=== PATIENT | male | born 1970 | race Caucasian/White ===

== ENCOUNTER 2020-07-11 07:11 | Outpatient (REF) | payer BC, SELFPAY ==
[2020-07-11 08:28] LABS: Alanine Aminotransferase 31 U/L (0-40); Albumin Level 4.6 g/dL (3.5-5.0); Alkaline Phosphatase 82 U/L (39-117); Anion Gap 9 (12-20); Aspartate Amino Transferase 26 U/L (5-37); Bilirubin Total 0.9 mg/dL (0.0-1.0); Blood Urea Nitrogen 12 mg/dL (9-16); Calcium 9.1 mg/dL (8.4-10.2); Carbon Dioxide 31 mmol/L (22-29); Chloride 105 mmol/L (96-108); Cholesterol 194 mg/dL; Estimated Glomerular Filt Rate > 60; Glucose Fasting 100 mg/dL (60-99); HDL Cholesterol 56 mg/dL; LDL Cholesterol Calculated 110 mg/dl; Potassium 4.1 mmol/l (3.3-5.1); Sodium 141 mmol/L (135-145); Total Protein 6.9 g/dL (6.5-8.0); Triglycerides 141 mg/dL
[2020-07-11 08:34] LABS: Free T4 (Free Thyroxine) 0.84 ng/dL (0.71-1.85); Thyroid Stimulating Hormone 2.88 uIU/mL (0.32-4.0)
== END 2020-07-11 07:12 | disposition home or self-care (01) ==
LOC: HO.LAB 07:11
PROVIDERS: Visit Provider Internal Medicine
DX: E78.5 Hyperlipidemia, unspecified (principal); R94.6 Abnormal results of thyroid function studies; E66.3 Overweight
CPT/HCPCS: 80053; 80061; 84439; 84443

== ENCOUNTER 2020-11-09 06:18 | Day surgery (SDC) | payer BC, SELFPAY ==
[2020-11-05 15:36] VITALS: BMI 28.3
--- NOTE | 2020-11-08 10:25 | P.CONAN_ITS ---
Documented by User: Jenny Otto 11/08/20 10:25 HPI - Anesthesia Eval Consult details Narrative: 50yo M for Colonoscopy PMFSH Active Problems Active Problems: All Active Problems (Updated 11/05/20 @ 15:35 by Patsy Gresham) Colon cancer screening (Acute) Urinary hesitancy (Acute) Overweight (BMI 25.0-29.9) (Acute) Elevated TSH (Acute) GERD without esophagitis (Acute) Pure hypercholesterolemia (Acute) Past Medical History Medical History Colon cancer screening Elevated TSH GERD without esophagitis History of COVID-19 Overweight (BMI 25.0-29.9) Pure hypercholesterolemia Tension headache Urinary hesitancy Family History Family History Father Cancer Mother No problems noted. Surgical History Surgical History No pertinent past surgical history [place] teeth removed Social History Social History Are you a primary managed care analyst to a significant other at home: No Do you presently have visiting nurse or other home services: No Alcohol intake: current Alcohol intake frequency: a few times a month Smoking Status: Never smoker Have you been hit, kicked, punched, or otherwise hurt by someone within the past year? If so, by whom?: No Advance Directives: No Advance Directives Information Provided: No Advance Directives on File: No Recently lost weight without trying: No Meds Allergies Allergy/AdvReac Type Severity Reaction Status Date / Time No Known Allergies Allergy Verified 11/05/20 15:35 Home Medications Medication Instructions Recorded Confirmed Last Taken Type qhayiqtinp-ncotmvnroeytg-hmhmpocv 1 tab PO TID PRN tab 08/14/20 11/05/20 Unknown History 50 mg-325 mg-40 mg tablet multivitamin 1 tab PO DAILY 08/14/20 11/05/20 Unknown History Exam Exam Date and Time: November 08, 2020 1025 Height,Weight and Vital Signs: Height 5 ft 8 in Weight 84.368 kg Assessment and Plan Assessment Anesthesia Assessment: Chart Reviewed Documented by User: Tasia Adamson 11/09/20 07:28 [facility] Past Medical History Medical History Colon cancer screening Elevated TSH GERD without esophagitis History of COVID-19 Overweight (BMI 25.0-29.9) Pure hypercholesterolemia Tension headache Urinary hesitancy Family History Family History Father Cancer Mother No problems noted. Surgical History Surgical History No pertinent past surgical history [place] teeth removed Social History Social History Are you a primary managed care analyst to a significant other at home: No Do you presently have visiting nurse or other home services: No Alcohol intake: current Alcohol intake frequency: a few times a month Smoking Status: Never smoker Have you been hit, kicked, punched, or otherwise hurt by someone within the past year? If so, by whom?: No Advance Directives: No Advance Directives Information Provided: No Advance Directives on File: No Recently lost weight without trying: No Meds Allergies Allergy/AdvReac Type Severity Reaction Status Date / Time No Known Allergies Allergy Verified 11/05/20 15:35 Home Medications Medication Instructions Recorded Confirmed Last Taken Type hbmcfxbpvt-hribthumhovfx-vdylbcmb 1 tab PO TID PRN tab 08/14/20 11/05/20 Unknown History 50 mg-325 mg-40 mg tablet multivitamin 1 tab PO DAILY 08/14/20 11/05/20 Unknown History Exam Height,Weight and Vital Signs: Vital Signs Temp Pulse Resp BP Pulse Ox 11/09/20 06:59 78 18 108/66 99 11/09/20 06:56 58 18 119/56 L 99 11/09/20 06:32 97.3 F 94 18 121/76 98 Airway Mallampati Class: III TM Dist: >3cm Neck ROM: Full Heart: RRR Lungs: CTAB Assessment and Plan Assessment Anesthesia Assessment: Anesthesia Plan Discussed and Chart Reviewed Final Anesthetic Review NPO: Yes ASA Class: II Final Preanesthetic Review: No Changes in Pt Med Stat, Meds/Allgs Chart Reviewed, Consent Obtained/Reviewed and Anes Risks/Benef Reviewed Patient Risk: Low Procedure Risk: Low Assessment/Block/Sedation in SS: Assess/Block/Sedation-SS Anesthetic Plan Anesthetic Plan: MAC: Disposition: Standard PACU
[2020-11-09 06:32] VITALS: BP 121/76; PULSE 94; RESP 18; TEMP 36.3; O2SAT 98
[2020-11-09] MEDS: Lactated Ringers 1,000 ML 100 ML IVCONT (06:53)
--- NOTE | 2020-11-09 06:55 | PC.NURSE ---
pt felt dizzy and very warm per pt after iv inserted neuros intact vss pulse was 58 from 94. chexk of vs wnl fluid out wide ls clear pt sts feeling better after 5 mins nsr anesthesia aware
[2020-11-09 06:56] VITALS: BP 119/56; PULSE 58; RESP 18; O2SAT 99
[2020-11-09 06:59] VITALS: BP 108/66; PULSE 78; RESP 18; O2SAT 99
--- NOTE | 2020-11-09 07:22 | MHC.SHP ---
Pre-Procedural Eval Section A The patient is an INPATIENT: No Changes since office visit: No Cold of Flu in the past 2 weeks, No New Medical Problems, No Changes in Medication and No Patient answered all questions The History & Physical has been completed within 30 days and I have reviewed it.: Yes Section B Chief Complaint: screening Allergies: Allergies Allergy/AdvReac Type Severity Reaction Status Date / Time No Known Allergies Allergy Verified 11/05/20 15:35 Plan I have reviewed the history and physical and performed a pertinent physical examination on my patient. No changes have occurred unless specified.
--- NOTE | 2020-11-09 07:55 | PM.OP ---
Brief Operative Note Date of Service: 11/09/20 Pre-op diagnosis: screening Post-op diagnosis: same (colon polyps) Procedure: colonoscopy Surgeon: Tarik Hutchinson Estimated blood loss (mL): 2 Pathology: other (polyps x3) Condition: stable Disposition: PACU
[2020-11-09 07:57] VITALS: BP 94/52; PULSE 68; RESP 16; TEMP 36.2; O2SAT 96
[2020-11-09 08:12] VITALS: BP 95/61; PULSE 61; RESP 16; O2SAT 97
[2020-11-09 08:27] VITALS: BP 105/64; PULSE 69; RESP 18; O2SAT 97
--- NOTE | 2020-11-09 10:21 | OP_ITS ---
SURGEON: Tarik Hutchinson MD INDICATIONS: Colon cancer screening. PREOPERATIVE DIAGNOSIS: POSTOPERATIVE DIAGNOSIS: PROCEDURE PERFORMED: Colonoscopy to the terminal ileum with snare polypectomy and biopsy. ESTIMATED BLOOD LOSS: COMPLICATIONS: ANESTHESIA: ASSISTANTS: SPECIMENS: MEDICATIONS: Monitored anesthesia care. DESCRIPTION OF PROCEDURE: History and physical performed. The risks and benefits of the procedure were explained to the patient. Informed consent was obtained. The patient was placed in left lateral decubitus position. A digital rectal exam was performed and was found to be normal. The Olympus pediatric video colonoscope was introduced into the rectum and advanced to the cecum without difficulty. The cecum was identified by transillumination, palpation, and identification of ileocecal valve. Examination was performed and the scope was removed. He tolerated the procedure well and was taken to recovery area in stable condition. FINDINGS: The terminal ileum was normal. The visualized colonic mucosa was normal. Three polyps were removed. All were less than 10 mm and were removed with combination of snare and biopsy. These were located in the cecum at 65 cm and in the rectum. Retroflexed examination was normal. There was scattered diverticulosis throughout the colon. No other polyps were identified. The quality of the prep was good. IMPRESSION: Colon polyps. RECOMMENDATION: Follow up the biopsy results. MD JOCE Farooq/JOSEL / [id number]
== END 2020-11-09 08:43 | disposition home or self-care (01) ==
PROVIDERS: PCP Internal Medicine; Visit Provider Internal Medicine Gastroenterology
PROC: 0DJD8ZZ Inspection of Lower Intestinal Tract, Via Natural or Artificial Opening Endoscopic (ICD-10-PCS; CPT 45378; principal; 2020-11-09 07:30)
DX: Z12.11 Encounter for screening for malignant neoplasm of colon (principal); K63.5 Polyp of colon; K62.1 Rectal polyp; K57.30 Diverticulosis of large intestine without perforation or abscess without bleeding; K21.9 Gastro-esophageal reflux disease without esophagitis; G44.209 Tension-type headache, unspecified, not intractable; Z86.16 Personal history of COVID-19; Z79.899 Other long term (current) drug therapy
CPT/HCPCS: 45385; 45380; 88305

== ENCOUNTER 2020-12-06 07:04 | Outpatient (REF) | payer BC, SELFPAY ==
[2020-12-06 08:21] LABS: MANUAL DIFF FLAG NO
[2020-12-06 08:31] LABS: Basophils Percent Auto 0.5 % (0-2); Eosinophils Absolute Auto 0.2 X10*3/uL (0.0-0.4); Eosinophils Percent Auto 3.8 % (0-4); Hematocrit 43.6 % (42-52); Hemoglobin 14.5 g/dl (14.0-18.0); Imm Gran Abs Auto 0.02 X10*3/uL (0.00-0.03); Imm Gran Pct Auto 0.4 % (0.0-0.4); Lymphocytes Absolute Auto 1.4 X10*3/uL (1.2-4.9); Lymphocytes Percent Auto 24.2 % (20-40); Mean Corpuscular HGB Conc 33.3 g/dl (31.0-36.0); Mean Corpuscular Volume 87.2 fL (80-98); Monocytes Absolute Auto 0.6 X10*3/uL (0.1-1.2); Monocytes Percent Auto 11.1 % (2-11); Neutrophils Absolute Auto 3.3 X10*3/uL (2.0-8.3); Platelet Count 170 X10*3/uL (160-400); Red Cell Distribution Width 12.5 % (11.0-16.0); White Blood Count 5.6 X10*3/uL (4.8-10.8)
[2020-12-06 08:32] LABS: Glucose Urine UA NEG (NEG); Leukocyte Esterase Urine NEG (NEG); Nitrite Urine NEG (NEG); Urine Blood NEG (NEG); Urine Ketones NEG (NEG); Urine Protein NEG (NEG-TRACE)
[2020-12-06 08:34] LABS: Appearance Urine CLEAR; Color Urine YELLOW
[2020-12-06 09:08] LABS: Alanine Aminotransferase 25 U/L (0-40); Albumin Level 4.4 g/dL (3.5-5.0); Alkaline Phosphatase 85 U/L (39-117); Anion Gap 13 (12-20); Aspartate Amino Transferase 20 U/L (5-37); Bilirubin Total 0.9 mg/dL (0.0-1.0); Blood Urea Nitrogen 10 mg/dL (9-16); Calcium 9.3 mg/dL (8.4-10.2); Carbon Dioxide 26 mmol/L (22-29); Chloride 106 mmol/L (96-108); Cholesterol 152 mg/dL; Estimated Glomerular Filt Rate > 60; Glucose Fasting 93 mg/dL (60-99); HDL Cholesterol 63 mg/dL; LDL Cholesterol Calculated 77 mg/dl; Sodium 141 mmol/L (135-145); Triglycerides 63 mg/dL
[2020-12-06 09:14] LABS: Prostate Specific Antigen 1.25 ng/mL (<0.05-4.0)
== END 2020-12-06 07:05 | disposition home or self-care (01) ==
LOC: HO.LAB 07:04
PROVIDERS: PCP Internal Medicine; Visit Provider Internal Medicine
DX: Z12.5 Encounter for screening for malignant neoplasm of prostate (principal); E66.3 Overweight; E78.00 Pure hypercholesterolemia, unspecified; R79.89 Other specified abnormal findings of blood chemistry; R39.11 Hesitancy of micturition; K21.9 Gastro-esophageal reflux disease without esophagitis
CPT/HCPCS: 36415; 80053; 80061; 81003; 84153; 84443; 85025

== ENCOUNTER 2021-01-14 08:36 | Emergency (ER) | payer BC, SELFPAY ==
[2021-01-14 08:39] VITALS: BP 141/93; PULSE 79; RESP 18; TEMP 36.4; O2SAT 99; BMI 27.3
--- NOTE | 2021-01-14 09:19 | ED_ITS ---
HPI - Back Pain/Injury General Chief Complaint: Back Pain/Injury Stated Complaint: Back pain Time Seen by Provider: 01/14/21 09:19 History of Present Illness HPI Narrative: patient complains of left-sided back pain radiating to the left gluteal area and left thigh for 2 days , pain started when he bended to put on a shoe No numbness no weakness no incontinence no changes to bowel or bladder no fever Related Data Home Medications Medication Instructions Recorded Confirmed iwgysgpwlx-bvnzydsbfamxx-aukryprb 1 tab PO TID PRN tab 08/14/20 12/12/20 50 mg-325 mg-40 mg tablet multivitamin 1 tab PO DAILY 08/14/20 12/12/20 Previous Rx's Medication Instructions Recorded atorvastatin 10 mg tablet 10 mg PO BEDTIME 90 Days #90 tab 08/27/20 acetaminophen 1,000 mg PO QID PRN #30 tab 01/14/21 cyclobenzaprine 5 mg PO TID PRN #14 tab 01/14/21 ibuprofen 600 mg PO Q6H PRN #20 tab 01/14/21 oxycodone 5 mg PO Q6H PRN #14 tab 01/14/21 prednisone 60 mg PO DAILY 3 Days #9 tab 01/14/21 Allergies Allergy/AdvReac Type Severity Reaction Status Date / Time No Known Allergies Allergy Verified 12/12/20 14:16 Review of Systems Review of Systems: positive for back pain Negatives are no fever no chills no dizziness no weakness no fainting no feeling faint no chest pain no neck pain no shortness of breath no abdominal pain no dysuria no changes to bowel or bladder no incontinence no frequency no skin rash Yes all other systems are reviewed and are negative PMFSH Past Medical History Source: nursing notes reviewed Medical History (Updated 01/14/21 @ 09:51 by LA Concepcion) Elevated TSH GERD without esophagitis History of COVID-19 Normal colonoscopy (~11/09/20) Overweight (BMI 25.0-29.9) Pure hypercholesterolemia Tension headache Urinary hesitancy Surgical History (Updated 12/12/20 @ 14:37 by Addi Ferreira MD) [place] teeth removed Family History Family History Father Cancer Mother No problems noted. Social History Social History Are you a primary director of career resources to a significant other at home: No Do you presently have visiting nurse or other home services: No Alcohol intake: current Alcohol intake frequency: a few times a month Patient Tobacco Use Status: Never used Tobacco Advance Directives: No Advance Directives Information Provided: No Physical Exam Vital Signs: Vital Signs: Last Vital Signs Temp 97.5 F 01/14/21 08:39 Pulse 79 01/14/21 08:39 Resp 18 01/14/21 08:39 BP 141/93 H 01/14/21 08:39 Pulse Ox 99 01/14/21 08:39 Body Mass Index 27.3 general appearance no distress Head is normocephalic atraumatic Neck is supple The respiratory no acute distress Abdomen soft nontender Extremities full range of motion x4 The back had left lower lumbar tenderness, skin was normal, no midline or bony tenderness, no CVA tenderness, no rashes redness or wounds on the skin, pain is easily reproduced with movement Skin no rashes Neuro no focal motor or sensory deficits, gait and balance are normal and motor is 5/5 x4 Course Course Course Narrative: patient is treated for musculoskeletal back pain with no neurologic deficit no changes to bowel or bladder no fever Discharge Plan Discharge Clinical Impression: Sciatica Patient Disposition: Home, Self-Care Additional Instructions: we are treating back pain with pain medicine muscle relaxer and steroid prednisone Prednisone sometimes reduces inflammation around the nerve and may be helpful The muscle relaxer and the oxycodone can make you sleepy so use with caution Follow with your doctor if needed Return to the ER any time any worse condition or any concerns Prescriptions: New acetaminophen 500 mg tablet 1,000 mg PO QID PRN (Reason: pain) Qty: 30 RF: 0 cyclobenzaprine 5 mg tablet 5 mg PO TID PRN (Reason: muscle spasm) Qty: 14 RF: 0 oxycodone 5 mg tablet 5 mg PO Q6H PRN (Reason: pain) Qty: 14 RF: 0 prednisone 20 mg tablet 60 mg PO DAILY 3 Days Qty: 9 RF: 0 ibuprofen 600 mg tablet 600 mg PO Q6H PRN (Reason: pain) Qty: 20 RF: 0 No Action atorvastatin 10 mg tablet 10 mg PO BEDTIME 90 Days Qty: 90 RF: 1 kbbfgdgnpe-vykkdvqycjgjp-aucc 50-325-40 mg tablet 1 tab PO TID PRN (Reason: Headache) RF: 0 multivitamin Tablet 1 tab PO DAILY RF: 0 Stand Alone Forms: Work/School Release
[2021-01-14] MEDS: Acetaminophen 325 MG TABLET 975 MG PO (09:56)
[2021-01-14] MEDS: predniSONE 20 MG TABLET 60 MG PO (09:56)
[2021-01-14] MEDS: Ketorolac Tromethamine 30 MG/ML VIAL IM (09:56)
== END 2021-01-14 10:05 | disposition home or self-care (01) ==
PROVIDERS: Emergency Provider Emergency Medicine; PCP Internal Medicine
DX: M54.42 Lumbago with sciatica, left side (principal)
CPT/HCPCS: 96372; 99284; J1885

== ENCOUNTER 2021-04-05 06:56 | Outpatient (REF) | payer BC, SELFPAY ==
[2021-04-05 08:22] LABS: Alanine Aminotransferase 31 U/L (0-40); Albumin Level 4.5 g/dL (3.5-5.0); Alkaline Phosphatase 79 U/L (39-117); Anion Gap 11 (12-20); Aspartate Amino Transferase 26 U/L (5-37); Blood Urea Nitrogen 13 mg/dL (9-16); Calcium 9.8 mg/dL (8.4-10.2); Carbon Dioxide 26 mmol/L (22-29); Chloride 108 mmol/L (96-108); Cholesterol 164 mg/dL; Estimated Glomerular Filt Rate > 60; Glucose Fasting 98 mg/dL (60-99); HDL Cholesterol 55 mg/dL; LDL Cholesterol Calculated 85 mg/dl; Sodium 141 mmol/L (135-145); Triglycerides 120 mg/dL
== END 2021-04-05 06:57 | disposition home or self-care (01) ==
LOC: HO.LAB 06:56
PROVIDERS: PCP Internal Medicine; Visit Provider Internal Medicine
DX: E78.00 Pure hypercholesterolemia, unspecified (principal); E66.3 Overweight
CPT/HCPCS: 36415; 80053; 80061

== ENCOUNTER 2021-07-04 08:02 | Outpatient (REF) | payer BC, SELFPAY ==
[2021-07-04 08:39] LABS: COVID-19 Test Negative (Negative); IDNOW Serial# 16C4AD1C
== END 2021-07-04 08:03 | disposition home or self-care (01) ==
LOC: HO.LAB 08:02
PROVIDERS: Visit Provider Internal Medicine
DX: Z20.822 Contact with and (suspected) exposure to COVID-19 (principal)
CPT/HCPCS: 36415; 87635; C9803

== ENCOUNTER 2021-08-30 07:21 | Outpatient (REF) | payer BC, SELFPAY ==
[2021-08-30 07:40] LABS: MANUAL DIFF FLAG NO
[2021-08-30 08:04] LABS: Basophils Percent Auto 0.7 % (0-2); Eosinophils Absolute Auto 0.6 X10*3/uL (0.0-0.4); Eosinophils Percent Auto 10.3 % (0-4); Hematocrit 44.7 % (42.0-52.0); Hemoglobin 15.1 g/dl (14.0-18.0); Imm Gran Abs Auto 0.01 X10*3/uL (0.00-0.03); Imm Gran Pct Auto 0.2 % (0.0-0.4); Lymphocytes Absolute Auto 1.6 X10*3/uL (1.2-4.9); Lymphocytes Percent Auto 28.1 % (20-40); Mean Corpuscular HGB Conc 33.8 g/dl (31.0-36.0); Mean Corpuscular Hemoglobin 29.2 pg (27.0-33.0); Mean Corpuscular Volume 86.5 fL (80.0-98.0); Mean Platelet Volume 10.4 fL (9.4-12.4); Monocytes Absolute Auto 0.5 X10*3/uL (0.1-1.2); Monocytes Percent Auto 9.6 % (2-11); Neutrophils Absolute Auto 2.9 x10*3/uL (2.0-8.3); Neutrophils Percent Auto 51.1 % (45-73); Platelet Count 187 X10*3/uL (160-400); Red Blood Count 5.17 X10*6/uL (4.60-5.80); Red Cell Distribution Width 12.9 % (11.0-16.0); White Blood Count 5.7 X10*3/uL (4.8-10.8)
[2021-08-30 08:24] LABS: Appearance Urine CLEAR; Color Urine YELLOW; Glucose Urine UA NEG (NEG); Leukocyte Esterase Urine NEG (NEG); Nitrite Urine NEG (NEG); Specific Gravity - Urine 1.015 (1.005-1.025); Urine Blood NEG (NEG); Urine Ketones NEG (NEG); Urine Protein NEG (NEG-TRACE)
[2021-08-30 08:35] LABS: Alanine Aminotransferase 30 U/L (0-40); Albumin Level 4.4 g/dL (3.5-5.0); Alkaline Phosphatase 85 U/L (39-117); Anion Gap 11 (12-20); Aspartate Amino Transferase 29 U/L (5-37); Bilirubin Total 0.9 mg/dL (0.0-1.0); Blood Urea Nitrogen 9 mg/dL (9-16); Calcium 9.5 mg/dL (8.4-10.2); Carbon Dioxide 27 mmol/L (22-29); Chloride 107 mmol/L (96-108); Cholesterol 154 mg/dL; Estimated Glomerular Filt Rate > 60; Glucose Fasting 97 mg/dL (60-99); HDL Cholesterol 50 mg/dL; LDL Cholesterol Calculated 84 mg/dl; Sodium 141 mmol/L (135-145); Total Protein 6.9 g/dL (6.5-8.0); Triglycerides 100 mg/dL
[2021-08-30 08:56] LABS: TSH reflex Free T4 3.41 uIU/mL (0.32-4.0); Vitamin D 25-OH Total 30.6 ng/mL (>30)
== END 2021-08-30 07:22 | disposition home or self-care (01) ==
LOC: HO.LAB 07:21
PROVIDERS: PCP Internal Medicine; Visit Provider Internal Medicine
DX: E78.00 Pure hypercholesterolemia, unspecified (principal); E55.9 Vitamin D deficiency, unspecified; I10 Essential (primary) hypertension
CPT/HCPCS: 36415; 80053; 80061; 81003; 82306; 84443; 85025

== ENCOUNTER 2022-01-03 07:05 | Outpatient (REF) | payer BC, SELFPAY ==
[2022-01-03 07:12] LABS: MANUAL DIFF FLAG NO
[2022-01-03 08:04] LABS: Basophils Percent Auto 0.6 % (0-2); Eosinophils Absolute Auto 0.4 X10*3/uL (0.0-0.4); Hematocrit 43.8 % (42.0-52.0); Hemoglobin 15.1 g/dl (14.0-18.0); Imm Gran Abs Auto 0.04 X10*3/uL (0.00-0.03); Imm Gran Pct Auto 0.6 % (0.0-0.4); Lymphocytes Absolute Auto 1.8 X10*3/uL (1.2-4.9); Lymphocytes Percent Auto 27.6 % (20-40); Mean Corpuscular HGB Conc 34.5 g/dl (31.0-36.0); Mean Corpuscular Hemoglobin 29.4 pg (27.0-33.0); Mean Corpuscular Volume 85.2 fL (80.0-98.0); Mean Platelet Volume 10.7 fL (9.4-12.4); Monocytes Absolute Auto 0.7 X10*3/uL (0.1-1.2); Monocytes Percent Auto 10.3 % (2-11); Neutrophils Absolute Auto 3.5 x10*3/uL (2.0-8.3); Neutrophils Percent Auto 54.9 % (45-73); Platelet Count 197 X10*3/uL (160-400); Red Blood Count 5.14 X10*6/uL (4.60-5.80); Red Cell Distribution Width 12.6 % (11.0-16.0); White Blood Count 6.4 X10*3/uL (4.8-10.8)
[2022-01-03 08:20] LABS: Alanine Aminotransferase 30 U/L (0-40); Albumin Level 4.6 g/dL (3.5-5.0); Alkaline Phosphatase 87 U/L (39-117); Anion Gap 12 (12-20); Aspartate Amino Transferase 25 U/L (5-37); Blood Urea Nitrogen 9 mg/dL (9-16); Calcium 9.3 mg/dL (8.4-10.2); Carbon Dioxide 24 mmol/L (22-29); Chloride 108 mmol/L (96-108); Cholesterol 157 mg/dL; Estimated Glomerular Filt Rate > 60; Glucose Fasting 94 mg/dL (60-99); HDL Cholesterol 54 mg/dL; LDL Cholesterol Calculated 82 mg/dl; Sodium 140 mmol/L (135-145); Total Protein 7.1 g/dL (6.5-8.0); Triglycerides 106 mg/dL
[2022-01-03 08:44] LABS: Prostate Specific Antigen Scr 1.74 ng/mL (<0.05-4.0); Vitamin D 25-OH Total 34.6 ng/mL (>30)
== END 2022-01-03 07:06 | disposition home or self-care (01) ==
LOC: HO.LAB 07:05
PROVIDERS: PCP Internal Medicine; Visit Provider Internal Medicine
DX: Z00.00 Encounter for general adult medical examination without abnormal findings (principal); Z12.5 Encounter for screening for malignant neoplasm of prostate; E78.00 Pure hypercholesterolemia, unspecified; E55.9 Vitamin D deficiency, unspecified
CPT/HCPCS: 36415; 80053; 80061; 82306; 84153; 85025

== ENCOUNTER 2022-05-02 07:01 | Outpatient (REF) | payer BC, SELFPAY ==
[2022-05-02 07:06] LABS: MANUAL DIFF FLAG NO
[2022-05-02 07:45] LABS: Basophils Absolute Auto 0.1 X10*3/uL (0.0-0.2); Basophils Percent Auto 1.1 % (0-2); Eosinophils Absolute Auto 0.2 X10*3/uL (0.0-0.4); Eosinophils Percent Auto 4.7 % (0-4); Hematocrit 44.7 % (42.0-52.0); Hemoglobin 15.3 g/dl (14.0-18.0); Imm Gran Abs Auto 0.01 X10*3/uL (0.00-0.03); Imm Gran Pct Auto 0.2 % (0.0-0.4); Lymphocytes Absolute Auto 1.4 X10*3/uL (1.2-4.9); Lymphocytes Percent Auto 30.6 % (20-40); Mean Corpuscular HGB Conc 34.2 g/dl (31.0-36.0); Mean Corpuscular Hemoglobin 29.4 pg (27.0-33.0); Mean Corpuscular Volume 85.8 fL (80.0-98.0); Mean Platelet Volume 10.6 fL (9.4-12.4); Monocytes Absolute Auto 0.7 X10*3/uL (0.1-1.2); Monocytes Percent Auto 15.4 % (2-11); Neutrophils Absolute Auto 2.1 x10*3/uL (2.0-8.3); Platelet Count 181 X10*3/uL (160-400); Red Blood Count 5.21 X10*6/uL (4.60-5.80); Red Cell Distribution Width 12.5 % (11.0-16.0); White Blood Count 4.5 X10*3/uL (4.8-10.8)
[2022-05-02 07:48] LABS: Appearance Urine Clear; Color Urine Yellow; Glucose Urine UA Negative (Negative); Leukocyte Esterase Urine Negative (Negative); Nitrite Urine Negative (Negative); Specific Gravity - Urine 1.015 (1.005-1.025); Urine Blood Negative (Negative); Urine Ketones Negative (Negative); Urine Protein Negative (Neg-Trace)
[2022-05-02 08:24] LABS: Alanine Aminotransferase 37 U/L (0-40); Albumin Level 4.6 g/dL (3.5-5.0); Alkaline Phosphatase 91 U/L (39-117); Anion Gap 15 (12-20); Aspartate Amino Transferase 31 U/L (5-37); Bilirubin Total 0.8 mg/dL (0.0-1.0); Blood Urea Nitrogen 13 mg/dL (9-16); Calcium 9.9 mg/dL (8.4-10.2); Carbon Dioxide 27 mmol/L (22-29); Chloride 105 mmol/L (96-108); Cholesterol 166 mg/dL; Estimated Glomerular Filt Rate > 60; Glucose Fasting 99 mg/dL (60-99); HDL Cholesterol 55 mg/dL; LDL Cholesterol Calculated 91 mg/dl; Sodium 143 mmol/L (135-145); Total Protein 7.1 g/dL (6.5-8.0); Triglycerides 103 mg/dL
== END 2022-05-02 07:02 | disposition home or self-care (01) ==
LOC: HO.LAB 07:01
PROVIDERS: PCP Internal Medicine; Visit Provider Internal Medicine
DX: E78.00 Pure hypercholesterolemia, unspecified (principal); I10 Essential (primary) hypertension; E55.9 Vitamin D deficiency, unspecified
CPT/HCPCS: 36415; 80053; 80061; 81003; 82306; 85025

== ENCOUNTER 2022-08-29 07:13 | Outpatient (REF) | payer BC, SELFPAY ==
[2022-08-29 08:16] LABS: Alanine Aminotransferase 38 U/L (0-40); Albumin Level 4.5 g/dL (3.5-5.0); Alkaline Phosphatase 92 U/L (39-117); Anion Gap 14 (12-20); Aspartate Amino Transferase 32 U/L (5-37); Bilirubin Total 1.7 mg/dL (0.0-1.0); Blood Urea Nitrogen 11 mg/dL (9-16); Calcium 9.3 mg/dL (8.4-10.2); Carbon Dioxide 25 mmol/L (22-29); Chloride 107 mmol/L (96-108); Cholesterol 162 mg/dL; Estimated Glomerular Filt Rate > 60; Glucose Fasting 96 mg/dL (60-99); HDL Cholesterol 52 mg/dL; LDL Cholesterol Calculated 89 mg/dl; Potassium 3.8 mmol/L (3.3-5.1); Sodium 142 mmol/L (135-145); Total Protein 6.8 g/dL (6.5-8.0); Triglycerides 108 mg/dL
[2022-08-29 08:25] LABS: TSH reflex Free T4 2.95 uIU/mL (0.32-4.0); Vitamin D 25-OH Total 26.9 ng/mL (>30)
== END 2022-08-29 07:14 | disposition home or self-care (01) ==
LOC: HO.LAB 07:13
PROVIDERS: PCP Internal Medicine; Visit Provider Internal Medicine
DX: E78.00 Pure hypercholesterolemia, unspecified (principal); E55.9 Vitamin D deficiency, unspecified
CPT/HCPCS: 36415; 80053; 80061; 82306; 84443

== ENCOUNTER 2023-01-05 07:02 | Outpatient (REF) | payer BC, SELFPAY ==
[2023-01-05 07:14] LABS: MANUAL DIFF FLAG NO
[2023-01-05 07:25] LABS: Basophils Absolute Auto 0.1 X10*3/uL (0.0-0.2); Basophils Percent Auto 0.9 % (0-2); Eosinophils Absolute Auto 0.2 X10*3/uL (0.0-0.4); Eosinophils Percent Auto 3.9 % (0-4); Hematocrit 42.5 % (42.0-52.0); Hemoglobin 14.5 g/dl (14.0-18.0); Imm Gran Abs Auto 0.02 X10*3/uL (0.00-0.03); Imm Gran Pct Auto 0.4 % (0.0-0.4); Lymphocytes Absolute Auto 1.8 X10*3/uL (1.2-4.9); Lymphocytes Percent Auto 33.5 % (20-40); Mean Corpuscular HGB Conc 34.1 g/dl (31.0-36.0); Mean Platelet Volume 10.3 fL (9.4-12.4); Monocytes Absolute Auto 0.4 X10*3/uL (0.1-1.2); Neutrophils Absolute Auto 2.9 x10*3/uL (2.0-8.3); Neutrophils Percent Auto 53.3 % (45-73); Platelet Count 210 X10*3/uL (160-400); Red Cell Distribution Width 12.7 % (11.0-16.0); White Blood Count 5.4 X10*3/uL (4.8-10.8)
[2023-01-05 08:18] LABS: Alanine Aminotransferase 27 U/L (0-40); Albumin Level 4.3 g/dL (3.5-5.0); Alkaline Phosphatase 79 U/L (39-117); Anion Gap 11 (12-20); Aspartate Amino Transferase 23 U/L (5-37); Bilirubin Total 0.7 mg/dL (0.0-1.0); Blood Urea Nitrogen 11 mg/dL (9-16); Calcium 9.5 mg/dL (8.4-10.2); Carbon Dioxide 27 mmol/L (22-29); Chloride 108 mmol/L (96-108); Cholesterol 156 mg/dL; Estimated Glomerular Filt Rate > 60; Glucose Fasting 96 mg/dL (60-99); HDL Cholesterol 50 mg/dL; LDL Cholesterol Calculated 87 mg/dl; Sodium 142 mmol/L (135-145); Total Protein 6.7 g/dL (6.5-8.0); Triglycerides 98 mg/dL
[2023-01-05 08:22] LABS: TSH reflex Free T4 3.22 uIU/mL (0.32-4.0); Vitamin D 25-OH Total 49.7 ng/mL (>30)
[2023-01-05 08:27] LABS: Appearance Urine Clear; Color Urine Yellow; Glucose Urine UA Negative (Negative); Leukocyte Esterase Urine Negative (Negative); Nitrite Urine Negative (Negative); PH 6.5 (5.0-9.0); Urine Blood Negative (Negative); Urine Ketones Negative (Negative); Urine Protein Negative (Neg-Trace)
== END 2023-01-05 07:03 | disposition home or self-care (01) ==
LOC: HO.LAB 07:02
PROVIDERS: PCP Internal Medicine; Visit Provider Internal Medicine
DX: Z00.00 Encounter for general adult medical examination without abnormal findings (principal); Z12.5 Encounter for screening for malignant neoplasm of prostate; E55.9 Vitamin D deficiency, unspecified; R30.0 Dysuria; E78.00 Pure hypercholesterolemia, unspecified
CPT/HCPCS: 36415; 80053; 80061; 81003; 82306; 84153; 84443; 85025

== ENCOUNTER 2023-03-06 14:00 | Outpatient (AMB) | payer BC, SELFPAY ==
--- NOTE | 2023-03-06 12:34 | MHC.OFFVIS ---
Intake Intake Visit Reasons: Hesitancy of micturition Intake Note: EW Patient presents today to established treatment for Hesitancy of Micturition: Meds- None Allergies to Antibiotic- No Known Allergies Blood Thinner- None PVR- 481 mL Printer Machine Required: No Accompanied by: Self / Same As Patient Allergies No Known Allergies Allergy (Verified 03/06/23 14:05) HPI HPI Comments History of Present Illness Details Eric is a 52-year-old male who presents today to the office to establish as a new patient for an evaluation of hesitancy of micturition. 03/06/2023? Eric is present today for hesitancy of micturition. He mentions having intermittent urinary frequency, and weak urinary stream. He states that his father has had a history of prostate cancer. He was diagnosed at the age of early 60s. He denies any family history of colon cancer. He states that he had 2 brothers, one is younger, and the other one is older. He is taking Atorvastatin for hypercholesterolemia. AUA - 31 I reviewed the PSA results from 01/05/2023 revealed 2.40 ng/mL. UA- leuk neg, blood neg PVR- 481 mL Plan: Incomplete bladder emptying. Will monitor closely. Flomax 0.4 mg daily was ordered. Discussed side effect does include retrograde ejaculation, stuffy nose and dizziness. US of the renal and bladder were ordered. Follow-up in 4 months, PSA screening prior to the follow-up. [facility] Medical History Elevated TSH GERD without esophagitis History of COVID-19 Normal colonoscopy (~11/09/20) Overweight (BMI 25.0-29.9) Pure hypercholesterolemia Tension headache Urinary hesitancy Surgical History History of colonoscopy [place] teeth removed Family History Father Cancer Mother No problems noted. Social History Housing: House Are you a primary floor care specialist to a significant other at home: No Do you presently have visiting nurse or other home services: No Alcohol intake: current Alcohol intake frequency: a few times a month Patient Tobacco Use Status: Never used Tobacco e-Cigarette/Vaping Use: Never Used Second Hand Smoke Exposure: Yes service: No Current occupational status: employed Cognitive needs: No Hearing needs: No Vision needs: Yes Questionnaire AUA Symptom Score AUA Incomplete emptying - It does not feel like I empty my bladder all the way.: 5 - Almost always Frequency - I have to go again less than two hours after I finish urinating.: 5 - Almost always Intermittency - I stop and start again several times when I urinate.: 5 - Almost always Urgency - It is hard to wait when I have to urinate.: 5 - Almost always Weak stream - I have a weak urinary stream.: 5 - Almost always Straining - I have to push or strain to begin urination.: 5 - Almost always Nocturia - I get up to urinate after I go to bed until the time I get up in the morning.: 1 time AUA Symptom Score: 31 Quality of life due to urinary symptoms: If you were to spend the rest of your life with your urinary condition the way it is now, how would you feel about that?: Mixed: about equally satisfied and dissatisfied Source: Domenico LESTER, Kierra RAI Jr, O'Starbuck MP, et al, and the Measurement Committee of the [employer] [place] [employer]. The [place] [employer] symptom index for benign prostatic hyperplasia. J Urol. 1992; 148: 6614-2437. Copyright 1992 [employer] [place] [employer] Review of Systems Const All systems reviewed & are unremarkable except as noted in HPI and below Reports no additional complaints Eyes Reports no additional complaints ENT Reports no additional complaints Card Denies dyspnea Resp Denies cough and Denies dyspnea GI Reports no additional complaints Musc Reports no additional complaints Skin/Breast Denies rash and Denies unusual bruising Neuro Reports no additional complaints Psych Reports no additional complaints Endo Reports no additional complaints Chris/Lymph Reports no additional complaints Aller/Immun Reports no additional complaints Physical Exam Const General: healthy appearing, no acute distress and well developed Orientation/consciousness: patient oriented x3 HEENT Head: Yes normocephalic and Yes atraumatic Eyes Conjunctivae: conjunctivae normal Neck Neck: Yes normal visual inspection Chest Chest palpation & inspection: normal inspection of the chest Resp Effort & Inspection: normal respiratory effort Cardio Rate: regular rate GI Inspection: Yes normal to inspection Palpation (GI): Soft to palpation Other: Prostate Exam: Penis: normal penis Scrotum: scrotum normal Skin General skin exam: no rashes or lesions noted Neuro General: patient oriented x3 Extrem General: No pedal edema Psych Appearance: grossly normal Affect: normal affect Office Procedures Post Void Residual Post Residual Void Post Void Residual (PVR): 481 [id number] Void Residual by ultrasound Results AMB Urinalysis, Automated UA Leukoctes 0 Melecio/uL Last Edit by Mala Yoder CMA on 03/06/23 14:20 UA Nitrite Negative Last Edit by Mala Yoder, SHARON on 03/06/23 14:20 UA Urobilinogen 0.2 mg/dL Last Edit by Mala Yoder, SHARON on 03/06/23 14:20 UA Protein 0 mg/dL Last Edit by Mala Yoder, SHARON on 03/06/23 14:20 UA pH 6.5 Last Edit by Mala Yoder, SHARON on 03/06/23 14:20 UA Blood 0 Raffy/uL Last Edit by Mala Yoder, SHARON on 03/06/23 14:20 UA Specific [place] 1.010 Last Edit by Mala Yoder, SHARON on 03/06/23 14:20 UA Ketone Negative Last Edit by Mala Yoder, SHARON on 03/06/23 14:20 UA Bilirubin 0 mg/dL Last Edit by Mala Yoder, SHARON on 03/06/23 14:20 UA Glucose 0 mg/dL Last Edit by Mala Yoder CMA on 03/06/23 14:20 Results Reviewed Results Reviewed: Laboratory Last Values Urine pH (Auto) 6.5 03/06/23 14:17 Specific [place] (Auto) 1.010 03/06/23 14:17 Urine Protein (Auto) 0 mg/dL 03/06/23 14:17 Glucose (UA)(Auto) 0 mg/dL 03/06/23 14:17 Urine Ketones (Auto) Negative 03/06/23 14:17 Urine Blood (Auto) 0 Raffy/uL 03/06/23 14:17 Urine Nitrite (Auto) Negative 03/06/23 14:17 Urine Bilirubin (Auto) 0 mg/dL 03/06/23 14:17 Urine Urobilinogen (Auto) 0.2 mg/dL 03/06/23 14:17 Leukocyte Esterase (Auto) 0 Melecio/uL 03/06/23 14:17 Assessment & Plan Assessment & Plan (1) Weak urinary stream: Code(s): R39.12 - Poor urinary stream (2) BPH loc w urin obs/LUTS: Code(s): N40.1 - Benign prostatic hyperplasia with lower urinary tract symptoms (3) Family history of prostate cancer in father: Code(s): Z80.42 - Family history of malignant neoplasm of prostate (4) Incomplete bladder emptying: Code(s): R33.9 - Retention of urine, unspecified Plan Incomplete bladder emptying. Will monitor Flomax 0.4 mg daily was ordered. Discussed side effect does include retrograde ejaculation, stuffy nose and dizziness. US of the renal and bladder were ordered. Follow-up in 4 months, PSA screening prior to the follow-up. Orders: Orders US retroperitoneal comp 03/06/23 R33.9 - Retention of urine, unspecified, R39.12 - Poor urinary stream PSA,Total (Free>4and<10) 4 Months N40.1 - Benign prostatic hyperplasia with lower urinary tract symptoms, Z80.42 - Family history of malignant neoplasm of prostate AMB Urinalysis Automated 03/06/23 N39.0 - Urinary tract infection, site not specified, A49.9 - Bacterial infection, unspecified AMB Post Void Residual by ultrasound 03/06/23 R39.11 - Hesitancy of micturition Patient Instructions: The patient had an opportunity to ask questions regarding treatment plan. All questions were answered. Imaging, Laboratory studies and physical exam results were discussed and reviewed in detail. No major barriers to understanding were identified. The patient expressed understanding and agreement with the above treatment plan.? ? ? The patient is aware they should contact our office by phone for worsening of their current condition or the appearance of new symptoms. Compliance is encouraged with any medications and followup testing that is ordered.? ? ? It is a privilege to be allowed the opportunity to participate in the urologic care of your patient. If you have any questions or concerns regarding treatment for the above conditions please do not hesitate to contact me. The office telephone contact is [phone].? ? ? This note is constructed in part using voice recognition software. While every effort has been made to ensure accuracy cooker tender errors may have been included.? ? ? Yours sincerely,? ? ? Raz Case MD? Quality Reporting (2019) Benign Prostatic Hyperplasia ([facility] 771) AUA symptom score: 31 Quality of life due to urinary symptoms: If you were to spend the rest of your life with your urinary condition the way it is now, how would you feel about that?: Mixed: about equally satisfied and dissatisfied Coding Level of Care Code New Pt Level 4 (64674) Diagnoses Weak urinary stream R39.12 BPH loc w urin obs/LUTS N40.1 Family history of prostate cancer in father Z80.42 Incomplete bladder emptying R33.9 CPT Codes Post Residual Void - PVR CPT Code: 33191-Rmva Void Residual by ultrasound ([id number])
== END 2023-03-06 14:50 | disposition home or self-care (01) ==
PROVIDERS: PCP Internal Medicine; Referring Provider Internal Medicine; Visit Provider Urology
DX: N40.1 Benign prostatic hyperplasia with lower urinary tract symptoms (principal); R39.12 Poor urinary stream; R33.9 Retention of urine, unspecified; Z80.42 Family history of malignant neoplasm of prostate
CPT/HCPCS: 99204

== ENCOUNTER → 2023-03-06 14:00 | Outpatient (BNVA) | payer BC, SELFPAY | PROVIDERS: PCP Internal Medicine; Referring Provider Internal Medicine; Visit Provider Urology | DX: N40.1 Benign prostatic hyperplasia with lower urinary tract symptoms (principal); R39.12 Poor urinary stream; R33.8 Other retention of urine; Z80.42 Family history of malignant neoplasm of prostate | CPT/HCPCS: 51798; 81003; 99202 ==

== ENCOUNTER 2023-04-21 09:53 | Outpatient (REF) | payer BC, SELFPAY ==
--- NOTE | ~2023-04-21 | US_ITS ---
EXAMINATION: US RETROPERITONEAL COMPLETE (RENAL) CLINICAL INFORMATION: Retention of urine, unspecified. COMPARISON: None available. TECHNIQUE: Real-time imaging of the kidneys and bladder. FINDINGS: RIGHT KIDNEY: 11.8 x 4.9 x 5.4 cm (SAG x AP x TRV). The kidney is normal in size, contour, and echogenicity. Renal cortical thickness is normal. No calculi or focal parenchymal lesions. No hydronephrosis. LEFT KIDNEY: 10.6 x 5.7 x 5.9 cm (SAG x AP x TRV). The kidney is normal in size, contour, and echogenicity. Renal cortical thickness is normal. No calculi or focal parenchymal lesions. No hydronephrosis. BLADDER: Distended. Bilateral ureteral jets are demonstrated. Prevoid bladder volume is 680 mL. Postvoid bladder volume is 501 mL. ADDITIONAL FINDINGS: The prostate measures 4.5 x 4.5 x 4.1 cm for a volume of 49 mL. US/US retroperitoneal comp IMPRESSION: Urinary retention with large postvoid residual bladder volume.
== END 2023-04-21 09:54 | disposition home or self-care (01) ==
LOC: HO.US 09:53
PROVIDERS: Visit Provider Urology
DX: R33.9 Retention of urine, unspecified (principal); R39.12 Poor urinary stream
CPT/HCPCS: 76770

== ENCOUNTER 2023-04-27 11:32 | Outpatient (AMB) | payer BC, SELFPAY ==
--- NOTE | 2023-04-27 11:40 | A.OFFVIS_ITS ---
Intake Intake Visit Reasons: 2m/US/PSA Intake Note: Patient presents today for a follow-up on US & PSA Results: US completed on 04/21/2023 Meds- Tamsulsin Allergies to Antibiotic- No Known Allergies Blood Thinner- None PSA- 2.40 ng/mL, 01/05/2023 PVR- 645 mL Modeling Analyst Required: No Accompanied by: Self / Same As Patient Allergies No Known Allergies Allergy (Verified 03/06/23 14:05) Medication List - Last Reconciled 04/27/23 by Raz Case MD atorvastatin 10 mg PO BEDTIME wymiqxfxxk-vmezyycwacakt-pyye 50-325-40 mg 1 tab PO TID PRN 30 days imiquimod 5% 1 appl topical 3XW 60 days multivitamin 1 tab PO DAILY tamsulosin 0.4 mg PO BEDTIME 90 days HPI HPI Comments History of Present Illness Details Eric is a 52-year-old male who presents today to the office for a follow-up. 04/27/23? He is followed today for US results and PSA. He was initially seen by me on 03/06/23 for hesitancy of micturition. Significant findings on exam - Large PVR. Flomax 0.4 mg daily was ordered, and US of the renal and bladder were ordered during that time. I reviewed the retroperitoneum US results from 04/21/23 No hydronephrosis or parencyhmal lesions noted. Prevoid bladder volume was 680 mL, and Post void bladder volume was 501 mL. Estimated prostate volume of 49 mL I reviewed the PSA results from 01/05/2023 revealed 2.40 ng/mL Evaluation today- Bladder scan PVR 647; UA - Negative (pt voided another 125 mL urine) In discussion with the patient today, I have discussed that he had incomplete bladder emptying, the reason for his problem may include bladder muscle being ineffective and decreased bladder contractility versus outlet obstruction. The patient states that he has a 'shy' bladder. Review of charts: Last visit: 03/06/2023? Eric is present today for hesitancy of micturition. He mentions having intermittent urinary frequency, and weak urinary stream. AUA - 31 He states that his father has had a history of prostate cancer. He was diagnosed at the age of early 60s. He denies any family history of colon cancer. He states that he had 2 brothers, one is younger, and the other one is older. He is taking Atorvastatin for hypercholesterolemia.?.? PSA results from 01/05/2023 revealed 2.40 ng/mLUA- leuk neg, blood neg PVR- 481 mL? 04/27/23: Plan: Incomplete bladder emptying.? Will monitor closely. Increase Flomax 0.4 mg to Bid. Discussed further evaluation with cysto and UDS, pt declines at this time. FU in 6-8 weeks for bladder scan PVR PFSH Medical History Normal colonoscopy (~11/09/20) History of COVID-19 Tension headache Urinary hesitancy Overweight (BMI 25.0-29.9) Elevated TSH GERD without esophagitis Pure hypercholesterolemia Surgical History History of colonoscopy [place] teeth removed Family History Father Cancer Mother No problems noted. Social History Housing: House Are you a primary managed care provider to a significant other at home: No Do you presently have visiting nurse or other home services: No Alcohol intake: current Alcohol intake frequency: a few times a month Patient Tobacco Use Status: Never used Tobacco e-Cigarette/Vaping Use: Never Used Second Hand Smoke Exposure: Yes service: No Current occupational status: employed Cognitive needs: No Hearing needs: No Vision needs: Yes Review of Systems Const All systems reviewed & are unremarkable except as noted in HPI and below Reports no additional complaints Eyes Reports no additional complaints ENT Reports no additional complaints Card Denies dyspnea Resp Denies cough and Denies dyspnea GI Reports no additional complaints Musc Reports no additional complaints Skin/Breast Denies rash and Denies unusual bruising Neuro Reports no additional complaints Psych Reports no additional complaints Endo Reports no additional complaints Chris/Lymph Reports no additional complaints Aller/Immun Reports no additional complaints Physical Exam Const General: healthy appearing, no acute distress and well developed Orientation/consciousness: patient oriented x3 HEENT Head: Yes normocephalic and Yes atraumatic Eyes Conjunctivae: conjunctivae normal Neck Neck: Yes normal visual inspection Chest Chest palpation & inspection: normal inspection of the chest Resp Effort & Inspection: normal respiratory effort Cardio Rate: regular rate GI Inspection: Yes normal to inspection Palpation (GI): Soft to palpation Skin General skin exam: no rashes or lesions noted Neuro General: patient oriented x3 Extrem General: No pedal edema Psych Appearance: grossly normal Affect: normal affect Office Procedures Post Void Residual Post Residual Void Post Void Residual (PVR): [id number] Void Residual by ultrasound Results AMB Urinalysis, Automated UA Leukoctes 0 Melecio/uL Last Edit by STARLA Villagomez on 04/27/23 12:00 UA Nitrite Negative Last Edit by STARLA Villagomez on 04/27/23 12:00 UA Urobilinogen 0.2 mg/dL Last Edit by STARLA Villagomez on 04/27/23 12:0 0 UA Protein 0 mg/dL Last Edit by STARLA Villagomez on 04/27/23 12:00 UA pH 6.5 Last Edit by STARLA Villagomez on 04/27/23 12:00 UA Blood 0 Raffy/uL Last Edit by Kaitlin Potts Noe on 04/27/23 12:00 UA Specific [place] 1.010 Last Edit by STARLA Villagomez on 04/27/23 12: 00 UA Ketone Negative Last Edit by STARLA Villagomez on 04/27/23 12:00 UA Bilirubin 0 mg/dL Last Edit by STARLA Villagomez on 04/27/23 12:00 UA Glucose 0 mg/dL Last Edit by STARLA Villagomez on 04/27/23 12:00 Results Reviewed Results Reviewed: Laboratory Last Values Urine pH (Auto) 6.5 04/27/23 11:49 Specific [place] (Auto) 1.010 04/27/23 11:49 Urine Protein (Auto) 0 mg/dL 04/27/23 11:49 Glucose (UA)(Auto) 0 mg/dL 04/27/23 11:49 Urine Ketones (Auto) Negative 04/27/23 11:49 Urine Blood (Auto) 0 Raffy/uL 04/27/23 11:49 Urine Nitrite (Auto) Negative 04/27/23 11:49 Urine Bilirubin (Auto) 0 mg/dL 04/27/23 11:49 Urine Urobilinogen (Auto) 0.2 mg/dL 04/27/23 11:49 Leukocyte Esterase (Auto) 0 Melecio/uL 04/27/23 11:49 Date of Service: 04/21/23 EXAMINATION:? US RETROPERITONEAL COMPLETE (RENAL) CLINICAL INFORMATION: Retention of urine, unspecified. COMPARISON:? None available. FINDINGS: RIGHT KIDNEY: 11.8 x 4.9 x 5.4 cm (SAG x AP x TRV). The kidney is normal in size, contour, and echogenicity. Renal cortical thickness is normal. No calculi or focal parenchymal lesions. No hydronephrosis. LEFT KIDNEY: 10.6 x 5.7 x 5.9 cm (SAG x AP x TRV). The kidney is normal in size, contour, and echogenicity. Renal cortical thickness is normal. No calculi or focal parenchymal lesions. No hydronephrosis. BLADDER: Distended. Bilateral ureteral jets are demonstrated. Prevoid bladder volume is 680 mL. Postvoid bladder volume is 501 mL. ADDITIONAL FINDINGS: The prostate measures 4.5 x 4.5 x 4.1 cm for a volume of 49 mL. IMPRESSION:? Urinary retention with large postvoid residual bladder volume. Assessment & Plan Assessment & Plan (1) Weak urinary stream: Code(s): R39.12 - Poor urinary stream (2) BPH loc w urin obs/LUTS: Code(s): N40.1 - Benign prostatic hyperplasia with lower urinary tract symptoms (3) Family history of prostate cancer in father: Code(s): Z80.42 - Family history of malignant neoplasm of prostate (4) Incomplete bladder emptying: Code(s): R33.9 - Retention of urine, unspecified Orders: Orders AMB Urinalysis Automated Today Z13.9 - Encounter for screening, unspecified AMB Post Void Residual by ultrasound Today N39.8 - Other specified disorders of urinary system Medications: Changed From tamsulosin 0.4 mg PO BEDTIME 90 days 90 caps 1RF To tamsulosin 0.4 mg PO BID 180 caps 1RF 90 days Patient Instructions: The patient had an opportunity to ask questions regarding treatment plan. All questions were answered. Imaging, Laboratory studies and physical exam results were discussed and reviewed in detail. No major barriers to understanding were identified. The patient expressed understanding and agreement with the above treatment plan.? ? ? The patient is aware they should contact our office by phone for worsening of their current condition or the appearance of new symptoms. Compliance is encouraged with any medications and followup testing that is ordered.? ? ? It is a privilege to be allowed the opportunity to participate in the urologic care of your patient. If you have any questions or concerns regarding treatment for the above conditions please do not hesitate to contact me. The office telephone contact is [phone].? ? ? This note is constructed in part using voice recognition software. While every effort has been made to ensure accuracy currency exchange specialist errors may have been included.? ? ? Yours sincerely,? ? ? aRz Case MD? Coding Level of Care Code Est Pt Level 4 (64883) Diagnoses Weak urinary stream R39.12 BPH loc w urin obs/LUTS N40.1 Family history of prostate cancer in father Z80.42 Incomplete bladder emptying R33.9 CPT Codes Post Residual Void - PVR CPT Code: 49523-Tphg Void Residual by ultrasound ([id number])
== END 2023-04-27 12:39 | disposition home or self-care (01) ==
PROVIDERS: PCP Internal Medicine; Visit Provider Urology
DX: N40.1 Benign prostatic hyperplasia with lower urinary tract symptoms (principal); R39.12 Poor urinary stream; Z80.42 Family history of malignant neoplasm of prostate; R33.9 Retention of urine, unspecified; Z13.9 Encounter for screening, unspecified
CPT/HCPCS: 99214

== ENCOUNTER → 2023-04-27 11:32 | Outpatient (BNVA) | payer BC, SELFPAY | PROVIDERS: PCP Internal Medicine; Visit Provider Urology | DX: N40.1 Benign prostatic hyperplasia with lower urinary tract symptoms (principal); N13.8 Other obstructive and reflux uropathy; R33.8 Other retention of urine; R39.12 Poor urinary stream; Z79.899 Other long term (current) drug therapy; Z80.42 Family history of malignant neoplasm of prostate | CPT/HCPCS: 51798; 81003 ==

== ENCOUNTER 2023-05-08 07:05 | Outpatient (REF) | payer BC, SELFPAY ==
[2023-05-08 07:16] LABS: MANUAL DIFF FLAG NO
[2023-05-08 08:15] LABS: Basophils Absolute Auto 0.1 X10*3/uL (0.0-0.2); Eosinophils Absolute Auto 0.2 X10*3/uL (0.0-0.4); Eosinophils Percent Auto 3.4 % (0-4); Hemoglobin 15.3 g/dl (14.0-18.0); Imm Gran Abs Auto 0.01 X10*3/uL (0.00-0.03); Imm Gran Pct Auto 0.2 % (0.0-0.4); Lymphocytes Absolute Auto 1.6 X10*3/uL (1.2-4.9); Lymphocytes Percent Auto 31.7 % (20-40); Mean Corpuscular HGB Conc 34.8 g/dl (31.0-36.0); Mean Corpuscular Hemoglobin 29.8 pg (27.0-33.0); Mean Corpuscular Volume 85.6 fL (80.0-98.0); Mean Platelet Volume 10.2 fL (9.4-12.4); Monocytes Absolute Auto 0.5 X10*3/uL (0.1-1.2); Monocytes Percent Auto 10.8 % (2-11); Neutrophils Absolute Auto 2.7 x10*3/uL (2.0-8.3); Neutrophils Percent Auto 52.9 % (45-73); Platelet Count 179 X10*3/uL (160-400); Red Blood Count 5.14 X10*6/uL (4.60-5.80); Red Cell Distribution Width 12.4 % (11.0-16.0)
[2023-05-08 08:28] LABS: Appearance Urine Clear; Color Urine Yellow; Glucose Urine UA Negative (Negative); Leukocyte Esterase Urine Negative (Negative); Nitrite Urine Negative (Negative); PH 6.5 (5.0-9.0); Specific Gravity - Urine 1.015 (1.005-1.025); Urine Blood Negative (Negative); Urine Ketones Negative (Negative); Urine Protein Negative (Neg-Trace)
[2023-05-08 08:56] LABS: Alanine Aminotransferase 32 U/L (0-40); Albumin Level 4.4 g/dL (3.5-5.0); Alkaline Phosphatase 80 U/L (39-117); Anion Gap 12 (12-20); Aspartate Amino Transferase 26 U/L (5-37); Bilirubin Total 1.1 mg/dL (0.0-1.0); Blood Urea Nitrogen 13 mg/dL (9-16); Calcium 9.7 mg/dL (8.4-10.2); Carbon Dioxide 25 mmol/L (22-29); Chloride 107 mmol/L (96-108); Cholesterol 152 mg/dL (<200); Estimated Glomerular Filt Rate > 60; Glucose Fasting 94 mg/dL (60-99); HDL Cholesterol 52 mg/dL (>40); LDL Cholesterol Calculated 79 mg/dL (<100); Potassium 3.7 mmol/L (3.3-5.1); Sodium 140 mmol/L (135-145); Triglycerides 106 mg/dL (<150)
[2023-05-08 09:04] LABS: TSH reflex Free T4 3.03 uIU/mL (0.32-4.0); Vitamin D 25-OH Total 53.2 ng/mL (>30)
== END 2023-05-08 07:06 | disposition home or self-care (01) ==
LOC: HO.LAB 07:05
PROVIDERS: PCP Internal Medicine; Visit Provider Internal Medicine
DX: R30.0 Dysuria (principal); I10 Essential (primary) hypertension; E55.9 Vitamin D deficiency, unspecified; E78.00 Pure hypercholesterolemia, unspecified
CPT/HCPCS: 36415; 80053; 80061; 81003; 82306; 84443; 85025

== ENCOUNTER 2023-05-12 15:22 | Outpatient (AMB) | payer BC, SELFPAY ==
--- NOTE | 2023-05-12 15:30 | MHC.PC.OV ---
Vital Signs 05/12/23 15:31 Height 5 ft 7 in Weight 187 lb BMI 29.3 BP 112/80 Blood Pressure Location Lt brachial Position Sitting Pulse 88 Pulse Source Pulse Oximeter Pulse Oximetry (%) 99 Oxygen Delivery Method Room Air Intake Visit Reasons: hyperlipidemia, GERD, BPH Intake Note: Patient here for a follow up GERD, BPH, Hyperlipidemia Steam Press Tender Required: No Accompanied by: Self / Same As Patient Allergies No Known Allergies Allergy (Verified 05/12/23 15:46) Medication List - Last Reconciled 05/12/23 by Addi Ferreira MD atorvastatin 10 mg PO BEDTIME yqsorfrswv-mfalrnnevgxkg-jcyj 50-325-40 mg 1 tab PO TID PRN 30 days imiquimod 5% 1 appl topical 3XW 60 days multivitamin 1 tab PO DAILY tamsulosin 0.4 mg PO BID 90 days Tobacco use date assessed: 05/12/23 Dental Screening Dental Screen Date: 05/12/23 Did you have a dental visit in the last 12 months?: Yes Did you have a dental problem in the last 6 months where you did not have access to dental care?: No Was dental information given to patient?: Patient has dentist HPI hyperlipidemia, GERD, BPH HPI Details Patient comes in today for his follow up visit States that he feels okay He denies any headaches or dizziness Denies any chest pains, no SOB No nausea/vomiting, no abdominal pain No change in bowel habits noted Needs his Metronidazole topical gel 0.75% Rx refilled Had his follow up labs done a few days ago - to discuss his results [facility] Medical History Normal colonoscopy (~11/09/20) History of COVID-19 Tension headache Urinary hesitancy Overweight (BMI 25.0-29.9) Elevated TSH GERD without esophagitis Pure hypercholesterolemia Surgical History History of colonoscopy [place] teeth removed Family History Father Cancer Mother No problems noted. Social History Housing: House Are you a primary transitions rn care coordinator to a significant other at home: No Do you presently have visiting nurse or other home services: No Alcohol intake: current Alcohol intake frequency: a few times a month Patient Tobacco Use Status: Never used Tobacco e-Cigarette/Vaping Use: Never Used Second Hand Smoke Exposure: Yes service: No Current occupational status: employed Current occupational exposures/hazards: No Cognitive needs: No Hearing needs: No Vision needs: Yes Questionnaire Thrive Questionnaire Date Thrive assessed: 01/07/23 TIEN-7 AMB Questionnaire TIEN-7 Date TIEN - 7 assessed: 01/07/23 Source: Developed by Drs. Baljinder Carlson, Cierra Tan, Ryland Padron and colleagues, with an educational maryann from [employer]. Review of Systems Const Denies chills, Denies fatigue, Denies fever(s) and Denies headache(s) ENT Denies dysphagia, Denies dizziness, Denies otalgia, Denies headache(s), Denies neck pain, Denies odynophagia and Denies sore throat Card Denies chest pain, Denies rapid heart rate, Denies irregular heart rhythm, Denies palpitations and Denies dyspnea Resp Denies cough and Denies dyspnea GI Denies abdominal pain, Denies constipation, Denies dysphagia, Denies heartburn, Denies diarrhea, Denies nausea, Denies odynophagia and Denies vomiting Reports oliguria, Denies difficulty urinating, Denies dysuria, Denies urinary frequency and Reports urinary hesitancy (at times) Musc Denies back pain, Denies arthralgias and Denies neck pain Skin/Breast Denies rash Neuro Denies dizziness, Denies headache(s) and Denies paresthesias Endo Denies fatigue and Denies palpitations Physical exam (Primary Care) Vital Signs: Last Vital Signs Pulse 88 05/12/23 15:31 BP 112/80 05/12/23 15:31 Pulse Ox 99 05/12/23 15:31 Oxygen Delivery Method Room Air 05/12/23 15:31 BMI result Body Mass Index 29.3 Tobacco/Smoking Status: Tobacco use Status Tobacco use date assessed 05/12/23 05/12/23 15:32 Patient Tobacco Use Status Never used Tobacco 05/12/23 15:32 e-Cigarette/Vaping Use Never Used 05/12/23 15:32 Thrive Assessment: Date of Thrive Assessment Date Thrive assessed 01/07/23 05/12/23 15:32 Const General: no acute distress and alert HENMT Ears: TM's normal bilaterally and EAC's normal Throat: Yes posterior oropharynx normal and Yes tonsils normal (no TP congestion) Neck Neck: Yes no lymphadenopathy and Yes supple Thyroid: Thyroid normal Resp Auscultation: clear to auscultation bilaterally, no rales and no wheezes Cardio Rate: regular rate Rhythm: regular rhythm Heart sounds: no murmurs GI Palpation (GI): Soft to palpation and nontender Auscultation: normal bowel sounds General: Yes no CVA tenderness Back/Spine/Pelvis Back: no CVA tenderness Skin Rashes: no rashes Extrem General: Yes no clubbing, cyanosis or edema Results Reviewed Results Reviewed: Laboratory Tests 05/08/23 07:14 WBC 5.0 Hgb 15.3 Hct 44.0 Plt Count 179 Sodium 140 Potassium 3.7 Creatinine 0.83 Estimated GFR > 60 Fasting Glucose 94 Calcium 9.7 AST 26 ALT 32 Triglycerides 106 Cholesterol 152 LDL Cholesterol, Calc 79 HDL Cholesterol 52 25-OH Vitamin D Total 53.2 TSH 3.03 Urine pH 6.5 Ur Specific [place] 1.015 Urine Protein Negative Urine Glucose (UA) Negative Urine Blood Negative Assessment and Plan Assessment & Plan (1) Pure hypercholesterolemia: Code(s): E78.00 - Pure hypercholesterolemia, unspecified Plan: Results of his labs done a few days ago reviewed and discussed with patient Reinforced low cholesterol diet Continue Atorvastatin 10 mg QD Will recheck his labs and fasting lipids in 4 months for follow up (2) GERD without esophagitis: Code(s): K21.9 - Gastro-esophageal reflux disease without esophagitis Plan: Dietary restrictions reinforced (3) Headache: Code(s): R51.9 - Headache, unspecified Qualifiers: Headache type: tension-type Headache chronicity pattern: unspecified pattern Intractability: not intractable Qualified Code(s): G44.209 - Tension-type headache, unspecified, not intractable Plan: Most likely tension headaches or muscle contraction headaches - states that his headaches have only been occurring occasionally lately Continue Fioricet 50-325-40 mg TID PRN (4) Rosacea: Code(s): L71.9 - Rosacea, unspecified Plan: Was seen by [facility] last month and started on Metronidazole 0.75% topical gel apply to rash on face QD - Rx refilled, per request Follow up with dermatology as scheduled (5) Urinary hesitancy: Code(s): R39.11 - Hesitancy of micturition Plan: Most likely due to BPH Serum PSA has been normal when checked recently Is currently supposed to be on Tamsulosin 0.4 mg BID - dosing was just increased by urology recently - but states that he is still taking it Q HS for now Follow up with urology as scheduled (6) Overweight (BMI 25.0-29.9): Code(s): E66.3 - Overweight Plan: Reinforced diet/exercise as tolerated/lose weight Plan Follow up in 4 months Orders: Orders Complete Blood Count Auto Diff 4 Months I10 - Essential (primary) hypertension Comprehensive [place]. Panel Fast 4 Months E78.00 - Pure hypercholesterolemia, unspecified TSH reflex Free T4 4 Months E78.00 - Pure hypercholesterolemia, unspecified Vitamin D 25-OH Total 4 Months E55.9 - Vitamin D deficiency, unspecified Lipid Panel 4 Months E78.00 - Pure hypercholesterolemia, unspecified UA CC w/rflx Micro + Cult 4 Months R30.0 - Dysuria Medications: New metronidazole 0.75% 1 appl topical BEDTIME 45 grams 2RF L71.9 - Rosacea, unspecified Discontinued imiquimod 5% Discontinued Reason: No Longer Medically Relevant 1 appl topical 3XW 60 days 24 ea 1RF B07.9 - Viral wart, unspecified Coding Level of Care Code Est Pt Level 4 (14712) Diagnoses Pure hypercholesterolemia E78.00 GERD without esophagitis K21.9 Tension-type headache, not intractable, unspecified chronicity pattern G44.209 Headache type: tension-type Headache chronicity pattern: unspecified pattern Intractability: not intractable Rosacea L71.9 Urinary hesitancy R39.11 Overweight (BMI 25.0-29.9) E66.3
[2023-05-12 15:31] VITALS: BP 112/80; PULSE 88; O2SAT 99; BMI 29.3
== END 2023-05-12 16:06 | disposition home or self-care (01) ==
PROVIDERS: PCP Internal Medicine; Visit Provider Internal Medicine
DX: E78.00 Pure hypercholesterolemia, unspecified (principal); K21.9 Gastro-esophageal reflux disease without esophagitis; G44.209 Tension-type headache, unspecified, not intractable; L71.9 Rosacea, unspecified; R39.11 Hesitancy of micturition; E66.3 Overweight
CPT/HCPCS: 99214

== ENCOUNTER 2023-06-26 10:12 | Outpatient (AMB) | payer BC, SELFPAY ==
--- NOTE | 2023-06-26 10:31 | A.OFFVIS_ITS ---
Intake Intake Visit Reasons: 2 mo follow up/ PVR Intake Note: Patient presents today for a follow-up on PVR: Meds- Tamsulsin Allergies to Antibiotic- No Known Allergies Blood Thinner- None PSA- 2.40 ng/mL, 01/05/2023 PVR- 608 mL Cabin Agent Required: No Accompanied by: Self / Same As Patient Allergies No Known Allergies Allergy (Verified 06/26/23 10:40) HPI HPI Comments History of Present Illness Details Eric is a 52-year-old male who presents today to the office for a follow-up. 06/26/23? Eric is present today for hesitancy of micturition. He is prescribed tamsu losin bid. He has LUTS of frequency and incomplete bladder emptying. He is taking Atorvastatin for hypercholesterolemia.? Bladder scan PVR- 608 mL Review of chart: He was initially seen by me on 03/06/23 for hesitancy of micturition. Significant findings on exam - Large PVR. Flomax 0.4 mg daily was ordered, He mentions having intermittent urinary frequency, and weak urinary stream. He states that his father has had a history of prostate cancer. He was diagnosed at the age of early 60s. He denies any family history of colon cancer. He states that he had 2 brothers, one is younger, and the other one is older and US of the renal and bladder were ordered during that time. AUA - 31 I have discussed that he had incomplete bladder emptying, the reason for his problem may include bladder muscle being ineffective and decreased bladder contractility versus outlet obstruction. The patient states that he has a 'shy' bladder. Results: Retroperitoneum US results from 04/21/23 No hydronephrosis or parencyhmal lesions noted. Prevoid bladder volume was 680 mL, and Post void bladder volume was 501 mL. Estimated prostate volume of 49 mL PSA results from 01/05/2023 revealed 2.40 ng/mL 06/26/23: Plan: Incomplete bladder emptying.? Will cont monitor. Cont Flomax 0.4 mg to Bid. PSA screening Discussed further evaluation with cysto and UDS, pt declines at this time. FU in 4 months renal sono prior PFSH Medical History Normal colonoscopy (~11/09/20) History of COVID-19 Tension headache Urinary hesitancy Overweight (BMI 25.0-29.9) Elevated TSH GERD without esophagitis Pure hypercholesterolemia Surgical History History of colonoscopy [place] teeth removed Family History Father Cancer Mother No problems noted. Social History Housing: House Are you a primary neonatal intensive care nurse to a significant other at home: No Do you presently have visiting nurse or other home services: No Alcohol intake: current Alcohol intake frequency: a few times a month Patient Tobacco Use Status: Never used Tobacco e-Cigarette/Vaping Use: Never Used Second Hand Smoke Exposure: Yes service: No Current occupational status: employed Current occupational exposures/hazards: No Cognitive needs: No Hearing needs: No Vision needs: Yes Review of Systems Const All systems reviewed & are unremarkable except as noted in HPI and below Reports no additional complaints Eyes Reports no additional complaints ENT Reports no additional complaints Card Denies dyspnea Resp Denies cough and Denies dyspnea GI Reports no additional complaints Musc Reports no additional complaints Skin/Breast Denies rash and Denies unusual bruising Neuro Reports no additional complaints Psych Reports no additional complaints Endo Reports no additional complaints Chris/Lymph Reports no additional complaints Aller/Immun Reports no additional complaints Office Procedures Post Void Residual Post Residual Void Post Void Residual (PVR): [id number] Void Residual by ultrasound Results AMB Urinalysis, Automated UA Leukoctes 0 Melecio/uL Last Edit by STARLA Villagomez on 06/26/23 10:42 UA Nitrite Negative Last Edit by STARLA Villagomez on 06/26/23 10:42 UA Urobilinogen 0.2 mg/dL Last Edit by STARLA Villagomez on 06/26/23 10:4 2 UA Protein 6.5 mg/dL Last Edit by Kaitlin Delroy, RMA on 06/26/23 10:42 UA pH 6.5 Last Edit by Kaitlin Breenirez, RMA on 06/26/23 10:42 UA Blood 0 Raffy/uL Last Edit by Kaitlin Potts, RMA on 06/26/23 10:42 UA Specific [place] 1.015 Last Edit by Rudolphchristoferjasson Buenoz, RMA on 06/26/23 10: 42 UA Ketone Negative Last Edit by Kaitlin Breenirez, RMA on 06/26/23 10:42 UA Bilirubin 0 mg/dL Last Edit by Kaitlin Breendenisa A on 06/26/23 10:42 UA Glucose 0 mg/dL Last Edit by Rudolphchristoferjasson Breendenisa A on 06/26/23 10:42 Results Reviewed Results Reviewed: Laboratory Last Values Urine pH (Auto) 6.5 06/26/23 10:40 Specific [place] (Auto) 1.015 06/26/23 10:40 Urine Protein (Auto) 6.5 mg/dL 06/26/23 10:40 Glucose (UA)(Auto) 0 mg/dL 06/26/23 10:40 Urine Ketones (Auto) Negative 06/26/23 10:40 Urine Blood (Auto) 0 Raffy/uL 06/26/23 10:40 Urine Nitrite (Auto) Negative 06/26/23 10:40 Urine Bilirubin (Auto) 0 mg/dL 06/26/23 10:40 Urine Urobilinogen (Auto) 0.2 mg/dL 06/26/23 10:40 Leukocyte Esterase (Auto) 0 Melecio/uL 06/26/23 10:40 Assessment & Plan Assessment & Plan (1) Weak urinary stream: Code(s): R39.12 - Poor urinary stream (2) BPH loc w urin obs/LUTS: Code(s): N40.1 - Benign prostatic hyperplasia with lower urinary tract symptoms (3) Family history of prostate cancer in father: Code(s): Z80.42 - Family history of malignant neoplasm of prostate (4) Incomplete bladder emptying: Code(s): R33.9 - Retention of urine, unspecified Plan Incomplete bladder emptying.? Will cont monitor. Cont Flomax 0.4 mg to Bid. PSA screening Discussed further evaluation with cysto and UDS, pt declines at this time. FU in 4 months renal sono prior Orders: Orders AMB Urinalysis Automated 06/26/23 Z13.9 - Encounter for screening, unspecified AMB Post Void Residual by ultrasound 06/26/23 N39.8 - Other specified disorders of urinary system Patient Instructions: The patient had an opportunity to ask questions regarding treatment plan. All questions were answered. Imaging, Laboratory studies and physical exam results were discussed and reviewed in detail. No major barriers to understanding were identified. The patient expressed understanding and agreement with the above treatment plan. The patient is aware they should contact our office by phone for worsening of their current condition or the appearance of new symptoms. Compliance is encouraged with any medications and followup testing that is ordered. It is a privilege to be allowed the opportunity to participate in the urologic care of your patient. If you have any questions or concerns regarding treatment for the above conditions please do not hesitate to contact me. The office telephone contact is [phone]. This note is constructed in part using voice recognition software. While every effort has been made to ensure accuracy supply chain intern errors may have been included. Yours sincerely, Raz Case MD Coding Level of Care Code Est Pt Level 4 (60027) Diagnoses Weak urinary stream R39.12 BPH loc w urin obs/LUTS N40.1 Family history of prostate cancer in father Z80.42 Incomplete bladder emptying R33.9 CPT Codes Post Residual Void - PVR CPT Code: 92041-Blyg Void Residual by ultrasound ([id number])
== END 2023-06-26 11:04 | disposition home or self-care (01) ==
PROVIDERS: PCP Internal Medicine; Visit Provider Urology
DX: N40.1 Benign prostatic hyperplasia with lower urinary tract symptoms (principal); R39.12 Poor urinary stream; Z80.42 Family history of malignant neoplasm of prostate; R33.9 Retention of urine, unspecified
CPT/HCPCS: 99213

== ENCOUNTER → 2023-06-26 10:12 | Outpatient (BNVA) | payer BC, SELFPAY | PROVIDERS: PCP Internal Medicine; Visit Provider Urology | DX: N40.1 Benign prostatic hyperplasia with lower urinary tract symptoms (principal); N13.8 Other obstructive and reflux uropathy; R39.12 Poor urinary stream; R33.8 Other retention of urine; Z80.42 Family history of malignant neoplasm of prostate; Z79.899 Other long term (current) drug therapy | CPT/HCPCS: 51798; 81003 ==

== ENCOUNTER 2023-09-04 07:08 | Outpatient (REF) | payer BC, SELFPAY ==
[2023-09-04 07:30] LABS: MANUAL DIFF FLAG NO
[2023-09-04 08:01] LABS: Basophils Percent Auto 0.6 % (0-2); Eosinophils Absolute Auto 0.2 X10*3/uL (0.0-0.4); Hematocrit 43.5 % (42.0-52.0); Hemoglobin 15.2 g/dl (14.0-18.0); Imm Gran Abs Auto 0.02 X10*3/uL (0.00-0.03); Imm Gran Pct Auto 0.4 % (0.0-0.4); Lymphocytes Absolute Auto 1.6 X10*3/uL (1.2-4.9); Lymphocytes Percent Auto 31.1 % (20-40); Mean Corpuscular HGB Conc 34.9 g/dl (31.0-36.0); Mean Corpuscular Hemoglobin 29.6 pg (27.0-33.0); Mean Corpuscular Volume 84.8 fL (80.0-98.0); Mean Platelet Volume 10.1 fL (9.4-12.4); Monocytes Absolute Auto 0.5 X10*3/uL (0.1-1.2); Monocytes Percent Auto 10.8 % (2-11); Neutrophils Absolute Auto 2.7 x10*3/uL (2.0-8.3); Neutrophils Percent Auto 53.1 % (45-73); Platelet Count 183 X10*3/uL (160-400); Red Blood Count 5.13 X10*6/uL (4.60-5.80); Red Cell Distribution Width 12.8 % (11.0-16.0)
[2023-09-04 08:58] LABS: Alanine Aminotransferase 43 U/L (0-40); Albumin Level 4.5 g/dL (3.5-5.0); Alkaline Phosphatase 87 U/L (39-117); Anion Gap 11 (12-20); Aspartate Amino Transferase 30 U/L (5-37); Bilirubin Total 0.9 mg/dL (0.0-1.0); Blood Urea Nitrogen 13 mg/dL (9-16); Calcium 9.5 mg/dL (8.4-10.2); Carbon Dioxide 25 mmol/L (22-29); Chloride 109 mmol/L (96-108); Cholesterol 166 mg/dL (<200); Estimated Glomerular Filt Rate > 60; Glucose Fasting 98 mg/dL (60-99); HDL Cholesterol 50 mg/dL (>40); LDL Cholesterol Calculated 97 mg/dL (<100); Potassium 3.9 mmol/L (3.3-5.1); Sodium 141 mmol/L (135-145); Total Protein 7.3 g/dL (6.5-8.0); Triglycerides 98 mg/dL (<150)
[2023-09-04 09:01] LABS: Appearance Urine Clear; Color Urine Yellow; Glucose Urine UA Negative (Negative); Leukocyte Esterase Urine Negative (Negative); Nitrite Urine Negative (Negative); Specific Gravity - Urine 1.015 (1.005-1.025); Urine Blood Negative (Negative); Urine Ketones Negative (Negative); Urine Protein Negative (Neg-Trace)
[2023-09-04 09:19] LABS: TSH reflex Free T4 2.93 uIU/mL (0.32-4.0); Vitamin D 25-OH Total 48.6 ng/mL (>30)
== END 2023-09-04 07:09 | disposition home or self-care (01) ==
LOC: HO.LAB 07:08
PROVIDERS: PCP Internal Medicine; Visit Provider Internal Medicine
DX: I10 Essential (primary) hypertension (principal); E78.00 Pure hypercholesterolemia, unspecified; E55.9 Vitamin D deficiency, unspecified; R30.0 Dysuria
CPT/HCPCS: 36415; 80053; 80061; 81003; 82306; 84443; 85025

== ENCOUNTER 2023-09-09 14:12 | Outpatient (AMB) | payer BC, SELFPAY ==
[2023-09-09 14:19] VITALS: BP 112/68; PULSE 80; O2SAT 97; BMI 29.6
--- NOTE | 2023-09-09 14:19 | A.OFFPC_ITS ---
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 Allergies No Known Allergies Allergy (Verified 09/09/23 15:07) Medication List - Last Reconciled 09/09/23 by Addi Ferreira MD atorvastatin 10 mg PO BEDTIME akotceakgm-yxhduobokkngd-tpam 50-325-40 mg 1 tab PO TID PRN 30 days metronidazole 0.75% 1 appl topical BEDTIME multivitamin 1 tab PO DAILY tamsulosin 0.4 mg PO BID 90 days Tobacco use date assessed: 09/09/23 Dental Screening Dental Screen Date: 09/09/23 Did you have a dental visit in the last 12 months?: Yes Did you have a dental problem in the last 6 months where you did not have access to dental care?: No Was dental information given to patient?: Patient has dentist HPI 4 month f/u HPI Details Patient comes in today for his follow up visit States that he feels well He denies any headaches or dizziness Denies any chest pains, no SOB No nausea/vomiting, no abdominal pain No change in bowel habits noted Needs his Metrogel Rx refilled for his rosacea Had his follow up labs done last week - to discuss his results [facility] Medical History Normal colonoscopy (~11/09/20) History of COVID-19 Tension headache Urinary hesitancy Overweight (BMI 25.0-29.9) Elevated TSH GERD without esophagitis Pure hypercholesterolemia Surgical History History of colonoscopy [place] teeth removed Family History Father Cancer Mother No problems noted. Social History Housing: House Are you a primary career placement specialist to a significant other at home: No Do you presently have visiting nurse or other home services: No Alcohol intake: current Alcohol intake frequency: a few times a month Patient Tobacco Use Status: Never used Tobacco e-Cigarette/Vaping Use: Never Used Second Hand Smoke Exposure: Yes service: No Current occupational status: employed Current occupational exposures/hazards: No Cognitive needs: No Hearing needs: No Vision needs: Yes Questionnaire PHQ-9 Over the last 2 weeks, how often have you been bothered by any of the following problems? 1. Little interest or pleasure in doing things: not at all 2. Feeling down, depressed, or hopeless: not at all 3. Trouble falling or staying asleep, or sleeping too much: not at all 4. Feeling tired or having little energy: not at all 5. Poor appetite or overeating: not at all 6. Feeling bad about yourself - or that you are a failure or have let yourself or your family down: not at all 7. Trouble concentrating on things, such as reading the newspaper or watching television: not at all 8. Moving or speaking so slowly that other people could have noticed. Or the opposite - being so fidgety or restless that you have been moving around a lot more than usual: not at all 9. Thoughts that you would be better off or of hurting yourself in some way: not at all Total score: 0 Depression Screening Interpretation: Negative Depression Screening Done: Yes 13079 - PHQ-9 Billing: Yes Source: Developed by Drs. Baljinder Carlson, Cierra Tan, Ryland Padron and colleagues, with an educational maryann from [employer]. Thrive Questionnaire Date Thrive assessed: 09/09/23 I am a: Patient What is your living situation today?: I have a steady place to live Within the past 12 months, did the food you bought not last and you didn't have the money to get more?: Never true Within the past 12 months, did you worry whether your food would run out before you got money to buy more?: Never true Do you have trouble paying for medicines?: No Do you have trouble getting transportation to medical appointments?: No Do you have trouble paying your heating and electricity bill?: No Do you have trouble taking care of your child, family member or friend?: No Do you have trouble with day-to-day activities such as bathing, preparing meals, shopping, managing finances, etc.?: No Are you currently unemployed and looking for a job?: No Are you interested in more education?: No Please select the resources that you would like help with: None Currently or been in a relationship where the following occur: no concerns reported THRIVE Score: 0 AUDIT C Alcohol Use Questionnaire (AUDIT-C) 1. How often do you have a drink containing alcohol?: 2-4 times a month 2. How many drinks containing alcohol do you have on a typical day when you are drinking?: 1 or 2 3. How often do you have six or more drinks on one occasion?: Never Total Score: 2 Score Reviewed/Action Taken: Yes TIEN-7 AMB Questionnaire TIEN-7 Date TIEN - 7 assessed: 09/09/23 Source: Developed by Drs. Baljinder Carlson, Cierra Tan, Ryland Padron and colleagues, with an educational maryann from [employer]. Review of Systems Const Denies fatigue, Denies fever(s) and Denies headache(s) ENT Denies dysphagia, Denies dizziness, Denies otalgia, Denies headache(s), Denies neck pain, Denies odynophagia and Denies sore throat Card Denies chest pain, Denies rapid heart rate, Denies irregular heart rhythm, Denies palpitations and Denies dyspnea Resp Denies cough and Denies dyspnea GI Denies abdominal pain, Denies constipation, Denies dysphagia, Denies heartburn, Denies diarrhea, Denies nausea, Denies odynophagia and Denies vomiting Reports oliguria, Denies difficulty urinating, Denies dysuria, Denies urinary frequency and Reports urinary hesitancy (at times) Musc Denies back pain, Denies arthralgias and Denies neck pain Skin/Breast Denies rash Neuro Denies dizziness, Denies headache(s) and Denies paresthesias Endo Denies fatigue and Denies palpitations Physical exam (Primary Care) Vital Signs: Last Vital Signs Pulse 80 09/09/23 14:19 BP 112/68 09/09/23 14:19 Pulse Ox 97 09/09/23 14:19 Oxygen Delivery Method Room Air 09/09/23 14:19 BMI result Body Mass Index 29.6 Tobacco/Smoking Status: Tobacco use Status Tobacco use date assessed 09/09/23 09/09/23 14:20 Patient Tobacco Use Status Never used Tobacco 09/09/23 14:20 e-Cigarette/Vaping Use Never Used 09/09/23 14:20 PHQ-9: PHQ-9 Score PHQ-9: Total score 0 09/09/23 14:28 Depression Screening Interpretation: Negative Thrive Assessment: Date of Thrive Assessment Date Thrive assessed 09/09/23 09/09/23 14:20 Currently or been in a relationship where the following occur: no concerns reported Const General: no acute distress and alert HENMT Ears: TM's normal bilaterally and EAC's normal Throat: Yes posterior oropharynx normal and Yes tonsils normal (no TP congestion) Neck Neck: Yes no lymphadenopathy and Yes supple Thyroid: Thyroid normal Resp Auscultation: clear to auscultation bilaterally, no rales and no wheezes Cardio Rate: regular rate Rhythm: regular rhythm Heart sounds: no murmurs GI Palpation (GI): Soft to palpation and nontender Auscultation: normal bowel sounds General: Yes no CVA tenderness Back/Spine/Pelvis Back: no CVA tenderness Skin Rashes: no rashes Extrem General: Yes no clubbing, cyanosis or edema Results Reviewed Results Reviewed: Laboratory Tests 09/04/23 09/04/23 09/04/23 07:27 07:27 07:28 WBC 5.0 Hgb 15.2 Hct 43.5 Plt Count 183 Sodium 141 Potassium 3.9 Creatinine 0.86 Estimated GFR > 60 Fasting Glucose 98 Calcium 9.5 AST 30 ALT 43 H Triglycerides 98 Cholesterol 166 LDL Cholesterol, Calc 97 HDL Cholesterol 50 25-OH Vitamin D Total TSH Ur Specific [place] 1.015 Urine Protein Negative Urine Glucose (UA) Negative Urine Blood Negative Urine Nitrite Negative Ur Leukocyte Esterase Negative 09/04/23 09/04/23 07:28 07:28 WBC Hgb Hct Plt Count Sodium Potassium Creatinine Estimated GFR Fasting Glucose Calcium AST ALT Triglycerides Cholesterol LDL Cholesterol, Calc HDL Cholesterol 25-OH Vitamin D Total 48.6 TSH 2.93 Ur Specific [place] Urine Protein Urine Glucose (UA) Urine Blood Urine Nitrite Ur Leukocyte Esterase Assessment and Plan Assessment & Plan (1) Pure hypercholesterolemia: Code(s): E78.00 - Pure hypercholesterolemia, unspecified Plan: Results of his labs done last week reviewed and discussed with patient Reinforced low cholesterol diet Continue Atorvastatin 10 mg QD Will recheck his labs and fasting lipids in 4 months for follow up (2) GERD without esophagitis: Code(s): K21.9 - Gastro-esophageal reflux disease without esophagitis Plan: Dietary restrictions reinforced (3) Headache: Code(s): R51.9 - Headache, unspecified Qualifiers: Headache type: tension-type Headache chronicity pattern: unspecified pattern Intractability: not intractable Qualified Code(s): G44.209 - Tension- type headache, unspecified, not intractable Plan: Most likely tension headaches or muscle contraction headaches - states that his headaches have only been occurring occasionally lately Continue Fioricet 50-325-40 mg TID PRN (4) Rosacea: Code(s): L71.9 - Rosacea, unspecified Plan: Was seen by [facility] previously and started on Metronidazole 0.75% topical gel apply to rash on face QD - Rx refilled, per request Follow up with dermatology as scheduled (5) Urinary hesitancy: Code(s): R39.11 - Hesitancy of micturition Plan: Most likely due to BPH His serum PSA was normal when last checked Continue Tamsulosin 0.4 mg BID Follow up with urology as scheduled (6) Overweight (BMI 25.0-29.9): Code(s): E66.3 - Overweight Plan: Reinforced diet/exercise as tolerated/lose weight Plan To return in 4 months for his next annual physical examination Orders: Orders Complete Blood Count Auto Diff 4 Months D64.9 - Anemia, unspecified, Z00.00 - Encounter for general adult medical examination without abnormal findings TSH reflex Free T4 4 Months E78.00 - Pure hypercholesterolemia, unspecified, Z00.00 - Encounter for general adult medical examination without abnormal findings UA CC w/rflx Micro + Cult 4 Months R30.0 - Dysuria, Z00.00 - Encounter for general adult medical examination without abnormal findings Vitamin D 25-OH Total 4 Months E55.9 - Vitamin D deficiency, unspecified, Z00.00 - Encounter for general adult medical examination without abnormal findings Comprehensive Whitney. Panel Fast 4 Months E78.00 - Pure hypercholesterolemia, unspecified, Z00.00 - Encounter for general adult medical examination without abnormal findings Lipid Panel 4 Months E78.00 - Pure hypercholesterolemia, unspecified, Z00.00 - Encounter for general adult medical examination without abnormal findings Prostate Specific Antigen 4 Months N40.0 - Benign prostatic hyperplasia without lower urinary tract symptoms, Z00.00 - Encounter for general adult medical examination without abnormal findings Medications: Refilled metronidazole 0.75% 1 appl topical BEDTIME 45 grams 2RF L71.9 - Rosacea, unspecified Coding Level of Care Code Est Pt Level 4 (94521) Diagnoses Pure hypercholesterolemia E78.00 GERD without esophagitis K21.9 Tension-type headache, not intractable, unspecified chronicity pattern G44.209 Headache type: tension-type Headache chronicity pattern: unspecified pattern Intractability: not intractable Rosacea L71.9 Urinary hesitancy R39.11 Overweight (BMI 25.0-29.9) E66.3
== END 2023-09-09 15:14 | disposition home or self-care (01) ==
PROVIDERS: PCP Internal Medicine; Visit Provider Internal Medicine
DX: E78.00 Pure hypercholesterolemia, unspecified (principal); K21.9 Gastro-esophageal reflux disease without esophagitis; G44.209 Tension-type headache, unspecified, not intractable; L71.9 Rosacea, unspecified; R39.11 Hesitancy of micturition; E66.3 Overweight
CPT/HCPCS: 99214

== ENCOUNTER 2023-09-18 09:30 | Outpatient (REF) | payer BC, SELFPAY ==
--- NOTE | ~2023-09-18 | US_ITS ---
EXAMINATION: US RETROPERITONEAL LIMITED (RENAL ONLY) CLINICAL INFORMATION: Retention of urine, unspecified. COMPARISON: Ultrasound kidneys and bladder 04/21/2023. TECHNIQUE: Real-time imaging of the kidneys. FINDINGS: RIGHT KIDNEY: 10.7 x 5.5 x 5.3 cm (SAG x AP x TRV). The kidney is normal in size, contour, and echogenicity. Renal cortical thickness is normal. No calculi or focal parenchymal lesions. Incidental note made of a column of James. No hydronephrosis. LEFT KIDNEY: 11.3 x 6.3 x 5.8 cm (SAG x AP x TRV). The kidney is normal in size, contour, and echogenicity. Renal cortical thickness is normal. No calculi or focal parenchymal lesions. No hydronephrosis. ADDITIONAL FINDINGS: Multiple benign hepatic cysts are incidentally noted. US/US renal BI IMPRESSION: Normal-appearing kidneys.
== END 2023-09-18 09:31 | disposition home or self-care (01) ==
LOC: HO.US 09:30
PROVIDERS: PCP Internal Medicine; Visit Provider Urology
DX: R33.9 Retention of urine, unspecified (principal); N40.1 Benign prostatic hyperplasia with lower urinary tract symptoms
CPT/HCPCS: 76775

== ENCOUNTER 2023-10-29 10:51 | Outpatient (AMB) | payer BC, SELFPAY ==
--- NOTE | 2023-10-29 10:56 | A.OFFVIS_ITS ---
Intake Visit Reasons: 4m/US Intake Note: Patient presents today for US Results: Meds- Tamsulsin Allergies to Antibiotic- No Known Allergies Blood Thinner- None PVR- 602mL System Consultant Required: No Accompanied by: Self / Same As Patient Allergies No Known Allergies Allergy (Verified 09/09/23 15:07) Medication List - Last Reconciled 10/29/23 by Raz Case MD atorvastatin 10 mg PO BEDTIME bethanechol chloride 50 mg PO BID bzcumciawq-ynyiirnfytwpn-cvon 50-325-40 mg 1 tab PO TID PRN 30 days metronidazole 0.75% 1 appl topical BEDTIME multivitamin 1 tab PO DAILY tamsulosin 0.4 mg PO BID 90 days HPI Comments Details: 10/29/2023-- Eric is a 53-year-old male who presents today to the office for a follow-up. The patient has lower urinary tract symptoms of incomplete bladder emptying. He declines management with [facility]. 09/18/23--Renal ultrasound was ordered and I have reviewed results with the patient there is no hydronephrosis noted we will continue to monitor for this. The patient is on max dose of Flomax discussed adding bethanechol. Review of chart: 06/26/23? Eric is present today for hesitancy of micturition. He is prescribed tamsulosin bid. He has LUTS of frequency and incomplete bladder emptying. He is taking Atorvastatin for hypercholesterolemia.? Bladder scan PVR- 608 mL. Incomplete bladder emptying.? Will cont monitor. Cont Flomax 0.4 mg to Bid. PSA screening Discussed further evaluation with cysto and UDS, pt declines at this time. FU in 4 months renal sono prior He was initially seen by me on 03/06/23 for hesitancy of micturition. Significant findings on exam - Large PVR. Flomax 0.4 mg daily was ordered, He mentions having intermittent urinary frequency, and weak urinary stream. He states that his father has had a history of prostate cancer. He was diagnosed at the age of early 60s. He denies any family history of colon cancer. He states that he had 2 brothers, one is younger, and the other one is older and US of the renal and bladder were ordered during that time. AUA - 31 I have discussed that he had incomplete bladder emptying, the reason for his problem may include bladder muscle being ineffective and decreased bladder contractility versus outlet obstruction. The patient states that he has a 'shy' bladder. Results: Retroperitoneum US results from 04/21/23 No hydronephrosis or parencyhmal lesions noted. Prevoid bladder volume was 680 mL, and Post void bladder volume was 501 mL. Estimated prostate volume of 49 mL PSA results from 01/05/2023 revealed 2.40 ng/mL PFSH Medical History Normal colonoscopy (~11/09/20) History of COVID-19 Tension headache Urinary hesitancy Overweight (BMI 25.0-29.9) Elevated TSH GERD without esophagitis Pure hypercholesterolemia Surgical History History of colonoscopy [place] teeth removed Family History Father Cancer Mother No problems noted. Social History Housing: House Are you a primary senior caregiver to a significant other at home: No Do you presently have visiting nurse or other home services: No Alcohol intake: current Alcohol intake frequency: a few times a month Patient Tobacco Use Status: Never used Tobacco e-Cigarette/Vaping Use: Never Used Second Hand Smoke Exposure: Yes service: No Current occupational status: employed Current occupational exposures/hazards: No Cognitive needs: No Hearing needs: No Vision needs: Yes Review of Systems Const All systems reviewed & are unremarkable except as noted in HPI and below Reports no additional complaints Eyes Reports no additional complaints ENT Reports no additional complaints Card Reports no additional complaints Resp Reports no additional complaints GI Reports no additional complaints Reports as per HPI Musc Reports no additional complaints Skin/Breast Reports system reviewed and no additional complaints, except as documented Neuro Reports no additional complaints Psych Reports no additional complaints Endo Reports no additional complaints Chris/Lymph Reports no additional complaints Aller/Immun Reports no additional complaints Office Procedures Post Void Residual Post Residual Void Post Void Residual (PVR): 602 [id number]-[id number] Void Residual by ultrasound Results AMB Urinalysis, Automated UA Leukoctes 0 Melecio/uL Last Edit by Kaitlin Potts [facility] on 10/29/23 11:15 UA Nitrite Negative Last Edit by Kaitlin Potts [facility] on 10/29/23 11:15 UA Urobilinogen 0.2 mg/dL Last Edit by Kaitlin Potts [facility] on 10/29/23 11:1 5 UA Protein 0 mg/dL Last Edit by Kaitlin Potts [facility] on 10/29/23 11:15 UA pH 6.5 Last Edit by Kaitlin Potts [facility] on 10/29/23 11:15 UA Blood 0 Raffy/uL Last Edit by Kaitlin Potts [facility] on 10/29/23 11:15 UA Specific [place] 1.010 Last Edit by Kaitlin Potts [facility] on 10/29/23 11: 15 UA Ketone Negative Last Edit by Kaitlin Potts [facility] on 10/29/23 11:15 UA Bilirubin 0 mg/dL Last Edit by Kaitlin Potts [facility] on 10/29/23 11:15 UA Glucose 0 mg/dL Last Edit by Kaitlin Potts [facility] on 10/29/23 11:15 Results Reviewed Results Reviewed: Laboratory Last Values Urine pH (Auto) 6.5 10/29/23 11:06 Specific [place] (Auto) 1.010 10/29/23 11:06 Urine Protein (Auto) 0 mg/dL 10/29/23 11:06 Glucose (UA)(Auto) 0 mg/dL 10/29/23 11:06 Urine Ketones (Auto) Negative 10/29/23 11:06 Urine Blood (Auto) 0 Raffy/uL 10/29/23 11:06 Urine Nitrite (Auto) Negative 10/29/23 11:06 Urine Bilirubin (Auto) 0 mg/dL 10/29/23 11:06 Urine Urobilinogen (Auto) 0.2 mg/dL 10/29/23 11:06 Leukocyte Esterase (Auto) 0 Melecio/uL 10/29/23 11:06 Date of Service: 09/18/23 EXAMINATION: US RETROPERITONEAL LIMITED (RENAL ONLY) CLINICAL INFORMATION: Retention of urine, unspecified. COMPARISON: Ultrasound kidneys and bladder 04/21/2023. TECHNIQUE: Real-time imaging of the kidneys. FINDINGS: RIGHT KIDNEY: 10.7 x 5.5 x 5.3 cm (SAG x AP x TRV). The kidney is normal in size, contour, and echogenicity. Renal cortical thickness is normal. No calculi or focal parenchymal lesions. Incidental note made of a column of [place]. No hydronephrosis. LEFT KIDNEY: 11.3 x 6.3 x 5.8 cm (SAG x AP x TRV). The kidney is normal in size, contour, and echogenicity. Renal cortical thickness is normal. No calculi or focal parenchymal lesions. No hydronephrosis. ADDITIONAL FINDINGS: Multiple benign hepatic cysts are incidentally noted. IMPRESSION: Normal-appearing kidneys. Assessment & Plan Assessment & Plan (1) BPH loc w urin obs/LUTS: Code(s): N40.1 - Benign prostatic hyperplasia with lower urinary tract symptoms Category: Medical (2) Incomplete bladder emptying: Code(s): R33.9 - Retention of urine, unspecified Category: Medical (3) Screening PSA (prostate specific antigen): Code(s): Z12.5 - Encounter for screening for malignant neoplasm of prostate Category: Medical (4) Neurogenic bladder: Code(s): N31.9 - Neuromuscular dysfunction of bladder, unspecified Category: Medical Plan Bethanechol 50 mg twice a day. Continue Flomax 0.8 mg daily. Will monitor PVRs Will monitor kidneys. Patient declines [facility] management. Orders: Orders AMB Urinalysis Automated 10/29/23 Z13.9 - Encounter for screening, unspecified AMB Post Void Residual by ultrasound 10/29/23 N39.8 - Other specified disorders of urinary system PSA,Total (Free>4and<10) 10/29/23 Z12.5 - Encounter for screening for malignant neoplasm of prostate Medications: New bethanechol chloride 50 mg PO BID 180 tabs 1RF Refilled tamsulosin 0.4 mg PO BID 180 caps 2RF 90 days Coding Level of Care Code Est Pt Level 4 (63805) Diagnoses BPH loc w urin obs/LUTS N40.1 Incomplete bladder emptying R33.9 Screening PSA (prostate specific antigen) Z12.5 Neurogenic bladder N31.9 CPT Codes Post Residual Void - PVR CPT Code: 70021-Bgde Void Residual by ultrasound ([id number])
== END 2023-10-29 12:05 | disposition home or self-care (01) ==
PROVIDERS: PCP Internal Medicine; Visit Provider Urology
DX: N40.1 Benign prostatic hyperplasia with lower urinary tract symptoms (principal); R33.9 Retention of urine, unspecified; Z12.5 Encounter for screening for malignant neoplasm of prostate; N31.9 Neuromuscular dysfunction of bladder, unspecified
CPT/HCPCS: 99214

== ENCOUNTER → 2023-10-29 10:51 | Outpatient (BNVA) | payer BC, SELFPAY | PROVIDERS: PCP Internal Medicine; Visit Provider Urology | DX: N40.1 Benign prostatic hyperplasia with lower urinary tract symptoms (principal); N13.8 Other obstructive and reflux uropathy; R33.8 Other retention of urine; N31.9 Neuromuscular dysfunction of bladder, unspecified; N39.8 Other specified disorders of urinary system; Z79.899 Other long term (current) drug therapy | CPT/HCPCS: 51798; 81003 ==

== ENCOUNTER 2024-01-08 07:14 | Outpatient (REF) | payer BC, SELFPAY ==
[2024-01-08 07:24] LABS: MANUAL DIFF FLAG NO
[2024-01-08 07:48] LABS: Basophils Percent Auto 0.8 % (0-2); Eosinophils Absolute Auto 0.2 X10*3/uL (0.0-0.4); Eosinophils Percent Auto 3.1 % (0-4); Hematocrit 44.3 % (42.0-52.0); Hemoglobin 15.6 g/dl (14.0-18.0); Imm Gran Abs Auto 0.01 X10*3/uL (0.00-0.03); Imm Gran Pct Auto 0.2 % (0.0-0.4); Lymphocytes Absolute Auto 1.6 X10*3/uL (1.2-4.9); Lymphocytes Percent Auto 30.7 % (20-40); Mean Corpuscular HGB Conc 35.2 g/dl (31.0-36.0); Mean Corpuscular Hemoglobin 29.9 pg (27.0-33.0); Mean Corpuscular Volume 84.9 fL (80.0-98.0); Mean Platelet Volume 10.4 fL (9.4-12.4); Monocytes Absolute Auto 0.5 X10*3/uL (0.1-1.2); Monocytes Percent Auto 10.2 % (2-11); Neutrophils Absolute Auto 2.8 x10*3/uL (2.0-8.3); Platelet Count 180 X10*3/uL (160-400); Red Blood Count 5.22 X10*6/uL (4.60-5.80); Red Cell Distribution Width 12.6 % (11.0-16.0); White Blood Count 5.1 X10*3/uL (4.8-10.8)
[2024-01-08 08:12] LABS: Alanine Aminotransferase 37 U/L (0-40); Albumin Level 4.5 g/dL (3.5-5.0); Alkaline Phosphatase 91 U/L (39-117); Anion Gap 11 (12-20); Aspartate Amino Transferase 29 U/L (5-37); Bilirubin Total 1.1 mg/dL (0.0-1.0); Blood Urea Nitrogen 12 mg/dL (9-16); Calcium 9.7 mg/dL (8.4-10.2); Carbon Dioxide 27 mmol/L (22-29); Chloride 108 mmol/L (96-108); Cholesterol 178 mg/dL (<200); Estimated Glomerular Filt Rate > 60; Glucose Fasting 101 mg/dL (60-99); HDL Cholesterol 53 mg/dL (>40); LDL Cholesterol Calculated 105 mg/dL (<100); Potassium 3.8 mmol/L (3.3-5.1); Sodium 142 mmol/L (135-145); Total Protein 7.2 g/dL (6.5-8.0); Triglycerides 101 mg/dL (<150)
[2024-01-08 08:20] LABS: Appearance Urine Clear; Color Urine Yellow; Glucose Urine UA Negative (Negative); Leukocyte Esterase Urine Negative (Negative); Nitrite Urine Negative (Negative); Urine Blood Negative (Negative); Urine Ketones Negative (Negative); Urine Protein Negative (Neg-Trace)
[2024-01-08 08:23] LABS: Prostate Specific Antigen 1.96 ng/mL (<0.05-4.0)
[2024-01-08 08:28] LABS: TSH reflex Free T4 3.02 uIU/mL (0.32-4.0); Vitamin D 25-OH Total 49.9 ng/mL (>30)
== END 2024-01-08 07:15 | disposition home or self-care (01) ==
LOC: HO.LAB 07:14
PROVIDERS: PCP Internal Medicine; Visit Provider Internal Medicine
DX: Z00.00 Encounter for general adult medical examination without abnormal findings (principal); D64.9 Anemia, unspecified; E78.00 Pure hypercholesterolemia, unspecified; R30.0 Dysuria; E55.9 Vitamin D deficiency, unspecified; N40.0 Benign prostatic hyperplasia without lower urinary tract symptoms; Z12.5 Encounter for screening for malignant neoplasm of prostate
CPT/HCPCS: 36415; 80053; 80061; 81003; 82306; 84153; 84443; 85025

== ENCOUNTER 2024-01-11 14:57 | Outpatient (AMB) | payer BC, SELFPAY ==
--- NOTE | 2024-01-11 15:00 | MHC.PC.OV ---
Vital Signs 01/11/24 15:02 Height 5 ft 7 in Weight 188 lb 6 oz BMI 29.5 BP 122/64 Blood Pressure Location Lt brachial Position Sitting Pulse 76 Pulse Source Pulse Oximeter Pulse Oximetry (%) 96 Oxygen Delivery Method Room Air Intake Visit Reasons: Annual Exam Intake Note: Patient is here today for a physical. Atm Servicer Required: No Chair Trimmer: Not Required per policy Accompanied by: Self / Same As Patient Allergies No Known Allergies Allergy (Verified 01/11/24 15:48) Medication List - Last Reconciled 01/11/24 by Addi Ferreira MD atorvastatin 10 mg PO BEDTIME bethanechol chloride 50 mg PO BID lswamzctwq-kwrqcokfzzaxw-tjgi 50-325-40 mg 1 tab PO TID PRN 30 days metronidazole 0.75% 1 appl topical BEDTIME multivitamin 1 tab PO DAILY tamsulosin 0.4 mg PO BID 90 days Tobacco use date assessed: 01/11/24 Dental Screening Dental Screen Date: 09/09/23 HPI Annual Exam HPI Details Patient comes in today for his annual physical examination States that he feels okay He denies any headaches or dizziness Denies any chest pains, no SOB No nausea/vomiting, no abdominal pain No change in bowel habits noted He denies any acute urinary symptoms He had his follow up labs done a few days ago - to discuss his results He had a normal colonoscopy with Dr. Hutchinson back on 11/09/2020 but he was advised that he will need a repeat colonoscopy in 3 years due to the presence some features suggestive of sessile serrated polyp on his colonic mucosa Bx - he is now scheduled for his repeat colonoscopy on 02/12/2024 [facility], [facility] Medical History Normal colonoscopy (~11/09/20) History of COVID-19 Tension headache Urinary hesitancy Overweight (BMI 25.0-29.9) Elevated TSH GERD without esophagitis Pure hypercholesterolemia Surgical History (Updated 01/11/24 @ 15:52 by Addi Ferreira MD) History of colonoscopy [place] teeth removed Family History Father Cancer Mother No problems noted. Social History Housing: House Are you a primary health care specialist to a significant other at home: No Do you presently have visiting nurse or other home services: No Alcohol intake: current Alcohol intake frequency: a few times a month Patient Tobacco Use Status: Never used Tobacco e-Cigarette/Vaping Use: Never Used Second Hand Smoke Exposure: Yes service: No Current occupational status: employed Current occupational exposures/hazards: No Cognitive needs: No Hearing needs: No Vision needs: Yes Questionnaire PHQ-9 Over the last 2 weeks, how often have you been bothered by any of the following problems? Depression Screening Interpretation: Negative Depression Screening Done: Yes Source: Developed by Drs. Baljinder Carlson, Cierra Tan, Ryland Padron and colleagues, with an educational maryann from [employer]. Thrive Questionnaire Date Thrive assessed: 09/09/23 TIEN-7 AMB Questionnaire TIEN-7 Date TIEN - 7 assessed: 09/09/23 Source: Developed by Drs. Baljinder Carlson, Cierra Tan, Ryland Padron and colleagues, with an educational maryann from [employer]. Review of Systems Const Denies chills, Denies fatigue, Denies fever(s), Denies headache(s), Denies malaise and Denies weakness Eyes Denies blurry vision, Denies change in vision, Denies irritation and Denies itchy eyes ENT Denies dysphagia, Denies dizziness, Denies otalgia, Denies headache(s), Denies nasal congestion, Denies neck pain, Denies odynophagia and Denies sore throat Card Denies chest pain, Denies rapid heart rate, Denies irregular heart rhythm, Denies palpitations and Denies dyspnea Resp Denies chest congestion, Denies cough, Denies dyspnea and Denies wheezing GI Denies abdominal pain, Denies bloating, Denies constipation, Denies dysphagia, Denies heartburn, Denies diarrhea, Denies nausea, Denies odynophagia and Denies vomiting Denies hematuria, Denies difficulty urinating, Denies dysuria, Denies urinary frequency and Denies urinary urgency Musc Denies back pain, Denies arthralgias, Denies joint swelling, Denies muscle weakness and Denies neck pain Skin/Breast Denies change in pigmentation, Denies lesions, Denies rash and Denies unusual bruising Neuro Denies dizziness, Denies headache(s), Denies paresthesias and Denies weakness Endo Denies fatigue and Denies palpitations Aller/Immun Denies itchy eyes and Denies wheezing Physical exam (Primary Care) Vital Signs: Last Vital Signs Pulse 76 01/11/24 15:02 BP 122/64 01/11/24 15:02 Pulse Ox 96 01/11/24 15:02 Oxygen Delivery Method Room Air 01/11/24 15:02 BMI result Body Mass Index 29.5 Tobacco/Smoking Status: Tobacco use Status Tobacco use date assessed 01/11/24 01/11/24 15:08 Patient Tobacco Use Status Never used Tobacco 01/11/24 15:08 e-Cigarette/Vaping Use Never Used 01/11/24 15:08 Depression Screening Interpretation: Negative Thrive Assessment: Date of Thrive Assessment Date Thrive assessed 09/09/23 01/11/24 15:08 Const General: no acute distress, alert and awake Orientation/consciousness: patient oriented x3 HENMT Head: Yes normocephalic and Yes atraumatic Ears: external ears normal, TM's normal bilaterally and EAC's normal General nose exam: No nasal discharge present Face and sinus: Yes normal facial exam and Yes sinuses nontender Teeth and gingiva: dentition normal Throat: Yes posterior oropharynx normal and Yes tonsils normal (no TP congestion) Eyes Eyelids: Yes eyelids normal Conjunctivae: conjunctivae normal Pupils: Equal, round and reactive pupils present EOM: EOMs intact bilaterally Neck Neck: Yes no lymphadenopathy and Yes supple Thyroid: Thyroid normal Resp Auscultation: clear to auscultation bilaterally, no rales and no wheezes Cardio Rate: regular rate Rhythm: regular rhythm Heart sounds: no murmurs GI Palpation (GI): Soft to palpation, nontender and No hepatosplenomegaly present Auscultation: normal bowel sounds General: Yes no CVA tenderness Back/Spine/Pelvis Back: no CVA tenderness Thoracic/Lumbar Spine: thoracic and lumbar spine normal to inspection Skin Lesions: no lesions Rashes: no rashes Neuro General: patient oriented x3, moves all extremities, no focal motor deficits and CN's II-XI intact bilaterally Cranial nerves: Yes Equal, round and reactive pupils present Cognition (Neuro): normal cognition Gait exam (Neuro): Normal gait present Extrem General: Yes no clubbing, cyanosis or edema Results Reviewed Results Reviewed: Laboratory Tests 01/08/24 01/08/24 07:20 07:23 WBC 5.1 Hgb 15.6 Hct 44.3 Plt Count 180 Sodium 142 Potassium 3.8 Creatinine 0.87 Estimated GFR > 60 Fasting Glucose 101 H Calcium 9.7 Total Bilirubin 1.1 H AST 29 ALT 37 Triglycerides 101 Cholesterol 178 LDL Cholesterol, Calc 105 H HDL Cholesterol 53 Prostate Specific Ag 1.96 25-OH Vitamin D Total 49.9 TSH 3.02 Ur Specific [place] 1.010 Urine Protein Negative Urine Glucose (UA) Negative Urine Blood Negative Urine Nitrite Negative Ur Leukocyte Esterase Negative Assessment and Plan Assessment & Plan (1) Annual physical exam: Code(s): Z00.00 - Encounter for general adult medical examination without abnormal findings Plan: Results of his labs done a few days ago reviewed and discussed with patient He had his colonoscopy last done on 11/09/[address] Hutchinson - he was advised to get repeat colonoscopy done in 3 years due to the presence some features suggestive of sessile serrated polyp on his colonic mucosa Bx He is now scheduled for his repeat colonoscopy on 02/12/2024 (2) Pure hypercholesterolemia: Code(s): E78.00 - Pure hypercholesterolemia, unspecified Plan: Reinforced low cholesterol diet Continue Atorvastatin 10 mg QD Will recheck his labs and fasting lipids in 4 months for follow up (3) GERD without esophagitis: Code(s): K21.9 - Gastro-esophageal reflux disease without esophagitis Plan: Dietary restrictions reinforced (4) Headache: Code(s): R51.9 - Headache, unspecified Qualifiers: Headache type: tension-type Headache chronicity pattern: unspecified pattern Intractability: not intractable Qualified Code(s): G44.209 - Tension-type headache, unspecified, not intractable Plan: Most likely tension headaches or muscle contraction headaches - states that his headaches have only been occurring occasionally lately Continue Fioricet 50-325-40 mg TID PRN (5) Rosacea: Code(s): L71.9 - Rosacea, unspecified Plan: Was seen by [facility] previously and started on Metronidazole 0.75% topical gel apply to rash on face QD - Rx refilled, per request Follow up with dermatology as scheduled (6) Urinary hesitancy: Code(s): R39.11 - Hesitancy of micturition Plan: Most likely due to BPH His serum PSA was again normal on his recent labs Continue Tamsulosin 0.4 mg BID Follow up with urology as scheduled (7) Overweight (BMI 25.0-29.9): Code(s): E66.3 - Overweight Plan: Reinforced diet/exercise as tolerated/lose weight Plan Follow up in 4 months Orders: Orders UA CC w/rflx Micro + Cult 4 Months R30.0 - Dysuria Complete Blood Count Auto Diff 4 Months D64.9 - Anemia, unspecified Comprehensive [place]. Panel Fast 4 Months E78.00 - Pure hypercholesterolemia, unspecified Lipid Panel 4 Months E78.00 - Pure hypercholesterolemia, unspecified Coding Level of Care Code Est Pt Prev Care 40-64y([id number]) Diagnoses Annual physical exam Z00.00 Pure hypercholesterolemia E78.00 GERD without esophagitis K21.9 Tension-type headache, not intractable, unspecified chronicity pattern G44.209 Headache type: tension-type Headache chronicity pattern: unspecified pattern Intractability: not intractable Rosacea L71.9 Urinary hesitancy R39.11 Overweight (BMI 25.0-29.9) E66.3
[2024-01-11 15:02] VITALS: BP 122/64; PULSE 76; O2SAT 96; BMI 29.5
== END 2024-01-11 16:08 | disposition home or self-care (01) ==
PROVIDERS: PCP Internal Medicine; Visit Provider Internal Medicine
DX: Z00.00 Encounter for general adult medical examination without abnormal findings (principal); E78.00 Pure hypercholesterolemia, unspecified; K21.9 Gastro-esophageal reflux disease without esophagitis; G44.209 Tension-type headache, unspecified, not intractable; L71.9 Rosacea, unspecified; R39.11 Hesitancy of micturition; E66.3 Overweight
CPT/HCPCS: 99396

== ENCOUNTER 2024-02-12 06:26 | Day surgery (SDC) | payer BC, SELFPAY ==
[2024-02-10 13:45] VITALS: BMI 28.7
--- NOTE | 2024-02-11 09:18 | P.CONAN_ITS ---
Documented by User: Jenny Otto NP 02/11/24 09:19 HPI - Anesthesia Eval Consult details Narrative: 53yo M for Colonoscopy PMFSH Active Problems Active Problems: All Active Problems Neurogenic bladder (Acute) Screening PSA (prostate specific antigen) (Acute) Rosacea (Acute) Incomplete bladder emptying (Acute) Family history of prostate cancer in father (Acute) Nocturia (Acute) BPH loc w urin obs/LUTS (Acute) Weak urinary stream (Acute) Annual physical exam (Acute) Actinic keratosis (Acute) [place] (Acute) [place] angioma (Acute) Headache (Acute) Urinary hesitancy (Acute) Overweight (BMI 25.0-29.9) (Acute) Elevated TSH (Acute) GERD without esophagitis (Acute) Pure hypercholesterolemia (Acute) Past Medical History Medical History BPH (benign prostatic hyperplasia) Tension headache Urinary hesitancy Overweight (BMI 25.0-29.9) Elevated TSH GERD without esophagitis Pure hypercholesterolemia Family History Family History Father Cancer Mother No problems noted. Surgical History Surgical History History of colonoscopy [place] teeth removed Social History Social History Housing: House Are you a primary career transition specialist to a significant other at home: No Do you presently have visiting nurse or other home services: No Alcohol intake: current Alcohol intake frequency: does not drink Patient Tobacco Use Status: Never used Tobacco e-Cigarette/Vaping Use: Never Used Second Hand Smoke Exposure: Yes Use of substances other than those prescribed or required for medical reasons: No Are you DNR?: No Advance Directives: No Advance Directives Information Provided: Yes service: No Current occupational status: employed Current occupational exposures/hazards: No Cognitive needs: No Hearing needs: No Vision needs: Yes Meds Allergies Allergy/AdvReac Type Severity Reaction Status Date / Time No Known Allergies Allergy Verified 01/11/24 15:48 Home Medications ?Medication ?Instructions ?Recorded ?Confirmed ?Last Taken ?Type multivitamin 1 tab PO DAILY 08/14/20 02/10/24 Unknown History Exam Height,Weight and Vital Signs: Height 5 ft 8 in Weight 85.729 kg Pertinent Lab Results Pertinent Lab Results: Laboratory Tests 01/08/24 07:23 WBC 5.1 Hgb 15.6 Hct 44.3 Plt Count 180 Sodium 142 Potassium 3.8 Chloride 108 Carbon Dioxide 27 BUN 12 Creatinine 0.87 Assessment and Plan Assessment Anesthesia Assessment: Chart Reviewed Documented by User: Akua Pelayo MD 02/12/24 07:54 PMFSH Past Medical History Medical History BPH (benign prostatic hyperplasia) Tension headache Urinary hesitancy Overweight (BMI 25.0-29.9) Elevated TSH GERD without esophagitis Pure hypercholesterolemia Family History Family History Father Cancer Mother No problems noted. Family history of problems with anesthesia: No Surgical History Surgical History History of colonoscopy [place] teeth removed History of Problems with Anesthesia: No Social History Social History Housing: House Are you a primary career transition specialist to a significant other at home: No Do you presently have visiting nurse or other home services: No Alcohol intake: current Alcohol intake frequency: does not drink Patient Tobacco Use Status: Never used Tobacco e-Cigarette/Vaping Use: Never Used Second Hand Smoke Exposure: Yes Use of substances other than those prescribed or required for medical reasons: No Are you DNR?: No Advance Directives: No Advance Directives Information Provided: Yes service: No Current occupational status: employed Current occupational exposures/hazards: No Cognitive needs: No Hearing needs: No Vision needs: Yes Meds Allergies Allergy/AdvReac Type Severity Reaction Status Date / Time No Known Allergies Allergy Verified 01/11/24 15:48 Home Medications ?Medication ?Instructions ?Recorded ?Confirmed ?Last Taken ?Type multivitamin 1 tab PO DAILY 08/14/20 02/10/24 Unknown History Exam Airway Mallampati Class: II TM Dist: >3cm Heart: rrr Lungs: cta Assessment and Plan Assessment Anesthesia Assessment: Anesthesia Plan Discussed Final Anesthetic Review Family History of Problems with Anesthesia: No History of Problems with Anesthesia: No NPO: Yes ASA Class: II Final Preanesthetic Review: No Changes in Pt Med Stat, Meds/Allgs Chart Reviewed, Consent Obtained/Reviewed and Anes Risks/Benef Reviewed Patient Risk: Low Procedure Risk: Low Anesthetic Plan Anesthetic Plan: MAC: Disposition: Standard PACU
[2024-02-12 06:32] VITALS: BMI 30.4
[2024-02-12 06:52] VITALS: BP 126/78; PULSE 108; RESP 16; TEMP 36.7; O2SAT 98
[2024-02-12] MEDS: Lactated Ringers 1,000 ML 100 ML IVCONT (06:56)
--- NOTE | 2024-02-12 07:28 | MHC.SHP ---
Pre-Procedural Eval Section A - 24 Hr Update-Section A only Date of Service: 02/12/24 Section B - Complete if H&P > 30 days Chief Complaint: screening Details of Present Illness: see H&P no changes Relevant Family History (Specify if Yes): No Relevant Social History: None Present Medications: see Short Stay Collaborative assessment Medical History: No relevant PMH History of Previous Operations: No relevant previous surgery Allergies: Allergies Allergy/AdvReac Type Severity Reaction Status Date / Time No Known Allergies Allergy Verified 01/11/24 15:48 Review of Systems Sugical H&P ROS: Negative: Constitution, Cardiovascular, Respiratory, Neurological, Psychiatric, Hem-Onc, Allergic/Immunologic, Gastrointestinal, Genitourinary, Musculoskeletal, Integumentary, Endocrine and Eyes/Ears/Nose/Throat Exam Surgical H&P Exam: Normal: HEENT, Normal: Heart, Normal: Lungs, Normal: Extremities, Normal: Abdomen, Normal: Skin and Normal: Neurological Plan Diagnosis/Plan: Unchanged I have reviewed the history and physical and performed a pertinent physical examination on my patient. No changes have occurred unless specified. Time Spent With Patient Time: Total time managing care of this patient today ____ minutes.
[2024-02-12 08:09] VITALS: BP 96/59; PULSE 60; RESP 16; TEMP 36.1; O2SAT 98
[2024-02-12 08:24] VITALS: BP 110/72; PULSE 84; RESP 16; O2SAT 95
--- NOTE | 2024-02-12 08:25 | OP_ITS ---
DATE OF SERVICE: 02/12/2024 SURGEON: Tarik Hutchinson MD INDICATIONS: Colon cancer screening and prior history of colon polyps. PREOPERATIVE DIAGNOSIS: POSTOPERATIVE DIAGNOSIS: PROCEDURE PERFORMED: Colonoscopy to the terminal ileum with biopsy. ESTIMATED BLOOD LOSS: COMPLICATIONS: ANESTHESIA: ASSISTANTS: SPECIMENS: MEDICATIONS: Monitored anesthesia care. DESCRIPTION OF PROCEDURE: A history and physical were performed. The risks and benefits of the procedure were explained to the patient, and informed consent was obtained. The patient was placed in a left lateral decubitus position. A digital rectal exam was performed and was found to be normal. The Olympus pediatric video colonoscope was introduced into the rectum and advanced to the cecum. The cecum was identified by transillumination, palpation, and identification of ileocecal valve. Examination was performed, and the scope was removed. He tolerated the procedure well and was returned to recovery in stable condition. FINDINGS: The terminal ileum was examined and appeared normal. The visualized colonic mucosa was normal. The quality of prep was good. Two polyps were identified. These were identified measuring less than 5 mm. They were removed with biopsy forceps. Retroflexed examination showed some small internal hemorrhoids. There was scattered diverticulosis throughout the colon. The quality of prep was good. IMPRESSION: Colon polyps. RECOMMENDATION: Follow up the biopsy results. MD JOCE Farooq/ROSALINDA / [id number]
[2024-02-12 08:39] VITALS: BP 127/89; PULSE 72; RESP 16; TEMP 36.3; O2SAT 98
== END 2024-02-12 08:56 | disposition home or self-care (01) ==
PROVIDERS: PCP Internal Medicine; Visit Provider Internal Medicine Gastroenterology
PROC: 0DJD8ZZ Inspection of Lower Intestinal Tract, Via Natural or Artificial Opening Endoscopic (ICD-10-PCS; CPT 45378; principal; 2024-02-12 07:30)
DX: Z12.11 Encounter for screening for malignant neoplasm of colon (principal); Z86.010 Personal history of colon polyps; D12.3 Benign neoplasm of transverse colon; D12.4 Benign neoplasm of descending colon; K57.30 Diverticulosis of large intestine without perforation or abscess without bleeding; K64.8 Other hemorrhoids; K21.9 Gastro-esophageal reflux disease without esophagitis; N40.1 Benign prostatic hyperplasia with lower urinary tract symptoms; R39.11 Hesitancy of micturition; E78.5 Hyperlipidemia, unspecified; G44.209 Tension-type headache, unspecified, not intractable; Z79.899 Other long term (current) drug therapy
CPT/HCPCS: 45380; 88305; J2704

== ENCOUNTER 2024-04-23 07:48 | Outpatient (REF) | payer BC, SELFPAY ==
[2024-04-23 08:15] LABS: MANUAL DIFF FLAG NO
[2024-04-23 08:41] LABS: Appearance Urine Clear; Color Urine Yellow; Glucose Urine UA Negative (Negative); Leukocyte Esterase Urine Negative (Negative); Nitrite Urine Negative (Negative); PH 6.5 (5.0-9.0); Urine Blood Negative (Negative); Urine Ketones Negative (Negative); Urine Protein Negative (Neg-Trace)
[2024-04-23 09:02] LABS: Basophils Percent Auto 0.9 % (0-2); Eosinophils Absolute Auto 0.2 X10*3/uL (0.0-0.4); Eosinophils Percent Auto 4.1 % (0-4); Hematocrit 44.5 % (42.0-52.0); Hemoglobin 15.4 g/dl (14.0-18.0); Imm Gran Abs Auto 0.01 X10*3/uL (0.00-0.03); Imm Gran Pct Auto 0.2 % (0.0-0.4); Lymphocytes Absolute Auto 1.3 X10*3/uL (1.2-4.9); Lymphocytes Percent Auto 28.5 % (20-40); Mean Corpuscular HGB Conc 34.6 g/dl (31.0-36.0); Mean Corpuscular Hemoglobin 29.7 pg (27.0-33.0); Mean Corpuscular Volume 85.9 fL (80.0-98.0); Mean Platelet Volume 10.5 fL (9.4-12.4); Monocytes Absolute Auto 0.5 X10*3/uL (0.1-1.2); Neutrophils Absolute Auto 2.6 x10*3/uL (2.0-8.3); Neutrophils Percent Auto 55.3 % (45-73); Platelet Count 184 X10*3/uL (160-400); Red Blood Count 5.18 X10*6/uL (4.60-5.80); Red Cell Distribution Width 12.3 % (11.0-16.0); White Blood Count 4.6 X10*3/uL (4.8-10.8)
[2024-04-23 09:13] LABS: Alanine Aminotransferase 36 U/L (0-40); Albumin Level 4.5 g/dL (3.5-5.0); Alkaline Phosphatase 93 U/L (39-117); Anion Gap 12 (12-20); Aspartate Amino Transferase 25 U/L (5-37); Bilirubin Total 0.8 mg/dL (0.0-1.0); Blood Urea Nitrogen 11 mg/dL (9-16); Calcium 10.1 mg/dL (8.4-10.2); Carbon Dioxide 26 mmol/L (22-29); Chloride 108 mmol/L (96-108); Cholesterol 153 mg/dL (<200); Estimated Glomerular Filt Rate > 60; Glucose Fasting 96 mg/dL (60-99); HDL Cholesterol 55 mg/dL (>40); LDL Cholesterol Calculated 80 mg/dL (<100); Potassium 4.1 mmol/L (3.3-5.1); Sodium 142 mmol/L (135-145); Total Protein 7.1 g/dL (6.5-8.0); Triglycerides 94 mg/dL (<150)
[2024-04-23 09:44] LABS: PSA,Total (Free>4and<10) 2.29 ng/mL (0.00-4.00)
== END 2024-04-23 07:49 | disposition home or self-care (01) ==
LOC: HO.LAB 07:48
PROVIDERS: PCP Internal Medicine; Referring Provider Internal Medicine; Visit Provider Urology
DX: D64.9 Anemia, unspecified (principal); R30.0 Dysuria; E78.00 Pure hypercholesterolemia, unspecified; Z12.5 Encounter for screening for malignant neoplasm of prostate
CPT/HCPCS: 36415; 80053; 80061; 81003; 84153; 85025

== ENCOUNTER 2024-04-28 08:06 | Outpatient (AMB) | payer BC, SELFPAY ==
--- NOTE | 2024-04-28 08:11 | A.OFFVIS_ITS ---
Intake Visit Reasons: PSA/PVR Intake Note: Patient is Present for PVR/PSA Urology Med: Bethanechol, Tamsulosin Antibiotic Allergy:None Blood Thinner: None Last PVR: 602ml Todays PVR:534ml Recent PSA: 04/23/2024 PSA: 2.29 Patient states that both medications is working well with him no complaints. Patient does state that he feels that medications wears off by the end of the day. 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 He is currently on tamsulosin 0.4 mg b.i.d. and bethanechol 50 mg b.i.d. he states that he is urinating at home he is not getting up multiple times at night. He denies dysuria denies blood in the urine. On monitoring of kidneys renal ultrasound in September no hydronephrosis. We will continue to monitor patient he declines CIC, he declines cystoscopy. Discussed PSA screening- 04/23/2024--2.29 ng/mL. Review of chart: 10/29/2023-- Eric is a 53-year-old male who presents today to the office for a follow-up. The patient has lower urinary tract symptoms of incomplete bladder emptying. He declines management with CIC. 09/18/23--Renal ultrasound was ordered and I have reviewed results with the patient there is no hydronephrosis noted we will continue to monitor for this. The patient is on max dose of Flomax discussed adding bethanechol. 06/26/23? Eric is present today for hesitancy of micturition. He is prescribed tamsulosin bid. He has LUTS of frequency and incomplete bladder emptying. He is taking Atorvastatin for hypercholesterolemia.? Bladder scan PVR- 608 mL. Incomplete bladder emptying.? Will cont monitor. Cont Flomax 0.4 mg to Bid. PSA screening Discussed further evaluation with cysto and UDS, pt declines at this time. FU in 4 months renal sono prior He was initially seen by me on 03/06/23 for hesitancy of micturition. Significant findings on exam - Large PVR. Flomax 0.4 mg daily was ordered, He mentions having intermittent urinary frequency, and weak urinary stream. He states that his father has had a history of prostate cancer. He was diagnosed at the age of early 60s. He denies any family history of colon cancer. He states that he had 2 brothers, one is younger, and the other one is older and US of the renal and bladder were ordered during that time. AUA - 31 I have discussed that he had incomplete bladder emptying, the reason for his problem may include bladder muscle being ineffective and decreased bladder contractility versus outlet obstruction. The patient states that he has a 'shy' bladder. Results: Retroperitoneum US results from 04/21/23 No hydronephrosis or parencyhmal lesions noted. Prevoid bladder volume was 680 mL, and Post void bladder volume was 501 mL. Estimated prostate volume of 49 mL PSA results from 01/05/2023 revealed 2.40 ng/mL PFSH Medical History BPH (benign prostatic hyperplasia) Tension headache Urinary hesitancy Overweight (BMI 25.0-29.9) Elevated TSH GERD without esophagitis Pure hypercholesterolemia Surgical History History of colonoscopy [place] teeth removed Family History Father Cancer Mother No problems noted. Social History Housing: House Are you a primary live in caregiver to a significant other at home: No Do you presently have visiting nurse or other home services: No Alcohol intake: current Alcohol intake frequency: does not drink Patient Tobacco Use Status: Never used Tobacco e-Cigarette/Vaping Use: Never Used Second Hand Smoke Exposure: Yes service: No Current occupational status: employed Current occupational exposures/hazards: No Cognitive needs: No Hearing needs: No Vision needs: Yes Review of Systems Const All systems reviewed & are unremarkable except as noted in HPI and below Reports no additional complaints Eyes Reports no additional complaints ENT Reports no additional complaints Card Reports no additional complaints Resp Reports no additional complaints GI Reports no additional complaints Reports as per HPI Musc Reports no additional complaints Skin/Breast Reports system reviewed and no additional complaints, except as documented Neuro Reports no additional complaints Psych Reports no additional complaints Endo Reports no additional complaints Chris/Lymph Reports no additional complaints Aller/Immun Reports no additional complaints Office Procedures Post Void Residual Post Residual Void Post Void Residual (PVR): [id number] Void Residual by ultrasound Results AMB Urinalysis, Automated UA Leukoctes 0 Melecio/uL Last Edit by Rowan De Los Santos [facility] on 04/28/24 08:27 UA Nitrite Negative Last Edit by Rowan De Los Santos [facility] on 04/28/24 08:27 UA Urobilinogen 0.2 mg/dL Last Edit by Rowan De Los Santos [facility] on 04/28/24 08:2 7 UA Protein 0 mg/dL Last Edit by Rowan De Los Santos [facility] on 04/28/24 08:27 UA pH 6.5 Last Edit by Rowan De Los Santos [facility] on 04/28/24 08:27 UA Blood 0 Raffy/uL Last Edit by Rowan De Los Santos [facility] on 04/28/24 08:27 UA Specific [place] 1.010 Last Edit by Rowan De Los Santos [facility] on 04/28/24 08: 27 UA Ketone Negative Last Edit by Rowan De Los Santos [facility] on 04/28/24 08:27 UA Bilirubin 0 mg/dL Last Edit by Rowan De Los Santos [facility] on 04/28/24 08:27 UA Glucose 0 mg/dL Last Edit by Rowan De Los Santos [facility] on 04/28/24 08:27 Results Reviewed Results Reviewed: Laboratory Last Values Urine pH (Auto) 6.5 04/28/24 08:16 Specific [place] (Auto) 1.010 04/28/24 08:16 Urine Protein (Auto) 0 mg/dL 04/28/24 08:16 Glucose (UA)(Auto) 0 mg/dL 04/28/24 08:16 Urine Ketones (Auto) Negative 04/28/24 08:16 Urine Blood (Auto) 0 Raffy/uL 04/28/24 08:16 Urine Nitrite (Auto) Negative 04/28/24 08:16 Urine Bilirubin (Auto) 0 mg/dL 04/28/24 08:16 Urine Urobilinogen (Auto) 0.2 mg/dL 04/28/24 08:16 Leukocyte Esterase (Auto) 0 Melecio/uL 04/28/24 08:16 Date of Service: 09/18/23 EXAMINATION: US RETROPERITONEAL LIMITED (RENAL ONLY) CLINICAL INFORMATION: Retention of urine, unspecified. COMPARISON: Ultrasound kidneys and bladder 04/21/2023. TECHNIQUE: Real-time imaging of the kidneys. FINDINGS: RIGHT KIDNEY: 10.7 x 5.5 x 5.3 cm (SAG x AP x TRV). The kidney is normal in size, contour, and echogenicity. Renal cortical thickness is normal. No calculi or focal parenchymal lesions. Incidental note made of a column of James. No hydronephrosis. LEFT KIDNEY: 11.3 x 6.3 x 5.8 cm (SAG x AP x TRV). The kidney is normal in size, contour, and echogenicity. Renal cortical thickness is normal. No calculi or focal parenchymal lesions. No hydronephrosis. ADDITIONAL FINDINGS: Multiple benign hepatic cysts are incidentally noted. IMPRESSION: Normal-appearing kidneys. Date of Service: 04/21/23 EXAMINATION:? US RETROPERITONEAL COMPLETE (RENAL) CLINICAL INFORMATION: Retention of urine, unspecified. COMPARISON:? None available. FINDINGS: RIGHT KIDNEY: 11.8 x 4.9 x 5.4 cm (SAG x AP x TRV). The kidney is normal in size, contour, and echogenicity. Renal cortical thickness is normal. No calculi or focal parenchymal lesions. No hydronephrosis. LEFT KIDNEY: 10.6 x 5.7 x 5.9 cm (SAG x AP x TRV). The kidney is normal in size, contour, and echogenicity. Renal cortical thickness is normal. No calculi or focal parenchymal lesions. No hydronephrosis. BLADDER: Distended. Bilateral ureteral jets are demonstrated. Prevoid bladder volume is 680 mL. Postvoid bladder volume is 501 mL. ADDITIONAL FINDINGS: The prostate measures 4.5 x 4.5 x 4.1 cm for a volume of 49 mL. IMPRESSION:? Urinary retention with large postvoid residual bladder volume. Assessment & Plan Assessment & Plan (1) BPH loc w urin obs/LUTS: Code(s): N40.1 - Benign prostatic hyperplasia with lower urinary tract symptoms Category: Medical (2) Incomplete bladder emptying: Code(s): R33.9 - Retention of urine, unspecified Category: Medical (3) Screening PSA (prostate specific antigen): Code(s): Z12.5 - Encounter for screening for malignant neoplasm of prostate Category: Medical (4) Neurogenic bladder: Code(s): N31.9 - Neuromuscular dysfunction of bladder, unspecified Category: Medical Plan Bethanechol 50 mg twice a day. Continue Flomax 0.8 mg daily. Will monitor PVRs Will monitor kidneys. Patient declines CIC management. Renal ultrasound in 6 months. Orders: Orders AMB Urinalysis Automated Today Z13.9 - Encounter for screening, unspecified AMB Post Void Residual by ultrasound Today R33.9 - Retention of urine, unspecified Medications: Refilled bethanechol chloride 50 mg PO BID 180 tabs 3RF tamsulosin 0.4 mg PO BID 90 days 180 caps 2RF Patient Instructions: The patient had an opportunity to ask questions regarding treatment plan. The patient expressed understanding and agreement with the above treatment plan. The patient is aware they should contact our office by phone for worsening of their current condition or the appearance of new symptoms. Compliance is encouraged with any medications and followup testing that is ordered. It is a privilege to be allowed the opportunity to participate in the urologic care of your patient. If you have any questions or concerns regarding treatment for the above conditions please do not hesitate to contact me. The office telephone contact is [phone]. This note is constructed in part using voice recognition software. While every effort has been made to ensure accuracy hydrostatic tubing tester errors may have been included. Yours sincerely, Raz Case MD Coding Level of Care Code Est Pt Level 4 (95616) Diagnoses BPH loc w urin obs/LUTS N40.1 Incomplete bladder emptying R33.9 Screening PSA (prostate specific antigen) Z12.5 Neurogenic bladder N31.9 CPT Codes Post Residual Void - PVR CPT Code: 63165-Gcmx Void Residual by ultrasound ([id number])
== END 2024-04-28 08:43 | disposition home or self-care (01) ==
PROVIDERS: PCP Internal Medicine; Visit Provider Urology
DX: N40.1 Benign prostatic hyperplasia with lower urinary tract symptoms (principal); R33.9 Retention of urine, unspecified; Z12.5 Encounter for screening for malignant neoplasm of prostate; N31.9 Neuromuscular dysfunction of bladder, unspecified; Z13.9 Encounter for screening, unspecified
CPT/HCPCS: 99214

== ENCOUNTER → 2024-04-28 08:06 | Outpatient (BNVA) | payer BC, SELFPAY | PROVIDERS: PCP Internal Medicine; Visit Provider Urology | DX: N40.1 Benign prostatic hyperplasia with lower urinary tract symptoms (principal); N13.8 Other obstructive and reflux uropathy; R33.8 Other retention of urine; N31.9 Neuromuscular dysfunction of bladder, unspecified; Z79.899 Other long term (current) drug therapy | CPT/HCPCS: 51798; 81003 ==

== ENCOUNTER 2024-05-13 14:05 | Outpatient (AMB) | payer BC, SELFPAY ==
[2024-05-13 14:06] VITALS: BP 100/70; PULSE 71; O2SAT 97; BMI 28.2
--- NOTE | 2024-05-13 14:06 | MHC.PC.OV ---
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: No Accompanied by: Self / Same As Patient Allergies No Known Allergies Allergy (Verified 05/13/24 14:54) Medication List - Last Reconciled 05/13/24 by Addi Ferreira MD atorvastatin 10 mg PO BEDTIME bethanechol chloride 50 mg PO BID mbgfrekurx-nqsfgdwwhepsk-xlhu 50-325-40 mg 1 tab PO TID PRN 30 days metronidazole 0.75% 1 appl topical BEDTIME multivitamin 1 tab PO DAILY tamsulosin 0.4 mg PO BID 90 days Tobacco use date assessed: 05/13/24 Dental Screening Dental Screen Date: 05/13/24 Did you have a dental visit in the last 12 months?: Yes Did you have a dental problem in the last 6 months where you did not have access to dental care?: No Was dental information given to patient?: Patient has dentist HPI hyperlipidemia, GERD HPI Details Patient comes in today for his follow-up visit States that he feels okay He denies any headaches or dizziness Denies any chest pains, no shortness a breath No nausea/vomiting, no abdominal pain No change in bowel habits noted He had his follow-up labs done a couple of weeks ago - to discuss his results [facility] Medical History (Updated 05/15/24 @ 05:24 by Addi Ferreira MD) Benign prostatic hyperplasia with lower urinary tract symptoms BPH (benign prostatic hyperplasia) Tension headache Urinary hesitancy Overweight (BMI 25.0-29.9) Elevated TSH GERD without esophagitis Pure hypercholesterolemia Surgical History History of colonoscopy [place] teeth removed Family History Father Cancer Mother No problems noted. Social History Housing: House Are you a primary lead caregiver to a significant other at home: No Do you presently have visiting nurse or other home services: No Alcohol intake: current Alcohol intake frequency: does not drink Patient Tobacco Use Status: Never used Tobacco e-Cigarette/Vaping Use: Never Used Second Hand Smoke Exposure: Yes service: No Current occupational status: employed Current occupational exposures/hazards: No Cognitive needs: No Hearing needs: No Vision needs: Yes Questionnaire PHQ-9 Over the last 2 weeks, how often have you been bothered by any of the following problems? 1. Little interest or pleasure in doing things: not at all 2. Feeling down, depressed, or hopeless: not at all 3. Trouble falling or staying asleep, or sleeping too much: not at all 4. Feeling tired or having little energy: not at all 5. Poor appetite or overeating: not at all 6. Feeling bad about yourself - or that you are a failure or have let yourself or your family down: not at all 7. Trouble concentrating on things, such as reading the newspaper or watching television: not at all 8. Moving or speaking so slowly that other people could have noticed. Or the opposite - being so fidgety or restless that you have been moving around a lot more than usual: not at all 9. Thoughts that you would be better off or of hurting yourself in some way: not at all Total score: 0 Depression Screening Interpretation: Negative Depression Screening Done: Yes 19041 - PHQ-9 Billing: Yes Source: Developed by Drs. Baljinder Carlson, Cierra Tan, Ryland Padron and colleagues, with an educational maryann from [employer]. Thrive Questionnaire Date Thrive assessed: 05/13/24 I am a: Patient What is your living situation today?: I have a steady place to live Within the past 12 months, did the food you bought not last and you didn't have the money to get more?: Never true Within the past 12 months, did you worry whether your food would run out before you got money to buy more?: Never true Do you have trouble paying for medicines?: No Do you have trouble getting transportation to medical appointments?: No Do you have trouble paying your heating and electricity bill?: No Do you have trouble taking care of your child, family member or friend?: No Do you have trouble with day-to-day activities such as bathing, preparing meals, shopping, managing finances, etc.?: No Are you currently unemployed and looking for a job?: No Are you interested in more education?: No Please select the resources that you would like help with: None Currently or been in a relationship where the following occur: No concerns reported THRIVE Score: 0 AUDIT C Alcohol Use Questionnaire (AUDIT-C) 1. How often do you have a drink containing alcohol?: 2-4 times a month 2. How many drinks containing alcohol do you have on a typical day when you are drinking?: 1 or 2 3. How often do you have six or more drinks on one occasion?: Never Total Score: 2 Score Reviewed/Action Taken: Yes TIEN-7 AMB Questionnaire TIEN-7 Date TIEN - 7 assessed: 05/13/24 Feeling nervous, anxious, or on edge: 0 = Not at all Not being able to stop or control worryin = Not at all Worrying too much about different things: 0 = Not at all Trouble relaxin = Not at all Being so restless that it is hard to sit still: 0 = Not at all Becoming easily annoyed or irritable: 0 = Not at all Feeling afraid as if something awful might happen: 0 = Not at all Total TIEN-7 score (0-4 normal; 5-9 mild; 10-14 moderate; 15-21 severe): 0 Source: Developed by Drs. Baljinder Carlson, Cierra Tan, Ryland Padron and colleagues, with an educational maryann from [employer]. Review of Systems Const Denies chills, Denies fatigue, Denies fever(s) and Denies headache(s) ENT Denies dysphagia, Denies dizziness, Denies otalgia, Denies headache(s), Denies neck pain, Denies odynophagia and Denies sore throat Card Denies chest pain, Denies irregular heart rhythm, Denies palpitations and Denies dyspnea Resp Denies chest congestion, Denies cough and Denies dyspnea GI Denies abdominal pain, Denies constipation, Denies dysphagia, Denies heartburn, Denies diarrhea, Denies nausea, Denies odynophagia and Denies vomiting Reports oliguria, Denies difficulty urinating, Denies dysuria, Denies urinary frequency and Reports urinary hesitancy (at times) Musc Denies back pain, Denies arthralgias and Denies neck pain Skin/Breast Denies rash Neuro Denies dizziness, Denies headache(s) and Denies paresthesias Endo Denies fatigue and Denies palpitations Physical exam (Primary Care) Vital Signs: Last Vital Signs Pulse 71 05/13/24 14:06 BP 100/70 05/13/24 14:06 Pulse Ox 97 05/13/24 14:06 Oxygen Delivery Method Room Air 05/13/24 14:06 BMI result Body Mass Index 28.2 Tobacco/Smoking Status: Tobacco use Status Tobacco use date assessed 05/13/24 05/13/24 14:13 Patient Tobacco Use Status Never used Tobacco 05/13/24 14:13 e-Cigarette/Vaping Use Never Used 05/13/24 14:13 PHQ-9: PHQ-9 Score PHQ-9: Total score 0 05/13/24 14:56 Depression Screening Interpretation: Negative Thrive Assessment: Date of Thrive Assessment Date Thrive assessed 05/13/24 05/13/24 14:13 Currently or been in a relationship where the following occur: No concerns reported Const General: no acute distress and alert HENMT Ears: TM's normal bilaterally and EAC's normal Throat: Yes posterior oropharynx normal and Yes tonsils normal (no TP congestion) Neck Neck: Yes no lymphadenopathy and Yes supple Thyroid: Thyroid normal Resp Auscultation: clear to auscultation bilaterally, no rales and no wheezes Cardio Rate: regular rate Rhythm: regular rhythm Heart sounds: no murmurs GI Palpation (GI): Soft to palpation and nontender Auscultation: normal bowel sounds General: Yes no CVA tenderness Back/Spine/Pelvis Back: no CVA tenderness Skin Rashes: no rashes Extrem General: Yes no clubbing, cyanosis or edema Results Reviewed Results Reviewed: Laboratory Tests 04/23/24 04/23/24 08:00 08:13 WBC 4.6 L Hgb 15.4 Hct 44.5 Plt Count 184 Sodium 142 Potassium 4.1 Creatinine 0.82 Estimated GFR > 60 Fasting Glucose 96 Calcium 10.1 AST 25 ALT 36 Triglycerides 94 Cholesterol 153 LDL Cholesterol, Calc 80 HDL Cholesterol 55 Total PSA 2.29 Ur Specific [place] 1.010 Urine Protein Negative Urine Glucose (UA) Negative Urine Blood Negative Urine Nitrite Negative Ur Leukocyte Esterase Negative Coding Level of Care Code Est Pt Level 4 (56517) Diagnoses Pure hypercholesterolemia E78.00 GERD without esophagitis K21.9 Tension-type headache, not intractable, unspecified chronicity pattern G44.209 Headache type: tension-type Headache chronicity pattern: unspecified pattern Intractability: not intractable Rosacea L71.9 Benign prostatic hyperplasia with urinary retention N40.1; R33.8 Lower urinary tract symptom detail: urinary retention Overweight (BMI 25.0-29.9) E66.3 Assessment & Plan Assessment & Plan (1) Pure hypercholesterolemia: Code(s): E78.00 - Pure hypercholesterolemia, unspecified Category: Medical Plan: Results of his labs done a couple of weeks ago reviewed and discussed with patient Reinforced low cholesterol diet Continue Atorvastatin 10 mg QD Will recheck his labs and fasting lipids in 4 months for follow up (2) GERD without esophagitis: Code(s): K21.9 - Gastro-esophageal reflux disease without esophagitis Category: Medical Plan: Dietary restrictions reinforced (3) Headache: Code(s): R51.9 - Headache, unspecified Category: Medical Qualifiers: Headache type: tension-type Headache chronicity pattern: unspecified pattern Intractability: not intractable Qualified Code(s): G44.209 - Tension-type headache, unspecified, not intractable Plan: Most likely tension headaches or muscle contraction headaches - states that his headaches have hardly bothered him lately Continue Fioricet 50-325-40 mg TID PRN (4) Rosacea: Code(s): L71.9 - Rosacea, unspecified Category: Medical Plan: He was previously seen by [facility] and started on Metronidazole 0.75% topical gel apply to rash on face QD Follow up with dermatology as scheduled (5) Benign prostatic hyperplasia with lower urinary tract symptoms: Code(s): N40.1 - Benign prostatic hyperplasia with lower urinary tract symptoms Category: Medical Qualifiers: Lower urinary tract symptom detail: urinary retention Qualified Code(s): N40.1 - Benign prostatic hyperplasia with lower urinary tract symptoms; R33.8 - Other retention of urine Plan: Continue Tamsulosin 0.4 mg Q HS and Bethanecol 50 mg BID Follow up with urology as scheduled (6) Overweight (BMI 25.0-29.9): Code(s): E66.3 - Overweight Category: Medical Plan: Reinforced diet/exercise as tolerated/lose weight Plan Follow up in 4 months Orders: Orders Complete Blood Count Auto Diff 4 Months D64.9 - Anemia, unspecified Comprehensive [place]. Panel Fast 4 Months E78.00 - Pure hypercholesterolemia, unspecified Vitamin D 25-OH Total 4 Months E55.9 - Vitamin D deficiency, unspecified Lipid Panel 4 Months E78.00 - Pure hypercholesterolemia, unspecified TSH reflex Free T4 4 Months E78.00 - Pure hypercholesterolemia, unspecified UA CC w/rflx Micro + Cult 4 Months R30.0 - Dysuria
== END 2024-05-13 15:02 | disposition home or self-care (01) ==
LOC: HO.HMCH 14:06
PROVIDERS: PCP Internal Medicine; Visit Provider Internal Medicine
DX: E78.00 Pure hypercholesterolemia, unspecified (principal); K21.9 Gastro-esophageal reflux disease without esophagitis; G44.209 Tension-type headache, unspecified, not intractable; L71.9 Rosacea, unspecified; N40.1 Benign prostatic hyperplasia with lower urinary tract symptoms; R33.8 Other retention of urine; E66.3 Overweight

== ENCOUNTER → 2024-05-13 14:05 | Outpatient (BNVA) | payer BC, SELFPAY | PROVIDERS: PCP Internal Medicine; Visit Provider Internal Medicine ==

== ENCOUNTER 2024-07-17 13:23 | Inpatient (IN) | payer BC, SELFPAY ==
--- NOTE | ~2024-07-17 | CT_ITS ---
EXAMINATION: CT ABDOMEN PELVIS WITH IV CONTRAST HISTORY: Liver mets noted during lap cholecystectomy COMPARISON: Correlation is made with an abdominal ultrasound dated 07/17/2024. TECHNIQUE: CT scan of the abdomen and pelvis was performed following administration of 85 mL Omnipaque 350 using standard departmental protocol. Coronal and sagittal reformatted images were generated and reviewed. Oral contrast material was not administered at the request of the referring physician. This CT exam was performed with one or more of the following dose reduction techniques: automated exposure control, adjustment of the mA and/or kV according to patient size, use of iterative reconstruction technique. DLP: 69.42 mGy-cm FINDINGS: LOWER CHEST: There are nodules of the lung bases, as noted on chest CT performed concurrently. CARDIOVASCULATURE: The heart is normal in size. There is no pericardial effusion. LIVER: Multiple hypodense masses are noted in the liver measuring up to 6.3 cm in size, consistent with metastatic disease. There is a 2.1 cm cyst at the posterior aspect of the right lobe. The hepatic and portal veins are patent. GALLBLADDER / BILE DUCTS: The patient is status post cholecystectomy. A surgical drain and fluid are noted in the gallbladder fossa. There is no biliary dilatation. SPLEEN: The spleen is normal in size. No focal splenic lesion is identified. PANCREAS: The pancreas is unremarkable in appearance. ADRENAL GLANDS: Within normal limits. KIDNEYS/RETROPERITONEUM: No renal calculi are identified. There is no hydronephrosis. No renal masses are identified. LYMPH NODES: No abdominal or pelvic lymphadenopathy. VASCULATURE: The abdominal aorta is normal in caliber. MESENTERY/PERITONEUM: There is a small amount of free fluid in the paracolic gutters and in the pelvis. There is trace free intraperitoneal gas consistent with the history of recent surgery. STOMACH: The stomach is collapsed, limiting evaluation. SMALL BOWEL: The small bowel is normal in caliber. COLON: There is a moderate amount stool throughout the colon. APPENDIX: Normal. URINARY BLADDER/PELVIC ORGANS: The urinary bladder is unremarkable. The prostate is normal in size. BONES / SOFT TISSUES: No suspicious bony or soft tissue abnormalities. CT/CT abdomen pelvis w IV con IMPRESSION: 1. Diffuse hepatic metastatic disease. 2. Status post cholecystectomy. Electronically signed by: Baljinder Duggan MD 07/19/2024 02:02 PM [facility]
--- NOTE | ~2024-07-17 | US_ITS ---
CLINICAL HISTORY: RUQ pain US abdomen. COMPARISON: None Technique: Real time sonographic imaging, including color-flow imaging, was performed by the rural sociologist. Multiple traveling representative static images were saved for review. FINDINGS: The visualized aorta and inferior vena cava are normal caliber. The visualized portions of the pancreas appear normal. The liver has diffusely increased and heterogeneous echogenicity. Multiple simple hepatic cysts present, largest in the right lobe measuring 2.0 x 2.0 x 2.2 cm. Hemangioma present within the right lobe of the liver measuring 1.1 x 1.1 x 1.1 cm, no further specific follow-up. Hypoechoic lesion measuring 3.3 x 2.9 x 3.5 cm adjacent to the gallbladder fossa, indeterminate. The main portal vein is antegrade. The gallbladder is normal in size. Shadowing nonmobile cholelithiasis present within the gallbladder neck. Small gallbladder polyp present along the fundus measuring 0.3 x 0.3 x 0.4 cm. There is a positive sonographic Hernández's sign. Gallbladder wall: 3 mm, upper limits normal Common bile duct: 2 mm, normal. Right kidney: Cortical medullary differentiation is maintained. No calculus or focal parenchymal abnormality identified. No hydronephrosis. Right kidney length: 12.1 cm Left kidney: Cortical medullary differentiation is maintained. No calculus or focal parenchymal abnormality identified. No hydronephrosis. Left kidney length: 11.4 cm Spleen is normal in echotexture and size measuring 11.5 cm in length. No free intraperitoneal fluid identified. IMPRESSION: 1. Nonmobile cholelithiasis within the gallbladder neck with positive sonographic Hernández's sign consistent with cholecystitis. Of note no gallbladder wall thickening or pericholecystic inflammatory signs. 2. Small gallbladder polyp measuring up to 0.4 cm. No further specific follow-up recommendations. 3. Indeterminate mildly hypoechoic ill-defined hepatic lesion adjacent to the gallbladder fossa measuring up to 3.5 cm may represent focal fatty sparing. Recommend comparison with prior imaging if available. If none available, recommend short-term follow-up ultrasound or MR hepatic protocol for further characterization. This document has been electronically signed by: Urbano Edmonds MD on 07/17/2024 17:01:49
--- NOTE | ~2024-07-17 | XR_ITS ---
EXAMINATION: XR CHEST CLINICAL INFORMATION: s/p right thoracentesis COMPARISON: CT chest 07/25/2024. TECHNIQUE: Frontal view of the chest was obtained. FINDINGS: There is elevated right hemidiaphragm likely from underlying subpulmonic effusion and/or infiltrate or atelectasis. The visualized right upper lung and the left lung is clear. The heart size and poor vascularity is normal. No gross bony abnormality seen. XR/XR chest 1V IMPRESSION: Suspect subpulmonic small effusion with underlying infiltrate/atelectasis. There is no pneumothorax status post thoracentesis Electronically signed by: Edgar Knight MD 07/25/2024 01:43 PM EST
--- NOTE | ~2024-07-17 | CT_ITS ---
EXAMINATION: CT CHEST WITH IV CONTRAST INDICATION: Possible liver mets COMPARISON: There are no prior studies available for comparison. TECHNIQUE: Helical CT scan of the chest was performed following administration of intravenous contrast. Coronal and sagittal reformatted images were generated and reviewed. This CT exam was performed with one or more of the following dose reduction techniques: automated exposure control, adjustment of the mA and/or kV according to patient size, use of iterative reconstruction technique. DLP: 987 mGy-cm CHEST: THYROID: The thyroid is unremarkable. LUNGS: There are airspace opacities in both lower lobes, consistent with atelectasis or pneumonia. There are multiple bilateral pulmonary nodules, consistent with metastatic disease. The largest nodule is at the right lung base measuring 12 mm in size (series 6, image 34). MEDIASTINUM: There is no mediastinal lymphadenopathy. AUDRA: There is no hilar lymphadenopathy. CARDIOVASCULATURE: The heart is normal in size. There is no pericardial effusion. The thoracic aorta is normal in caliber. DEGREE OF CORONARY CALCIFICATION: none PLEURA: There is no pleural effusion. No pneumothorax. MAIN AIRWAYS: The mainstem bronchi and proximal branches are patent. AXILLA: There is no axillary lymphadenopathy. BONES AND SOFT TISSUES: Unremarkable UPPER ABDOMEN: Numerous hepatic masses are seen, consistent with metastatic disease. The patient is status post cholecystectomy. There is a drain in the gallbladder fossa. A small amount of free intraperitoneal gas is noted in the upper abdomen consistent with recent surgery. The visualized portions of the spleen and adrenals are unremarkable. CT/CT chest w IV con IMPRESSION: 1. Multiple bilateral pulmonary nodules, consistent with metastatic disease. 2. Airspace opacities in both lower lobes, consistent with atelectasis or pneumonia. 3. Diffuse hepatic metastatic disease. Please see CT of the abdomen and pelvis report. Electronically signed by: Baljinder Duggan MD 07/19/2024 01:54 PM [facility]
--- NOTE | ~2024-07-17 | CT_ITS ---
CLINICAL HISTORY: R O abscess formation CT abdomen and pelvis with contrast Comparison: 07/19/2024 Findings: There are bilateral pleural effusions larger on the right with underlying consolidation, possible pneumonia or subsegmental atelectasis. Multiple hepatic lesions again noted, unchanged. There is no change in the appearance of the findings in the gallbladder fossa with no new collection. Otherwise unremarkable solid organs. No urolithiasis. No bowel obstruction, pneumoperitoneum, or pneumatosis. There is ascites most pronounced in the right pericolic gutter. There is retroperitoneal edema without focal mass or collection, possibly iatrogenic. Pelvic contents unremarkable. The appendix is not visualized with no imaging evidence to suggest appendicitis. The bones are intact. IMPRESSION: 1. No significant change in gallbladder fossa following apparent removal drainage catheter. 2. Bilateral pleural effusions, larger on the right, with underlying consolidation. 3. Multiple hepatic lesions, unchanged. 4. Ascites. This document has been electronically signed by: Juan Jose Contreras MD on 07/24/2024 10:11:05
--- NOTE | ~2024-07-17 | XR_ITS ---
CLINICAL HISTORY: F U pneumonia 1 view chest x-ray Comparison: CR - CHEST 2 VIEWS [id number] - 05/02/08 07:56 EDT Findings: There is a small right pleural effusion with right basilar opacities. Mild linear left lower lobe opacities are noted. 4 mm calcified left mid lung nodule is seen. There is elevation of the right hemidiaphragm. Heart size is normal. No acute fracture. IMPRESSION: 1. Small right pleural effusion with right basilar opacities, which may represent atelectasis or pneumonia. 2. Mild linear left lower lobe atelectasis. This document has been electronically signed by: Saskia Tovar on 07/24/2024 08:50:38
--- NOTE | ~2024-07-17 | MR_ITS ---
CLINICAL HISTORY: Abnl LFT's, s/p CCY, R/O CBD obstruction MRCP without gadolinium Comparison: No prior abdomen imaging is available for review in PACS at this time. Findings: Multiple sequences are degraded by motion artifacts. Small right pleural effusion with right basilar atelectasis/consolidation of the imaged right lung base. Additional atelectasis versus consolidation imaged left lung base with motion artifacts. No diffusion imaging achieved or available for review. Multiple liver masses and cystic lesions are scattered throughout the liver and not further characterize by noncontrast imaging. Multiplicity is concerning for metastatic disease. Adnexal soft tissue massin liver hilum, approaching caudate lobe, measures 4.5 cm in this noncontrast imaging. Index fluid of gallbladder fossa may represent cystic remnant and measures 2.3 x 2.4 cm (image number 21 of series 5). There are greater than 20 cystic lesions of the liver. Greater than 20 soft tissue appearing masses of the liver. Biloma and infected fluid not excluded by imaging. CBD is partially imaged and nondilated measuring up to 0.4 cm diameter. Partially imaged pancreatic duct is nondilated Free fluid in the abdomen may be postprocedural, related to ascites, or reflect fluid of carcinomatosis given the liver findings. Infected fluid is not excluded by imaging. Adrenal glands are normal accounting for artifacts. The spleen approaches the upper limits of normal. Mild volume loss of the pancreas noted. No hydronephrosis. Mild perinephric stranding is nonspecific in this noncontrast study. No small bowel obstruction in the [id number]. Superficial fluid is multifocal and may be postprocedural predominately involving the lateral chest espitia and upper abdominal side espitia, right worse than left. Right upper surgical drain suggested on series 6. IMPRESSION: 1. Partially imaged CBD is nondilated. No definite choledocholithiasis is defined by MRCP with motion artifacts. 2. Multiple liver masses. Although nonspecific by imaging, multiplicity is concerning for liver metastases. 3. Free fluid in the imaged abdomen is nonspecific and may reflect ascites. Carcinomatosis is also considered. 4. 2.3 cm x 2.4 cm focus of fluid in the gallbladder fossa may reflect cystic remnant. Differential considerations also include small biloma. Procedure history may be confirmatory. This document has been electronically signed by: Alex Wilson MD on 07/21/2024 19:18:41
--- NOTE | ~2024-07-17 | CT_ITS ---
EXAMINATION: CT CHEST WITH CONTRAST CLINICAL INFORMATION: Evaluate for empyema. COMPARISON: CT abdomen pelvis 07/24/2024. Chest x-ray 07/24/2024. TECHNIQUE: Multidetector volumetric CT imaging of the chest was obtained after the administration of 50 mL of Omnipaque 350 intravenous contrast without immediate adverse reactions. Axial MIP volume rendering provided. Sagittal and coronal reformatted images were obtained. This CT examination was performed using dose optimization techniques as appropriate, variously including the following: *Automated exposure control *Adjustment of mA and/or kV according to patient size (this includes techniques or standardized protocols for targeted exams where dose is matched to indication/reason for exam; i.e. 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 The left lung is somewhat expanded. LUNGS: There is small to moderate right pleural effusion with right lower lobe consolidation with air bronchograms within. There is no suspicion for empyema. There is left basilar atelectasis with underlying small left pleural effusion. There are multiple calcified tumor nodules likely granulomas in both lungs, especially in both upper lobes. There are noncalcified 2 nodules in left lower lobe. MEDIASTINUM: Central trachea and the bronchi is widely patent. The heart size and great vessels are normal caliber. There is small pericardial effusion. No abnormal size mediastinal hilar lymph nodes seen. Thyroid lobes are symmetrical and normal. There is trace pericardial effusion seen. PLEURA: There are bilateral simple pleural effusions moderate on the right and small left . No evidence of pneumothorax. AXILLA: No lymphadenopathy. UPPER ABDOMEN: The liver is heterogeneous with multiple liver nodules. No intrahepatic ductal dilatation seen. Patient is status post cholecystectomy with hypodense fluid collection the gallbladder fossa OSSEOUS STRUCTURES: No lytic or sclerotic process seen. There is nondisplaced fracture left anterior first rib best visualized on sagittal image 41/9. There is ventral bridging osteophyte T9-[address]/CT chest w IV con IMPRESSION: Moderate right and small left pleural effusion. Right lower lobe consolidation. No evidence of empyema. There is nondisplaced fracture left anterior first rib. Heterogenous liver with multiple liver nodules similar to previous CT abdomen exam. Fleischner guidelines were followed. Electronically signed by: Edgar Knight MD 07/25/2024 12:03 PM [facility]
--- NOTE | ~2024-07-17 | US_ITS ---
EXAMINATION: US LOWER EXTREMITY VEINS LIMITED FOLLOW UP LEFT HISTORY: r/o DVT LLE COMPARISON: There are no prior studies for comparison. TECHNIQUE: Duplex and color Doppler sonographic examination of the deep venous system of the left lower extremity was performed. FINDINGS: The common femoral, superficial femoral, and popliteal veins are patent demonstrating normal compressibility, spontaneous flow, and augmentation. There is a normal color and spectral Doppler waveform appearance of the visualized deep venous system above the knee. The posterior tibial and peroneal veins are patent. US/US venous duplex LE LT IMPRESSION: No evidence of acute DVT in the left lower extremity. Electronically signed by: Baljinder Duggan MD 07/21/2024 02:57 PM [facility]
--- NOTE | ~2024-07-17 | US_ITS ---
PROCEDURE: Ultrasound-guided right thoracentesis History: Right pleural effusion Specimen: A sample of pleural fluid was sent for analysis Access: 5 Y[place] Yueh catheter Medications: 10 mL 1% lidocaine TECHNIQUE/FINDINGS Appropriate preprocedural clinical history and imaging studies were reviewed. The patient was brought to the department and placed in the seated position. Ultrasound images of the right thorax were obtained to localize a small pleural effusion. Permanent ultrasound images were saved. Risks and benefits and possible complications were discussed with the patient and consent form was signed. An area of the patient's right back was prepped and draped in usual sterile fashion. 10 mL of 1% lidocaine was used to obtain local anesthesia of the skin and deeper tissues. A standard small bore needle was introduced to sample pleural fluid and demonstrate a safe access route. A 5 Y[place] Yueh catheter was then used to access the pleural cavity. 350 ml of yellow fluid was removed passively. The catheter was then removed. A dressing was applied. A postprocedure chest x-ray will be performed and will be dictated separately. There were no immediate complications. The procedure was performed by Yehuda Denise PA-C and supervised by Dr. Nguyen US/US thoracentesis Impression: Ultrasound-guided right thoracentesis Electronically signed by: Lance Beaulieu MD 07/27/2024 05:26 PM [facility]
[2024-07-17 14:55] VITALS: BP 115/79; PULSE 88; RESP 16; TEMP 36.8; O2SAT 97; BMI 28.4
--- NOTE | 2024-07-17 15:08 | ED.GENADULT ---
HPI - General Adult General Chief complaint: Abdominal Pain Stated complaint: abd pain Time Seen by Provider: 07/17/24 18:15 Related Data Home Medications ?Medication ?Instructions ?Recorded ?Confirmed multivitamin 1 tab PO DAILY 08/14/20 05/13/24 Previous Rx's ?Medication ?Instructions ?Recorded kyzumacliy-xzjokhlevgfjn-dyhgbxix 1 tab PO TID PRN Headache 30 days 05/10/21 50 mg-325 mg-40 mg tablet #90 tabs atorvastatin 10 mg tablet 10 mg PO BEDTIME #90 tabs 04/26/24 bethanechol chloride 50 mg tablet 50 mg PO BID #180 tabs 04/28/24 tamsulosin 0.4 mg capsule 0.4 mg PO BID 90 days #180 caps 04/28/24 metronidazole 0.75 % topical gel 1 appl topical BEDTIME #45 grams 07/11/24 Allergies Allergy/AdvReac Type Severity Reaction Status Date / Time No Known Allergies Allergy Verified 07/17/24 14:57 PMFSH Past Medical History Medical History Benign prostatic hyperplasia with lower urinary tract symptoms BPH (benign prostatic hyperplasia) Tension headache Urinary hesitancy Overweight (BMI 25.0-29.9) Elevated TSH GERD without esophagitis Pure hypercholesterolemia Surgical History History of colonoscopy [place] teeth removed Family History Family History Father Cancer Mother No problems noted. Social History Social History Housing: House Are you a primary behavioral health care manager to a significant other at home: No Do you presently have visiting nurse or other home services: No Alcohol intake: current Alcohol intake frequency: does not drink Patient Tobacco Use Status: Never used Tobacco e-Cigarette/Vaping Use: Never Used Second Hand Smoke Exposure: Yes Advance Directives: No Advance Directives Information Provided: Yes service: No Current occupational status: employed Current occupational exposures/hazards: No Cognitive needs: No Hearing needs: No Vision needs: Yes Physical Exam ED Vital Signs: Vital Signs - 24 hr 07/17/24 14:55 07/17/24 17:38 Temperature 98.2 F 97.3 F Pulse Rate 88 86 Respiratory Rate 16 16 Blood Pressure 115/79 145/88 H Pulse Oximetry 97 97 Oxygen Delivery Method Room Air Room Air BMI result Body Mass Index 28.4 Course Course Course Narrative: RMR: 52-year-old male presents to ED for right upper quadrant pain with dry heaves and temperature 100.8 degrees for fever. Patient denies any lower abdominal pain, back pain, or diarrhea. Labs ultrasound ordered. Medical Decision Making Lab Data 07/17/24 15:13 07/17/24 15:13 Labs: Lab Results 07/17/24 Range/Units 15:13 WBC 8.5 (4.8-10.8) X10*3/uL RBC 4.90 (4.60-5.80) X10*6/uL Hgb 14.4 (14.0-18.0) g/dl Hct 41.2 L (42.0-52.0) % MCV 84.1 (80.0-98.0) fL MCH 29.4 (27.0-33.0) pg MCHC 35.0 (31.0-36.0) g/dl RDW 11.9 (11.0-16.0) % Plt Count 233 D (160-400) X10*3/uL MPV 10.2 (9.4-12.4) fL Immature Gran % (Auto) 0.4 (0.0-0.4) % Neut % (Auto) 82.7 H (45-73) % Lymph % (Auto) 5.3 L (20-40) % Young % (Auto) 9.6 (2-11) % Eos % (Auto) 1.4 (0-4) % Baso % (Auto) 0.6 (0-2) % Lymph # (Auto) 0.5 L (1.2-4.9) X10*3/uL Young # (Auto) 0.8 (0.1-1.2) X10*3/uL Eos # (Auto) 0.1 (0.0-0.4) X10*3/uL Baso # (Auto) 0.1 (0.0-0.2) X10*3/uL Abs Immat Gran (auto) 0.03 (0.00-0.03) X10*3/uL Absolute Neuts (auto) 7.0 (2.0-8.3) x10*3/uL Absolute Nucleated RBC 0.000 (0.0-0.012) X10*3/uL Nucleated RBC % (auto) 0.0 (0.0-0.2) /100WBC PT 13.2 H (10.9-12.4) SEC INR 1.1 (0.9-1.1) APTT 32.0 (26.0-36.8) SEC Sodium 135 (135-145) mmol/L Potassium 4.0 (3.3-5.1) mmol/L Chloride 101 (96-108) mmol/L Carbon Dioxide 24 (22-29) mmol/L Anion Gap 14 (12-20) BUN 8 L (9-16) mg/dL Creatinine 0.82 (0.5-1.4) mg/dL Estim Creat Clear Calc 106.8 Estimated GFR > 60 Random Glucose 97 (60-115) mg/dL Calcium 9.3 D (8.4-10.2) mg/dL Total Bilirubin 1.2 H (0.0-1.0) mg/dL AST 112 H (5-37) U/L ALT 94 H (0-40) U/L Alkaline Phosphatase 448 H (39-117) U/L Total Protein 7.5 (6.5-8.0) g/dL Albumin 4.3 (3.5-5.0) g/dL Lipase 39 (8-78) U/L Urine Color Yellow Urine Appearance Clear Urine pH 6.0 (5.0-9.0) Ur Specific [place] 1.010 (1.005-1.025) Urine Protein Negative (Neg-Trace) mg/dL Urine Glucose (UA) Negative (Negative) mg/dL Urine Ketones Negative (Negative) mg/dL Urine Blood Negative (Negative) Urine Nitrite Negative (Negative) Ur Leukocyte Esterase Negative (Negative) Influenza Type A (PCR) NEGATIVE (Negative) Influenza Type B (PCR) NEGATIVE (Negative) RSV RNA Qual (PCR) NEGATIVE (Negative) SARS-CoV-2 RNA (RT-PCR) NEGATIVE (Negative) Discharge Plan Discharge Patient Disposition: Home, Self-Care Instructions: Cholecystitis (ED) Prescriptions: No Action atorvastatin 10 mg tablet 10 mg PO BEDTIME Qty: 90 1RF metronidazole 0.75 % gel 1 appl topical BEDTIME Qty: 45 2RF multivitamin Tablet 1 tab PO DAILY vwbsjftmvo-whjjzrbtyyvyt-ahsq 50-325-40 mg tablet 1 tab PO TID PRN (Reason: Headache) 30 Days Qty: 90 1RF tamsulosin 0.4 mg capsule 0.4 mg PO BID 90 Days Qty: 180 2RF bethanechol chloride 50 mg tablet 50 mg PO BID Qty: 180 3RF Print Language: Romansh
[2024-07-17 15:19] LABS: MANUAL DIFF FLAG NO
[2024-07-17 15:21] LABS: Appearance Urine Clear; Basophils Absolute Auto 0.1 X10*3/uL (0.0-0.2); Basophils Percent Auto 0.6 % (0-2); Color Urine Yellow; Eosinophils Absolute Auto 0.1 X10*3/uL (0.0-0.4); Eosinophils Percent Auto 1.4 % (0-4); Glucose Urine UA Negative (Negative); Hematocrit 41.2 % (42.0-52.0); Hemoglobin 14.4 g/dl (14.0-18.0); Imm Gran Abs Auto 0.03 X10*3/uL (0.00-0.03); Imm Gran Pct Auto 0.4 % (0.0-0.4); Leukocyte Esterase Urine Negative (Negative); Lymphocytes Absolute Auto 0.5 X10*3/uL (1.2-4.9); Lymphocytes Percent Auto 5.3 % (20-40); Mean Corpuscular Hemoglobin 29.4 pg (27.0-33.0); Mean Corpuscular Volume 84.1 fL (80.0-98.0); Mean Platelet Volume 10.2 fL (9.4-12.4); Monocytes Absolute Auto 0.8 X10*3/uL (0.1-1.2); Monocytes Percent Auto 9.6 % (2-11); Neutrophils Percent Auto 82.7 % (45-73); Nitrite Urine Negative (Negative); Platelet Count 233 X10*3/uL (160-400); Red Cell Distribution Width 11.9 % (11.0-16.0); Urine Blood Negative (Negative); Urine Ketones Negative (Negative); Urine Protein Negative (Neg-Trace); White Blood Count 8.5 X10*3/uL (4.8-10.8)
[2024-07-17 15:26] LABS: INTERNATIONAL NORM RATIO 1.1 (0.9-1.1); Prothrombin Time 13.2 SEC (10.9-12.4)
[2024-07-17 15:45] LABS: Alanine Aminotransferase 94 U/L (0-40); Albumin Level 4.3 g/dL (3.5-5.0); Anion Gap 14 (12-20); Aspartate Amino Transferase 112 U/L (5-37); Bilirubin Total 1.2 mg/dL (0.0-1.0); Blood Urea Nitrogen 8 mg/dL (9-16); Calcium 9.3 mg/dL (8.4-10.2); Carbon Dioxide 24 mmol/L (22-29); Chloride 101 mmol/L (96-108); Creatinine Clr Calc Pharmacy 106.8; Estimated Glomerular Filt Rate > 60; Glucose Random 97 mg/dL (60-115); Lipase 39 U/L (8-78); Sodium 135 mmol/L (135-145); Total Protein 7.5 g/dL (6.5-8.0)
[2024-07-17 15:59] LABS: Influenza A PCR NEGATIVE (Negative); Influenza B PCR NEGATIVE (Negative); Resp Syncy Virus RNA Qual PCR NEGATIVE (Negative); SARS COV2 PCR INHOUSE NEGATIVE (Negative)
[2024-07-17 16:18] LABS: Alkaline Phosphatase 448 U/L (39-117)
--- OUTSIDE RECORDS SUMMARY | 2024-07-17 17:30 | XMS_ITS ---
Author Organization [facility] Address [address] [place] [address] Care Team Providers Care Electrical Line Worker Name Role Phone Jhon HANLEY, [place] Primary Care Provider Unava Tarik Joseph Jr REASON FOR VISIT pathology/ waiting for pt call back Encounters Encounter Location Date Provider Diagnosis [facility] [address] [place] [address] 02/18/2024 Tarik Hutchinson Jr PLAN OF TREATMENT No Information
--- OUTSIDE RECORDS SUMMARY | 2024-07-17 17:30 | XMS_ITS ---
Author Organization [facility] Address [address] [place] [address] Care Team Providers Care Ramp Lead Name Role Phone Jhon HANLEY, [place] Primary Care Provider Tarik Sultana Jr Unavailable ALLERGIES No Known Allergies REASON FOR VISIT Patient presents today for a screening colonoscopy MEDICATIONS Medication SIG (Take, Route, Frequency, Duration) Notes Start Date End Date Status Tamsulosin HCl 0.4 MG Oral for 90 Active Bethanechol Chloride 50 MG TAKE 1 TABLET BY MOUTH TWICE A DAY Oral for 90 Active Fioricet 50-300-40 MG 1 capsule as neede d Orally every 4 hrs PRN Active Multivitamin Active Atorvastatin Calcium 10 MG TAKE 1 TABLET BY MOUTH AT BEDTIME Oral for 90 Active MiraLax (colon prep) 17 GM/SCOOP mixed with Gatorade or Crystal Light Orally begin at 5:00 p.m. the day before the procedure for 1 day 12/09/2023 Active SOCIAL HISTORY Tobacco Use: Social History Observation Description Date Details (start date - stop date) Never Smoker NA - NA Sex Assigned At : Social History Observation Description Sex Assigned At Unknown Tobacco Use/Smoking Question Answer Notes Patient is a nonsmoker Alcohol Screen Question Answer Notes Did you have a drink contain ing alcohol in the past year? Yes How often did you have a dri nk containing alcohol in the past year? 2 to 4 times a month (2 points) How many drinks did you have on a typical day when you were drinking in the past year? 1 or 2 drinks (0 point) How often did you have 6 or more drinks on one occasion in the past year? Never (0 point) Points 2 Interpretation Negative PROBLEMS Problem Type ICD Code Onset Dates Problem Status W/U Status Risk SNOMED Code Notes Problem Personal history of colonic polyps (Z86.010) Active confirmed 708304298 VITAL SIGNS BMI 28.79 kg/m2 12/09/2023 Blood pressure systolic 000 mm Hg 12/09/19 24 Blood pressure diastolic 00 mm Hg 024 Height 68 in 12/09/2023 Temperature 98.4 degrees Fahrenheit 12/09/19 24 Weight 189 lb 6 oz lbs 12/09/2023 Encounters Encounter Location Date Provider Diagnosis [facility] [address] [place] [address] 12/09/2023 Tarik Hutchinson Jr Colon cancer screening Z12.11 ; Encounter for other preprocedural examination Z01.818 and Personal history of colonic polyps Z86.010 ASSESSMENTS Encounter Date Diagnosis Assessment Notes Treatment Notes Treatment Clinical Notes 12/09/2023 Colon cancer screening (ICD-10 - Z12.11) 12/09/2023 Encounter for other preprocedural examination (ICD-10 - Z01.818) Colonoscopy material was printed 12/09/2023 Personal history of colonic polyps (ICD-10 - Z86.010) PLAN OF TREATMENT Medication Medication Name Sig Start Date Stop Date Notes MiraLax (colon prep) 17 GM/SCOOP mixed with Gatorade or Crystal Light Orally begin at 5:00 p.m. the day before the procedure for 1 day 12/09/2023 Treatment Notes Assessment Notes Encounter for other preprocedural examin ation Colonoscopy material was printed Future Test Test Name Order Date COLONOSCOPY 12/09/2023 Next Appt Details Follow Up: 1 Year, Reason: Progress Notes * Examination Category Sub-Category Detail Notes General Examination GENERAL APPEARANCE: in no ac prabhu distress HEAD: normocephalic EYES: sclera non-icteric NECK/THYROID: no lymphadenopathy HEART: S1, S2 normal, no mu rmurs CHEST: normal shape and exp ansion LUNGS: clear to auscultatio n bilaterally ABDOMEN: soft, nontender, non distended, bowel sounds present, no organomegaly SKIN: anicteric EXTREMITIES: no clubbing, cyanosi s, or edema PSYCH: cognitive function i ntact ORAL CAVITY: mucosa moist
--- OUTSIDE RECORDS SUMMARY | 2024-07-17 17:30 | XMS_ITS ---
Author Organization [facility] Address [address] [place] [address] Care Team Providers Care Level Vial Setter Name Role Phone Jhon HANLEY, [place] Primary Care Provider Unava Tarik Joseph Jr REASON FOR VISIT screening Encounters Encounter Location Date Provider [place] [facility] [address] [place] [phone] 02/12/2024 Tarik Hutchinson Jr Encounter for screening colonoscopy Z12.11 and Colon polyps K63.5 ASSESSMENTS Encounter Date Diagnosis Assessment Notes Treatment Notes Treatment Clinical Notes 02/12/2024 Encounter for screening colonoscopy (ICD-10 - Z12.11) 02/12/2024 Colon polyps (ICD-10 - K63.5) PLAN OF TREATMENT No Information
--- OUTSIDE RECORDS SUMMARY | 2024-07-17 17:31 | XMS_ITS | Patient Health Record ---
Author Organization [facility] Address [address] [place] [address] Care Team Providers Care Line Technician Name Role Phone Jhon HANLEY, Addi Primary Care Provider Tarik Sultana Jr Unavailable ALLERGIES No Known Allergies RESULTS Component Value Reference Range Notes Pathology Reviewed date:02/18/2024 08:00:22 AM Interpretation: Performing Lab:[facility], [address] [place] [phone] Notes/Report: REASON FOR REFERRAL Referring Provider First Name Addi Referring Provider Last Name Jhon Referring Provider Speciality Internal M edicine Referred Organization [facility] Referred Provider Tarik Ashton Jr Referred Address [facility],[place] [facility] [address] [place] [id number], Referred Provider Specialty Gastroentero logy General Notes Zita Arboleda 024 01:29:46 PM EDT > REQUESTED AN O BLUE REFERRAL FROM DR JAY'S OFFICE FOR VISIT IN 12-09-[address] ASHTON Referral Priority Routine MEDICATIONS Medication SIG (Take, Route, Frequency, Duration) Notes Start Date End Date Status Tamsulosin HCl 0.4 MG Oral for 90 Active Bethanechol Chloride 50 MG TAKE 1 TABLET BY MOUTH TWICE A DAY Oral for 90 Active Atorvastatin Calcium 10 MG TAKE 1 TABLET BY MOUTH AT BEDTIME Oral for 90 Active Fioricet 50-300-40 MG 1 capsule as neede d Orally every 4 hrs PRN Active Multivitamin Active MiraLax (colon prep) 17 GM/SCOOP mixed with Gatorade or Crystal Light Orally begin at 5:00 p.m. the day before the procedure for 1 day 12/09/2023 Active IMMUNIZATIONS Vaccine Route Administration Date Status Comme nts Influenza Unknown 04/25/2020 Administered Influenza Unknown 05/05/2023 Administered SOCIAL HISTORY Tobacco Use: Social History Observation [...] W/U Status Risk SNOMED Code Notes Problem Colon cancer screening (Z12.11) Active confirmed 184231934 Problem Encounter for other preprocedural examination (Z01.818) Active confirmed 318930699 Problem Personal history of colonic polyps (Z86.010) Active confirmed [id number] VITAL SIGNS Temperature 98.4 degrees Fahrenheit 12/09/2023 Blood pressure diastolic 00 mm Hg 12/09/2023 Height 68 in 12/09/2023 Blood pressure systolic 000 mm Hg 12/09/2023 Weight 189 lb 6 oz lbs 12/09/2023 BMI 28.79 kg/m2 12/09/2023 Encounters Encounter Location Date Provider Diagnosis [facility] [place] [address] [place] [id number] 02/12/2024 Tarik Ashton Jr Encounter for screening colonoscopy Z12.11 and Colon polyps K63.5 [facility] [address] [place] [address] 12/09/2023 Tarik Ashton Jr Colon cancer screening Z12.11 ; Encounter for other preprocedural examination Z01.818 and Personal history of colonic polyps Z86.010 [facility] [address] [place] [address] 02/18/2024 Tarik Jasper Jr ASSESSMENTS Encounter Date Diagnosis Assessment Notes Treatment Notes Treatment Clinical Notes 02/12/2024 Encounter for screening colonoscopy (ICD-10 - Z12.11) 02/12/2024 Colon polyps (ICD-10 - K63.5) 12/09/2023 Colon cancer screening (ICD-10 - Z12.11) 12/09/2023 Encounter for other preprocedural examination (ICD-10 - Z01.818) Colonoscopy material was printed 12/09/2023 Personal history of colonic polyps (ICD-10 - Z86.010) PLAN OF TREATMENT Future Test Test Name Order Date COLONOSCOPY 10/10/2020 COLONOSCOPY 12/09/2023 Insurance Providers Payer Name Payer Address Payer Phone Subscriber Number Group Number Insured Name Patient Relationship to Insured Coverage Start Date Coverage End Date [employer] [address] [place] [address] [id number] BINDU RITCHIE Self - patient is the insured MEDICAL (GENERAL) HISTORY Medical History History ICD Code Hyperlipidemia Tension headaches Covid 19 infection summer 2019 BPH with lower urinary tract symptoms GERD Surgical History Surgery Date(Month/Year) [place] Teeth Removal 1994
[2024-07-17 17:38] VITALS: BP 145/88; PULSE 86; RESP 16; TEMP 36.3; O2SAT 97
--- NOTE | 2024-07-17 19:01 | ED_ITS ---
HPI - Abdominal Pain General Chief Complaint: Abdominal Pain Stated Complaint: abd pain Time Seen by Provider: 07/17/24 18:15 History of Present Illness HPI narrative: Patient is a 53-year-old male presents today with having abdominal pain in the right upper quadrant that is been ongoing for about a week. There is no fever no chills. No chest pain or diaphoresis. Patient from home. The pain happened after eating some Nepali food. Patient claims that the pain is been nagging him all week. He had decreased appetite. He was able to drink some coffee with Creamer today. It did not make things better. Patient denies any pain on urination. Denies fever chills. Positive pain. Related Data Home Medications ?Medication ?Instructions ?Recorded ?Confirmed multivitamin 1 tab PO DAILY 08/14/20 05/13/24 Previous Rx's ?Medication ?Instructions ?Recorded qverylxzgv-adbixkkeabaxy-lmiutgmm 1 tab PO TID PRN Headache 30 days 05/10/21 50 mg-325 mg-40 mg tablet #90 tabs atorvastatin 10 mg tablet 10 mg PO BEDTIME #90 tabs 04/26/24 bethanechol chloride 50 mg tablet 50 mg PO BID #180 tabs 04/28/24 tamsulosin 0.4 mg capsule 0.4 mg PO BID 90 days #180 caps 04/28/24 metronidazole 0.75 % topical gel 1 appl topical BEDTIME #45 grams 07/11/24 Allergies Allergy/AdvReac Type Severity Reaction Status Date / Time No Known Allergies Allergy Verified 07/17/24 14:57 Review of Systems Review of Systems Positive abdominal pain Yes all other systems are reviewed and are negative PMFSH Past Medical History Attestation statement: The following information was validated with the patient. Medical History Benign prostatic hyperplasia with lower urinary tract symptoms BPH (benign prostatic hyperplasia) Tension headache Urinary hesitancy Overweight (BMI 25.0-29.9) Elevated TSH GERD without esophagitis Pure hypercholesterolemia Surgical History History of colonoscopy [place] teeth removed Family History Family History Father Cancer Mother No problems noted. Social History Social History Housing: House Are you a primary youth care worker to a significant other at home: No Do you presently have visiting nurse or other home services: No Alcohol intake: current Alcohol intake frequency: does not drink Patient Tobacco Use Status: Never used Tobacco e-Cigarette/Vaping Use: Never Used Second Hand Smoke Exposure: Yes Advance Directives: No Advance Directives Information Provided: Yes service: No Current occupational status: employed Current occupational exposures/hazards: No Cognitive needs: No Hearing needs: No Vision needs: Yes Physical Exam ED Vital Signs: Vital Signs - 24 hr 07/17/24 14:55 07/17/24 17:38 Temperature 98.2 F 97.3 F Pulse Rate 88 86 Respiratory Rate 16 16 Blood Pressure 115/79 145/88 H Pulse Oximetry 97 97 Oxygen Delivery Method Room Air Room Air BMI result Body Mass Index 28.4 Appearance: Alert. Oriented X3. No acute distress. Eyes: Pupils equal, round and reactive to light. ENT: Pharynx normal. Neck: Normal inspection. Neck supple. No lymph nodes noted. No crepitus CVS: Normal heart rate and rhythm. Pulses normal. Normal S1 and S2 Respiratory: No respiratory distress. Breath sounds normal. No Wheezing. No rales Abdomen: Positive right upper quadrant tenderness no rebound or guarding No rigidity. No distention. good BS x4 Skin: Skin warm and dry. Normal skin color. Normal skin turgor. Extremities: No lower extremity edema. Neurovascular intact to all extremities. No Lacerations. No Rash Neuro: Oriented X 3. No motor deficit. No sensory deficit. Moving all extermities. No slurred speech Medical Decision Making Medical Decision Making MDM Narrative: Patient is having right upper quadrant abdominal pain. After greasy food. Patient's labs consistent with having biliary issues with elevated bili elevated alk-phos. Pain is been ongoing all week. Patient's white count however was normal. An ultrasound of the right upper quadrant was done. The ultrasound results from Radiology showed an impacted gallstone. There is ultrasonographic Hernández sign. There is no gallbladder wall thickening there is no pericholecystic fluid. Patient case discussed with surgery. Will admit for further evaluation antibiotic was started. Differential Diagnosis Differential Diagnoses: The differential diagnosis associated with the presentation includes Biliary colic, cholecystitis, intra-abdominal pathology Admission/Observation Consideration of admission/observation: Escalation of care including admission/observation considered Consult Healthcare Provider Management of the patient was discussed with: [employer] Certified Internetwork Expert (Surgery) Lab Data MDM Lab Attestation statement: I reviewed the patient's lab results. 07/17/24 15:13 07/17/24 15:13 Labs: Lab Results 07/17/24 Range/Units 15:13 WBC 8.5 (4.8-10.8) X10*3/uL RBC 4.90 (4.60-5.80) X10*6/uL Hgb 14.4 (14.0-18.0) g/dl Hct 41.2 L (42.0-52.0) % MCV 84.1 (80.0-98.0) fL MCH 29.4 (27.0-33.0) pg MCHC 35.0 (31.0-36.0) g/dl RDW 11.9 (11.0-16.0) % Plt Count 233 D (160-400) X10*3/uL MPV 10.2 (9.4-12.4) fL Immature Gran % (Auto) 0.4 (0.0-0.4) % Neut % (Auto) 82.7 H (45-73) % Lymph % (Auto) 5.3 L (20-40) % [place] % (Auto) 9.6 (2-11) % Eos % (Auto) 1.4 (0-4) % Baso % (Auto) 0.6 (0-2) % Lymph # (Auto) 0.5 L (1.2-4.9) X10*3/uL [place] # (Auto) 0.8 (0.1-1.2) X10*3/uL Eos # (Auto) 0.1 (0.0-0.4) X10*3/uL Baso # (Auto) 0.1 (0.0-0.2) X10*3/uL Abs Immat Gran (auto) 0.03 (0.00-0.03) X10*3/uL Absolute Neuts (auto) 7.0 (2.0-8.3) x10*3/uL Absolute Nucleated RBC 0.000 (0.0-0.012) X10*3/uL Nucleated RBC % (auto) 0.0 (0.0-0.2) /100WBC PT 13.2 H (10.9-12.4) SEC INR 1.1 (0.9-1.1) APTT 32.0 (26.0-36.8) SEC Sodium 135 (135-145) mmol/L Potassium 4.0 (3.3-5.1) mmol/L Chloride 101 (96-108) mmol/L Carbon Dioxide 24 (22-29) mmol/L Anion Gap 14 (12-20) BUN 8 L (9-16) mg/dL Creatinine 0.82 (0.5-1.4) mg/dL Estim Creat Clear Calc 106.8 Estimated GFR > 60 Random Glucose 97 (60-115) mg/dL Calcium 9.3 D (8.4-10.2) mg/dL Total Bilirubin 1.2 H (0.0-1.0) mg/dL AST 112 H (5-37) U/L ALT 94 H (0-40) U/L Alkaline Phosphatase 448 H (39-117) U/L Total Protein 7.5 (6.5-8.0) g/dL Albumin 4.3 (3.5-5.0) g/dL Lipase 39 (8-78) U/L Urine Color Yellow Urine Appearance Clear Urine pH 6.0 (5.0-9.0) Ur Specific [place] 1.010 (1.005-1.025) Urine Protein Negative (Neg-Trace) mg/dL Urine Glucose (UA) Negative (Negative) mg/dL Urine Ketones Negative (Negative) mg/dL Urine Blood Negative (Negative) Urine Nitrite Negative (Negative) Ur Leukocyte Esterase Negative (Negative) Influenza Type A (PCR) NEGATIVE (Negative) Influenza Type B (PCR) NEGATIVE (Negative) RSV RNA Qual (PCR) NEGATIVE (Negative) SARS-CoV-2 RNA (RT-PCR) NEGATIVE (Negative) Independent Interpretation I performed an independent interpretation of an: Ultrasound (Positive gallstone) Radiology Impression Discussion of test interpretation with radiology: I have reviewed the radiologist's reading. Chronic Conditions History of hypercholesterolemia. Family history of gallstones Discharge Plan Discharge Clinical Impression: Acute cholecystitis Patient Disposition: Home, Self-Care Instructions: Cholecystitis (ED) Prescriptions: No Action atorvastatin 10 mg tablet 10 mg PO BEDTIME Qty: 90 1RF metronidazole 0.75 % gel 1 appl topical BEDTIME Qty: 45 2RF multivitamin Tablet 1 tab PO DAILY thcmlymcvo-cmwmxnfgeaxwx-zone 50-325-40 mg tablet 1 tab PO TID PRN (Reason: Headache) 30 Days Qty: 90 1RF tamsulosin 0.4 mg capsule 0.4 mg PO BID 90 Days Qty: 180 2RF bethanechol chloride 50 mg tablet 50 mg PO BID Qty: 180 3RF Print Language: Occitan
--- NOTE | 2024-07-17 19:04 | ECG_ITS ---
Test Reason : CP Blood Pressure : / mmHG Vent. Rate : 090 BPM Atrial Rate : 090 BPM P-R Int : 166 ms QRS Dur : 070 ms QT Int : 356 ms P-R-T Axes : 024 006 010 degrees QTc Int : 435 ms Normal sinus rhythm Normal ECG When compared with ECG of 26-JUL-2010 07:35, Vent. rate has increased BY 30 BPM Inverted T waves have replaced nonspecific T wave abnormality in Inferior leads T wave amplitude has decreased in Anterior leads Referred By: Nanda Mcnair Electronically Signed By:ANDREA VICKERS
[2024-07-17] MEDS: Acetaminophen 1,000 MG/100 ML PIGGYBACK 400 MG IV (19:31)
[2024-07-17] MEDS: HYDROmorphone HCl 0.5 MG/0.5 ML SYRINGE IVPUSH (19:32)
[2024-07-17] MEDS: 0.9 % Sodium Chloride 1,000 ML 999 ML IV (19:32)
--- NOTE | 2024-07-17 19:33 | MHC.EDTECH ---
alayna leggett charly first set of cultures and lactic
[2024-07-17 19:39] VITALS: BP 116/60; PULSE 77; RESP 16; TEMP 36.8; O2SAT 93
[2024-07-17 19:52] LABS: Lactic Acid 0.8 mmol/L (0.5-2.0)
[2024-07-17] MEDS: metroNIDAZOLE/NS 500 MG/100 ML PIGGYBACK 100 MG IV (19:52)
[2024-07-17] MEDS: cefTRIAXone sodium 1 GM VIAL IVPUSH (19:52)
[2024-07-17 21:23] VITALS: BP 106/72; PULSE 76; RESP 16; TEMP 36.9; O2SAT 97
[2024-07-17 21:53] VITALS: BP 113/71; PULSE 72; RESP 16; TEMP 37.1; O2SAT 96
[2024-07-17] MEDS: Dextrose 5 % and Lactated Ring 1,000 ML 125 ML IVCONT (22:59)
[2024-07-18] VITALS (9 sets, daily range): BP systolic 108–134; BP diastolic 64–81; PULSE 64–79; RESP 16–18; TEMP 36.1–37.4; O2SAT 96–99; BMI 29.0
[2024-07-18] MEDS: Piperacillin Sodium/Tazobactam 3.375 GM in 0.9 % Sodium Chloride 50 ML IV ×3 (01:23→11:40)
[2024-07-18] MEDS: Acetaminophen 1,000 MG/100 ML PIGGYBACK 400 MG IV ×3 (01:51→14:26)
[2024-07-18] MEDS: Dextrose 5 % and Lactated Ring 1,000 ML 125 ML IVCONT ×2 (06:07→19:44)
[2024-07-18 06:31] LABS: MANUAL DIFF FLAG NO
[2024-07-18 06:46] LABS: Basophils Percent Auto 0.5 % (0-2); Eosinophils Absolute Auto 0.1 X10*3/uL (0.0-0.4); Eosinophils Percent Auto 1.1 % (0-4); Hematocrit 37.5 % (42.0-52.0); Hemoglobin 12.9 g/dl (14.0-18.0); Imm Gran Abs Auto 0.03 X10*3/uL (0.00-0.03); Imm Gran Pct Auto 0.4 % (0.0-0.4); Lymphocytes Absolute Auto 0.8 X10*3/uL (1.2-4.9); Lymphocytes Percent Auto 9.8 % (20-40); Mean Corpuscular HGB Conc 34.4 g/dl (31.0-36.0); Mean Corpuscular Hemoglobin 29.7 pg (27.0-33.0); Mean Corpuscular Volume 86.2 fL (80.0-98.0); Mean Platelet Volume 10.8 fL (9.4-12.4); Monocytes Absolute Auto 1.1 X10*3/uL (0.1-1.2); Monocytes Percent Auto 14.6 % (2-11); Neutrophils Absolute Auto 5.8 x10*3/uL (2.0-8.3); Neutrophils Percent Auto 73.6 % (45-73); Platelet Count 201 X10*3/uL (160-400); Red Blood Count 4.35 X10*6/uL (4.60-5.80); White Blood Count 7.8 X10*3/uL (4.8-10.8)
[2024-07-18 06:54] LABS: Alanine Aminotransferase 73 U/L (0-40); Albumin Level 3.5 g/dL (3.5-5.0); Alkaline Phosphatase 359 U/L (39-117); Anion Gap 13 (12-20); Aspartate Amino Transferase 94 U/L (5-37); Bilirubin Direct 0.5 mg/dL (0.0-0.5); Bilirubin Total 1.1 mg/dL (0.0-1.0); Blood Urea Nitrogen 7 mg/dL (9-16); Calcium 8.8 mg/dL (8.4-10.2); Carbon Dioxide 23 mmol/L (22-29); Chloride 109 mmol/L (96-108); Estimated Glomerular Filt Rate > 60; Glucose Random 114 mg/dL (60-115); Potassium 3.8 mmol/L (3.3-5.1); Sodium 141 mmol/L (135-145); Total Protein 6.4 g/dL (6.5-8.0)
--- NOTE | 2024-07-18 08:55 | PM.HPGS ---
History of Present Illness History of Present Illness Date of Service: 07/18/24 <Yahaira Junior PA-C - Last Filed: 07/18/24 09:06> 07/18/24 <Juan Manuel Chanel MD - Last Filed: 07/18/24 09:14> Chief complaint: acute cholecystitis <Yahaira Junior PA-C - Last Filed: 07/18/24 09:06> Narrative: Eric Lara is a 53 year old male with PMH significant for hypercholesterolemia, BPH, GERD who presented to the ED with complaints of RUQ abd pain. He reports the pain began a week ago after eating urdu food. It was sharp, constant and moderate in severity. It was associated with low grade fevers, dry heaving without vomiting. He denies diarrhea, back pain, similar episodes of pain. He thought maybe it was a GI bug but the pain never went away and therefore came to the ED for evaluation. Work up included CBC, BMP, LFTs which showed a normal WBC however with a left shift. He had mildly elevated LFTs with bili of 1.2, AST/ALT 112/94, alk phos 448 lipase WNL. ABD US was performed which showed gallstone impacted at GB neck, small GB polyp, positive sonographic hernández sign, no intra or extrahepatic ductal dilatation. <Yahaira Junior PA-C - Last Filed: 07/18/24 09:06> Review of Systems Review of Systems: Yes all other systems are reviewed and are negative <Yahaira Junior PA-C - Last Filed: 07/18/24 09:06> [facility], [facility] Past Medical History Medical History: Medical History (Updated 07/17/24 @ 19:14 by Nanda Mcnair MD) Benign prostatic hyperplasia with lower urinary tract symptoms BPH (benign prostatic hyperplasia) Tension headache Urinary hesitancy Overweight (BMI 25.0-29.9) Elevated TSH GERD without esophagitis Pure hypercholesterolemia <Yahaira Junior PA-C - Last Filed: 07/18/24 09:06> Family History Family History: Family History Father Cancer Mother No problems noted. <Yahaira Junior PA-C - Last Filed: 07/18/24 09:06> Surgical History Surgical History: Surgical History (Updated 07/18/24 @ 09:04 by Yahaira Junior PA-C) History of colonoscopy [place] teeth removed <Yahaira Junior PA-C - Last Filed: 07/18/24 09:06> Social History Social History: Social History Household Members: Family Housing: House Are you a primary care transition coordinator to a significant other at home: No Do you presently have visiting nurse or other home services: No Alcohol intake: current Alcohol intake frequency: does not drink Patient Tobacco Use Status: Never used Tobacco e-Cigarette/Vaping Use: Never Used Second Hand Smoke Exposure: Yes Use of substances other than those prescribed or required for medical reasons: No Currently Displaying Signs/Symptoms of Drug Intoxication Withdrawal: No Do you feel safe in your current relationship?: No Current Relationship Advance Directives: No Advance Directives Information Provided: Yes Do you have a plan to hurt others: No Plan Recently lost weight without trying: Yes How much weight loss: 2-13 pounds service: No Current occupational status: employed Current occupational exposures/hazards: No Cognitive needs: No Hearing needs: No Vision needs: Yes <Yahaira Junior PA-C - Last Filed: 07/18/24 09:06> Meds Allergies/Adverse reactions: Allergies Allergy/AdvReac Type Severity Reaction Status Date / Time No Known Allergies Allergy Verified 07/17/24 14:57 <Yahaira Junior PA-C - Last Filed: 07/18/24 09:06> Active Medications: Current Medications Hydromorphone HCl (Hydromorphone Hcl 0.5 Mg/0.5 Ml Syringe) 0.5 mg IVPUSH Q3H PRN; Protocol PRN Reason: Pain, Severe (Pain Scale 7-10) Last Admin: 07/17/24 19:32 Dose: 0.5 mg Acetaminophen (Ofirmev) 1,000 mg in 100 mls @ 400 mls/hr IV Q6H [place] Stop: 07/18/24 13:29 Last Infusion: 07/18/24 08:05 Dose: Infused Dextrose/Lactated Ringer's (D5lr) 1,000 mls @ 125 mls/hr IVCONT .Q8H [facility] Last Admin: 07/18/24 06:07 Dose: 125 mls/hr Piperacillin Sod/Tazobactam (Sod 3.375 gm/ Sodium Chloride) 50 mls @ 100 mls/hr IV Q6H [facility] Last Infusion: 07/18/24 06:37 Dose: Infused Ondansetron HCl (Ondansetron Hcl 4 Mg/2 Ml Vial) 4 mg IVPUSH QID PRN PRN Reason: Nausea Oxycodone HCl (Oxycodone Hcl Immed Release 5 Mg Tablet) 5 mg PO Q6H PRN PRN Reason: Pain, Moderate(Pain Scale 4-6) Sodium Chloride (0.9 % Sodium Chloride Flush 3 Ml Syringe) 3 ml IVFLUSH QSHIFT [facility] Last Admin: 07/18/24 08:06 Dose: Not Given Zolpidem Tartrate (Zolpidem Tartrate 5 Mg Tablet) 5 mg PO BEDTIME PRN PRN Reason: Insomnia <MELLO Smith Last Filed: 07/18/24 09:06> Home medications: Home Medications ?Medication ?Instructions ?Recorded ?Confirmed ?Last Taken ?Type multivitamin 1 tab PO DAILY 08/14/20 05/13/24 Unknown History <MELLO Smith Last Filed: 07/18/24 09:06> Physical Exam Vital Signs: Vital Signs: Last Vital Signs Temp 98.7 F 07/18/24 07:11 Pulse 69 07/18/24 07:11 Resp 16 07/18/24 07:11 BP 122/81 07/18/24 07:11 Pulse Ox 96 07/18/24 07:11 O2 Del Method Room Air 07/18/24 07:11 BMI result Body Mass Index 29.0 <MELLO Smith Last Filed: 07/18/24 09:06> Const: General: comfortable, no acute distress and alert <MELLO Smith Last Filed: 07/18/24 09:06> Orientation/consciousness: patient oriented x3 <MELLO Smith Filed: 07/18/24 09:06> Neck: Neck: Yes no JVD <MELLO Smith Last Filed: 07/18/24 09:06> Resp: Effort & Inspection: normal respiratory effort <Yahaira Junior PA-C Giuseppe Last Filed: 07/18/24 09:06> Cardio: Rate: regular rate <Yahaira Junior PA-C Giuseppe Last Filed: 07/18/24 09:06> GI: Inspection: Yes normal to inspection, No distended and No scar <Yahaira Junior PA-C Giuseppe Last Filed: 07/18/24 09:06> Palpation (GI): Soft to palpation, Tenderness to palpation present (GI) in the RUQ; Hernández's sign negative and with no rebound tenderness, no guarding and not rigid <Yahaira Junior PA-C Giuseppe Last Filed: 07/18/24 09:06> Skin: General skin exam: no rashes or lesions noted and no jaundice <SUSAN SmithHeaven Chin Last Filed: 07/18/24 09:06> Neuro: General: patient oriented x3 and moves all extremities <Yahaira Junior PA-C Giuseppe Last Filed: 07/18/24 09:06> Results Results Labs: Short CBC 07/17/24 07/18/24 Range/Units 15:13 05:06 WBC 8.5 7.8 (4.8-10.8) X10*3/uL Hgb 14.4 12.9 L (14.0-18.0) g/dl Hct 41.2 L 37.5 L (42.0-52.0) % Plt Count 233 D 201 (160-400) X10*3/uL BMP 07/17/24 07/18/24 15:13 05:06 Sodium 135 141 Potassium 4.0 3.8 Chloride 101 109 H Carbon Dioxide 24 23 BUN 8 L 7 L Creatinine 0.82 0.77 Calcium 9.3 D 8.8 Liver Function 07/17/24 07/18/24 Range/Units 15:13 05:06 Total Bilirubin 1.2 H 1.1 H (0.0-1.0) mg/dL Direct Bilirubin 0.5 (0.0-0.5) mg/dL AST 112 H 94 H (5-37) U/L ALT 94 H 73 H (0-40) U/L Alkaline Phosphatase 448 H 359 H (39-117) U/L Albumin 4.3 3.5 (3.5-5.0) g/dL Urine 07/17/24 Range/Units 15:13 Urine Color Yellow Urine Appearance Clear Urine pH 6.0 (5.0-9.0) Ur Specific [place] 1.010 (1.005-1.025) Urine Protein Negative (Neg-Trace) mg/dL Urine Glucose (UA) Negative (Negative) mg/dL <MELLO Smith Last Filed: 07/18/24 09:06> Abdominal ultrasound report/results: report reviewed and image reviewed <MELLO Smith Last Filed: 07/18/24 09:06> Assessment and Plan (1) Acute cholecystitis: Status: Acute <MELLO Smith Last Filed: 07/18/24 09:06> 53 year old male with PMH significant for hypercholesterolemia, BPH, GERD who presented with acute onset RUQ abd pain with US showing impacted gallstone in gallbladder neck. There is no wall thickening or pericholecystic fluid on imaging however he has persistent RUQ abd pain with RUQ tenderness on exam suggesting acute cholecystitis. It was recommended to proceed with laparoscopic cholecystectomy, possible open. Risks, benefits, alternatives of laparoscopic possible open cholecystectomy were reviewed with the patient including but not limited to bleeding, infection, numbness, pain, poor healing, injury to the liver, bowel or bile ducts, leak, retained stones and the patient wishes to proceed.? Arrangements will be made for this.?All questions were answered. <Yahaira Junior PA-C - Last Filed: 07/18/24 09:06> 53 year old male with PMH significant for hypercholesterolemia, BPH, GERD who presented with acute onset RUQ abd pain with US showing impacted gallstone in gallbladder neck. There is no wall thickening or pericholecystic fluid on imaging however he has persistent RUQ abd pain with RUQ tenderness on exam suggesting acute cholecystitis. It was recommended to proceed with laparoscopic cholecystectomy, possible open. Risks, benefits, alternatives of laparoscopic possible open cholecystectomy were reviewed with the patient including but not limited to bleeding, infection, numbness, pain, poor healing, injury to the liver, bowel or bile ducts, leak, retained stones and the patient wishes to proceed.? Arrangements will be made for this.?All questions were answered. Patient seen and examined independently and I concur with the above findings and plan. History, exam, and radiologic studies are consistent with acute cholecystitis due to cholelithiasis. After a discussion of the procedure, alternatives and risks, he consents to a laparoscopic or possible open cholecystectomy. He has been added on to the OR schedule for today. <Juan Manuel Chanel MD - Last Filed: 07/18/24 09:14> Quality Stroke Does the patient have a stroke diagnosis?: No <Yahaira Junior PA-C - Last Filed: 07/18/24 09:06> VTE Prior VTE?: No <Yahaira Junior PA-C - Last Filed: 07/18/24 09:06> VTE Risk Level:: Surgical - moderate <Yahaira Junior PA-C - Last Filed: 07/18/24 09:06> VTE Device Contraindication: N/A - Device Ordered <Yahaira Junior PA-C - Last Filed: 07/18/24 09:06> VTE Drug Contraindication: Treatment Not Indicated <Yahaira Junior PA-C - Last Filed: 07/18/24 09:06> Procedures Date of Service Date of Service: 07/18/24 <Yahaira Junior PA-C - Last Filed: 07/18/24 09:06> 07/18/24 <Juan Manuel Chanel MD - Last Filed: 07/18/24 09:14>
--- NOTE | 2024-07-18 09:15 | PHA.MEDREC ---
Addendum entered by Krista Garcia RPh 07/18/24 09:20: Reviewed by pharmacy Original Note: Pharmacy Consult ? Medication Reconciliation Pharmacy has completed the medication reconciliation. Spoke to patient to confirm med list. Patient was able to tell me all the medications he takes . Patient last took his medications saterday.
--- NOTE | 2024-07-18 14:13 | HO.ANESPROP2 ---
HPI - Anesthesia Eval Consult details Narrative: For lap cholecystectomy PMFSH Active Problems Active Problems: kAll Active Problems Acute cholecystitis (Acute) Benign prostatic hyperplasia with lower urinary tract symptoms (Acute) Neurogenic bladder (Acute) Screening PSA (prostate specific antigen) (Acute) Rosacea (Acute) Incomplete bladder emptying (Acute) Family history of prostate cancer in father (Acute) Nocturia (Acute) BPH loc w urin obs/LUTS (Acute) Weak urinary stream (Acute) Annual physical exam (Acute) Actinic keratosis (Acute) Verruca (Acute) Sloan angioma (Acute) Headache (Acute) Urinary hesitancy (Acute) Overweight (BMI 25.0-29.9) (Acute) Elevated TSH (Acute) GERD without esophagitis (Acute) Pure hypercholesterolemia (Acute) Past Medical History Medical History (Updated 07/17/24 @ 19:14 by Nanda Mcnair MD) Benign prostatic hyperplasia with lower urinary tract symptoms BPH (benign prostatic hyperplasia) Tension headache Urinary hesitancy Overweight (BMI 25.0-29.9) Elevated TSH GERD without esophagitis Pure hypercholesterolemia Family History Family History Father Cancer Mother No problems noted. Family history of problems with anesthesia: No Surgical History Surgical History (Updated 07/18/24 @ 09:04 by Yahaira Junior PA-C) History of colonoscopy [place] teeth removed History of Problems with Anesthesia: No Social History Social History Household Members: Family Household Members Other:: mom and brother Housing: House Are you a primary home care coordinator to a significant other at home: No Do you presently have visiting nurse or other home services: No Alcohol intake: current Alcohol intake frequency: does not drink Patient Tobacco Use Status: Never used Tobacco e-Cigarette/Vaping Use: Never Used Second Hand Smoke Exposure: Yes Use of substances other than those prescribed or required for medical reasons: No Currently Displaying Signs/Symptoms of Drug Intoxication Withdrawal: No Have you been hit, kicked, punched, or otherwise hurt by someone within the past year? If so, by whom?: No Do you feel safe in your current relationship?: No Current Relationship Are you DNR?: No Advance Directives: No Advance Directives Information Provided: Yes Do you have a plan to hurt others: No Plan Recently lost weight without trying: No How much weight loss: 2-13 pounds Nutrition Risks: No Nutritional Risk service: No Current occupational status: employed Current occupational exposures/hazards: No Cognitive needs: No Hearing needs: No Vision needs: Yes Meds Allergies Allergy/AdvReac Type Severity Reaction Status Date / Time No Known Allergies Allergy Verified 07/17/24 14:57 Active Medications: Current Medications Hydromorphone HCl (Hydromorphone Hcl 0.5 Mg/0.5 Ml Syringe) 0.5 mg IVPUSH Q3H PRN; Protocol PRN Reason: Pain, Severe (Pain Scale 7-10) Last Admin: 07/17/24 19:32 Dose: 0.5 mg Dextrose/Lactated Ringer's (D5lr) 1,000 mls @ 125 mls/hr IVCONT .Q8H [facility] Last Admin: 07/18/24 06:07 Dose: 125 mls/hr Piperacillin Sod/Tazobactam (Sod 3.375 gm/ Sodium Chloride) 50 mls @ 100 mls/hr IV Q6H [facility] Last Infusion: 07/18/24 13:07 Dose: Infused Ondansetron HCl (Ondansetron Hcl 4 Mg/2 Ml Vial) 4 mg IVPUSH QID PRN PRN Reason: Nausea Oxycodone HCl (Oxycodone Hcl Immed Release 5 Mg Tablet) 5 mg PO Q6H PRN PRN Reason: Pain, Moderate(Pain Scale 4-6) Sodium Chloride (0.9 % Sodium Chloride Flush 3 Ml Syringe) 3 ml IVFLUSH QSHIFT [facility] Last Admin: 07/18/24 08:06 Dose: Not Given Zolpidem Tartrate (Zolpidem Tartrate 5 Mg Tablet) 5 mg PO BEDTIME PRN PRN Reason: Insomnia Home Medications ?Medication ?Instructions ?Recorded ?Confirmed ?Last Taken ?Type multivitamin 1 tab PO DAILY 08/14/20 07/18/24 Unknown History Exam Height,Weight and Vital Signs: Height 5 ft 7 in Weight 84.1 kg Last Vital Signs Temp 98.6 F 07/18/24 12:37 Pulse 70 07/18/24 12:37 Resp 18 07/18/24 12:37 BP 125/78 07/18/24 12:37 Pulse Ox 98 07/18/24 12:37 O2 Del Method Room Air 07/18/24 12:37 Pertinent Lab Results Pertinent Lab Results: Laboratory Tests 07/17/24 07/17/24 07/18/24 15:13 19:30 05:06 WBC 8.5 7.8 RBC 4.90 4.35 L Hgb 14.4 12.9 L Hct 41.2 L 37.5 L MCV 84.1 86.2 MCH 29.4 29.7 MCHC 35.0 34.4 RDW 11.9 12.0 Plt Count 233 D 201 MPV 10.2 10.8 Immature Gran % (Auto) 0.4 0.4 Neut % (Auto) 82.7 H 73.6 H Lymph % (Auto) 5.3 L 9.8 L [place] % (Auto) 9.6 14.6 H Eos % (Auto) 1.4 1.1 Baso % (Auto) 0.6 0.5 Lymph # (Auto) 0.5 L 0.8 L [place] # (Auto) 0.8 1.1 Eos # (Auto) 0.1 0.1 Baso # (Auto) 0.1 0.0 Abs Immat Gran (auto) 0.03 0.03 Absolute Neuts (auto) 7.0 5.8 Absolute Nucleated RBC 0.000 0.000 Nucleated RBC % (auto) 0.0 0.0 PT 13.2 H INR 1.1 APTT 32.0 Sodium 135 141 Potassium 4.0 3.8 Chloride 101 109 H Carbon Dioxide 24 23 Anion Gap 14 13 BUN 8 L 7 L Creatinine 0.82 0.77 Estim Creat Clear Calc 106.8 115.0 Estimated GFR > 60 > 60 Random Glucose 97 114 Lactic Acid 0.8 Calcium 9.3 D 8.8 Total Bilirubin 1.2 H 1.1 H Direct Bilirubin 0.5 AST 112 H 94 H ALT 94 H 73 H Alkaline Phosphatase 448 H 359 H Total Protein 7.5 6.4 L Albumin 4.3 3.5 Lipase 39 Urine Color Yellow Urine Appearance Clear Urine pH 6.0 Ur Specific [place] 1.010 Urine Protein Negative Urine Glucose (UA) Negative Urine Ketones Negative Urine Blood Negative Urine Nitrite Negative Ur Leukocyte Esterase Negative Influenza Type A (PCR) NEGATIVE Influenza Type B (PCR) NEGATIVE RSV RNA Qual (PCR) NEGATIVE SARS-CoV-2 RNA (RT-PCR) NEGATIVE Airway Mallampati Class: II TM Dist: <=3cm Neck ROM: Full Loose/Missing/Broken Teeth: No Heart: ok Lungs: ok Assessment and Plan Assessment Anesthesia Assessment: Anesthesia Plan Discussed and Chart Reviewed Final Anesthetic Review Family History of Problems with Anesthesia: No History of Problems with Anesthesia: No NPO: Yes ASA Class: II Final Preanesthetic Review: No Changes in Pt Med Stat, Meds/Allgs Chart Reviewed, Consent Obtained/Reviewed and Anes Risks/Benef Reviewed Patient Risk: Intermediate Procedure Risk: Intermediate Anesthetic Plan Anesthetic Plan: GA and Agree w/ Assess. and Plan Disposition: Standard PACU
--- NOTE | 2024-07-18 14:29 | PC.NURSE ---
author spoke with Wilbert in pharmacy and orders reviewed - ok to give tylenol as ordered. Wilbert did not see any other sources of orders that she can see. Will not exceed dosing.
--- NOTE | 2024-07-18 14:47 | W.PM.OPN ---
Operative Note Operative Note Date of Service: 07/18/24 Narrative: Preoperative diagnosis: Acute cholecystitis due to cholelithiasis Postoperative diagnosis: Same, multiple liver metastasis of unknown etiology Procedure: Laparoscopic cholecystectomy, partial; biopsy of liver metastasis Surgeon: Juan Manuel Chanel MD Breastfeeding Educator: BETSY Smith Anesthesia: General endotracheal Indications for procedure: 53-year-old male patient presenting one-week history of abdominal pain in the right upper quadrant initially felt to be due to a gastroenteritis. When the pain increased in severity he subsequently presented to the emergency department for further evaluation. Workup revealed gallstones within the gallbladder with tenderness with palpation of the gallbladder. Findings were felt to be suggestive of acute cholecystitis. Operative findings: Acutely inflamed and obstructed gallbladder with hydropic fluid. Multiple liver metastases noted in both lobes of the liver. Metastases noted at the gallbladder fossa possibly causing obstruction of the gallbladder as well. This obstructed the view of the gallbladder therefore a partial cholecystectomy was performed. Specimen: gallbladder, liver metastases Estimated blood loss: 30 mL Complications: None Drains: Morgan-Goodwin large Procedure details: Patient was brought to the OR and placed in a supine position. After administering general anesthesia the patient's abdomen was prepped with ChloraPrep and draped in a sterile fashion. A surgical time-out was called the consent confirmed. Patient received preoperative antibiotics and Venodyne boots were in place. Local anesthesia consisting of 0.5% Sensorcaine without epinephrine was infiltrated in a periumbilical region. A 5 mm incision was made above the umbilicus in a transverse fashion. The Veress needle was then inserted while elevating abdominal cavity with towel clips. After positive drop test the abdomen was insufflated to a pressure of 15 mm of mercury. The Veress needle was then removed and a 5 mm trocar inserted. The camera was inserted in the abdomen explored. A 12 mm trocar was then placed in the epigastrium. Two 5 mm trocars placed in the right upper quadrant by the farm assistant. The patient was placed in reverse Trendelenburg positioning and rotated to the left. The above findings were noted with multiple liver metastases. The gallbladder was found to be acutely inflamed and markedly distended. A laparoscopic needle was used to aspirate the fluid from the gallbladder. This was hydropic. The gallbladder was grasped with the fundus and retracted cephalad by the farm assistant. The infundibulum was then grasped and retracted away from the liver bed, also by the farm assistant. The Dolphin dissected was then used by the surgeon to dissect the peritoneum off the infundibulum. A clear junction to the cystic duct could not be identified. Cystic artery was identified and doubly clipped and divided. The decision was made to dissect the gallbladder in a retrograde fashion from top to bottom. The dissection went was continued down to just above the infundibulum where a tumor was noted in the gallbladder fossa. Further dissection could not be performed due to dense adhesions in this location. The decision was made to resect the gallbladder this level and perform a partial cholecystectomy. An Endo-CHRISTIAN 45 purple stapler was used to divide the gallbladder just above the infundibulum. This was placed in an Endo-Catch bag and brought out through the epigastric incision. Electrocautery was then used to excise a liver metastasis in the right lobe margin. This was sent as a separate specimen. Hemostasis was then assured using electrocautery and Surgicel powder. A large Morgan-Goodwin drain was left in the gallbladder fossa and brought out through a lateral trocar site. This was secured to the skin using a 3-0 nylon suture. The drain was then connected to bulb suctioned. The abdomen was then re-examined. The liver bed was irrigated and suctioned dry. No bleeding or bile leak could be identified. CO2 was then evacuated and all trocars removed. Fascia was closed at the epigastric incision using a [id number] 0 Polysorb suture. Skin was closed in all incisions using a subcuticular 4 0 Polysorb suture by both the surgeon and farm assistant. Sterile dressings consisting of Steri-Strips, 2 x 2 gauze, and Tegaderm were then applied. The patient tolerated the procedure well. Sponge instrument and needle counts reported as correct. The patient was transferred to PACU in stable condition.
[2024-07-18] MEDS: oxyCODONE HCl Immed Release 5 MG TABLET PO (17:26)
[2024-07-18] MEDS: Atorvastatin Calcium 10 MG TABLET PO (19:43)
[2024-07-18] MEDS: HYDROmorphone HCl 0.5 MG/0.5 ML SYRINGE IVPUSH (19:44)
[2024-07-18] MEDS: Bethanechol Chloride 25 MG TABLET 50 MG PO (19:44)
[2024-07-18] MEDS: ondansetron HCL 4 MG/2 ML VIAL IVPUSH (19:44)
[2024-07-19] VITALS (7 sets, daily range): BP systolic 111–129; BP diastolic 63–73; PULSE 68–84; RESP 16–20; TEMP 36.1–37.4; O2SAT 92–96
[2024-07-19] MEDS: Dextrose 5 % and Lactated Ring 1,000 ML 125 ML IVCONT ×3 (04:00→21:48)
[2024-07-19] MEDS: Tamsulosin HCL 0.4 MG CAPSULE PO ×2 (07:20→21:47)
[2024-07-19] MEDS: Bethanechol Chloride 25 MG TABLET 50 MG PO ×2 (07:20→21:47)
[2024-07-19] MEDS: 0.9 % Sodium Chloride Flush 3 ML SYRINGE IVFLUSH (07:21)
[2024-07-19] MEDS: oxyCODONE HCl Immed Release 5 MG TABLET PO ×3 (07:31→21:47)
--- NOTE | 2024-07-19 08:00 | PM.PNGS ---
Subjective Subjective Date of Service: 07/19/24 Interval history: Reports abdominal pain 6/10 prior to pain medication. Denies nausea but not very hungry. I again reviewed findings of the operation with evidence of liver mets. Physical Exam Vital Signs: Vital Signs: Last Vital Signs Temp 98.0 F 07/19/24 07:29 Pulse 75 07/19/24 07:29 Resp 16 07/19/24 07:29 BP 111/71 07/19/24 07:29 Pulse Ox 94 07/19/24 07:29 O2 Del Method Room Air 07/19/24 07:29 O2 Flow Rate 2 07/18/24 17:20 BMI result Body Mass Index 29.0 Const: General: no acute distress Nutritional Appearance: well nourished Orientation/consciousness: patient oriented x3 Limitations: no limitations Eyes: Sclerae: sclerae normal Resp: Effort & Inspection: normal respiratory effort GI: Other: soft, incisional tenderness, wounds intact, SHANNON with serosang output. 74 mls since surgery. Neuro: General: patient oriented x3 Extrem: General: No edema Objective Data Active Medications Acetaminophen/Butalbital/Caffeine (Butalb/Acetamin/Caff 50/325/40 Tablet) 1 tab PO TID PRN PRN Reason: Headache Atorvastatin Calcium (Atorvastatin Calcium 10 Mg Tablet) 10 mg PO BEDTIME [facility] Last Admin: 07/18/24 19:43 Dose: 10 mg Documented By: ABIGAIL Bethanechol Chloride (Bethanechol Chloride 25 Mg Tablet) 50 mg PO BID [facility] Last Admin: 07/19/24 07:20 Dose: 50 mg Documented By: AVA Hydromorphone HCl (Hydromorphone Hcl 0.5 Mg/0.5 Ml Syringe) 0.5 mg IVPUSH Q3H PRN; Protocol PRN Reason: Pain, Severe (Pain Scale 7-10) Last Admin: 07/18/24 19:44 Dose: 0.5 mg Documented By: ABIGAIL Dextrose/Lactated Ringer's (D5lr) 1,000 mls @ 125 mls/hr IVCONT .Q8H [facility] Last Admin: 07/19/24 04:00 Dose: 125 mls/hr Documented By: ABIGAIL Naloxone HCl (Naloxone Hcl 0.4 Mg/Ml Vial) 0.04 mg IVPUSH Q5M PRN PRN Reason: Excessive sedation or RR < 8 Ondansetron HCl (Ondansetron Hcl 4 Mg/2 Ml Vial) 4 mg IVPUSH QID PRN PRN Reason: Nausea Last Admin: 07/18/24 19:44 Dose: 4 mg Documented By: CASTILSamara Oxycodone HCl (Oxycodone Hcl Immed Release 5 Mg Tablet) 5 mg PO Q6H PRN PRN Reason: Pain, Moderate(Pain Scale 4-6) Last Admin: 07/19/24 07:31 Dose: 5 mg Documented By: AVA Sodium Chloride (0.9 % Sodium Chloride Flush 3 Ml Syringe) 3 ml IVFLUSH QSHIFT [facility] Last Admin: 07/19/24 07:21 Dose: 3 ml Documented By: AVA Tamsulosin HCl (Tamsulosin Hcl 0.4 Mg Capsule) 0.4 mg PO BID [facility] Last Admin: 07/19/24 07:20 Dose: 0.4 mg Documented By: AVA Zolpidem Tartrate (Zolpidem Tartrate 5 Mg Tablet) 5 mg PO BEDTIME PRN PRN Reason: Insomnia Labs 07/18/24 05:06 07/18/24 05:06 Microbiology Microbiology Results: Microbiology 07/17/24 19:30 Blood Culture - Preliminary Blood - Venous No growth after 24 hours. 07/17/24 19:30 Blood Culture - Preliminary Blood - Venous No growth after 24 hours. Procedures Date of Service Date of Service: 07/19/24 Progress Note: A&P Assessment and plan (1) Acute cholecystitis: Status: Acute (2) Metastasis to liver of unknown origin: Status: Acute Plan 53 year old male patient presenting with complaints of right upper quadrant abdominal pain, found to have gallstones and positive sonographic Hernández's sign, POD #1 s/p partial cholecystectomy, found to have definite evidence of an acute obstructed gallbladder with hydrops, but also evidence of multiple liver mets involving both lobes including the gallbladder fossa. Biopsy of the liver mets performed, path pending. Discussed findings again with patient today. Recommended further workup with CT Chest, abd and pelvis. Further workup based on CT findings. Encouraged OOB, ambulation, IS. Time Spent With Patient Time: Total time managing care of this patient today ____ minutes. Quality Stroke Does the patient have a stroke diagnosis?: No VTE Prior VTE?: No VTE Risk Level:: Surgical - moderate VTE Device Contraindication: N/A - Device Ordered VTE Drug Contraindication: Treatment Not Indicated
--- NOTE | 2024-07-19 10:10 | PC.NURSE ---
SHANNON site drsg saturated with sero-sang drainage,drsg changed,drain emptied ,intact
--- NOTE | 2024-07-19 12:11 | MHC.CM.PN ---
PT LIVES WITH FAMILY HAS OPWN RIDE HOME HE IS INDEPENDENT AND WORKING DC PLAN HOME N/S
[2024-07-19] MEDS: iohexoL 350 MG/ML 100 ML INFUS..BTL IV (13:39)
--- NOTE | 2024-07-19 17:14 | PC.NURSE ---
SHANNON drain output since 7 am 25 ml of sero-sang ,SHANNON drain site drsg saturated twice since 7 am with large amt of sero-sang drainage,dr. Chanel made aware
[2024-07-19] MEDS: Atorvastatin Calcium 10 MG TABLET PO (21:47)
[2024-07-20] VITALS (7 sets, daily range): BP systolic 113–135; BP diastolic 66–77; PULSE 75–89; RESP 14–18; TEMP 36.9–39.4; O2SAT 93–96
[2024-07-20] MEDS: Dextrose 5 % and Lactated Ring 1,000 ML 125 ML IVCONT (05:37)
[2024-07-20] MEDS: oxyCODONE HCl Immed Release 5 MG TABLET PO ×2 (05:47→16:24)
[2024-07-20 06:13] LABS: MANUAL DIFF FLAG NO
[2024-07-20 06:18] LABS: Basophils Percent Auto 0.5 % (0-2); Eosinophils Percent Auto 0.4 % (0-4); Hematocrit 35.6 % (42.0-52.0); Hemoglobin 12.1 g/dl (14.0-18.0); Imm Gran Abs Auto 0.03 X10*3/uL (0.00-0.03); Imm Gran Pct Auto 0.4 % (0.0-0.4); Lymphocytes Absolute Auto 0.6 X10*3/uL (1.2-4.9); Lymphocytes Percent Auto 6.9 % (20-40); Mean Corpuscular Hemoglobin 29.4 pg (27.0-33.0); Mean Corpuscular Volume 86.6 fL (80.0-98.0); Mean Platelet Volume 10.3 fL (9.4-12.4); Monocytes Absolute Auto 1.1 X10*3/uL (0.1-1.2); Monocytes Percent Auto 13.1 % (2-11); Neutrophils Absolute Auto 6.7 x10*3/uL (2.0-8.3); Neutrophils Percent Auto 78.7 % (45-73); Platelet Count 188 X10*3/uL (160-400); Red Blood Count 4.11 X10*6/uL (4.60-5.80); Red Cell Distribution Width 12.2 % (11.0-16.0); White Blood Count 8.5 X10*3/uL (4.8-10.8)
[2024-07-20 06:32] LABS: Alanine Aminotransferase 88 U/L (0-40); Alkaline Phosphatase 307 U/L (39-117); Anion Gap 12 (12-20); Aspartate Amino Transferase 145 U/L (5-37); Bilirubin Direct 0.7 mg/dL (0.0-0.5); Bilirubin Total 1.3 mg/dL (0.0-1.0); Blood Urea Nitrogen 7 mg/dL (9-16); Calcium 8.2 mg/dL (8.4-10.2); Carbon Dioxide 25 mmol/L (22-29); Chloride 106 mmol/L (96-108); Estimated Glomerular Filt Rate > 60; Glucose Random 115 mg/dL (60-115); Potassium 3.7 mmol/L (3.3-5.1); Sodium 139 mmol/L (135-145); Total Protein 5.5 g/dL (6.5-8.0)
--- NOTE | 2024-07-20 07:42 | PM.PNGS ---
Subjective Subjective Date of Service: 07/20/24 Interval history: Patient reports feeling well. He has 4/10 pain control well on q6h oxycodone. Patient ambulating comfortably and engaging in incentive spirometry. He has been able to tolerate diet well and endorses flatus. He is able to urinary comfortably, continued on BPH meds. Patient aware of liver findings and reports mild anxiety about revealing his diagnosis to his family. He denies fever, headache, chest pain, dyspnea or leg pain. He has ongoing night sweats. Physical Exam Vital Signs: Vital Signs: Last Vital Signs Temp 98.9 F 07/20/24 07:17 Pulse 81 07/20/24 07:17 Resp 14 07/20/24 07:17 BP 135/77 07/20/24 07:17 Pulse Ox 94 07/20/24 07:17 O2 Del Method Room Air 07/20/24 07:17 O2 Flow Rate 2 07/18/24 17:20 BMI result Body Mass Index 29.0 Const: Other: Alert and oriented x 4. Laying comfortably in bed in no acute distress. Resp: Other: No increased work of breathing. Lungs clear to auscultation bilaterally. No wheezes, rales or rhonchi. Cardio: Other: RRR. No murmurs, rubs or gallops. Good PT pulses. GI: Other: Minimal SHANNON drainage of dark red consistency. No erythema, discharge or odor from surgical dressings. Active bowel sounds. No guarding. Neuro: Other: Moving all extremities spontaneously. Strength and sensation intact throughout. Extrem: Other: Slightly wet from diaphoresis. Otherwise warm and well-perfused, without leg edema. Psych: Other: Good spirits, no anxiety reported. Objective Data Active Medications Acetaminophen/Butalbital/Caffeine (Butalb/Acetamin/Caff 50/325/40 Tablet) 1 tab PO TID PRN PRN Reason: Headache Atorvastatin Calcium (Atorvastatin Calcium 10 Mg Tablet) 10 mg PO BEDTIME [facility] Last Admin: 07/19/24 21:47 Dose: 10 mg Documented By: KIKA Bethanechol Chloride (Bethanechol Chloride 25 Mg Tablet) 50 mg PO BID [facility] Last Admin: 07/19/24 21:47 Dose: 50 mg Documented By: KIKA Hydromorphone HCl (Hydromorphone Hcl 0.5 Mg/0.5 Ml Syringe) 0.5 mg IVPUSH Q3H PRN; Protocol PRN Reason: Pain, Severe (Pain Scale 7-10) Last Admin: 07/18/24 19:44 Dose: 0.5 mg Documented By: ABIGAIL Dextrose/Lactated Ringer's (D5lr) 1,000 mls @ 125 mls/hr IVCONT .Q8H [facility] Last Admin: 07/20/24 05:37 Dose: 125 mls/hr Documented By: KIKA Naloxone HCl (Naloxone Hcl 0.4 Mg/Ml Vial) 0.04 mg IVPUSH Q5M PRN PRN Reason: Excessive sedation or RR < 8 Ondansetron HCl (Ondansetron Hcl 4 Mg/2 Ml Vial) 4 mg IVPUSH QID PRN PRN Reason: Nausea Last Admin: 07/18/24 19:44 Dose: 4 mg Documented By: ABIGAIL Oxycodone HCl (Oxycodone Hcl Immed Release 5 Mg Tablet) 5 mg PO Q6H PRN PRN Reason: Pain, Moderate(Pain Scale 4-6) Last Admin: 07/20/24 05:47 Dose: 5 mg Documented By: KIKA Sodium Chloride (0.9 % Sodium Chloride Flush 3 Ml Syringe) 3 ml IVFLUSH QSHIFT [facility] Last Admin: 07/20/24 00:37 Dose: Not Given Documented By: KIKA Non-Admin Reason: IV Running Tamsulosin HCl (Tamsulosin Hcl 0.4 Mg Capsule) 0.4 mg PO BID [facility] Last Admin: 07/19/24 21:47 Dose: 0.4 mg Documented By: KIKA Zolpidem Tartrate (Zolpidem Tartrate 5 Mg Tablet) 5 mg PO BEDTIME PRN PRN Reason: Insomnia Labs 07/20/24 05:39 07/20/24 05:39 Labs: Laboratory Results - last 24 hr 07/20/24 05:39 MCV 86.6 MCH 29.4 MCHC 34.0 RDW 12.2 Plt Count 188 MPV 10.3 Immature Gran % (Auto) 0.4 Neut % (Auto) 78.7 H Lymph % (Auto) 6.9 L [place] % (Auto) 13.1 H Eos % (Auto) 0.4 Baso % (Auto) 0.5 Lymph # (Auto) 0.6 L [place] # (Auto) 1.1 Eos # (Auto) 0.0 Baso # (Auto) 0.0 Abs Immat Gran (auto) 0.03 Absolute Neuts (auto) 6.7 Absolute Nucleated RBC 0.000 Nucleated RBC % (auto) 0.0 Anion Gap 12 Estim Creat Clear Calc 123.0 Estimated GFR > 60 Random Glucose 115 Calcium 8.2 L D Total Bilirubin 1.3 H Direct Bilirubin 0.7 H AST 145 H ALT 88 H Alkaline Phosphatase 307 H Total Protein 5.5 L Albumin 3.0 L Carcinoembryonic Ag 7.00 Microbiology Microbiology Results: Microbiology 07/17/24 19:30 Blood Culture - Preliminary Blood - Venous No growth after 48 hours. 07/17/24 19:30 Blood Culture - Preliminary Blood - Venous No growth after 48 hours. Procedures Date of Service Date of Service: 07/20/24 Progress Note: A&P Assessment and plan Plan 1. Continue to advance diet. 2. Encourage OOB and ambulation. 3. Continue current pain control regimen. Time Spent With Patient Time: Total time managing care of this patient today ____ minutes. Quality Stroke Does the patient have a stroke diagnosis?: No VTE Prior VTE?: No VTE Risk Level:: Surgical - moderate VTE Device Contraindication: N/A - Device Ordered VTE Drug Contraindication: Treatment Not Indicated
--- NOTE | 2024-07-20 07:48 | PM.PNGS ---
Subjective Subjective Date of Service: 07/20/24 Physical Exam Vital Signs: Vital Signs: Last Vital Signs Temp 98.9 F 07/20/24 07:17 Pulse 81 07/20/24 07:17 Resp 14 07/20/24 07:17 BP 135/77 07/20/24 07:17 Pulse Ox 94 07/20/24 07:17 O2 Del Method Room Air 07/20/24 07:17 O2 Flow Rate 2 07/18/24 17:20 BMI result Body Mass Index 29.0 Objective Data Active Medications Acetaminophen/Butalbital/Caffeine (Butalb/Acetamin/Caff 50/325/40 Tablet) 1 tab PO TID PRN PRN Reason: Headache Atorvastatin Calcium (Atorvastatin Calcium 10 Mg Tablet) 10 mg PO BEDTIME [facility] Last Admin: 07/19/24 21:47 Dose: 10 mg Documented By: KIKA Bethanechol Chloride (Bethanechol Chloride 25 Mg Tablet) 50 mg PO BID [facility] Last Admin: 07/19/24 21:47 Dose: 50 mg Documented By: KIKA Hydromorphone HCl (Hydromorphone Hcl 0.5 Mg/0.5 Ml Syringe) 0.5 mg IVPUSH Q3H PRN; Protocol PRN Reason: Pain, Severe (Pain Scale 7-10) Last Admin: 07/18/24 19:44 Dose: 0.5 mg Documented By: ABIGAIL Dextrose/Lactated Ringer's (D5lr) 1,000 mls @ 125 mls/hr IVCONT .Q8H [facility] Last Admin: 07/20/24 05:37 Dose: 125 mls/hr Documented By: KIKA Naloxone HCl (Naloxone Hcl 0.4 Mg/Ml Vial) 0.04 mg IVPUSH Q5M PRN PRN Reason: Excessive sedation or RR < 8 Ondansetron HCl (Ondansetron Hcl 4 Mg/2 Ml Vial) 4 mg IVPUSH QID PRN PRN Reason: Nausea Last Admin: 07/18/24 19:44 Dose: 4 mg Documented By: ABIGAIL Oxycodone HCl (Oxycodone Hcl Immed Release 5 Mg Tablet) 5 mg PO Q6H PRN PRN Reason: Pain, Moderate(Pain Scale 4-6) Last Admin: 07/20/24 05:47 Dose: 5 mg Documented By: KIKA Sodium Chloride (0.9 % Sodium Chloride Flush 3 Ml Syringe) 3 ml IVFLUSH QSHIFT [facility] Last Admin: 07/20/24 00:37 Dose: Not Given Documented By: KIKA Non-Admin Reason: IV Running Tamsulosin HCl (Tamsulosin Hcl 0.4 Mg Capsule) 0.4 mg PO BID [facility] Last Admin: 07/19/24 21:47 Dose: 0.4 mg Documented By: KIKA Zolpidem Tartrate (Zolpidem Tartrate 5 Mg Tablet) 5 mg PO BEDTIME PRN PRN Reason: Insomnia Labs 07/20/24 05:39 07/20/24 05:39 Labs: Laboratory Results - last 24 hr 07/20/24 05:39 MCV 86.6 MCH 29.4 MCHC 34.0 RDW 12.2 Plt Count 188 MPV 10.3 Immature Gran % (Auto) 0.4 Neut % (Auto) 78.7 H Lymph % (Auto) 6.9 L [place] % (Auto) 13.1 H Eos % (Auto) 0.4 Baso % (Auto) 0.5 Lymph # (Auto) 0.6 L [place] # (Auto) 1.1 Eos # (Auto) 0.0 Baso # (Auto) 0.0 Abs Immat Gran (auto) 0.03 Absolute Neuts (auto) 6.7 Absolute Nucleated RBC 0.000 Nucleated RBC % (auto) 0.0 Anion Gap 12 Estim Creat Clear Calc 123.0 Estimated GFR > 60 Random Glucose 115 Calcium 8.2 L D Total Bilirubin 1.3 H Direct Bilirubin 0.7 H AST 145 H ALT 88 H Alkaline Phosphatase 307 H Total Protein 5.5 L Albumin 3.0 L Carcinoembryonic Ag 7.00 Microbiology Microbiology Results: Microbiology 07/17/24 19:30 Blood Culture - Preliminary Blood - Venous No growth after 48 hours. 07/17/24 19:30 Blood Culture - Preliminary Blood - Venous No growth after 48 hours. Procedures Date of Service Date of Service: 07/20/24 Progress Note: A&P Time Spent With Patient Time: Total time managing care of this patient today ____ minutes. Quality Stroke Does the patient have a stroke diagnosis?: No VTE Prior VTE?: No VTE Risk Level:: Surgical - moderate VTE Device Contraindication: N/A - Device Ordered VTE Drug Contraindication: Treatment Not Indicated
--- NOTE | 2024-07-20 08:35 | PM.PNGS ---
Subjective Subjective Date of Service: 07/20/24 Interval history: Pain somewhat improved this morning. Tolerating diet. OOB and ambulating. Physical Exam Vital Signs: Vital Signs: Last Vital Signs Temp 98.9 F 07/20/24 07:17 Pulse 81 07/20/24 07:17 Resp 14 07/20/24 07:17 BP 135/77 07/20/24 07:17 Pulse Ox 94 07/20/24 07:17 O2 Del Method Room Air 07/20/24 07:17 O2 Flow Rate 2 07/18/24 17:20 BMI result Body Mass Index 29.0 Const: General: comfortable, no acute distress and alert Orientation/consciousness: patient oriented x3 Resp: Effort & Inspection: normal respiratory effort GI: Inspection: No distended and Yes incision (dressings clean and intact ) Palpation (GI): Soft to palpation, Tenderness to palpation present (GI) (mild incisional ) and no guarding Skin: General skin exam: no rashes or lesions noted and no jaundice Neuro: General: patient oriented x3 Objective Data Active Medications Acetaminophen/Butalbital/Caffeine (Butalb/Acetamin/Caff 50/325/40 Tablet) 1 tab PO TID PRN PRN Reason: Headache Atorvastatin Calcium (Atorvastatin Calcium 10 Mg Tablet) 10 mg PO BEDTIME [facility] Last Admin: 07/19/24 21:47 Dose: 10 mg Documented By: KIKA Bethanechol Chloride (Bethanechol Chloride 25 Mg Tablet) 50 mg PO BID [facility] Last Admin: 07/19/24 21:47 Dose: 50 mg Documented By: KIKA Hydromorphone HCl (Hydromorphone Hcl 0.5 Mg/0.5 Ml Syringe) 0.5 mg IVPUSH Q3H PRN; Protocol PRN Reason: Pain, Severe (Pain Scale 7-10) Last Admin: 07/18/24 19:44 Dose: 0.5 mg Documented By: CASTILSamara Dextrose/Lactated Ringer's (D5lr) 1,000 mls @ 125 mls/hr IVCONT .Q8H [facility] Last Admin: 07/20/24 05:37 Dose: 125 mls/hr Documented By: KIKA Naloxone HCl (Naloxone Hcl 0.4 Mg/Ml Vial) 0.04 mg IVPUSH Q5M PRN PRN Reason: Excessive sedation or RR < 8 Ondansetron HCl (Ondansetron Hcl 4 Mg/2 Ml Vial) 4 mg IVPUSH QID PRN PRN Reason: Nausea Last Admin: 07/18/24 19:44 Dose: 4 mg Documented By: ABIGAIL Oxycodone HCl (Oxycodone Hcl Immed Release 5 Mg Tablet) 5 mg PO Q6H PRN PRN Reason: Pain, Moderate(Pain Scale 4-6) Last Admin: 07/20/24 05:47 Dose: 5 mg Documented By: KIKA Sodium Chloride (0.9 % Sodium Chloride Flush 3 Ml Syringe) 3 ml IVFLUSH QSHIFT [facility] Last Admin: 07/20/24 00:37 Dose: Not Given Documented By: KIKA Non-Admin Reason: IV Running Tamsulosin HCl (Tamsulosin Hcl 0.4 Mg Capsule) 0.4 mg PO BID [facility] Last Admin: 07/19/24 21:47 Dose: 0.4 mg Documented By: KIKA Zolpidem Tartrate (Zolpidem Tartrate 5 Mg Tablet) 5 mg PO BEDTIME PRN PRN Reason: Insomnia Labs 07/20/24 05:39 07/20/24 05:39 Labs: Laboratory Results - last 24 hr 07/20/24 05:39 MCV 86.6 MCH 29.4 MCHC 34.0 RDW 12.2 Plt Count 188 MPV 10.3 Immature Gran % (Auto) 0.4 Neut % (Auto) 78.7 H Lymph % (Auto) 6.9 L [place] % (Auto) 13.1 H Eos % (Auto) 0.4 Baso % (Auto) 0.5 Lymph # (Auto) 0.6 L [place] # (Auto) 1.1 Eos # (Auto) 0.0 Baso # (Auto) 0.0 Abs Immat Gran (auto) 0.03 Absolute Neuts (auto) 6.7 Absolute Nucleated RBC 0.000 Nucleated RBC % (auto) 0.0 Anion Gap 12 Estim Creat Clear Calc 123.0 Estimated GFR > 60 Random Glucose 115 Calcium 8.2 L D Total Bilirubin 1.3 H Direct Bilirubin 0.7 H AST 145 H ALT 88 H Alkaline Phosphatase 307 H Total Protein 5.5 L Albumin 3.0 L Carcinoembryonic Ag 7.00 Microbiology Microbiology Results: Microbiology 07/17/24 19:30 Blood Culture - Preliminary Blood - Venous No growth after 48 hours. 07/17/24 19:30 Blood Culture - Preliminary Blood - Venous No growth after 48 hours. Procedures Date of Service Date of Service: 07/20/24 Progress Note: A&P Assessment and plan (1) Metastasis to liver of unknown origin: Status: Acute (2) Acute cholecystitis: Status: Acute Plan POD #2 s/p partial cholecystectomy, found to have definite evidence of an acute obstructed gallbladder with hydrops, evidence of multiple liver mets involving both lobes including the gallbladder fossa. Biopsy of the liver mets performed, path still pending. CT scan chest, abd/pelvis yesterday showed multiple bilateral pulmonary nodules, atelectasis, diffuse hepatic metastatic disease. CEA 7. Had colonoscopy 03/05 with 2 tubular adenomas. Will consult GI, oncology for further input. Increase activity, pain control, incentive spirometer, DC IVF. Possibly home tomorrow if no further work up needed. Time Spent With Patient Time: Total time managing care of this patient today ____ minutes. Quality Stroke Does the patient have a stroke diagnosis?: No VTE Prior VTE?: No VTE Risk Level:: Surgical - moderate VTE Device Contraindication: N/A - Device Ordered VTE Drug Contraindication: Treatment Not Indicated
--- NOTE | 2024-07-20 08:37 | P.CNHO_ITS ---
Subjective - Subjective Chief complaint: Abdominal pain Patient: new to practice Consult date: 07/20/24 Primary Care Provider: Addi Ferreira MD HPI - Consult Narrative Reason for consult: Metastatic cancer, unknown primary Narrative: Eric Lara is a 53 year old male who has been diagnosed with multiple liver lesions as well as lung lesions consistent with metastasis. He presented to emergency department on 07/17/2024 with complaints of right upper quadrant pain, dry heaves and a low-grade fever. Blood work showed elevated liver enzymes, liver ultrasound showed cholelithiasis, gallbladder polyp measuring 0.4 cm and positive sonographic Hernández's sign. Multiple hepatic cysts and hemangioma as well as a hypoechoic lesion measuring 3.5 cm adjacent to gallbladder which was reported as indeterminate. Patient was taken to surgery on 07/18/2024, intraoperatively he was found to have multiple liver metastasis. Acutely inflamed and obstructed gallbladder with hydropic fluid was noted. He underwent cholecystectomy and biopsy of liver lesion. At this time, patient is recovering from surgery. He has never been diagnosed with any cancer. His father was diagnosed with prostate cancer in his 70s. He has 1 sister and 2 brothers. He lives at home with his brother and mother. He is single and has no children. 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 He reports some weight loss in the recent days because of abdominal discomfort which started around the holidays in 07/01/2024. He does not report jaundice, change in bowel habits or urinary symptoms. Review of Systems - Constitutional Reports as per HPI, Denies headache(s) - Cardiovascular Reports no additional cardiovascular complaints, Denies chest pain with activity - Respiratory Reports no additional respiratory complaints, Denies cough - Gastrointestinal Reports no additional gastrointestinal complaints, Reports abdominal pain, Denies black, tarry stools, Denies change in bowel habits [facility] Medical History: Medical History (Last Reviewed 07/17/24 @ 19:09 by Nanda Mcnair MD) Benign prostatic hyperplasia with lower urinary tract symptoms BPH (benign prostatic hyperplasia) Elevated TSH GERD without esophagitis Overweight (BMI 25.0-29.9) Pure hypercholesterolemia Tension headache Urinary hesitancy Family History: Family History (Last Reviewed 07/17/24 @ 19:09 by Nanda Mcnair MD) Father Cancer Mother No problems noted. Surgical History: Surgical History (Last Updated 07/18/24 @ 09:04 by Yahaira Junior PA-C) History of colonoscopy [place] teeth removed Social History: Social History (Last Reviewed 07/17/24 @ 19:09 by Nanda Mcnair MD) Living Situation History: Household Members: Family Household Members Other:: mom and brother Housing: House Are you a primary respiratory care instructor to a significant other at home: No Do you presently have visiting nurse or other home services: No Alcohol History Details: 1. How often do you have a drink containing alcohol?: a. Never AUDIT-C Alcohol total score: 0 Currently Displaying Signs/Symptoms of Alcohol Withdrawal: No Tobacco History: Patient Tobacco Use Status: Never used Tobacco e-Cigarette/Vaping Use: Never Used Second Hand Smoke Exposure: Yes Substance Use History: Use of substances other than those prescribed or required for medical reasons : No Currently Displaying Signs/Symptoms of Drug Intoxication Withdrawal: No Domestic Abuse History: Have you been hit, kicked, punched, or otherwise hurt by someone within the past year? If so, by whom?: No Do you feel safe in your current relationship?: No Current Relationship Advance Directives: Advance Directives: No Advance Directives Information Provided: Yes Homicidal Assessment: Do you have a plan to hurt others: No Plan Nutrition Assessment: Recently lost weight without trying: No How much weight loss: 2-13 pounds Nutrition Risks: No Nutritional Risk Occupation Assessmet: service: No Current occupational status: employed Current occupational exposures/hazards: No Home Medications and Allergies Current Medications: Current Medications Acetaminophen/Butalbital/Caffeine (Butalb/Acetamin/Caff 50/325/40 Tablet) 1 tab PO TID PRN PRN Reason: Headache Atorvastatin Calcium (Atorvastatin Calcium 10 Mg Tablet) 10 mg PO BEDTIME [facility] Last Admin: 07/19/24 21:47 Dose: 10 mg Bethanechol Chloride (Bethanechol Chloride 25 Mg Tablet) 50 mg PO BID [facility] Last Admin: 07/19/24 21:47 Dose: 50 mg Hydromorphone HCl (Hydromorphone Hcl 0.5 Mg/0.5 Ml Syringe) 0.5 mg IVPUSH Q3H PRN; Protocol PRN Reason: Pain, Severe (Pain Scale 7-10) Last Admin: 07/18/24 19:44 Dose: 0.5 mg Dextrose/Lactated Ringer's (D5lr) 1,000 mls @ 125 mls/hr IVCONT .Q8H [facility] Last Admin: 07/20/24 05:37 Dose: 125 mls/hr Naloxone HCl (Naloxone Hcl 0.4 Mg/Ml Vial) 0.04 mg IVPUSH Q5M PRN PRN Reason: Excessive sedation or RR < 8 Ondansetron HCl (Ondansetron Hcl 4 Mg/2 Ml Vial) 4 mg IVPUSH QID PRN PRN Reason: Nausea Last Admin: 07/18/24 19:44 Dose: 4 mg Oxycodone HCl (Oxycodone Hcl Immed Release 5 Mg Tablet) 5 mg PO Q6H PRN PRN Reason: Pain, Moderate(Pain Scale 4-6) Last Admin: 07/20/24 05:47 Dose: 5 mg Sodium Chloride (0.9 % Sodium Chloride Flush 3 Ml Syringe) 3 ml IVFLUSH QSHIFT [facility] Last Admin: 07/20/24 00:37 Dose: Not Given Tamsulosin HCl (Tamsulosin Hcl 0.4 Mg Capsule) 0.4 mg PO BID [facility] Last Admin: 07/19/24 21:47 Dose: 0.4 mg Zolpidem Tartrate (Zolpidem Tartrate 5 Mg Tablet) 5 mg PO BEDTIME PRN PRN Reason: Insomnia Home Medications ?Medication ?Instructions ?Recorded ?Confirmed ?Type multivitamin 1 tab PO DAILY 08/14/20 07/18/24 History Allergies Allergy/AdvReac Type Severity Reaction Status Date / Time No Known Allergies Allergy Verified 07/17/24 14:57 Physical Exam Vital signs: Vital Signs Temp 98.9 F 07/20/24 07:17 Pulse 81 07/20/24 07:17 Resp 14 07/20/24 07:17 BP 135/77 07/20/24 07:17 Pulse Ox 94 07/20/24 07:17 O2 Del Method Room Air 07/20/24 07:17 O2 Flow Rate 2 07/18/24 17:20 Intake & Output 07/19/24 07/20/24 07/20/24 18:59 06:59 18:59 Intake Total 1480 / 4057.083 2577.083 / 4057.083 Output Total 225 / 1137 912 / 1137 300 / 300 Balance 1255 / 2920.083 1665.083 / 2920.083 -300 / -300 Urine Output (Average ml/kg/hr) 0.20 0.89 0.30 Intake: Intake, Oral Amount 480 / 1080 600 / 1080 Intake, IV Amount 1000 / 2977.083 1976.083 / 2977.083 Dextrose 5 % and Lactated Ring 1000 / 2977.083 1976. / 2977.083 1,000 ml @ 125 mls/hr IVCONT . Q8H [facility] Rx#:[id number] Output: Output, Urine Amount 200 / 1100 900 / 1100 300 / 300 Output, Drainage Amount RUQ SHANNON Drain Other: Breakfast % Eaten 25% Lunch % Eaten 75% Eating (Feeding) Ability Independent Number of Unmeasured Voids 3 Urine Bathroom Urinal Urinal Urine Color Yellow Yellow Last Bowel Movement 07/17/24 07/17/24 Weight 84.1 kg - Constitutional Present: no acute distress, average body habitus - Routine HEENT Exam Head: Present: normal inspection Eye: Present: EOMI. Absent: scleral icterus ENT: Present: normal oropharynx - Routine Neck Exam Present: supple. Absent: lymphadenopathy - Routine Respiratory Exam Present: CTAB. Absent: accessory muscle use - Routine Cardiovascular Exam Cardiovascular: Present: RRR, S1, S2 - Routine Abdominal Exam Present: tenderness - Routine Extremities Exam Absent: calf tenderness - Routine Skin Exam Present: intact Hem/Onc Consult Result - Labs CBC & Chem 7: 07/20/24 05:39 07/20/24 05:39 Labs: Short CBC 07/20/24 Range/Units 05:39 WBC 8.5 (4.8-10.8) X10*3/uL Hgb 12.1 L (14.0-18.0) g/dl Hct 35.6 L (42.0-52.0) % Plt Count 188 (160-400) X10*3/uL BMP 07/20/24 05:39 Sodium 139 Potassium 3.7 Chloride 106 Carbon Dioxide 25 BUN 7 L Creatinine 0.72 Calcium 8.2 L D Liver Function 07/20/24 Range/Units 05:39 Total Bilirubin 1.3 H (0.0-1.0) mg/dL Direct Bilirubin 0.7 H (0.0-0.5) mg/dL AST 145 H (5-37) U/L ALT 88 H (0-40) U/L Alkaline Phosphatase 307 H (39-117) U/L Albumin 3.0 L (3.5-5.0) g/dL Assessment and Plan Patient Active problem list reviewed?: Yes (1) Metastasis to liver of unknown origin Status: Acute Assessment and plan: 1. This is a 53-year-old male presenting with abdominal discomfort and found to have multiple liver metastasis in addition to acute cholecystitis secondary to gallstones. Pathology of gallbladder as well as biopsy of liver metastasis is pending, preliminary report is adenocarcinoma. Imaging with CT chest/abdomen and pelvis with contrast shows multiple bilateral pulmonary nodules consistent with metastatic disease, largest nodule is in the right lung base measuring 1.2 cm. There is no mediastinal or hilar adenopathy. Numerous hepatic metastasis consistent with metastatic disease, largest measuring up to 6.3 cm in size. Blood work shows mildly elevated bilirubin of 1.3 as well as elevation of transaminases and alkaline phosphatase which is new compared to 04/2024. CEA slightly elevated at 7 NG/mL. He is a nonsmoker. Patient had a colonoscopy this fall did not have any evidence of cancer. Lung lesions appear to be metastatic disease rather than primary. Differential diagnosis include cholangiocarcinoma, other GI primary such as pancreatic or small-bowel cancers. There is family history of prostate cancer. His PSA was 2.29 in April 2024. I discussed above findings with the patient. Further recommendations to be made after final pathology is available. I thank you for the consultation. - Time Spent With Patient Time Spent with Patient (in minutes): 25 Additional Coding: - Additional E/M codes Complex E/M visit Add On: CPT G2211
[2024-07-20] MEDS: Tamsulosin HCL 0.4 MG CAPSULE PO ×2 (09:05→20:11)
[2024-07-20] MEDS: Bethanechol Chloride 25 MG TABLET 50 MG PO ×2 (09:05→20:11)
[2024-07-20] MEDS: 0.9 % Sodium Chloride Flush 3 ML SYRINGE IVFLUSH ×3 (09:05→20:11)
--- NOTE | 2024-07-20 15:06 | MHC.CM.PN ---
pt not medically stable for dc dc plan remains for home
[2024-07-20] MEDS: Atorvastatin Calcium 10 MG TABLET PO (20:11)
--- NOTE | 2024-07-20 23:12 | PM.EVENT ---
Event Note Date of Service: 07/20/24 Event Note: GI Consult-Patient seen earlier this evening. Full note dictated. History from patient and EMR. His sister, [id number], and brother were present as well. Imp: Metastatic disease of unknown primary at the present time involving his liver and lungs. I doubt this is related to a colonic primary given his recent colonoscopy and no sign of lower GI tract pathology on the CT scan.He has no other localizing GI complaints other than the recent issue with his gallbladder. Other sites to consider would be that of the gallbladder, pancreas, and UGI tract. Rec: Await final path report and subsequent direction from Oncology. I will be available if Oncology feels that a primary GI site needs to be excluded with an upper endoscopy and/or colonoscopy. Any needed GI procedures can be arranged as an outpatient. Please contact me as the need arises. D/W patient and his family in detail. They are comfortable with this plan. Thanks Time Spent With Patient Time: Total time managing care of this patient today ____ minutes.
[2024-07-21] MEDS: Acetaminophen 325 MG TABLET 650 MG PO ×3 (00:09→17:48)
[2024-07-21 01:05] VITALS: TEMP 38.7
[2024-07-21 04:00] VITALS: BP 126/70; PULSE 71; RESP 18; TEMP 37.1; O2SAT 97
--- NOTE | 2024-07-21 07:10 | PC.NURSE ---
pts temp up at 12 mn. md Angel Luis notified tylenol ordered after 1 hour recheck temp down to 101.7 and after ice pack given 2 nd recheck temp was normal 98.7 pt feels much better.
--- NOTE | 2024-07-21 07:36 | P.PNGS_ITS ---
Subjective Subjective Date of Service: 07/21/24 <Vasu Galindo - Last Filed: 07/21/24 07:44> 07/21/24 <Juan Manuel Chanel MD - Last Filed: 07/21/24 08:51> Interval history: Patient reports feeling well. Last night patient spiked a fever of 103F which decreased to 101F after APAP. This morning his temperature decreased back to 98.7F; he was given ice packs for comfort. He endorses some chills, but denies and cough, chest pain, shortness of breath, dysuria, leg pain/edema or abdominal pain other than near surgical site. Otherwise he reports good pain control. He is tolerating solid food diet and passing BMS. Patient ambulating frequently and engaging in incentive spirometry. Patient was seen by oncology and GI regarding workup for metastatic disease of unknown primary, and has communicated with his family. <Vasu Galindo - Last Filed: 07/21/24 07:44> Physical Exam 2 Vital Signs: Vital Signs: Last Vital Signs Temp 98.7 F 07/21/24 04:00 Pulse 71 07/21/24 04:00 Resp 18 07/21/24 04:00 BP 126/70 07/21/24 04:00 Pulse Ox 97 07/21/24 04:00 O2 Del Method Room Air 07/21/24 04:00 O2 Flow Rate 2 07/18/24 17:20 BMI result Body Mass Index 29.0 <Vasu Galindo - Last Filed: 07/21/24 07:44> Const: Other: Comfortable in NAD. <Vasu Galindo - Last Filed: 07/21/24 07:44> Resp: Other: Normal WOB. Lungs clear, no wheezes, rales or rhonchi. <Vasu Galindo - Last Filed: 07/21/24 07:44> Cardio: Other: RRR. No murmurs, rubs or gallops. <Vasu Galindo - Last Filed: 07/21/24 07:44> GI: Other: 15mL of dark dark drainage in SHANNON drain. Abdomen soft and non-distended without guarding. Active bowel sounds. <Vasu Galindo - Last Filed: 07/21/24 07:44> Neuro: Other: Alert and oriented x4. Moving all extremities spontaneously. <Vasu Galindo - Last Filed: 07/21/24 07:44> Extrem: Other: Skin diaphoretic. No leg edema/tenderness. <Vasu Chandrabrentalma - Last Filed: 07/21/24 07:44> Psych: Other: Good mood, no anxiety. <Vasu Chandrabrentalma - Last Filed: 07/21/24 07:44> Objective Data Active Medications Acetaminophen (Acetaminophen 325 Mg Tablet) 650 mg PO QID PRN PRN Reason: headache, temp > 101 Last Admin: 07/21/24 00:09 Dose: 650 mg Documented By: LINDA Acetaminophen/Butalbital/Caffeine (Butalb/Acetamin/Caff 50/325/40 Tablet) 1 tab PO TID PRN PRN Reason: Headache Atorvastatin Calcium (Atorvastatin Calcium 10 Mg Tablet) 10 mg PO BEDTIME [facility] Last Admin: 07/20/24 20:11 Dose: 10 mg Documented By: LINDA Bethanechol Chloride (Bethanechol Chloride 25 Mg Tablet) 50 mg PO BID [facility] Last Admin: 07/20/24 20:11 Dose: 50 mg Documented By: LINDA Hydromorphone HCl (Hydromorphone Hcl 0.5 Mg/0.5 Ml Syringe) 0.5 mg IVPUSH Q3H PRN; Protocol PRN Reason: Pain, Severe (Pain Scale 7-10) Last Admin: 07/18/24 19:44 Dose: 0.5 mg Documented By: ABIGAIL Naloxone HCl (Naloxone Hcl 0.4 Mg/Ml Vial) 0.04 mg IVPUSH Q5M PRN PRN Reason: Excessive sedation or RR < 8 Ondansetron HCl (Ondansetron Hcl 4 Mg/2 Ml Vial) 4 mg IVPUSH QID PRN PRN Reason: Nausea Last Admin: 07/18/24 19:44 Dose: 4 mg Documented By: ABIGAIL Oxycodone HCl (Oxycodone Hcl Immed Release 5 Mg Tablet) 5 mg PO Q6H PRN PRN Reason: Pain, Moderate(Pain Scale 4-6) Last Admin: 07/20/24 16:24 Dose: 5 mg Documented By: AVA Sodium Chloride (0.9 % Sodium Chloride Flush 3 Ml Syringe) 3 ml IVFLUSH QSHIFT [facility] Last Admin: 07/20/24 20:11 Dose: 3 ml Documented By: LINDA Tamsulosin HCl (Tamsulosin Hcl 0.4 Mg Capsule) 0.4 mg PO BID [facility] Last Admin: 07/20/24 20:11 Dose: 0.4 mg Documented By: LINDA Zolpidem Tartrate (Zolpidem Tartrate 5 Mg Tablet) 5 mg PO BEDTIME PRN PRN Reason: Insomnia <Vasu Galindo - Last Filed: 07/21/24 07:44> Labs CBC & Chem 7: 07/20/24 05:39 07/20/24 05:39 <Vasu Galindo - Last Filed: 07/21/24 07:44> Procedures Date of Service Date of Service: 07/21/24 <Vasu Galindo - Last Filed: 07/21/24 07:44> 07/21/24 <Juan Manuel Chanel MD - Last Filed: 07/21/24 08:51> Progress Note: A&P Assessment and plan (1) Acute cholecystitis: Status: Acute <Vasu Galindo - Last Filed: 07/21/24 07:44> (2) Metastasis to liver of unknown origin: Status: Acute <Vasu Galindo - Last Filed: 07/21/24 07:44> Assessment and Plan: 1. Continue with current pain management. 2. Continue with solid diet. 3. Continue to encourage ambulation and incentive spirometry. <Vasu Galindo - Last Filed: 07/21/24 07:44> 1. Continue with current pain management. 2. Continue with solid diet. 3. Continue to encourage ambulation and incentive spirometry. Patient seen and examined independently and I agree with the above assessment and plan. Continue to monitor SHANNON output, fever curve, and LFTs. We will recheck LFTs today Appreciate oncology and gastroenterology input. If LFTs continue to elevate, may need ERCP for brushings/stenting. Encouraged out of bed and ambulation as well. <Juan Manuel Chanel MD - Last Filed: 07/21/24 08:51> Time Spent With Patient Time: Total time managing care of this patient today ____ minutes. <Vasu Galindo - Last Filed: 07/21/24 07:44> Quality Stroke Does the patient have a stroke diagnosis?: No <Vasu Galindo - Last Filed: 07/21/24 07:44> VTE Prior VTE?: No <Vasu Galindo - Last Filed: 07/21/24 07:44> VTE Risk Level:: Surgical - moderate <Vasu Galindo Last Filed: 07/21/24 07:44> VTE Device Contraindication: N/A - Device Ordered <Vasu Galindo Last Filed: 07/21/24 07:44> VTE Drug Contraindication: Treatment Not Indicated <Vasu Galindo Last Filed: 07/21/24 07:44>
[2024-07-21 08:00] VITALS: BP 130/74; PULSE 88; RESP 18; TEMP 37.7; O2SAT 94
[2024-07-21] MEDS: Bethanechol Chloride 25 MG TABLET 50 MG PO ×2 (09:26→22:23)
[2024-07-21] MEDS: Tamsulosin HCL 0.4 MG CAPSULE PO ×2 (09:26→22:23)
[2024-07-21 09:43] LABS: MANUAL DIFF FLAG NO
[2024-07-21 09:53] LABS: Basophils Percent Auto 0.2 % (0-2); Eosinophils Percent Auto 0.1 % (0-4); Hematocrit 35.8 % (42.0-52.0); Hemoglobin 12.6 g/dl (14.0-18.0); Imm Gran Abs Auto 0.04 X10*3/uL (0.00-0.03); Imm Gran Pct Auto 0.5 % (0.0-0.4); Lymphocytes Absolute Auto 0.4 X10*3/uL (1.2-4.9); Lymphocytes Percent Auto 4.4 % (20-40); Mean Corpuscular HGB Conc 35.2 g/dl (31.0-36.0); Mean Corpuscular Hemoglobin 29.8 pg (27.0-33.0); Mean Corpuscular Volume 84.6 fL (80.0-98.0); Mean Platelet Volume 10.3 fL (9.4-12.4); Monocytes Absolute Auto 0.9 X10*3/uL (0.1-1.2); Monocytes Percent Auto 10.1 % (2-11); Neutrophils Absolute Auto 7.3 x10*3/uL (2.0-8.3); Neutrophils Percent Auto 84.7 % (45-73); Platelet Count 194 X10*3/uL (160-400); Red Blood Count 4.23 X10*6/uL (4.60-5.80); White Blood Count 8.7 X10*3/uL (4.8-10.8)
--- NOTE | 2024-07-21 09:58 | CONS_ITS ---
DATE OF SERVICE: 07/20/2024 REASON FOR CONSULTATION: Metastatic disease to liver. HISTORY OF PRESENT ILLNESS: This has been obtained from the patient and the medical record. During the interview, his family including his sister, [id number], and brother were present as well. The patient is a 53-year-old healthy male, who was admitted to the hospital on July 18 with acute cholecystitis. He had been having symptoms of abdominal pain and diminished appetite for about 2 weeks or so until the pain became intractable and prompted his ER visit. He underwent surgery with Dr. Chanel on July 18 with a partial cholecystectomy and placement of a drain. However, intraoperatively, he was noted to have what appeared to be multiple lesions on his liver consistent with metastatic disease and a biopsy of that was obtained as well. Subsequent workup has revealed multiple pulmonary lesions consistent with metastatic disease as well. He was seen by Dr. Farrell from Oncology. The final pathology of the biopsies are pending. Prior to the past couple of weeks, the patient reports he had been feeling his usual self without any particular GI complaints. He did have a colonoscopy in February of [address] Hutchinson with removal of 2 small tubular adenomas. He also had a colonoscopy in [address] Hutchinson with removal of hyperplastic polyps and a small sessile serrated polyp as well. The patient typically enjoys a good appetite prior to the onset of his gallbladder symptoms. He denies any dysphagia, chronic heartburn, early satiety, previous history of abdominal pain, jaundice, nor any unintentional weight loss. His bowel movements have been regular at home and without any sign of bleeding. There is no family history of colorectal cancer. Since the surgery, he has been gradually feeling better. He tolerated some food today. His drain has been decreasing in output. MEDICATIONS: At home included tamsulosin, atorvastatin, Fioricet. His medications here in the hospital include acetaminophen, atorvastatin, bethanechol, Fioricet p.r.n., Dilaudid p.r.n., Zofran p.r.n., oxycodone p.r.n., tamsulosin, and Ambien p.r.n. PAST MEDICAL HISTORY: Aside from the cholecystectomy he has had no other surgeries. He has history of enlarged prostate and hyperlipidemia. Colon polyps as above. He denies history of heart disease, diabetes, stroke, nor lung disease. 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 He is single. He does not smoke nor use any significant amounts of alcohol. FAMILY HISTORY: Noncontributory. REVIEW OF SYSTEMS: CONSTITUTIONAL: Prior to the onset of his gallbladder illness, he was feeling well with good energy, good appetite. SKIN: No rash, no pruritus. CARDIAC: No chest pain. PULMONARY: No cough, hemoptysis. GI: As above. URINARY: No dysuria, no hematuria. NEUROLOGIC: No headache or seizures. PHYSICAL EXAMINATION: GENERAL: Presently is quite comfortable in appearance. SKIN: Warm and dry. Nonjaundiced. Anicteric sclerae. CHEST: Clear. CARDIAC: Normal S1, S2. ABDOMEN: Tender along the right side from his incisions. The remainder of the abdominal exam is benign with good bowel sounds. EXTREMITIES: Without edema. LABORATORY DATA: White blood cell count 8.5, hemoglobin 12.1, MCV 87, platelets 188,000. PT 13.2 with INR 1.1. Normal electrolytes. BUN 7, creatinine 0.7. Total bilirubin 1.3, AST 145, ALT 88, alkaline phosphatase 307, it was 448 on July 17. CEA level is 7.0, lipase 39. He had a normal PSA of 2.3 in April. LFTs were normal in April as well. CT scan of his chest as mentioned above described multiple bilateral pulmonary nodules consistent with metastatic disease. Numerous liver lesions were noted as well. He also had a CT scan of his abdomen and pelvis that did not reveal any particular intraabdominal pathology other than his liver lesions. The pancreas, adrenal glands, kidneys, and GI tract all appeared normal. IMPRESSION: The patient is an unfortunate previously healthy 53-year-old male found to have diffuse metastatic disease to his liver and lungs of unclear primary at this time. Given his recent colonoscopies and CT findings, I doubt this represents a colon cancer. Other possibilities would include an upper GI source of neoplasm, pancreas, or something such as gallbladder cancer. At this point, he appears to be recovering nicely from his surgery. He has already been seen by Oncology. At this point, I would await the final results of the pathology. Based on those results and any recommendations from Oncology, I could certainly be available to have him undergo an upper endoscopy to rule out an upper GI source of neoplasm. I do not think a colonoscopy is needed at this time unless the pathology points directly to what appears to be a colon cancer. I think any needed GI procedures can be done as an outpatient at this point. At this point, I do not think any other intervention is required on my part and I shall await the final pathology report and the recommendations from Oncology. This has all been discussed in detail with the patient and his family this evening. They are all comfortable with the plan. Thank you for the consultation. MD JOHN Thorne/ROSALINDA / [id number] MTDD
[2024-07-21 10:10] LABS: Alanine Aminotransferase 135 U/L (0-40); Albumin Level 3.1 g/dL (3.5-5.0); Aspartate Amino Transferase 185 U/L (5-37); Bilirubin Direct 0.9 mg/dL (0.0-0.5); Bilirubin Total 1.8 mg/dL (0.0-1.0); Total Protein 5.8 g/dL (6.5-8.0)
[2024-07-21 10:36] LABS: Alkaline Phosphatase 340 U/L (39-117)
[2024-07-21 11:46] VITALS: BP 119/77; PULSE 79; RESP 16; TEMP 36.6; O2SAT 97
[2024-07-21 16:00] VITALS: BP 128/77; PULSE 83; RESP 18; TEMP 36.7; O2SAT 97
[2024-07-21 19:36] VITALS: BP 124/74; PULSE 86; RESP 18; TEMP 37.5; O2SAT 95
[2024-07-21] MEDS: Atorvastatin Calcium 10 MG TABLET PO (22:23)
[2024-07-21] MEDS: 0.9 % Sodium Chloride Flush 3 ML SYRINGE IVFLUSH (22:25)
[2024-07-22] VITALS (10 sets, daily range): BP systolic 112–138; BP diastolic 67–77; PULSE 68–90; RESP 16–18; TEMP 36.4–39.3; O2SAT 93–96
[2024-07-22] MEDS: Acetaminophen 325 MG TABLET 650 MG PO ×2 (00:23→12:13)
--- NOTE | 2024-07-22 06:31 | PC.NURSE ---
Pt spiked an fever oral temp 102.3 at 00:00, pt skin flushed and intermittent cough noted. PRN Tylenol given at 00:23 with good effect and ice packs. body recall instructor general surgeon Naseem notified of the situation. Pt's 04:00 oral temp down to 99.3. Will continue to monitor.
--- NOTE | 2024-07-22 06:41 | P.PNGS_ITS ---
Subjective Subjective Date of Service: 07/22/24 <Vasu Galindo - Last Filed: 07/22/24 07:34> 07/22/24 <Juan Manuel Chanel MD - Last Filed: 07/22/24 08:17> Interval history: Patient reports feeling well. Last night patient spiked a fever of 102.7 which decreased to 100.1F after APAP. This morning his temperature decreased back to 99.3. He endorses dry cough and mild headache since one day, but denies any sore throat, chest pain, dyspnea, dysuria or leg pain. He reports that his abdomen is moderately bloated. Per nursing patient had 25 mL of red- yellow colored SHANNON drainage and had mild leakage around SHANNON dressing. Patient has been tolerate solid food diet and has passed normal BMs. Otherwise he reports good pain control (3/10), is ambulating frequently around the unit and engaging in incentive spirometry. <Vasu Galindo - Last Filed: 07/22/24 07:34> Physical Exam 2 Vital Signs: Vital Signs: Last Vital Signs Temp 99.3 F 07/22/24 04:00 Pulse 68 07/22/24 04:00 Resp 16 07/22/24 04:00 BP 121/68 07/22/24 04:00 Pulse Ox 94 07/22/24 04:00 O2 Del Method Room Air 07/22/24 04:00 O2 Flow Rate 2 07/18/24 17:20 BMI result Body Mass Index 29.0 <Vasu Galindo - Last Filed: 07/22/24 07:34> Const: General: comfortable, no acute distress, alert, awake and diaphoretic <Vasu Galindo - Last Filed: 07/22/24 07:34> Resp: Effort & Inspection: normal respiratory effort <Vasu Galindo - Last Filed: 07/22/24 07:34> Auscultation: clear to auscultation bilaterally (no wheezes, rales or rhonchi. ) <Vasu Galindo - Last Filed: 07/22/24 07:34> Cardio: Rate: regular rate <Vasu Galindo - Last Filed: 07/22/24 07:34> Rhythm: regular rhythm <Vasu Galindo Last Filed: 07/22/24 07:34> Heart sounds: S1 normal heart sound present, S2 normal heart sound present and normal S1 and S2 <Vasu Galindo - Last Filed: 07/22/24 07:34> Peripheral pulses: Peripheral pulses 2+ throughout <Vasu Galindo - Last Filed: 07/22/24 07:34> GI: Other: Normal appearing surgical site dressings. SHANNON drain recently changed by nursing. Moderate abdominal distention diffusely. Abdomen otherwise soft and nontender, without guarding or rigidity. <Vasu Galindo - Last Filed: 07/22/24 07:34> Extrem: Other: No leg edema or tenderness. <Vasu Galindo - Last Filed: 07/22/24 07:34> Psych: Other: Good mood. <Vasu Galindo - Last Filed: 07/22/24 07:34> Objective Data Active Medications Acetaminophen (Acetaminophen 325 Mg Tablet) 650 mg PO QID PRN PRN Reason: headache, temp > 101 Last Admin: 07/22/24 00:23 Dose: 650 mg Documented By: CHENTE Acetaminophen/Butalbital/Caffeine (Butalb/Acetamin/Caff 50/325/40 Tablet) 1 tab PO TID PRN PRN Reason: Headache Atorvastatin Calcium (Atorvastatin Calcium 10 Mg Tablet) 10 mg PO BEDTIME [facility] Last Admin: 07/21/24 22:23 Dose: 10 mg Documented By: CHENTE Bethanechol Chloride (Bethanechol Chloride 25 Mg Tablet) 50 mg PO BID [facility] Last Admin: 07/21/24 22:23 Dose: 50 mg Documented By: CHENTE Hydromorphone HCl (Hydromorphone Hcl 0.5 Mg/0.5 Ml Syringe) 0.5 mg IVPUSH Q3H PRN; Protocol PRN Reason: Pain, Severe (Pain Scale 7-10) Last Admin: 07/18/24 19:44 Dose: 0.5 mg Documented By: CASTILSamara Naloxone HCl (Naloxone Hcl 0.4 Mg/Ml Vial) 0.04 mg IVPUSH Q5M PRN PRN Reason: Excessive sedation or RR < 8 Ondansetron HCl (Ondansetron Hcl 4 Mg/2 Ml Vial) 4 mg IVPUSH QID PRN PRN Reason: Nausea Last Admin: 07/18/24 19:44 Dose: 4 mg Documented By: CASTILSamara Oxycodone HCl (Oxycodone Hcl Immed Release 5 Mg Tablet) 5 mg PO Q6H PRN PRN Reason: Pain, Moderate(Pain Scale 4-6) Last Admin: 07/20/24 16:24 Dose: 5 mg Documented By: AVA Sodium Chloride (0.9 % Sodium Chloride Flush 3 Ml Syringe) 3 ml IVFLUSH QSHIFT [facility] Last Admin: 07/21/24 22:25 Dose: 3 ml Documented By: CHENTE Tamsulosin HCl (Tamsulosin Hcl 0.4 Mg Capsule) 0.4 mg PO BID [facility] Last Admin: 07/21/24 22:23 Dose: 0.4 mg Documented By: CHENTE Zolpidem Tartrate (Zolpidem Tartrate 5 Mg Tablet) 5 mg PO BEDTIME PRN PRN Reason: Insomnia <Vasu Galindo - Last Filed: 07/22/24 07:34> Labs CBC & Chem 7: 07/21/24 09:12 07/20/24 05:39 <Vasu Galindo - Last Filed: 07/22/24 07:34> Labs: Laboratory Results - last 24 hr 07/21/24 09:12 MCV 84.6 MCH 29.8 MCHC 35.2 RDW 12.0 Plt Count 194 MPV 10.3 Immature Gran % (Auto) 0.5 H Neut % (Auto) 84.7 H Lymph % (Auto) 4.4 L Perkins % (Auto) 10.1 Eos % (Auto) 0.1 Baso % (Auto) 0.2 Lymph # (Auto) 0.4 L Perkins # (Auto) 0.9 Eos # (Auto) 0.0 Baso # (Auto) 0.0 Abs Immat Gran (auto) 0.04 H Absolute Neuts (auto) 7.3 Absolute Nucleated RBC 0.000 Nucleated RBC % (auto) 0.0 Total Bilirubin 1.8 H Direct Bilirubin 0.9 H AST 185 H ALT 135 H Alkaline Phosphatase 340 H Total Protein 5.8 L Albumin 3.1 L <Vasu Galindo - Last Filed: 07/22/24 07:34> Imaging US - abdomen: Radiologist's impression: Impressions Venous Duplex 07/21/24 14:30 IMPRESSION: No evidence of acute DVT in the left lower extremity. Electronically signed by: Baljinder Duggan MD 07/21/2024 02:57 PM EST <Vasu Galindo - Last Filed: 07/22/24 07:34> MRI - abdomen: Radiologist's impression: Impressions 1. Partially imaged CBD is nondilated. No definite choledocholithiasis is defined by MRCP with motion artifacts. 2. Multiple liver masses. Although nonspecific by imaging, multiplicity is concerning for liver metastases. 3. Free fluid in the imaged abdomen is nonspecific and may reflect ascites. Carcinomatosis is also considered. 4. 2.3 cm x 2.4 cm focus of fluid in the gallbladder fossa may reflect cystic remnant. Differential considerations also include small biloma. Procedure history may be confirmatory. This document has been electronically signed by: Alex Wilson MD on 07/21/2024 19:18:41 <Vasu Galindo - Last Filed: 07/22/24 07:34> Procedures Date of Service Date of Service: 07/22/24 <Vasu Galindo - Last Filed: 07/22/24 07:34> 07/22/24 <Juan Manuel Chanel MD - Last Filed: 07/22/24 08:17> Progress Note: A&P Assessment and plan (1) Acute cholecystitis: Status: Acute <Vasu Galindo - Last Filed: 07/22/24 07:34> (2) Metastasis to liver of unknown origin: Status: Acute <Vasu Galindo - Last Filed: 07/22/24 07:34> Assessment and Plan: (1) Acute cholecystitis: Status: Acute (2) Metastasis to liver of unknown origin: Status: Acute Assessment and Plan: 1. Continue with current pain management. 2. Continue with solid diet. 3. Continue to encourage ambulation and incentive spirometry. 1. Continue with current pain management. 4. Fever Patient is who presents with second day of spiking fever responsive to tylenol. Patient developed dry cough yesterday. Respiratory, DVT and UTI causes are less likely. Continue to monitor fever curve, SHANNON drainage and provide tylenol prn for fever. 5. Elevated LFTs Patient has been trending upward in AST 185 (up from 145 yesterday), AKT 123=5 and total bili 1.8 (up from 1.2). His ERCPMRI yesterday showed evidence of nonspecific abdominal free fluid with DDx of ascites vs carcinomatosis. Fluid was visualized in gallbladder fossa suggestive of possible cystic remnent, however no definitive gallstones or CBD dilation was found. 1. Partially imaged CBD is nondilated. No definite choledocholithiasis is defined by MRCP with motion artifacts. 2. Multiple liver masses. Although nonspecific by imaging, multiplicity is concerning for liver metastases. 3. Free fluid in the imaged abdomen is nonspecific and may reflect ascites. Carcinomatosis is also considered. 4. 2.3 cm x 2.4 cm focus of fluid in the gallbladder fossa may reflect cystic remnant. Differential considerations also include small biloma. Procedure history may be confirmatory. <Vasu Galindo - Last Filed: 07/22/24 07:34> (1) Acute cholecystitis: Status: Acute (2) Metastasis to liver of unknown origin: Status: Acute Assessment and Plan: 1. Continue with current pain management. 2. Continue with solid diet. 3. Continue to encourage ambulation and incentive spirometry. 1. Continue with current pain management. 4. Fever Patient is who presents with second day of spiking fever responsive to tylenol. Patient developed dry cough yesterday. Respiratory, DVT and UTI causes are less likely. Continue to monitor fever curve, SHANNON drainage and provide tylenol prn for fever. 5. Elevated LFTs Patient has been trending upward in AST 185 (up from 145 yesterday), AKT 123=5 and total bili 1.8 (up from 1.2). His ERCPMRI yesterday showed evidence of nonspecific abdominal free fluid with DDx of ascites vs carcinomatosis. Fluid was visualized in gallbladder fossa suggestive of possible cystic remnent, however no definitive gallstones or CBD dilation was found. 1. Partially imaged CBD is nondilated. No definite choledocholithiasis is defined by MRCP with motion artifacts. 2. Multiple liver masses. Although nonspecific by imaging, multiplicity is concerning for liver metastases. 3. Free fluid in the imaged abdomen is nonspecific and may reflect ascites. Carcinomatosis is also considered. 4. 2.3 cm x 2.4 cm focus of fluid in the gallbladder fossa may reflect cystic remnant. Differential considerations also include small biloma. Procedure history may be confirmatory. Patient seen and examined independently. Patient continues to spike fevers possibly related to a fluid collection/gallbladder remnant verses pulmonary verses tumor fever. Venous Doppler studies negative for DVT. MRI negative for common bile duct stone. We will add Zosyn IV and monitor fever curve. SHANNON removed today. Await final pathology results. Plan discharge to home if temperature remains afebrile <Juan Manuel Chanel MD - Last Filed: 07/22/24 08:17> Time Spent With Patient Time: Total time managing care of this patient today ____ minutes. <Vasu Galindo - Last Filed: 07/22/24 07:34> Quality Stroke Does the patient have a stroke diagnosis?: No <Vasu Galindo - Last Filed: 07/22/24 07:34> VTE Prior VTE?: No <Vasu Galindo - Last Filed: 07/22/24 07:34> VTE Risk Level:: Surgical - moderate <Vasu Galindo - Last Filed: 07/22/24 07:34> VTE Device Contraindication: N/A - Device Ordered <Vasu Galindo - Last Filed: 07/22/24 07:34> VTE Drug Contraindication: Treatment Not Indicated <Vasu Galindo - Last Filed: 07/22/24 07:34>
[2024-07-22 07:33] LABS: Alanine Aminotransferase 126 U/L (0-40); Albumin Level 3.1 g/dL (3.5-5.0); Alkaline Phosphatase 344 U/L (39-117); Aspartate Amino Transferase 176 U/L (5-37); Bilirubin Direct 0.9 mg/dL (0.0-0.5); Bilirubin Total 1.6 mg/dL (0.0-1.0); Total Protein 5.7 g/dL (6.5-8.0)
[2024-07-22] MEDS: Piperacillin Sodium/Tazobactam 3.375 GM in 0.9 % Sodium Chloride 50 ML IV ×3 (08:28→21:20)
[2024-07-22] MEDS: Bethanechol Chloride 25 MG TABLET 50 MG PO ×2 (08:28→21:21)
[2024-07-22] MEDS: Tamsulosin HCL 0.4 MG CAPSULE PO ×2 (08:28→21:21)
[2024-07-22] MEDS: 0.9 % Sodium Chloride Flush 3 ML SYRINGE IVFLUSH ×3 (08:33→21:33)
--- NOTE | 2024-07-22 09:30 | PC.NURSE ---
Fever of 102.1, Dr. So made aware, New orders placed, meds given per SEP.
[2024-07-22] MEDS: ondansetron HCL 4 MG/2 ML VIAL IVPUSH (12:14)
--- NOTE | 2024-07-22 14:39 | HO.PM.IMCN ---
History of Present Illness Data of Consult Service Date: 07/22/24 Primary Care Provider: Addi Ferreira MD [facility] Reason for consult: Fevers post cholecystectomy The pt is a 53-year-old male with a PMH significant hyperlipidemia, BPH/urinary retention, and migraines who presented to the ED with RUQ pain x1 week. Workup in the ED indicated pt had acute cholecystitis as well as multiple liver and lung lesions consistent with metastasis. Pt was admitted to the [facility] general surgery services where he underwent emergent cholecystectomy and liver biopsy on 07/18/2023. Hospitalist consult for fevers. POD4. On POD2 pt has made a fever of 103.0 which took acetaminophen. Fever returned on POD4 when temperature was measured 102.7. Pt reports he had intermittent fevers as high as 101 at home during the week prior to his presentation to the ED. Has experienced a mild nonproductive cough since yesterday, and continues to complain of mild abdominal pain at surgical sites. Some nausea especially with smell of food. Denies shortness or breath or difficulty breathing. No chest pain/pressure, palpitations. Denies numbness or tingling in extremities. No lower extremity pain. Reports has been using his inspiratory spirometry. CT of chest on 07/19/2024 showed airspace opacities in both lower lobes, consistent with atelectasis versus pneumonia. CT of abdomen/pelvis on 07/19/2024 showed s/p cholecystectomy with diffuse hepatic metastasis. Of note, pt has been covered with Zosyn since admission. Review of Systems Review of Systems: Negative except for that which is stated in the HPI [facility] Medical History (Updated 07/22/24 @ 14:40 by LA Valdez) Benign prostatic hyperplasia with lower urinary tract symptoms BPH (benign prostatic hyperplasia) Tension headache Urinary hesitancy Overweight (BMI 25.0-29.9) Elevated TSH GERD without esophagitis Pure hypercholesterolemia Family History Father Cancer Mother No problems noted. Surgical History (Updated 07/20/24 @ 08:37 by Hortencia Farrell MD) History of colonoscopy [place] teeth removed Social History Household Members: Family Household Members Other:: mom and brother Housing: House Are you a primary memory care program director to a significant other at home: No Do you presently have visiting nurse or other home services: No Alcohol intake: current Alcohol intake frequency: does not drink Patient Tobacco Use Status: Never used Tobacco e-Cigarette/Vaping Use: Never Used Second Hand Smoke Exposure: Yes Use of substances other than those prescribed or required for medical reasons: No Currently Displaying Signs/Symptoms of Drug Intoxication Withdrawal: No Have you been hit, kicked, punched, or otherwise hurt by someone within the past year? If so, by whom?: No Do you feel safe in your current relationship?: No Current Relationship Are you DNR?: No Advance Directives: No Advance Directives Information Provided: Yes Do you have a plan to hurt others: No Plan Recently lost weight without trying: No How much weight loss: 2-13 pounds Nutrition Risks: No Nutritional Risk service: No Current occupational status: employed Current occupational exposures/hazards: No Cognitive needs: No Hearing needs: No Vision needs: Yes Meds Allergies Allergy/AdvReac Type Severity Reaction Status Date / Time No Known Allergies Allergy Verified 07/17/24 14:57 Active Medications: Current Medications Acetaminophen (Acetaminophen 325 Mg Tablet) 650 mg PO QID PRN PRN Reason: headache, temp > 101 Last Admin: 07/22/24 12:13 Dose: 650 mg Acetaminophen/Butalbital/Caffeine (Butalb/Acetamin/Caff 50/325/40 Tablet) 1 tab PO TID PRN PRN Reason: Headache Atorvastatin Calcium (Atorvastatin Calcium 10 Mg Tablet) 10 mg PO BEDTIME [facility] Last Admin: 07/21/24 22:23 Dose: 10 mg Bethanechol Chloride (Bethanechol Chloride 25 Mg Tablet) 50 mg PO BID [facility] Last Admin: 07/22/24 08:28 Dose: 50 mg Hydromorphone HCl (Hydromorphone Hcl 0.5 Mg/0.5 Ml Syringe) 0.5 mg IVPUSH Q3H PRN; Protocol PRN Reason: Pain, Severe (Pain Scale 7-10) Last Admin: 07/18/24 19:44 Dose: 0.5 mg Piperacillin Sod/Tazobactam (Sod 3.375 gm/ Sodium Chloride) 50 mls @ 100 mls/hr IV Q6H [facility] Last Admin: 07/22/24 14:09 Dose: 100 mls/hr Azithromycin 500 mg/ Sodium (Chloride) 250 mls @ 125 mls/hr IV Q24H [facility] Naloxone HCl (Naloxone Hcl 0.4 Mg/Ml Vial) 0.04 mg IVPUSH Q5M PRN PRN Reason: Excessive sedation or RR < 8 Ondansetron HCl (Ondansetron Hcl 4 Mg/2 Ml Vial) 4 mg IVPUSH QID PRN PRN Reason: Nausea Last Admin: 07/22/24 12:14 Dose: 4 mg Oxycodone HCl (Oxycodone Hcl Immed Release 5 Mg Tablet) 5 mg PO Q6H PRN PRN Reason: Pain, Moderate(Pain Scale 4-6) Last Admin: 07/20/24 16:24 Dose: 5 mg Sodium Chloride (0.9 % Sodium Chloride Flush 3 Ml Syringe) 3 ml IVFLUSH QSHIFT [facility] Last Admin: 07/22/24 08:33 Dose: 3 ml Tamsulosin HCl (Tamsulosin Hcl 0.4 Mg Capsule) 0.4 mg PO BID [facility] Last Admin: 07/22/24 08:28 Dose: 0.4 mg Zolpidem Tartrate (Zolpidem Tartrate 5 Mg Tablet) 5 mg PO BEDTIME PRN PRN Reason: Insomnia Home Medications ?Medication ?Instructions ?Recorded ?Confirmed ?Last Taken ?Type multivitamin 1 tab PO DAILY 08/14/20 07/18/24 Unknown History Physical Exam Vital Signs and Narrative: Vital Signs: Last Vital Signs Temp 99.1 F 07/22/24 11:22 Pulse 81 07/22/24 11:22 Resp 16 07/22/24 11:22 BP 121/76 07/22/24 11:22 Pulse Ox 96 07/22/24 11:22 O2 Del Method Room Air 07/22/24 11:22 O2 Flow Rate 2 07/18/24 17:20 BMI result Body Mass Index 29.0 General: AOx3, no acute distress Resp: CTA bilaterally, no wheezing rales or rhonchi noted CVS: S1, S2, RRR GI: +BS, no distention, appropriately tender at surgical sites Skin: Warm, dry Neuro: Cranial nerves II-XII grossly intact bilaterally. Motor grossly intact bilaterally Extremities: No edema Psych: Appropriate affect Results Labs 07/21/24 09:12 07/20/24 05:39 Labs: Laboratory Results - last 24 hr 07/22/24 05:05 Hold Purple Top SEE NOTE Total Bilirubin 1.6 H Direct Bilirubin 0.9 H AST 176 H ALT 126 H Alkaline Phosphatase 344 H Total Protein 5.7 L Albumin 3.1 L Imaging Radiologist's Impressions: Impressions Venous Duplex 07/21/24 14:30 IMPRESSION: No evidence of acute DVT in the left lower extremity. Electronically signed by: Baljinder Duggan MD 07/21/2024 02:57 PM [facility] Assessment and Plan (1) Acute cholecystitis: Status: Acute (2) Metastasis to liver of unknown origin: Status: Acute (3) Fever: Status: Acute Plan The pt is a 53-year-old male with a PMH significant hyperlipidemia, BPH/urinary retention, and migraines who presented to the ED with RUQ pain x1 week. Workup in the ED indicated pt had acute cholecystitis as well as multiple liver and lung lesions consistent with metastasis. Pt was admitted to the [facility] general surgery services where he underwent emergent cholecystectomy and liver biopsy on 07/18/2023. Hospitalist consult for fevers. POD4. Acute cholecystitis S/p cholecystectomy POD Plan as per general surgery Liver and lung lesions concerning for metastasis Liver biopsy taken during cholecystectomy Plan as per oncology Fevers Pt with fever of 103.0 on POD2 and 102.7 on POD4 Pt has been covered with Zosyn since admission Unclear etiology: mild intermittent dry cough since yesterday, otherwise no acute complaints CT of chest showing bilateral airspace opacities consistent with atelectasis vs pneumonia Will add azithromycin for atypical coverage Continue Zosyn Monitor for fever BPH/urinary retention/incomplete bladder emptying Continue bethanechol chloride, tamsulosin Migraines Continue Fioricet Thank you for allowing us to participate in the care of this pt will continue to follow along with you
[2024-07-22] MEDS: Azithromycin 500 MG in 0.9 % Sodium Chloride 250 ML 125 MG IV (15:17)
--- NOTE | 2024-07-22 15:58 | MHC.CM.PN ---
PT NOT YET MEDICALLY CLEARED FOR DC DCP REMAINS HOME WITH NO SERVICES CM FOLLOWING FOR CHANGING DC NEEDS
--- NOTE | 2024-07-22 16:09 | PM.HEMONCPN ---
Medical Summary - Medical Summary Date of Service: 07/24/24 Chief complaint: Fever Primary Care Provider: Addi Ferreira MD Interval History Interval history: Eric Lara is a 53 year old male who has been diagnosed with multiple liver lesions as well as lung lesions consistent with metastasis. He presented to emergency department on 07/17/2024 with complaints of right upper quadrant pain, dry heaves and a low-grade fever. Blood work showed elevated liver enzymes, liver ultrasound showed cholelithiasis, gallbladder polyp measuring 0.4 cm and positive sonographic Hernández's sign. Multiple hepatic cysts and hemangioma as well as a hypoechoic lesion measuring 3.5 cm adjacent to gallbladder which was reported as indeterminate. Patient was taken to surgery on 07/18/2024, intraoperatively he was found to have multiple liver metastasis. Acutely inflamed and obstructed gallbladder with hydropic fluid was noted. He underwent cholecystectomy and biopsy of liver lesion. Patient remains in the hospital because of symptoms of fever. He is not antibiotics for atelectasis symptoms seem pneumonia. Sister is at the bedside, he denies any new complaints at this time. Review of Systems - Neurologic Denies headache(s) [facility] Medical History: Medical History (Last Reviewed 07/17/24 @ 19:09 by Nanda Mcnair MD) Benign prostatic hyperplasia with lower urinary tract symptoms BPH (benign prostatic hyperplasia) Elevated TSH GERD without esophagitis Overweight (BMI 25.0-29.9) Pure hypercholesterolemia Tension headache Urinary hesitancy Family History: Family History (Last Reviewed 07/17/24 @ 19:09 by Nanda Mcnair MD) Father Cancer Mother No problems noted. Surgical History: Surgical History (Last Updated 07/18/24 @ 09:04 by Yahaira Junior PA-C) History of colonoscopy [place] teeth removed Social History: Social History (Last Reviewed 07/17/24 @ 19:09 by Nanda Mcnair MD) Living Situation History: Household Members: Family Household Members Other:: mom and brother Housing: House Are you a primary care manager cna to a significant other at home: No Do you presently have visiting nurse or other home services: No Alcohol History Details: 1. How often do you have a drink containing alcohol?: a. Never AUDIT-C Alcohol total score: 0 Currently Displaying Signs/Symptoms of Alcohol Withdrawal: No Tobacco History: Patient Tobacco Use Status: Never used Tobacco e-Cigarette/Vaping Use: Never Used Second Hand Smoke Exposure: Yes Substance Use History: Use of substances other than those prescribed or required for medical reasons: No Currently Displaying Signs/Symptoms of Drug Intoxication Withdrawal: No Domestic Abuse History: Have you been hit, kicked, punched, or otherwise hurt by someone within the past year? If so, by whom?: No Do you feel safe in your current relationship?: No Current Relationship Advance Directives: Advance Directives: No Advance Directives Information Provided: Yes Homicidal Assessment: Do you have a plan to hurt others: No Plan Nutrition Assessment: Recently lost weight without trying: No How much weight loss: 2-13 pounds Nutrition Risks: No Nutritional Risk Occupation Assessmet: service: No Current occupational status: employed Current occupational exposures/hazards: No Home Medications and Allergies Current Medications: Current Medications Acetaminophen (Acetaminophen 325 Mg Tablet) 650 mg PO QID PRN PRN Reason: headache, temp > 101 Last Admin: 07/22/24 12:13 Dose: 650 mg Acetaminophen/Butalbital/Caffeine (Butalb/Acetamin/Caff 50/325/40 Tablet) 1 tab PO TID PRN PRN Reason: Headache Atorvastatin Calcium (Atorvastatin Calcium 10 Mg Tablet) 10 mg PO BEDTIME [facility] Last Admin: 07/21/24 22:23 Dose: 10 mg Bethanechol Chloride (Bethanechol Chloride 25 Mg Tablet) 50 mg PO BID [facility] Last Admin: 07/22/24 08:28 Dose: 50 mg Hydromorphone HCl (Hydromorphone Hcl 0.5 Mg/0.5 Ml Syringe) 0.5 mg IVPUSH Q3H PRN; Protocol PRN Reason: Pain, Severe (Pain Scale 7-10) Last Admin: 07/18/24 19:44 Dose: 0.5 mg Piperacillin Sod/Tazobactam (Sod 3.375 gm/ Sodium Chloride) 50 mls @ 100 mls/hr IV Q6H [facility] Last Infusion: 07/22/24 14:49 Dose: Infused Azithromycin 500 mg/ Sodium (Chloride) 250 mls @ 125 mls/hr IV Q24H [facility] Last Admin: 07/22/24 15:17 Dose: 125 mls/hr Naloxone HCl (Naloxone Hcl 0.4 Mg/Ml Vial) 0.04 mg IVPUSH Q5M PRN PRN Reason: Excessive sedation or RR < 8 Ondansetron HCl (Ondansetron Hcl 4 Mg/2 Ml Vial) 4 mg IVPUSH QID PRN PRN Reason: Nausea Last Admin: 07/22/24 12:14 Dose: 4 mg Oxycodone HCl (Oxycodone Hcl Immed Release 5 Mg Tablet) 5 mg PO Q6H PRN PRN Reason: Pain, Moderate(Pain Scale 4-6) Last Admin: 07/20/24 16:24 Dose: 5 mg Sodium Chloride (0.9 % Sodium Chloride Flush 3 Ml Syringe) 3 ml IVFLUSH QSHIFT [facility] Last Admin: 07/22/24 15:18 Dose: 3 ml Tamsulosin HCl (Tamsulosin Hcl 0.4 Mg Capsule) 0.4 mg PO BID [facility] Last Admin: 07/22/24 08:28 Dose: 0.4 mg Zolpidem Tartrate (Zolpidem Tartrate 5 Mg Tablet) 5 mg PO BEDTIME PRN PRN Reason: Insomnia Home Medications ?Medication ?Instructions ?Recorded ?Confirmed ?Type multivitamin 1 tab PO DAILY 08/14/20 07/18/24 History Allergies Allergy/AdvReac Type Severity Reaction Status Date / Time No Known Allergies Allergy Verified 07/17/24 14:57 Exam Vital signs: Vital Signs Temp 97.5 F 07/22/24 15:28 Pulse 75 07/22/24 15:28 Resp 18 07/22/24 15:28 BP 120/67 07/22/24 15:28 Pulse Ox 95 07/22/24 15:28 O2 Del Method Room Air 07/22/24 15:28 O2 Flow Rate 2 07/18/24 17:20 Intake & Output 07/21/24 07/22/24 07/22/24 18:59 06:59 18:59 Intake Total 480 / 1680 1200 / 1680 460 / 460 Output Total 100 / 1450 1350 / 1450 Balance 380 / 230 -150 / 230 460 / 460 Urine Output (Average ml/kg/hr) 0.10 1.31 1.31 Intake: Intake, Oral Amount 480 / 1680 1200 / 1680 360 / 360 Intake, IV Amount 100 / 100 Piperacillin Sodium/Tazobactam 100 / 100 3.375 gm In 0.9 % Sodium Chloride 50 ml @ 100 mls/hr IV Q6H [facility] Rx#:[id number] Output: Output, Urine Amount 100 / 1425 1325 / 1425 Output, Drainage Amount RUQ SHANNON Drain Other: Meal Refused No No NPO No No Breakfast % Eaten 100% 100% Lunch % Eaten 75% <25 Eating (Feeding) Ability Independent Independent Number of Unmeasured Voids 2 1 2 Urine Bathroom Urinal Bathroom Urine Color Yellow Weight 84.1 kg BMI result Body Mass Index 29.0 - Constitutional Present: no acute distress, average body habitus - Routine HEENT Exam Head: Present: normal inspection - Routine Respiratory Exam Present: CTAB. Absent: accessory muscle use - Routine Cardiovascular Exam Cardiovascular: Present: RRR, S1, S2 - Routine Abdominal Exam Present: tenderness - Routine Extremities Exam Absent: calf tenderness - Routine Skin Exam Present: intact Data - Labs CBC & Chem 7: 07/24/24 05:39 07/24/24 05:39 Labs: Laboratory Last Values WBC 8.7 X10*3/uL (4.8-10.8) 07/21/24 09:12 RBC 4.23 X10*6/uL (4.60-5.80) L 07/21/24 09:12 Hgb 12.6 g/dl (14.0-18.0) L 07/21/24 09:12 Hct 35.8 % (42.0-52.0) L 07/21/24 09:12 MCV 84.6 fL (80.0-98.0) 07/21/24 09:12 MCH 29.8 pg (27.0-33.0) 07/21/24 09:12 MCHC 35.2 g/dl (31.0-36.0) 07/21/24 09:12 RDW 12.0 % (11.0-16.0) 07/21/24 09:12 Plt Count 194 X10*3/uL (160-400) 07/21/24 09:12 MPV 10.3 fL (9.4-12.4) 07/21/24 09:12 Immature Gran % (Auto) 0.5 % (0.0-0.4) H 07/21/24 09:12 Neut % (Auto) 84.7 % (45-73) H 07/21/24 09:12 Lymph % (Auto) 4.4 % (20-40) L 07/21/24 09:12 [place] % (Auto) 10.1 % (2-11) 07/21/24 09:12 Eos % (Auto) 0.1 % (0-4) 07/21/24 09:12 Baso % (Auto) 0.2 % (0-2) 07/21/24 09:12 Lymph # (Auto) 0.4 X10*3/uL (1.2-4.9) L 07/21/24 09:12 [place] # (Auto) 0.9 X10*3/uL (0.1-1.2) 07/21/24 09:12 Eos # (Auto) 0.0 X10*3/uL (0.0-0.4) 07/21/24 09:12 Baso # (Auto) 0.0 X10*3/uL (0.0-0.2) 07/21/24 09:12 Abs Immat Gran (auto) 0.04 X10*3/uL (0.00-0.03) H 07/21/24 09:12 Absolute Neuts (auto) 7.3 x10*3/uL (2.0-8.3) 07/21/24 09:12 Absolute Nucleated RBC 0.000 X10*3/uL (0.0-0.012) 07/21/24 09:12 Nucleated RBC % (auto) 0.0 /100WBC (0.0-0.2) 07/21/24 09:12 Hold Purple Top SEE NOTE 07/22/24 05:05 PT 13.2 SEC (10.9-12.4) H 07/17/24 15:13 INR 1.1 (0.9-1.1) 07/17/24 15:13 APTT 32.0 SEC (26.0-36.8) 07/17/24 15:13 Sodium 139 mmol/L (135-145) 07/20/24 05:39 Potassium 3.7 mmol/L (3.3-5.1) 07/20/24 05:39 Chloride 106 mmol/L (96-108) 07/20/24 05:39 Carbon Dioxide 25 mmol/L (22-29) 07/20/24 05:39 Anion Gap 12 (12-20) 07/20/24 05:39 BUN 7 mg/dL (9-16) L 07/20/24 05:39 Creatinine 0.72 mg/dL (0.5-1.4) 07/20/24 05:39 Estim Creat Clear Calc 123.0 07/20/24 05:39 Estimated GFR > 60 07/20/24 05:39 Random Glucose 115 mg/dL (60-115) 07/20/24 05:39 Lactic Acid 0.8 mmol/L (0.5-2.0) 07/17/24 19:30 Calcium 8.2 mg/dL (8.4-10.2) L D 07/20/24 05:39 Total Bilirubin 1.6 mg/dL (0.0-1.0) H 07/22/24 05:05 Direct Bilirubin 0.9 mg/dL (0.0-0.5) H 07/22/24 05:05 AST 176 U/L (5-37) H 07/22/24 05:05 ALT 126 U/L (0-40) H 07/22/24 05:05 Alkaline Phosphatase 344 U/L (39-117) H 07/22/24 05:05 Total Protein 5.7 g/dL (6.5-8.0) L 07/22/24 05:05 Albumin 3.1 g/dL (3.5-5.0) L 07/22/24 05:05 Lipase 39 U/L (8-78) 07/17/24 15:13 Carcinoembryonic Ag 7.00 ng/mL 07/20/24 05:39 Urine Color Yellow 07/17/24 15:13 Urine Appearance Clear 07/17/24 15:13 Urine pH 6.0 (5.0-9.0) 07/17/24 15:13 Ur Specific [place] 1.010 (1.005-1.025) 07/17/24 15:13 Urine Protein Negative mg/dL (Neg-Trace) 07/17/24 15:13 Urine Glucose (UA) Negative mg/dL (Negative) 07/17/24 15:13 Urine Ketones Negative mg/dL (Negative) 07/17/24 15:13 Urine Blood Negative (Negative) 07/17/24 15:13 Urine Nitrite Negative (Negative) 07/17/24 15:13 Ur Leukocyte Esterase Negative (Negative) 07/17/24 15:13 Influenza Type A (PCR) NEGATIVE (Negative) 07/17/24 15:13 Influenza Type B (PCR) NEGATIVE (Negative) 07/17/24 15:13 RSV RNA Qual (PCR) NEGATIVE (Negative) 07/17/24 15:13 SARS-CoV-2 RNA (RT-PCR) NEGATIVE (Negative) 07/17/24 15:13 - Imaging Radiologist's impression: ITS Impressions Abdomen/Pelvis CT 07/19/24 13:12 IMPRESSION: 1. Diffuse hepatic metastatic disease. 2. Status post cholecystectomy. Electronically signed by: Baljinder Duggan MD 07/19/2024 02:02 PM EST RP Chest CT 07/19/24 13:12 IMPRESSION: 1. Multiple bilateral pulmonary nodules, consistent with metastatic disease. 2. Airspace opacities in both lower lobes, consistent with atelectasis or pneumonia. 3. Diffuse hepatic metastatic disease. Please see CT of the abdomen and pelvis report. Electronically signed by: Baljinder Duggan MD 07/19/2024 01:54 PM EST RP Venous Duplex 07/21/24 14:30 IMPRESSION: No evidence of acute DVT in the left lower extremity. Electronically signed by: Baljinder Duggan MD 07/21/2024 02:57 PM EST RP Assessment and Plan Patient Active problem list reviewed?: Yes (1) Metastasis to liver of unknown origin Status: Acute Assessment and plan: 1. This is a 53-year-old male presenting with abdominal discomfort and found to have multiple liver metastasis in addition to acute cholecystitis secondary to gallstones. Pathology of gallbladder as well as biopsy of liver metastasis is pending, preliminary report is adenocarcinoma. Imaging with CT chest/abdomen and pelvis with contrast shows multiple bilateral pulmonary nodules consistent with metastatic disease, largest nodule is in the right lung base measuring 1.2 cm. There is no mediastinal or hilar adenopathy. Numerous hepatic metastasis consistent with metastatic disease, largest measuring up to 6.3 cm in size. Blood work shows mildly elevated bilirubin of 1.3 as well as elevation of transaminases and alkaline phosphatase which is new compared to 04/2024. CEA slightly elevated at 7 NG/mL. He is a nonsmoker. Patient had a colonoscopy this fall did not have any evidence of cancer. Lung lesions appear to be metastatic disease rather than primary. There is family history of prostate cancer. His PSA was 2.29 in April 2024. Differential diagnosis include cholangiocarcinoma, other GI primary such as pancreatic or small-bowel cancers. Biopsy of liver mass and gallbladder pathology from cholecystectomy performed on 07/18/2024 revealed-gallbladder with high-grade dysplasia. Liver mass revealed invasive adenocarcinoma, moderately differentiated. Primary site of liver adenocarcinoma is uncertain, gallbladder primary should be considered given the presence of high-grade dysplasia in part and the fact that entire gallbladder was not resected. I explained above possibilities with patient and sister. 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 He has metastatic or stage IV cancer, therefore surgery is not an option. He will need systemic therapy, combination chemo therapy with immunotherapy in the first-line setting administered once diagnosis is confirmed. Molecular testing of tumor is pending. Patient can be discharged once he was fevers resolved. His currently being treated for possible pneumonia secondary to atelectasis. Thank you, will follow. - Time Spent With Patient Time Spent with Patient (in minutes): 35 Additional Coding: - Additional E/M codes Complex E/M visit Add On: CPT G2211
--- NOTE | 2024-07-22 21:20 | PM.EVENT ---
Event Note Date of Service: 07/22/24 Event Note: 9:15 PM - Ongoing fever spikes. Tylenol switched to motrin prn due to elevated LFTs. Will repeat BCs X2, UA and viral testing for COVID, RSV and influenza. Time Spent With Patient Time: Total time managing care of this patient today ____ minutes.
[2024-07-22] MEDS: Ibuprofen 400 MG TABLET PO (21:33)
[2024-07-22] MEDS: Zolpidem Tartrate 5 MG TABLET PO (21:36)
[2024-07-22 22:33] LABS: Appearance Urine Clear; Color Urine Yellow; Glucose Urine UA Negative (Negative); Leukocyte Esterase Urine Negative (Negative); Nitrite Urine Negative (Negative); PH 7.5 (5.0-9.0); Urine Blood Negative (Negative); Urine Ketones Negative (Negative); Urine Protein Negative (Neg-Trace)
[2024-07-22 23:08] LABS: Influenza A PCR NEGATIVE (Negative); Influenza B PCR NEGATIVE (Negative); Resp Syncy Virus RNA Qual PCR NEGATIVE (Negative); SARS COV2 PCR INHOUSE NEGATIVE (Negative)
[2024-07-23] VITALS (7 sets, daily range): BP systolic 114–137; BP diastolic 67–81; PULSE 66–93; RESP 16–18; TEMP 37.1–39.2; O2SAT 93–98
[2024-07-23] MEDS: Piperacillin Sodium/Tazobactam 3.375 GM in 0.9 % Sodium Chloride 50 ML IV ×3 (02:00→14:24)
[2024-07-23 06:11] LABS: MANUAL DIFF FLAG NO
[2024-07-23 06:16] LABS: Basophils Percent Auto 0.3 % (0-2); Eosinophils Absolute Auto 0.1 X10*3/uL (0.0-0.4); Eosinophils Percent Auto 0.9 % (0-4); Hematocrit 37.1 % (42.0-52.0); Hemoglobin 12.8 g/dl (14.0-18.0); Imm Gran Abs Auto 0.06 X10*3/uL (0.00-0.03); Imm Gran Pct Auto 0.7 % (0.0-0.4); Lymphocytes Absolute Auto 0.5 X10*3/uL (1.2-4.9); Lymphocytes Percent Auto 6.1 % (20-40); Mean Corpuscular HGB Conc 34.5 g/dl (31.0-36.0); Mean Corpuscular Hemoglobin 29.4 pg (27.0-33.0); Mean Corpuscular Volume 85.1 fL (80.0-98.0); Mean Platelet Volume 10.5 fL (9.4-12.4); Monocytes Percent Auto 10.8 % (2-11); Neutrophils Absolute Auto 7.2 x10*3/uL (2.0-8.3); Neutrophils Percent Auto 81.2 % (45-73); Platelet Count 208 X10*3/uL (160-400); Red Blood Count 4.36 X10*6/uL (4.60-5.80); White Blood Count 8.9 X10*3/uL (4.8-10.8)
[2024-07-23 06:30] LABS: Anion Gap 13 (12-20); Blood Urea Nitrogen 11 mg/dL (9-16); Calcium 8.2 mg/dL (8.4-10.2); Carbon Dioxide 24 mmol/L (22-29); Chloride 101 mmol/L (96-108); Creatinine Clr Calc Pharmacy 119.6; Estimated Glomerular Filt Rate > 60; Glucose Random 85 mg/dL (60-115); Potassium 3.2 mmol/L (3.3-5.1); Sodium 135 mmol/L (135-145)
[2024-07-23 07:50] LABS: Alanine Aminotransferase 129 U/L (0-40); Albumin Level 3.1 g/dL (3.5-5.0); Alkaline Phosphatase 376 U/L (39-117); Aspartate Amino Transferase 196 U/L (5-37); Bilirubin Total 1.7 mg/dL (0.0-1.0); Total Protein 5.8 g/dL (6.5-8.0)
[2024-07-23] MEDS: Potassium Chloride ER 20 MEQ TAB.ER.PRT 40 MEQ PO (07:59)
[2024-07-23] MEDS: Bethanechol Chloride 25 MG TABLET 50 MG PO ×2 (08:00→20:46)
[2024-07-23] MEDS: Tamsulosin HCL 0.4 MG CAPSULE PO ×2 (08:00→20:46)
[2024-07-23] MEDS: 0.9 % Sodium Chloride Flush 3 ML SYRINGE IVFLUSH ×2 (08:09→20:47)
--- NOTE | 2024-07-23 08:58 | PM.PNGS ---
Subjective Subjective Date of Service: 07/23/24 Interval history: Still had fever of 102 last night Currently afebrile Feels comfortable Tolerating regular diet although appetite is poor Denies significant pain Physical Exam Vital Signs: Vital Signs: Last Vital Signs Temp 99.1 F 07/23/24 07:19 Pulse 66 07/23/24 07:19 Resp 18 07/23/24 07:19 BP 114/71 07/23/24 07:19 Pulse Ox 96 07/23/24 07:19 O2 Del Method Room Air 07/23/24 07:19 O2 Flow Rate 2 07/18/24 17:20 BMI result Body Mass Index 29.0 Const: General: comfortable and no acute distress Resp: Effort & Inspection: normal respiratory effort Cardio: Rate: regular rate GI: Other: All incisions clean and dry Palpation (GI): Soft to palpation, not firm and no guarding Objective Data Active Medications Acetaminophen (Acetaminophen 325 Mg Tablet) 650 mg PO TID PRN PRN Reason: fever Acetaminophen/Butalbital/Caffeine (Butalb/Acetamin/Caff 50/325/40 Tablet) 1 tab PO TID PRN PRN Reason: Headache Atorvastatin Calcium (Atorvastatin Calcium 10 Mg Tablet) 10 mg PO BEDTIME [facility] Last Admin: 07/22/24 21:22 Dose: Not Given Documented By: LEONARD Non-Admin Reason: hold Bethanechol Chloride (Bethanechol Chloride 25 Mg Tablet) 50 mg PO BID [facility] Last Admin: 07/23/24 08:00 Dose: 50 mg Documented By: MIKAYLA Hydromorphone HCl (Hydromorphone Hcl 0.5 Mg/0.5 Ml Syringe) 0.5 mg IVPUSH Q3H PRN; Protocol PRN Reason: Pain, Severe (Pain Scale 7-10) Last Admin: 07/18/24 19:44 Dose: 0.5 mg Documented By: ABIGAIL Piperacillin Sod/Tazobactam (Sod 3.375 gm/ Sodium Chloride) 50 mls @ 100 mls/hr IV Q6H [facility] Last Infusion: 07/23/24 08:30 Dose: Infused Documented By: MIKAYLA Azithromycin 500 mg/ Sodium (Chloride) 250 mls @ 125 mls/hr IV Q24H [facility] Last Infusion: 07/22/24 17:24 Dose: Infused Documented By: GILLIAN Ibuprofen (Ibuprofen 400 Mg Tablet) 400 mg PO Q6H PRN PRN Reason: Fever >101 Last Admin: 07/22/24 21:33 Dose: 400 mg Documented By: LEONARD Naloxone HCl (Naloxone Hcl 0.4 Mg/Ml Vial) 0.04 mg IVPUSH Q5M PRN PRN Reason: Excessive sedation or RR < 8 Ondansetron HCl (Ondansetron Hcl 4 Mg/2 Ml Vial) 4 mg IVPUSH QID PRN PRN Reason: Nausea Last Admin: 07/22/24 12:14 Dose: 4 mg Documented By: GILLIAN Oxycodone HCl (Oxycodone Hcl Immed Release 5 Mg Tablet) 5 mg PO Q6H PRN PRN Reason: Pain, Moderate(Pain Scale 4-6) Last Admin: 07/20/24 16:24 Dose: 5 mg Documented By: AVA Sodium Chloride (0.9 % Sodium Chloride Flush 3 Ml Syringe) 3 ml IVFLUSH QSHIFT [facility] Last Admin: 07/23/24 08:09 Dose: 3 ml Documented By: MIKAYLA Tamsulosin HCl (Tamsulosin Hcl 0.4 Mg Capsule) 0.4 mg PO BID [facility] Last Admin: 07/23/24 08:00 Dose: 0.4 mg Documented By: MIKAYLA Zolpidem Tartrate (Zolpidem Tartrate 5 Mg Tablet) 5 mg PO BEDTIME PRN PRN Reason: Insomnia Last Admin: 07/22/24 21:36 Dose: 5 mg Documented By: LEONARD Labs 07/23/24 05:11 07/23/24 05:11 Labs: Laboratory Results - last 24 hr 07/22/24 07/22/24 07/23/24 21:35 22:15 05:11 MCV 85.1 MCH 29.4 MCHC 34.5 RDW 12.0 Plt Count 208 MPV 10.5 Immature Gran % (Auto) 0.7 H Neut % (Auto) 81.2 H Lymph % (Auto) 6.1 L [place] % (Auto) 10.8 Eos % (Auto) 0.9 Baso % (Auto) 0.3 Lymph # (Auto) 0.5 L [place] # (Auto) 1.0 Eos # (Auto) 0.1 Baso # (Auto) 0.0 Abs Immat Gran (auto) 0.06 H Absolute Neuts (auto) 7.2 Absolute Nucleated RBC 0.000 Nucleated RBC % (auto) 0.0 Hold Purple Top SEE NOTE Anion Gap 13 Estim Creat Clear Calc 119.6 Estimated GFR > 60 Random Glucose 85 Calcium 8.2 L Total Bilirubin 1.7 H Direct Bilirubin 1.0 H AST 196 H ALT 129 H Alkaline Phosphatase 376 H Total Protein 5.8 L Albumin 3.1 L Hold Yellow Top See Note Urine Color Yellow Urine Appearance Clear Urine pH 7.5 Ur Specific [place] 1.010 Urine Protein Negative Urine Glucose (UA) Negative Urine Ketones Negative Urine Blood Negative Urine Nitrite Negative Ur Leukocyte Esterase Negative Influenza Type A (PCR) NEGATIVE Influenza Type B (PCR) NEGATIVE RSV RNA Qual (PCR) NEGATIVE SARS-CoV-2 RNA (RT-PCR) NEGATIVE Microbiology Microbiology Results: Microbiology 07/17/24 19:30 Blood Culture - Final Blood - Venous No growth after 5 days. 07/17/24 19:30 Blood Culture - Final Blood - Venous No growth after 5 days. Procedures Date of Service Date of Service: 07/23/24 Progress Note: A&P Assessment and plan (1) Acute cholecystitis: Status: Acute Assessment and Plan: Status post partial cholecystectomy - has lesions in the liver Path report still pending Still had temperature spike last night He looks well otherwise WBC normal Abdomen is soft and benign Bilirubin slightly elevated Encouraged to get out of bed and ambulate Follow fever pattern Repeat labs tomorrow Discussed with the hospitalist Time Spent With Patient Time: Total time managing care of this patient today ____ minutes. Quality Stroke Does the patient have a stroke diagnosis?: No VTE Prior VTE?: No VTE Risk Level:: Surgical - moderate VTE Device Contraindication: N/A - Device Ordered VTE Drug Contraindication: Treatment Not Indicated
--- NOTE | 2024-07-23 10:49 | HO.PM.IMPN ---
Subjective Subjective Date of Service: 07/23/24 Interval History: seen and evaluated this morning had 1 reported fever last night feels well otherwise having some cough no other events Review of Systems Review of Systems: Yes all other systems are reviewed and are negative Physical Exam Vital Signs: Vital Signs: Last Vital Signs Temp 99.1 F 07/23/24 07:19 Pulse 66 07/23/24 07:19 Resp 18 07/23/24 07:19 BP 114/71 07/23/24 07:19 Pulse Ox 96 07/23/24 07:19 O2 Del Method Room Air 07/23/24 07:19 O2 Flow Rate 2 07/18/24 17:20 BMI result Body Mass Index 29.0 Const: Other: Constitutional : interactive, not in distress Cardiovascular : no JVP, no lower extremity edema Respiratory : bilateral chest movement, not in resp distress , basal fine crackles, on RA Gastrointestinal: soft, lax, Non tender Skin : Warm, Dry Neurological : Alert & oriented , No focal deficit Objective Data Active Medications Acetaminophen (Acetaminophen 325 Mg Tablet) 650 mg PO TID PRN PRN Reason: fever Acetaminophen/Butalbital/Caffeine (Butalb/Acetamin/Caff 50/325/40 Tablet) 1 tab PO TID PRN PRN Reason: Headache Atorvastatin Calcium (Atorvastatin Calcium 10 Mg Tablet) 10 mg PO BEDTIME [facility] Last Admin: 07/22/24 21:22 Dose: Not Given Documented By: LEONARD Non-Admin Reason: hold Bethanechol Chloride (Bethanechol Chloride 25 Mg Tablet) 50 mg PO BID [facility] Last Admin: 07/23/24 08:00 Dose: 50 mg Documented By: MIKAYLA Hydromorphone HCl (Hydromorphone Hcl 0.5 Mg/0.5 Ml Syringe) 0.5 mg IVPUSH Q3H PRN; Protocol PRN Reason: Pain, Severe (Pain Scale 7-10) Last Admin: 07/18/24 19:44 Dose: 0.5 mg Documented By: ABIGAIL Piperacillin Sod/Tazobactam (Sod 3.375 gm/ Sodium Chloride) 50 mls @ 100 mls/hr IV Q6H [facility] Last Infusion: 07/23/24 08:30 Dose: Infused Documented By: MIKAYLA Azithromycin 500 mg/ Sodium (Chloride) 250 mls @ 125 mls/hr IV Q24H [facility] Last Infusion: 07/22/24 17:24 Dose: Infused Documented By: GILLIAN Ibuprofen (Ibuprofen 400 Mg Tablet) 400 mg PO Q6H PRN PRN Reason: Fever >101 Last Admin: 07/22/24 21:33 Dose: 400 mg Documented By: LEONARD Naloxone HCl (Naloxone Hcl 0.4 Mg/Ml Vial) 0.04 mg IVPUSH Q5M PRN PRN Reason: Excessive sedation or RR < 8 Ondansetron HCl (Ondansetron Hcl 4 Mg/2 Ml Vial) 4 mg IVPUSH QID PRN PRN Reason: Nausea Last Admin: 07/22/24 12:14 Dose: 4 mg Documented By: GILLIAN Oxycodone HCl (Oxycodone Hcl Immed Release 5 Mg Tablet) 5 mg PO Q6H PRN PRN Reason: Pain, Moderate(Pain Scale 4-6) Last Admin: 07/20/24 16:24 Dose: 5 mg Documented By: AVA Sodium Chloride (0.9 % Sodium Chloride Flush 3 Ml Syringe) 3 ml IVFLUSH QSHIFT [facility] Last Admin: 07/23/24 08:09 Dose: 3 ml Documented By: MIKAYLA Tamsulosin HCl (Tamsulosin Hcl 0.4 Mg Capsule) 0.4 mg PO BID [facility] Last Admin: 07/23/24 08:00 Dose: 0.4 mg Documented By: MIKAYLA Zolpidem Tartrate (Zolpidem Tartrate 5 Mg Tablet) 5 mg PO BEDTIME PRN PRN Reason: Insomnia Last Admin: 07/22/24 21:36 Dose: 5 mg Documented By: LEONARD Labs 07/23/24 05:11 07/23/24 05:11 Labs: Laboratory Results - last 24 hr 07/22/24 07/22/24 07/23/24 21:35 22:15 05:11 MCV 85.1 MCH 29.4 MCHC 34.5 RDW 12.0 Plt Count 208 MPV 10.5 Immature Gran % (Auto) 0.7 H Neut % (Auto) 81.2 H Lymph % (Auto) 6.[address] [place] % (Auto) 10.8 Eos % (Auto) 0.9 Baso % (Auto) 0.3 Lymph # (Auto) 0.[address] [place] # (Auto) 1.0 Eos # (Auto) 0.1 Baso # (Auto) 0.0 Abs Immat Gran (auto) 0.06 H Absolute Neuts (auto) 7.2 Absolute Nucleated RBC 0.000 Nucleated RBC % (auto) 0.0 Hold Purple Top SEE NOTE Anion Gap 13 Estim Creat Clear Calc 119.6 Estimated GFR > 60 Random Glucose 85 Calcium 8.2 L Total Bilirubin 1.7 H Direct Bilirubin 1.0 H AST 196 H ALT 129 H Alkaline Phosphatase 376 H Total Protein 5.8 L Albumin 3.1 L Hold Yellow Top See Note Urine Color Yellow Urine Appearance Clear Urine pH 7.5 Ur Specific [place] 1.010 Urine Protein Negative Urine Glucose (UA) Negative Urine Ketones Negative Urine Blood Negative Urine Nitrite Negative Ur Leukocyte Esterase Negative Influenza Type A (PCR) NEGATIVE Influenza Type B (PCR) NEGATIVE RSV RNA Qual (PCR) NEGATIVE SARS-CoV-2 RNA (RT-PCR) NEGATIVE Microbiology Microbiology Results: Microbiology 07/17/24 19:30 Blood Culture - Final Blood - Venous No growth after 5 days. 07/17/24 19:30 Blood Culture - Final Blood - Venous No growth after 5 days. Assessment and Plan (1) Fever: Status: Acute (2) Metastasis to liver of unknown origin: Status: Acute (3) Acute cholecystitis: Status: Acute (4) Pneumonia: Status: Acute Plan The pt is a 53-year-old male with a H significant hyperlipidemia, BPH/urinary retention, and migraines who presented to the ED with RUQ pain x1 week. Workup in the ED indicated pt had acute cholecystitis as well as multiple liver and lung lesions consistent with metastasis. Pt was admitted to the [facility] general surgery services where he underwent emergent cholecystectomy and liver biopsy on 07/18/2023. Hospitalist consult for fevers. POD4. Acute cholecystitis S/p cholecystectomy general surgery following; Drain removed Liver and lung lesions concerning for metastasis Liver biopsy pending pathology Plan as per oncology Pneumonia\Atelactasis Still spiking fever CT of chest showing bilateral airspace opacities consistent with atelectasis vs pneumonia Continue Zosyn and Zithromax cosider repeat CT abdomen to r\o any abscess formation if continues to spike fever Tylenol PRN for fever BPH/urinary retention/incomplete bladder emptying Continue bethanechol chloride, tamsulosin Migraines Continue Fioricet Thank you for allowing us to participate in the care of this pt will continue to follow along with you Quality Stroke Does the patient have a stroke diagnosis?: No VTE Prior VTE?: No VTE Risk Level:: Surgical - moderate VTE Device Contraindication: N/A - Device Ordered VTE Drug Contraindication: Treatment Not Indicated
[2024-07-23] MEDS: Acetaminophen 325 MG TABLET 650 MG PO (14:23)
[2024-07-23] MEDS: Calcium Carbonate 750 MG TAB.CHEW PO ×2 (14:58→23:36)
[2024-07-23] MEDS: Azithromycin 500 MG in 0.9 % Sodium Chloride 250 ML 125 MG IV (14:59)
[2024-07-23] MEDS: Ibuprofen 400 MG TABLET PO (15:14)
[2024-07-23] MEDS: metroNIDAZOLE/NS 500 MG/100 ML PIGGYBACK 100 MG IV ×2 (15:30→23:03)
[2024-07-23] MEDS: cefTRIAXone sodium 2 GM VIAL IVPUSH (15:30)
[2024-07-23] MEDS: Zolpidem Tartrate 5 MG TABLET PO (22:05)
[2024-07-24] VITALS (8 sets, daily range): BP systolic 102–122; BP diastolic 63–75; PULSE 69–100; RESP 16–20; TEMP 36.4–38.8; O2SAT 93–96
[2024-07-24] MEDS: Acetaminophen 325 MG TABLET 650 MG PO ×2 (04:16→12:45)
[2024-07-24 06:33] LABS: MANUAL DIFF FLAG NO
[2024-07-24 07:01] LABS: Basophils Percent Auto 0.5 % (0-2); Eosinophils Percent Auto 0.4 % (0-4); Hematocrit 33.5 % (42.0-52.0); Hemoglobin 11.7 g/dl (14.0-18.0); Imm Gran Abs Auto 0.04 X10*3/uL (0.00-0.03); Imm Gran Pct Auto 0.5 % (0.0-0.4); Lymphocytes Absolute Auto 0.3 X10*3/uL (1.2-4.9); Mean Corpuscular HGB Conc 34.9 g/dl (31.0-36.0); Mean Corpuscular Volume 82.9 fL (80.0-98.0); Mean Platelet Volume 10.6 fL (9.4-12.4); Monocytes Absolute Auto 0.8 X10*3/uL (0.1-1.2); Monocytes Percent Auto 9.9 % (2-11); Neutrophils Percent Auto 84.7 % (45-73); Platelet Count 213 X10*3/uL (160-400); Red Blood Count 4.04 X10*6/uL (4.60-5.80); White Blood Count 8.3 X10*3/uL (4.8-10.8)
[2024-07-24 07:09] LABS: Alanine Aminotransferase 145 U/L (0-40); Albumin Level 2.8 g/dL (3.5-5.0); Alkaline Phosphatase 442 U/L (39-117); Aspartate Amino Transferase 245 U/L (5-37); Bilirubin Total 1.4 mg/dL (0.0-1.0); Total Protein 5.2 g/dL (6.5-8.0)
[2024-07-24 07:11] LABS: Anion Gap 11 (12-20); Blood Urea Nitrogen 9 mg/dL (9-16); Calcium 7.9 mg/dL (8.4-10.2); Carbon Dioxide 23 mmol/L (22-29); Chloride 102 mmol/L (96-108); Estimated Glomerular Filt Rate > 60; Glucose Random 91 mg/dL (60-115); Potassium 3.3 mmol/L (3.3-5.1); Sodium 133 mmol/L (135-145)
[2024-07-24] MEDS: Bethanechol Chloride 25 MG TABLET 50 MG PO ×2 (08:43→20:11)
[2024-07-24] MEDS: metroNIDAZOLE/NS 500 MG/100 ML PIGGYBACK 100 MG IV ×2 (08:43→16:13)
[2024-07-24] MEDS: Tamsulosin HCL 0.4 MG CAPSULE PO ×2 (08:43→20:12)
[2024-07-24] MEDS: 0.9 % Sodium Chloride Flush 3 ML SYRINGE IVFLUSH ×3 (08:44→20:09)
--- NOTE | 2024-07-24 09:33 | P.PNGS_ITS ---
Subjective Subjective Date of Service: 07/24/24 Interval history: Denies abdominal pain Had T-max of 100.7 degrees last night Afebrile now Tolerating diet well Ambulating Physical Exam 2 Vital Signs: Vital Signs: Last Vital Signs Temp 98.7 F 07/24/24 08:15 Pulse 71 07/24/24 08:15 Resp 18 07/24/24 08:15 BP 121/75 07/24/24 08:15 Pulse Ox 95 07/24/24 08:15 O2 Del Method Room Air 07/24/24 08:15 O2 Flow Rate 2 07/18/24 17:20 BMI result Body Mass Index 29.0 Const: Other: Sitting on recliner, looks well General: comfortable and no acute distress Eyes: Other: Anicteric Resp: Effort & Inspection: normal respiratory effort Cardio: Rate: regular rate GI: Other: Incisions clean and dry Palpation (GI): Soft to palpation, not firm, nontender and no guarding Objective Data Active Medications Acetaminophen (Acetaminophen 325 Mg Tablet) 650 mg PO TID PRN PRN Reason: fever Last Admin: 07/24/24 04:16 Dose: 650 mg Documented By: ANUP Acetaminophen/Butalbital/Caffeine (Butalb/Acetamin/Caff 50/325/40 Tablet) 1 tab PO TID PRN PRN Reason: Headache Atorvastatin Calcium (Atorvastatin Calcium 10 Mg Tablet) 10 mg PO BEDTIME [facility] Last Admin: 07/22/24 21:22 Dose: Not Given Documented By: LEONARD Non-Admin Reason: hold Bethanechol Chloride (Bethanechol Chloride 25 Mg Tablet) 50 mg PO BID [facility] Last Admin: 07/24/24 08:43 Dose: 50 mg Documented By: SOPHIA Calcium Carbonate (Calcium Carbonate 750 Mg Tab.Chew) 750 mg PO Q4H PRN PRN Reason: Heartburn Last Admin: 07/23/24 23:36 Dose: 750 mg Documented By: LEONARD Ceftriaxone Sodium (Ceftriaxone Sodium 2 Gm Vial) 2 gm IVPUSH Q24H [facility] Last Admin: 07/23/24 15:30 Dose: 2 gm Documented By: MIKAYLA Hydromorphone HCl (Hydromorphone Hcl 0.5 Mg/0.5 Ml Syringe) 0.5 mg IVPUSH Q3H PRN; Protocol PRN Reason: Pain, Severe (Pain Scale 7-10) Last Admin: 07/18/24 19:44 Dose: 0.5 mg Documented By: ABIGAIL Azithromycin 500 mg/ Sodium (Chloride) 250 mls @ 125 mls/hr IV Q24H [facility] Last Infusion: 07/23/24 17:00 Dose: Infused Documented By: MIKAYLA Metronidazole (Flagyl) 500 mg in 100 mls @ 100 mls/hr IV Q8H [facility] Last Admin: 07/24/24 08:43 Dose: 100 mls/hr Documented By: SOPHIA Ibuprofen (Ibuprofen 400 Mg Tablet) 400 mg PO Q6H PRN PRN Reason: Fever >101 Last Admin: 07/23/24 15:14 Dose: 400 mg Documented By: MIKAYLA Naloxone HCl (Naloxone Hcl 0.4 Mg/Ml Vial) 0.04 mg IVPUSH Q5M PRN PRN Reason: Excessive sedation or RR < 8 Ondansetron HCl (Ondansetron Hcl 4 Mg/2 Ml Vial) 4 mg IVPUSH QID PRN PRN Reason: Nausea Last Admin: 07/22/24 12:14 Dose: 4 mg Documented By: GILLIAN Oxycodone HCl (Oxycodone Hcl Immed Release 5 Mg Tablet) 5 mg PO Q6H PRN PRN Reason: Pain, Moderate(Pain Scale 4-6) Last Admin: 07/20/24 16:24 Dose: 5 mg Documented By: AVA Sodium Chloride (0.9 % Sodium Chloride Flush 3 Ml Syringe) 3 ml IVFLUSH QSHIFT [facility] Last Admin: 07/24/24 08:44 Dose: 3 ml Documented By: SOPHIA Tamsulosin HCl (Tamsulosin Hcl 0.4 Mg Capsule) 0.4 mg PO BID [facility] Last Admin: 07/24/24 08:43 Dose: 0.4 mg Documented By: SOPHIA Zolpidem Tartrate (Zolpidem Tartrate 5 Mg Tablet) 5 mg PO BEDTIME PRN PRN Reason: Insomnia Last Admin: 07/23/24 22:05 Dose: 5 mg Documented By: ORLANDV Labs 07/24/24 05:39 07/24/24 05:39 Labs: Laboratory Results - last 24 hr 07/24/24 05:39 MCV 82.9 MCH 29.0 MCHC 34.9 RDW 12.0 Plt Count 213 MPV 10.6 Immature Gran % (Auto) 0.5 H Neut % (Auto) 84.7 H Lymph % (Auto) 4.0 L [place] % (Auto) 9.9 Eos % (Auto) 0.4 Baso % (Auto) 0.5 Lymph # (Auto) 0.3 L [place] # (Auto) 0.8 Eos # (Auto) 0.0 Baso # (Auto) 0.0 Abs Immat Gran (auto) 0.04 H Absolute Neuts (auto) 7.0 Absolute Nucleated RBC 0.000 Nucleated RBC % (auto) 0.0 Anion Gap 11 L Estim Creat Clear Calc 123.0 Estimated GFR > 60 Random Glucose 91 Calcium 7.9 L Total Bilirubin 1.4 H Direct Bilirubin 1.0 H AST 245 H ALT 145 H Alkaline Phosphatase 442 H Total Protein 5.2 L Albumin 2.8 L Microbiology Microbiology Results: Microbiology 07/22/24 21:35 Blood Culture - Preliminary Blood - Venous No growth after 24 hours. 07/22/24 21:35 Blood Culture - Preliminary Blood - Venous No growth after 24 hours. Procedures Date of Service Date of Service: 07/24/24 Progress Note: A&P Assessment and plan (1) Metastasis to liver of unknown origin: Status: Acute Assessment and Plan: Status post laparoscopic partial cholecystectomy with note of liver lesions Path report shows adenocarcinoma in the liver, primary uncertain, with high- grade dysplasia of the gallbladder Clinically doing well but with periodic fever May be tumor fever? Atelectasis? Repeat CT ordered by hospitalist service Abdomen is soft and benign He looks well overall Tolerating diet WBC normal Bilirubin only slightly elevated and stable AST ALT elevated On empiric antibiotics Time Spent With Patient Time: Total time managing care of this patient today ____ minutes. Quality Stroke Does the patient have a stroke diagnosis?: No VTE Prior VTE?: No VTE Risk Level:: Surgical - moderate VTE Device Contraindication: N/A - Device Ordered VTE Drug Contraindication: Treatment Not Indicated
[2024-07-24] MEDS: iohexoL 350 MG/ML 100 ML INFUS..BTL IV (09:39)
--- NOTE | 2024-07-24 10:23 | HO.PM.IMPN ---
Subjective Subjective Date of Service: 07/24/24 Interval History: Seen and evaluated this morning had 1 reported fever last night feels well otherwise having some cough with no reported abd pain no other events Review of Systems Review of Systems: Yes all other systems are reviewed and are negative Physical Exam Vital Signs: Vital Signs: Last Vital Signs Temp 98.7 F 07/24/24 08:15 Pulse 71 07/24/24 08:15 Resp 18 07/24/24 08:15 BP 121/75 07/24/24 08:15 Pulse Ox 95 07/24/24 08:15 O2 Del Method Room Air 07/24/24 08:15 O2 Flow Rate 2 07/18/24 17:20 BMI result Body Mass Index 29.0 Const: Other: Constitutional : interactive, not in distress Cardiovascular : no JVP, no lower extremity edema Respiratory : bilateral chest movement, not in resp distress , basal fine crackles, on RA Gastrointestinal: soft, lax, Non tender Skin : Warm, Dry Neurological : Alert & oriented , No focal deficit Objective Data Active Medications Acetaminophen (Acetaminophen 325 Mg Tablet) 650 mg PO TID PRN PRN Reason: fever Last Admin: 07/24/24 04:16 Dose: 650 mg Documented By: ANUP Acetaminophen/Butalbital/Caffeine (Butalb/Acetamin/Caff 50/325/40 Tablet) 1 tab PO TID PRN PRN Reason: Headache Atorvastatin Calcium (Atorvastatin Calcium 10 Mg Tablet) 10 mg PO BEDTIME [facility] Last Admin: 07/22/24 21:22 Dose: Not Given Documented By: LEONARD Non-Admin Reason: hold Bethanechol Chloride (Bethanechol Chloride 25 Mg Tablet) 50 mg PO BID [facility] Last Admin: 07/24/24 08:43 Dose: 50 mg Documented By: SOPHIA Calcium Carbonate (Calcium Carbonate 750 Mg Tab.Chew) 750 mg PO Q4H PRN PRN Reason: Heartburn Last Admin: 07/23/24 23:36 Dose: 750 mg Documented By: LEONARD Ceftriaxone Sodium (Ceftriaxone Sodium 2 Gm Vial) 2 gm IVPUSH Q24H [facility] Last Admin: 07/23/24 15:30 Dose: 2 gm Documented By: MIKAYLA Hydromorphone HCl (Hydromorphone Hcl 0.5 Mg/0.5 Ml Syringe) 0.5 mg IVPUSH Q3H PRN; Protocol PRN Reason: Pain, Severe (Pain Scale 7-10) Last Admin: 07/18/24 19:44 Dose: 0.5 mg Documented By: ABIGAIL Azithromycin 500 mg/ Sodium (Chloride) 250 mls @ 125 mls/hr IV Q24H [facility] Last Infusion: 07/23/24 17:00 Dose: Infused Documented By: MIKAYLA Metronidazole (Flagyl) 500 mg in 100 mls @ 100 mls/hr IV Q8H [facility] Last Infusion: 07/24/24 09:56 Dose: Infused Documented By: SOPHIA Ibuprofen (Ibuprofen 400 Mg Tablet) 400 mg PO Q6H PRN PRN Reason: Fever >101 Last Admin: 07/23/24 15:14 Dose: 400 mg Documented By: MIKAYLA Naloxone HCl (Naloxone Hcl 0.4 Mg/Ml Vial) 0.04 mg IVPUSH Q5M PRN PRN Reason: Excessive sedation or RR < 8 Ondansetron HCl (Ondansetron Hcl 4 Mg/2 Ml Vial) 4 mg IVPUSH QID PRN PRN Reason: Nausea Last Admin: 07/22/24 12:14 Dose: 4 mg Documented By: GILLIAN Oxycodone HCl (Oxycodone Hcl Immed Release 5 Mg Tablet) 5 mg PO Q6H PRN PRN Reason: Pain, Moderate(Pain Scale 4-6) Last Admin: 07/20/24 16:24 Dose: 5 mg Documented By: AVA Sodium Chloride (0.9 % Sodium Chloride Flush 3 Ml Syringe) 3 ml IVFLUSH QSHIFT [facility] Last Admin: 07/24/24 08:44 Dose: 3 ml Documented By: SOPHIA Tamsulosin HCl (Tamsulosin Hcl 0.4 Mg Capsule) 0.4 mg PO BID [facility] Last Admin: 07/24/24 08:43 Dose: 0.4 mg Documented By: SOPHIA Zolpidem Tartrate (Zolpidem Tartrate 5 Mg Tablet) 5 mg PO BEDTIME PRN PRN Reason: Insomnia Last Admin: 07/23/24 22:05 Dose: 5 mg Documented By: ABIGAILLANDV Labs 07/24/24 05:39 07/24/24 05:39 Labs: Laboratory Results - last 24 hr 07/24/24 05:39 MCV 82.9 MCH 29.0 MCHC 34.9 RDW 12.0 Plt Count 213 MPV 10.6 Immature Gran % (Auto) 0.5 H Neut % (Auto) 84.7 H Lymph % (Auto) 4.0 L [place] % (Auto) 9.9 Eos % (Auto) 0.4 Baso % (Auto) 0.5 Lymph # (Auto) 0.3 L [place] # (Auto) 0.8 Eos # (Auto) 0.0 Baso # (Auto) 0.0 Abs Immat Gran (auto) 0.04 H Absolute Neuts (auto) 7.0 Absolute Nucleated RBC 0.000 Nucleated RBC % (auto) 0.0 Anion Gap 11 L Estim Creat Clear Calc 123.0 Estimated GFR > 60 Random Glucose 91 Calcium 7.9 L Total Bilirubin 1.4 H Direct Bilirubin 1.0 H AST 245 H ALT 145 H Alkaline Phosphatase 442 H Total Protein 5.2 L Albumin 2.8 L Microbiology Microbiology Results: Microbiology 07/22/24 21:35 Blood Culture - Preliminary Blood - Venous No growth after 24 hours. 07/22/24 21:35 Blood Culture - Preliminary Blood - Venous No growth after 24 hours. Assessment and Plan (1) Pneumonia: Status: Acute (2) Fever: Status: Acute (3) Metastasis to liver of unknown origin: Status: Acute Plan The pt is a 53-year-old male with a PMH significant hyperlipidemia, BPH/urinary retention, and migraines who presented to the ED with RUQ pain x1 week. Workup in the ED indicated pt had acute cholecystitis as well as multiple liver and lung lesions consistent with metastasis. Pt was admitted to the [facility] general surgery services where he underwent emergent cholecystectomy and liver biopsy on 07/18/2023. Hospitalist consult for fevers. POD4. Fever likely 2/2 Pneumonia\Atelactasis Still spiking fever blood cultures negative CT of chest showing bilateral airspace opacities consistent with atelectasis vs pneumonia CT Abd no concerning abscess, showing pleural effusions with consolidation DC Zosyn. start Ceftriaxone, Flagyl and Zithromax Tylenol PRN for fever Acute cholecystitis S/p cholecystectomy general surgery following; Drain removed on Abx Liver and lung lesions concerning for metastatic disease Liver biopsy pending pathology Plan as per oncology BPH/urinary retention/incomplete bladder emptying Continue bethanechol chloride, tamsulosin Migraines Continue Fioricet Thank you for allowing us to participate in the care of this pt will continue to follow along with you Quality Stroke Does the patient have a stroke diagnosis?: No VTE Prior VTE?: No VTE Risk Level:: Surgical - moderate VTE Device Contraindication: N/A - Device Ordered VTE Drug Contraindication: Treatment Not Indicated
--- NOTE | 2024-07-24 14:05 | PM.EVENT ---
Event Note Date of Service: 07/24/24 Event Note: Seen on afternoon rounds CT scan done this morning does not reveal any new collection despite the drain being pulled out last Thursday He looks well although says appetite remains poor Abdomen is soft and benign He continues to have low-grade fevers - probably from pulmonary etiology? From tumors ? Oncology to follow the patient for input Patient encouraged to continue to do incentive spirometry, ambulate Time Spent With Patient Time: Total time managing care of this patient today ____ minutes.
[2024-07-24] MEDS: ondansetron HCL 4 MG/2 ML VIAL IVPUSH ×2 (14:37→20:08)
[2024-07-24] MEDS: Calcium Carbonate 750 MG TAB.CHEW PO (14:37)
[2024-07-24] MEDS: Azithromycin 500 MG in 0.9 % Sodium Chloride 250 ML 125 MG IV (14:37)
[2024-07-24] MEDS: cefTRIAXone sodium 2 GM VIAL IVPUSH (16:13)
--- NOTE | 2024-07-24 18:45 | PC.NURSE ---
SELIN SHANNON drain site is leaking a moderate amount of clear straw colored fluid. This RN covered with Telfa. Dr. Dominguez peralta.
[2024-07-24] MEDS: Ibuprofen 400 MG TABLET PO (20:13)
[2024-07-24] MEDS: oxyCODONE HCl Immed Release 5 MG TABLET PO (20:13)
[2024-07-24] MEDS: Zolpidem Tartrate 5 MG TABLET PO (21:59)
[2024-07-25] VITALS (10 sets, daily range): BP systolic 89–118; BP diastolic 49–72; PULSE 57–103; RESP 16–27; TEMP 36.3–36.8; O2SAT 94–97
[2024-07-25] MEDS: metroNIDAZOLE/NS 500 MG/100 ML PIGGYBACK 100 MG IV (00:18)
[2024-07-25 06:12] LABS: MANUAL DIFF FLAG NO
[2024-07-25 06:22] LABS: Basophils Percent Auto 0.3 % (0-2); Eosinophils Absolute Auto 0.1 X10*3/uL (0.0-0.4); Eosinophils Percent Auto 0.5 % (0-4); Hematocrit 35.5 % (42.0-52.0); Hemoglobin 12.5 g/dl (14.0-18.0); Imm Gran Abs Auto 0.07 X10*3/uL (0.00-0.03); Imm Gran Pct Auto 0.7 % (0.0-0.4); Lymphocytes Absolute Auto 0.6 X10*3/uL (1.2-4.9); Lymphocytes Percent Auto 6.4 % (20-40); Mean Corpuscular HGB Conc 35.2 g/dl (31.0-36.0); Mean Corpuscular Hemoglobin 29.6 pg (27.0-33.0); Mean Corpuscular Volume 84.1 fL (80.0-98.0); Mean Platelet Volume 10.7 fL (9.4-12.4); Monocytes Absolute Auto 0.9 X10*3/uL (0.1-1.2); Monocytes Percent Auto 9.9 % (2-11); Neutrophils Absolute Auto 7.8 x10*3/uL (2.0-8.3); Neutrophils Percent Auto 82.2 % (45-73); Platelet Count 215 X10*3/uL (160-400); Red Blood Count 4.22 X10*6/uL (4.60-5.80); Red Cell Distribution Width 12.3 % (11.0-16.0); White Blood Count 9.5 X10*3/uL (4.8-10.8)
[2024-07-25 06:23] LABS: INTERNATIONAL NORM RATIO 1.2 (0.9-1.1); Prothrombin Time 14.5 SEC (10.9-12.4)
[2024-07-25 06:29] LABS: Alanine Aminotransferase 167 U/L (0-40); Albumin Level 2.9 g/dL (3.5-5.0); Alkaline Phosphatase 558 U/L (39-117); Anion Gap 14 (12-20); Aspartate Amino Transferase 267 U/L (5-37); Bilirubin Total 1.4 mg/dL (0.0-1.0); Blood Urea Nitrogen 13 mg/dL (9-16); C Reactive Protein 11.54 mg/dL (< or = 0.50); Carbon Dioxide 22 mmol/L (22-29); Chloride 103 mmol/L (96-108); Creatinine Clr Calc Pharmacy 119.6; Estimated Glomerular Filt Rate > 60; Glucose Random 87 mg/dL (60-115); Potassium 3.6 mmol/L (3.3-5.1); Sodium 135 mmol/L (135-145); Total Protein 5.4 g/dL (6.5-8.0)
--- NOTE | 2024-07-25 06:56 | P.PNGS_ITS ---
Subjective Subjective Date of Service: 07/25/24 <Vasu Galindo - Last Filed: 07/25/24 07:27> 07/25/24 <Yahaira Junior PA-C - Last Filed: 07/25/24 08:04> 07/25/24 <Juan Manuel Chanel MD - Last Filed: 07/25/24 15:49> Interval history: Patient reports feeling well. His temp peaked to 101.8 which decreased to 98.2 after tylenol administration. Patient reports intermittent dry cough and has had decreased appetite with once episode of nausea and vomiting. He also reports general fatigue/weakness and fell over the weekend causing him to strike his left cheek. He denies headache, pressure, vision changes, numbness or focal weakness. Patient placed on low fall risk. Patient reports somewhat more difficulty with using his incentive spirometer but denies any dyspnea. <Vasu Galindo - Last Filed: 07/25/24 07:27> Physical Exam 2 Vital Signs: Vital Signs: Last Vital Signs Temp 97.4 F 07/25/24 03:16 Pulse 57 07/25/24 03:16 Resp 18 07/25/24 03:16 BP 104/69 07/25/24 03:16 Pulse Ox 97 07/25/24 03:16 O2 Del Method Room Air 07/25/24 03:16 O2 Flow Rate 2 07/18/24 17:20 BMI result Body Mass Index 29.0 <Vasu Galindo - Last Filed: 07/25/24 07:27> Const: General: comfortable, no acute distress, alert and tired appearing <Vasu Galindo - Last Filed: 07/25/24 07:27> Orientation/consciousness: patient oriented x3 <Yahaira Junior PA-C - Last Filed: 07/25/24 08:04> Resp: Effort & Inspection: normal respiratory effort <Vasu Galindo - Last Filed: 07/25/24 07:27> Auscultation: clear to auscultation bilaterally, no crackles, no rhonchi and no wheezes <Vasu Galindo - Last Filed: 07/25/24 07:27> GI: Other: SHANNON drain removed over weekend, no discharge, erythema or odor around dressing. <Vasu Galindo - Last Filed: 07/25/24 07:27> Other: scant serous drainage at old SHANNON site <Yahaira Junior PA-C - Last Filed: 07/25/24 08:04> Inspection: Yes normal to inspection and No distended <Vasu Galindo - Last Filed: 07/25/24 07:27> Inspection: Yes incision (clean) <Yahaira Junior PA-C - Last Filed: 07/25/24 08:04> Palpation (GI): Soft to palpation, nontender and no guarding <Vasu Galindo - Last Filed: 07/25/24 07:27> Skin: Other: Slightly diaphoretic. <Vasu Galindo - Last Filed: 07/25/24 07:27> General skin exam: no rashes or lesions noted <Vasu Galindo - Last Filed: 07/25/24 07:27> General skin exam: no jaundice <Yahaira Junior PA-C - Last Filed: 07/25/24 08:04> Neuro: General: patient oriented x3 and moves all extremities <MELLO Smith Last Filed: 07/25/24 08:04> Extrem: Other: No LE edema. <Vasu Galindo - Last Filed: 07/25/24 07:27> Objective Data Active Medications Acetaminophen (Acetaminophen 325 Mg Tablet) 650 mg PO TID PRN PRN Reason: fever Last Admin: 07/24/24 12:45 Dose: 650 mg Documented By: SOPHIA Acetaminophen/Butalbital/Caffeine (Butalb/Acetamin/Caff 50/325/40 Tablet) 1 tab PO TID PRN PRN Reason: Headache Atorvastatin Calcium (Atorvastatin Calcium 10 Mg Tablet) 10 mg PO BEDTIME [facility] Last Admin: 07/22/24 21:22 Dose: Not Given Documented By: LEONARD Non-Admin Reason: hold Bethanechol Chloride (Bethanechol Chloride 25 Mg Tablet) 50 mg PO BID [facility] Last Admin: 07/24/24 20:11 Dose: 50 mg Documented By: MELISSA Calcium Carbonate (Calcium Carbonate 750 Mg Tab.Chew) 750 mg PO Q4H PRN PRN Reason: Heartburn Last Admin: 07/24/24 14:37 Dose: 750 mg Documented By: SOPHIA Ceftriaxone Sodium (Ceftriaxone Sodium 2 Gm Vial) 2 gm IVPUSH Q24H [facility] Last Admin: 07/24/24 16:13 Dose: 2 gm Documented By: SOPHIA Hydromorphone HCl (Hydromorphone Hcl 0.5 Mg/0.5 Ml Syringe) 0.5 mg IVPUSH Q3H PRN; Protocol PRN Reason: Pain, Severe (Pain Scale 7-10) Last Admin: 07/18/24 19:44 Dose: 0.5 mg Documented By: GIOVANNIILSamara Azithromycin 500 mg/ Sodium (Chloride) 250 mls @ 125 mls/hr IV Q24H [facility] Last Infusion: 07/24/24 16:52 Dose: Infused Documented By: SOPHIA Metronidazole (Flagyl) 500 mg in 100 mls @ 100 mls/hr IV Q8H [facility] Last Infusion: 07/25/24 01:26 Dose: Infused Documented By: MELISSA Naloxone HCl (Naloxone Hcl 0.4 Mg/Ml Vial) 0.04 mg IVPUSH Q5M PRN PRN Reason: Excessive sedation or RR < 8 Ondansetron HCl (Ondansetron Hcl 4 Mg/2 Ml Vial) 4 mg IVPUSH QID PRN PRN Reason: Nausea Last Admin: 07/24/24 20:08 Dose: 4 mg Documented By: MELISSA Oxycodone HCl (Oxycodone Hcl Immed Release 5 Mg Tablet) 5 mg PO Q6H PRN PRN Reason: Pain, Moderate(Pain Scale 4-6) Last Admin: 07/24/24 20:13 Dose: 5 mg Documented By: MELISSA Sodium Chloride (0.9 % Sodium Chloride Flush 3 Ml Syringe) 3 ml IVFLUSH QSHIFT [facility] Last Admin: 07/24/24 20:09 Dose: 3 ml Documented By: MELISSA Tamsulosin HCl (Tamsulosin Hcl 0.4 Mg Capsule) 0.4 mg PO BID [facility] Last Admin: 07/24/24 20:12 Dose: 0.4 mg Documented By: MELISSA Zolpidem Tartrate (Zolpidem Tartrate 5 Mg Tablet) 5 mg PO BEDTIME PRN PRN Reason: Insomnia Last Admin: 07/24/24 21:59 Dose: 5 mg Documented By: MELISSA <Vasu Galindo - Last Filed: 07/25/24 07:27> Labs CBC & Chem 7: 07/25/24 05:40 07/25/24 05:39 <Vasu Galindo - Last Filed: 07/25/24 07:27> Labs: Laboratory Results - last 24 hr 07/24/24 07/25/24 07/25/24 05:39 05:39 05:40 MCV 82.9 84.1 MCH 29.0 29.6 MCHC 34.9 35.2 RDW 12.0 12.3 Plt Count 213 215 MPV 10.6 10.7 Immature Gran % (Auto) 0.5 H 0.7 H Neut % (Auto) 84.7 H 82.2 H Lymph % (Auto) 4.0 L 6.4 L [place] % (Auto) 9.9 9.9 Eos % (Auto) 0.4 0.5 Baso % (Auto) 0.5 0.3 Lymph # (Auto) 0.3 L 0.6 L [place] # (Auto) 0.8 0.9 Eos # (Auto) 0.0 0.1 Baso # (Auto) 0.0 0.0 Abs Immat Gran (auto) 0.04 H 0.07 H Absolute Neuts (auto) 7.0 7.8 Absolute Nucleated RBC 0.000 0.000 Nucleated RBC % (auto) 0.0 0.0 PT 14.5 H INR 1.2 H Anion Gap 11 L 14 Estim Creat Clear Calc 123.0 119.6 Estimated GFR > 60 > 60 Random Glucose 91 87 Calcium 7.9 L 8.0 L Total Bilirubin 1.4 H 1.4 H Direct Bilirubin 1.0 H 1.0 H AST 245 H 267 H ALT 145 H 167 H Alkaline Phosphatase 442 H 558 H C-Reactive Protein 11.54 H Total Protein 5.2 L 5.4 L Albumin 2.8 L 2.9 L <Vasu Galindo - Last Filed: 07/25/24 07:27> Imaging Chest x-ray: Radiologist's impression: 1. Small right pleural effusion with right basilar opacities, which may represent atelectasis or pneumonia. 2. Mild linear left lower lobe atelectasis. <Vasu Galindo - Last Filed: 07/25/24 07:27> CT scan - abdomen: Radiologist's impression: IMPRESSION: 1. No significant change in gallbladder fossa following apparent removal drainage catheter. 2. Bilateral pleural effusions, larger on the right, with underlying consolidation. 3. Multiple hepatic lesions, unchanged. 4. Ascites. <Vasu Galindo - Last Filed: 07/25/24 07:27> Microbiology Microbiology Results: Microbiology 07/22/24 21:35 Blood Culture - Preliminary Blood - Venous No growth after 48 hours. 07/22/24 21:35 Blood Culture - Preliminary Blood - Venous No growth after 48 hours. <Vasu Amritantwonnataly - Last Filed: 07/25/24 07:27> Procedures Date of Service Date of Service: 07/25/24 <Vasu Galindo - Last Filed: 07/25/24 07:27> 07/25/24 <Yahaira Junior PA-C - Last Filed: 07/25/24 08:04> 07/25/24 <Juan Manuel Chanel MD - Last Filed: 07/25/24 15:49> Progress Note: A&P Assessment and plan (1) Fever: Status: Acute <Vasu Galindo - Last Filed: 07/25/24 07:27> (2) Pneumonia: Status: Acute <Vasu Roddynataly - Last Filed: 07/25/24 07:27> Assessment and Plan: ) Acute cholecystitis: Status: Acute <Vasu Prateekyolanda - Last Filed: 07/22/24 07:34> (2) Metastasis to liver of unknown origin: Fever - Patient has had ongoing fever and dry cough responsive to tylenol; CXR and CT A/P shows evidence of a bilateral pleural effusions (worse on right) and mild left lobe atelectasis; with CRP of 11.4 . Patient's fever is most likely secondary to atelectasis. We will continue his antbiotics and monitor his fever curve with consideration of empyema or pneumonia if his fever, O2 sat worsens. Otherwise he is saturating well, with normal BP, HR,, RR and mental status and WBC count. GI function -- patient has decreased appetite. We will continue to monitor his PO intake, urine output and BUN/Cr. Can consider supplementing with IVF if he demonstrates signs of dehydration. Abdomen is soft and nontender and he reports passing BMs. Patient's LFTs have been trending upward, bilirubin with INR of 1.2. Patient is considered fall risk. Will continue to encourage incentive spirometry and supervised ambulation to prevent pressure ulcers/DVT. <Vasu Galindo - Last Filed: 07/25/24 07:27> ) Acute cholecystitis: Status: Acute <Vasu Galindo - Last Filed: 07/22/24 07:34> (2) Metastasis to liver of unknown origin: Fever - Patient has had ongoing fever and dry cough responsive to tylenol; CXR and CT A/P shows evidence of a bilateral pleural effusions (worse on right) and mild left lobe atelectasis; with CRP of 11.4. We will continue his antbiotics and monitor his fever curve with consideration of empyema or pneumonia if his fever, O2 sat worsens. Otherwise he is saturating well, with normal BP, HR,, RR and mental status and WBC count. GI function -- patient has decreased appetite. We will continue to monitor his PO intake, urine output and BUN/Cr. Can consider supplementing with IVF if he demonstrates signs of dehydration. Abdomen is soft and nontender and he reports passing BMs. Patient's LFTs have been trending upward, bilirubin with INR of 1.2. Patient is considered fall risk. Will continue to encourage incentive spirometry and supervised ambulation to prevent pressure ulcers/DVT. Status post laparoscopic partial cholecystectomy with note of liver lesions Path report shows adenocarcinoma in the liver, primary uncertain, with high- grade dysplasia of the gallbladder; oncology following Clinically doing well but continues to spike fevers. Monitor fever curve. CT abd pelvis shows no collection. PNA, pleural effusion on CXR yesterday. Abx changed by hospitalist service to levaquin. Abdomen is soft and benign, incisions clean. He looks well overall Tolerating diet Cont IS use, OOB and increasing ambulation. <Yahaira Junior PA-C - Last Filed: 07/25/24 08:04> Time Spent With Patient Time: Total time managing care of this patient today ____ minutes. <Vasu Galindo - Last Filed: 07/25/24 07:27> Quality Stroke Does the patient have a stroke diagnosis?: No <Vasu Galindo - Last Filed: 07/25/24 07:27> VTE Prior VTE?: No <Vasu Galindo - Last Filed: 07/25/24 07:27> VTE Risk Level:: Surgical - moderate <Vasu Galindo - Last Filed: 07/25/24 07:27> VTE Device Contraindication: N/A - Device Ordered <Vasu Galindo Last Filed: 07/25/24 07:27> VTE Drug Contraindication: Treatment Not Indicated <Vasu Galindo - Last Filed: 07/25/24 07:27>
[2024-07-25 07:18] LABS: Erythrocyte Sedimentation Rate 21 MM/HR (0-15)
[2024-07-25] MEDS: levoFLOXacin/D5W 750 MG/150 ML PIGGYBACK 100 MG IV (08:37)
[2024-07-25] MEDS: Bethanechol Chloride 25 MG TABLET 50 MG PO ×2 (08:42→20:40)
[2024-07-25] MEDS: Tamsulosin HCL 0.4 MG CAPSULE PO ×2 (08:42→20:40)
[2024-07-25] MEDS: 0.9 % Sodium Chloride Flush 3 ML SYRINGE IVFLUSH ×3 (08:43→23:12)
--- NOTE | 2024-07-25 09:22 | P.PNIM_ITS ---
Subjective Subjective Date of Service: 07/25/24 Interval History: Seen and evaluated this morning had 1 reported fever 101.8 last night weak, coughing , feels well otherwise no other events Review of Systems Review of Systems: Yes all other systems are reviewed and are negative Physical Exam 2 Vital Signs: Vital Signs: Last Vital Signs Temp 97.4 F 07/25/24 07:24 Pulse 72 07/25/24 07:24 Resp 16 07/25/24 07:24 BP 110/66 07/25/24 07:24 Pulse Ox 95 07/25/24 07:24 O2 Del Method Room Air 07/25/24 07:24 O2 Flow Rate 2 07/18/24 17:20 BMI result Body Mass Index 29.0 Const: Other: Constitutional : interactive, not in distress Cardiovascular : no JVP, no lower extremity edema Respiratory : bilateral chest movement, decreased air movement RLL, not in resp distress , basal fine crackles, on RA Gastrointestinal: soft, lax, Non tender Skin : Warm, Dry Neurological : Alert & oriented , No focal deficit Objective Data Active Medications Acetaminophen (Acetaminophen 325 Mg Tablet) 650 mg PO TID PRN PRN Reason: fever Last Admin: 07/24/24 12:45 Dose: 650 mg Documented By: SOPHIA Acetaminophen/Butalbital/Caffeine (Butalb/Acetamin/Caff 50/325/40 Tablet) 1 tab PO TID PRN PRN Reason: Headache Atorvastatin Calcium (Atorvastatin Calcium 10 Mg Tablet) 10 mg PO BEDTIME [facility] Last Admin: 07/22/24 21:22 Dose: Not Given Documented By: LEONARD Non-Admin Reason: hold Bethanechol Chloride (Bethanechol Chloride 25 Mg Tablet) 50 mg PO BID [facility] Last Admin: 07/25/24 08:42 Dose: 50 mg Documented By: JYOTHI Calcium Carbonate (Calcium Carbonate 750 Mg Tab.Chew) 750 mg PO Q4H PRN PRN Reason: Heartburn Last Admin: 07/24/24 14:37 Dose: 750 mg Documented By: SOPHIA Enoxaparin Sodium (Enoxaparin Sodium 40 Mg/0.4 Ml Syringe) 40 mg SUBCUT Q24H [facility] Hydromorphone HCl (Hydromorphone Hcl 0.5 Mg/0.5 Ml Syringe) 0.5 mg IVPUSH Q3H PRN; Protocol PRN Reason: Pain, Severe (Pain Scale 7-10) Last Admin: 07/18/24 19:44 Dose: 0.5 mg Documented By: ABIGAIL Levofloxacin (Levaquin) 750 mg in 150 mls @ 100 mls/hr IV Q24H [facility] Last Admin: 07/25/24 08:37 Dose: 100 mls/hr Documented By: JYOTHI Naloxone HCl (Naloxone Hcl 0.4 Mg/Ml Vial) 0.04 mg IVPUSH Q5M PRN PRN Reason: Excessive sedation or RR < 8 Ondansetron HCl (Ondansetron Hcl 4 Mg/2 Ml Vial) 4 mg IVPUSH QID PRN PRN Reason: Nausea Last Admin: 07/24/24 20:08 Dose: 4 mg Documented By: MELISSA Oxycodone HCl (Oxycodone Hcl Immed Release 5 Mg Tablet) 5 mg PO Q6H PRN PRN Reason: Pain, Moderate(Pain Scale 4-6) Last Admin: 07/24/24 20:13 Dose: 5 mg Documented By: MELISSA Sodium Chloride (0.9 % Sodium Chloride Flush 3 Ml Syringe) 3 ml IVFLUSH QSHIFT [facility] Last Admin: 07/25/24 08:43 Dose: 3 ml Documented By: JYOTHI Tamsulosin HCl (Tamsulosin Hcl 0.4 Mg Capsule) 0.4 mg PO BID [facility] Last Admin: 07/25/24 08:42 Dose: 0.4 mg Documented By: JYOTHI Zolpidem Tartrate (Zolpidem Tartrate 5 Mg Tablet) 5 mg PO BEDTIME PRN PRN Reason: Insomnia Last Admin: 07/24/24 21:59 Dose: 5 mg Documented By: MELISSA Labs 07/25/24 05:40 07/25/24 05:39 Labs: Laboratory Results - last 24 hr 07/25/24 07/25/24 05:39 05:40 MCV 84.1 MCH 29.6 MCHC 35.2 RDW 12.3 Plt Count 215 MPV 10.7 Immature Gran % (Auto) 0.7 H Neut % (Auto) 82.2 H Lymph % (Auto) 6.4 L [place] % (Auto) 9.9 Eos % (Auto) 0.5 Baso % (Auto) 0.3 Lymph # (Auto) 0.6 L [place] # (Auto) 0.9 Eos # (Auto) 0.1 Baso # (Auto) 0.0 Abs Immat Gran (auto) 0.07 H Absolute Neuts (auto) 7.8 Absolute Nucleated RBC 0.000 Nucleated RBC % (auto) 0.0 ESR 21 H PT 14.5 H INR 1.2 H Anion Gap 14 Estim Creat Clear Calc 119.6 Estimated GFR > 60 Random Glucose 87 Calcium 8.0 L Total Bilirubin 1.4 H Direct Bilirubin 1.0 H AST 267 H ALT 167 H Alkaline Phosphatase 558 H C-Reactive Protein 11.54 H Total Protein 5.4 L Albumin 2.9 L Microbiology Microbiology Results: Microbiology 07/22/24 21:35 Blood Culture - Preliminary Blood - Venous No growth after 48 hours. 07/22/24 21:35 Blood Culture - Preliminary Blood - Venous No growth after 48 hours. Assessment and Plan (1) Pneumonia: Status: Acute (2) Metastasis to liver of unknown origin: Status: Acute Plan The pt is a 53-year-old male with a PMH significant hyperlipidemia, BPH/urinary retention, and migraines who presented to the ED with RUQ pain x1 week. Workup in the ED indicated pt had acute cholecystitis as well as multiple liver and lung lesions consistent with metastasis. Pt was admitted to the [facility] general surgery services where he underwent emergent cholecystectomy and liver biopsy on 07/18/2023. Hospitalist consult for fevers. POD4. Fever likely 2/2 Pneumonia\Atelactasis Still spiking fever blood cultures negative CT of chest showing bilateral airspace opacities consistent with atelectasis vs pneumonia on admission CT Abd no concerning abscess, showing pleural effusions with consolidation repeat CT chest with contrast for any empyema formation to do Thoracentesis diagnostic & Therapeutic change antibiotics to Zosyn for now (on Abx since 07/17) Tylenol PRN for fever Acute cholecystitis S/p cholecystectomy general surgery following; Drain removed on Abx Liver and lung lesions concerning for metastatic disease Liver biopsy pending pathology Plan as per oncology BPH/urinary retention/incomplete bladder emptying Continue bethanechol chloride, tamsulosin Migraines Continue Fioricet Thank you for allowing us to participate in the care of this pt will continue to follow along with you Quality Stroke Does the patient have a stroke diagnosis?: No VTE Prior VTE?: No VTE Risk Level:: Surgical - moderate VTE Device Contraindication: N/A - Device Ordered VTE Drug Contraindication: Treatment Not Indicated
[2024-07-25] MEDS: iohexoL 350 MG/ML 100 ML INFUS..BTL 65 ML IV (11:41)
[2024-07-25] MEDS: Piperacillin Sodium/Tazobactam 4.5 GM in 0.9 % Sodium Chloride 100 ML IV ×3 (11:56→23:11)
[2024-07-25] MEDS: Calcium Carbonate 750 MG TAB.CHEW PO (12:22)
--- NOTE | 2024-07-25 14:00 | PM.PROC ---
Brief Operative Note Date of procedure: 07/25/24 Pre-op diagnosis: Right pleural effusion Post-op diagnosis: same Procedure: US right thoracentesis 300 cc serous fluid removed and sent for analysis. No immediate complications. Anesthesia: local
[2024-07-25 14:03] LABS: Alpha Fetoprotein 6.4 ng/mL (<6.1)
[2024-07-25 14:10] LABS: MN% 88.7 %; PMN% 11.3 %; RBC Pleural Fluid 0.002 X10*6/uL; WBC Pleural Fluid 0.287 X10*3/uL
[2024-07-25] MEDS: Lidocaine HCl 1 % MPF 5 ML VIAL 10 ML SUBCUT (14:25)
--- NOTE | 2024-07-25 15:06 | MHC.CM.PN ---
PT NOT YET MEDICALLY CLEARED FOR DC DCP REMAINS HOME WITH NO SERVICES CM FOLLOWING FOR CHANGING DC NEEDS
[2024-07-25 15:10] LABS: Neutrophils Pleural Fluid 1 %
[2024-07-25 15:11] LABS: BF Shift QC OK YES; Lymphocytes Pleural Fluid 24 %; Monocytes Pleural Fluid 10 %; Other Cells Plerual Fl 65 %
[2024-07-25 15:57] LABS: Carbohydrate Antigen 19-9 158 U/mL (<34)
[2024-07-25] MEDS: Omeprazole 20 MG CAPSULE.DR PO (16:32)
[2024-07-25] MEDS: Enoxaparin Sodium 40 MG/0.4 ML SYRINGE SUBCUT (16:32)
[2024-07-25] MEDS: Calcium Carbonate 750 MG TAB.CHEW 1500 MG PO (16:32)
[2024-07-25] MEDS: Zolpidem Tartrate 5 MG TABLET PO (20:30)
[2024-07-25] MEDS: ondansetron HCL 4 MG/2 ML VIAL IVPUSH (20:40)
[2024-07-25] MEDS: HYDROmorphone HCl 0.5 MG/0.5 ML SYRINGE IVPUSH (23:11)
[2024-07-25] MEDS: oxyCODONE HCl Immed Release 5 MG TABLET PO (23:16)
[2024-07-26] VITALS: BP 116/58; PULSE 98; RESP 18; TEMP 39; O2SAT 94
[2024-07-26] MEDS: Acetaminophen 325 MG TABLET 650 MG PO (00:17)
[2024-07-26 01:41] VITALS: TEMP 37.6
[2024-07-26 04:00] VITALS: BP 111/59; PULSE 70; RESP 18; TEMP 36.4; O2SAT 95
[2024-07-26] MEDS: Acetaminophen 1,000 MG/100 ML PIGGYBACK 400 MG IV (05:32)
[2024-07-26] MEDS: Omeprazole 20 MG CAPSULE.DR PO (05:34)
[2024-07-26] MEDS: oxyCODONE HCl Immed Release 5 MG TABLET PO (05:34)
[2024-07-26] MEDS: Piperacillin Sodium/Tazobactam 4.5 GM in 0.9 % Sodium Chloride 100 ML IV (05:35)
--- NOTE | 2024-07-26 06:57 | P.PNGS_ITS ---
Subjective Subjective Date of Service: 07/26/24 <Vasu Galindo - Last Filed: 07/26/24 07:13> 07/26/24 <Juan Manuel Chanel MD - Last Filed: 07/26/24 07:51> Interval history: Patient underwent thoracocentesis yesterday for pleural effusions found on CXR. He found mild relief of chest pressure afterwards. Continues to endorse general malaise and intermittent cough. Patient reports continuing to try using incentive spirometer. Pain after procedure was well-controlled with prn oxycodone. Appetite is still decreased and he reports vomiting once during lunch yesterday. He is able to pass watery BMs and urinate without difficulty. Patient mostly sat in his recliner, but ambulates well to and from bathroom. <Vasu Galindo - Last Filed: 07/26/24 07:13> Physical Exam 2 Vital Signs: Vital Signs: Last Vital Signs Temp 97.5 F 07/26/24 04:00 Pulse 70 07/26/24 04:00 Resp 18 07/26/24 04:00 BP 111/59 L 07/26/24 04:00 Pulse Ox 95 07/26/24 04:00 O2 Del Method Room Air 07/26/24 04:00 O2 Flow Rate 0 07/25/24 13:27 BMI result Body Mass Index 29.0 <Vasu Galindo - Last Filed: 07/26/24 07:13> Const: General: no acute distress, alert, diaphoretic and tired appearing <Vasu Galindo - Last Filed: 07/26/24 07:13> HEENT: Other: Moist mucous membranes. No neck rigidity. No cervical lymphadenopathy. <Vasu Galindo - Last Filed: 07/26/24 07:13> Resp: Effort & Inspection: normal respiratory effort <Vasu Galindo - Last Filed: 07/26/24 07:13> Auscultation: clear to auscultation bilaterally, no crackles, no rhonchi and no wheezes <Vasu Galindo - Last Filed: 07/26/24 07:13> Cardio: Other: Cap refill < 2 seconds throughout. <Vasu Galindo - Last Filed: 07/26/24 07:13> Rate: regular rate <Vasupilar Galindo Last Filed: 07/26/24 07:13> Rhythm: regular rhythm <Vasupilar Marcus Last Filed: 07/26/24 07:13> Heart sounds: no gallops, no murmurs and no rubs <Vasupilar Pereyra Last Filed: 07/26/24 07:13> Peripheral pulses: Peripheral pulses 2+ throughout <Vasupilar Pereyra Last Filed: 07/26/24 07:13> GI: Other: Slightly distended, no tenderness or rigidity. No masses or fluid wave appreciated. <Vasupilar Pereyra - Last Filed: 07/26/24 07:13> Inspection: Yes normal to inspection <Vasu Amrit Last Filed: 07/26/24 07:13> Neuro: Motor exam (neuro): 5/5 motor strength present throughout <Vasupilar Pereyra Last Filed: 07/26/24 07:13> Psych: Other: Mood: Tired. <Vasupilar Pereyra Last Filed: 07/26/24 07:13> Mental Status: mental status grossly normal <Vasupilar Marcus Last Filed: 07/26/24 07:13> Objective Data Active Medications Acetaminophen (Acetaminophen 325 Mg Tablet) 650 mg PO TID PRN PRN Reason: fever Last Admin: 07/26/24 00:17 Dose: 650 mg Documented By: ARCENIO Acetaminophen/Butalbital/Caffeine (Butalb/Acetamin/Caff 50/325/40 Tablet) 1 tab PO TID PRN PRN Reason: Headache Atorvastatin Calcium (Atorvastatin Calcium 10 Mg Tablet) 10 mg PO BEDTIME [facility] Last Admin: 07/22/24 21:22 Dose: Not Given Documented By: LEONARD Non-Admin Reason: hold Bethanechol Chloride (Bethanechol Chloride 25 Mg Tablet) 50 mg PO BID [facility] Last Admin: 07/25/24 20:40 Dose: 50 mg Documented By: ARCENIO Calcium Carbonate (Calcium Carbonate 750 Mg Tab.Chew) 750 mg PO Q4H PRN PRN Reason: Heartburn Last Admin: 07/25/24 12:22 Dose: 750 mg Documented By: JYOTHI Enoxaparin Sodium (Enoxaparin Sodium 40 Mg/0.4 Ml Syringe) 40 mg SUBCUT Q24H [facility] Last Admin: 07/25/24 16:32 Dose: 40 mg Documented By: JYOTHI Hydromorphone HCl (Hydromorphone Hcl 0.5 Mg/0.5 Ml Syringe) 0.5 mg IVPUSH Q3H PRN; Protocol PRN Reason: Pain, Severe (Pain Scale 7-10) Last Admin: 07/25/24 23:11 Dose: 0.5 mg Documented By: ARCENIO Piperacillin Sod/Tazobactam (Sod 4.5 gm/ Sodium Chloride) 100 mls @ 200 mls/hr IV Q6H [facility] Last Infusion: 07/26/24 06:16 Dose: Infused Documented By: ARCENIO Naloxone HCl (Naloxone Hcl 0.4 Mg/Ml Vial) 0.04 mg IVPUSH Q5M PRN PRN Reason: Excessive sedation or RR < 8 Omeprazole (Omeprazole 20 Mg Capsule.) 20 mg PO BID@0630,1630 [facility] Last Admin: 07/26/24 05:34 Dose: 20 mg Documented By: ARCENIO Ondansetron HCl (Ondansetron Hcl 4 Mg/2 Ml Vial) 4 mg IVPUSH QID PRN PRN Reason: Nausea Last Admin: 07/25/24 20:40 Dose: 4 mg Documented By: ARCENIO Oxycodone HCl (Oxycodone Hcl Immed Release 5 Mg Tablet) 5 mg PO Q6H PRN PRN Reason: Pain, Moderate(Pain Scale 4-6) Last Admin: 07/26/24 05:34 Dose: 5 mg Documented By: ARCENIO Sodium Chloride (0.9 % Sodium Chloride Flush 3 Ml Syringe) 3 ml IVFLUSH QSHIFT [facility] Last Admin: 07/25/24 23:12 Dose: 3 ml Documented By: ARCENIO Tamsulosin HCl (Tamsulosin Hcl 0.4 Mg Capsule) 0.4 mg PO BID [facility] Last Admin: 07/25/24 20:40 Dose: 0.4 mg Documented By: ARCENIO Zolpidem Tartrate (Zolpidem Tartrate 5 Mg Tablet) 5 mg PO BEDTIME PRN PRN Reason: Insomnia Last Admin: 07/24/24 21:59 Dose: 5 mg Documented By: MELISSA <Vasu Galindo - Last Filed: 07/26/24 07:13> Labs CBC & Chem 7: 07/25/24 05:40 07/25/24 05:39 <Vasu Galindo - Last Filed: 07/26/24 07:13> Labs: Laboratory Results - last 24 hr 07/24/24 07/25/24 07/25/24 13:35 05:39 13:11 ESR 21 H Alpha Fetoprotein 6.4 H CA 19-9 Antigen 158 H Pleural WBC 0.287 Pleural RBC 0.002 Pleural Neutrophils 1 Pleural Lymphocytes 24 Pleural Monocytes 10 Pleural Other Cells 65 <Vasu Galindo - Last Filed: 07/26/24 07:13> Microbiology Microbiology Results: Microbiology 07/25/24 13:11 Gram Stain - Final Thoracentesis Fluid <Vasu Galindo - Last Filed: 07/26/24 07:13> Procedures Date of Service Date of Service: 07/26/24 <Vasu Galindo - Last Filed: 07/26/24 07:13> 07/26/24 <Juan Manuel Chanel MD - Last Filed: 07/26/24 07:51> Progress Note: A&P Assessment and plan (1) Pneumonia: Status: Acute <Vasu Galindo - Last Filed: 07/26/24 07:13> Assessment and Plan: (1) Pneumonia: Status: Acute Patient has had spiking fevers, nocturnal sweats, intermittent dry cough with CT evidence of bilateral pleural effusions. He has been transitioned to IV Zosyn. Thoracentesis results are pending. We will continue to monitor fever, curve, administer prn tylenol. (2) Metastasis to liver of unknown origin: Status: Acute Continue with solid food diet as tolerated. Can consider supplementing with IV fluid if patient shows signs of dehydration or decreased urine output. Continue to encorage incentive spirometry, OOB ambulation as tolerated. <Vasu Galindo - Last Filed: 07/26/24 07:13> (1) Pneumonia: Status: Acute Patient has had spiking fevers, nocturnal sweats, intermittent dry cough with CT evidence of bilateral pleural effusions. He has been transitioned to IV Zosyn. Thoracentesis results are pending. We will continue to monitor fever, curve, administer prn tylenol. (2) Metastasis to liver of unknown origin: Status: Acute Continue with solid food diet as tolerated. Can consider supplementing with IV fluid if patient shows signs of dehydration or decreased urine output. Continue to encorage incentive spirometry, OOB ambulation as tolerated. The patient independently interviewed and examined. I agree with the above excellent assessment and plan. Overall the patient remains hemodynamically stable with daily fevers, last occuring at 12 MN this morning. Discussed with the hospitalist team; fluid aspirated yesterday with a negative gram stain. Abdominal wounds are clean and intact. Fever may be due to pneumonia which can be treated with po Augmentin. Also possible that fever is due to the liver mets. Plan to discharge to home with po antibiotics. Follow up with Dr. Farrell and me as an outpatient. Encouraged OOB, ambulation, IS while at home as well. <Juan Manuel Chanel MD - Last Filed: 07/26/24 07:51> Time Spent With Patient Time: Total time managing care of this patient today ____ minutes. <Vasu Galindo - Last Filed: 07/26/24 07:13> Quality Stroke Does the patient have a stroke diagnosis?: No <Vasu Galindo - Last Filed: 07/26/24 07:13> VTE Prior VTE?: No <Vasu Galindo - Last Filed: 07/26/24 07:13> VTE Risk Level:: Surgical - moderate <Vasu Galindo - Last Filed: 07/26/24 07:13> VTE Device Contraindication: N/A - Device Ordered <Vasu Galindo - Last Filed: 07/26/24 07:13> VTE Drug Contraindication: Treatment Not Indicated <Vasu Galindo - Last Filed: 07/26/24 07:13>
[2024-07-26] MEDS: 0.9 % Sodium Chloride Flush 3 ML SYRINGE IVFLUSH (07:44)
[2024-07-26 08:00] VITALS: BP 105/64; PULSE 70; RESP 16; TEMP 36.4; O2SAT 94
[2024-07-26] MEDS: Tamsulosin HCL 0.4 MG CAPSULE PO (08:19)
[2024-07-26] MEDS: Bethanechol Chloride 25 MG TABLET 50 MG PO (08:19)
--- NOTE | 2024-07-26 08:53 | MHC.CM.PN ---
pt dcd home self care
[2024-07-27 11:00] LABS: pH Pleural Fluid 7.61
[2024-07-27 11:01] LABS: Glucose Pleural Fluid 114; LDH Pleural Fluid 447; Total Protein Pleural Fluid 2.9
--- NOTE | 2024-07-28 13:49 | PM.DS ---
DS: Providers Provider Date of Service: 07/26/24 Date of admission: 07/17/24 19:13 Date of discharge: 07/26/24 Primary care physician: Addi Ferreira MD Attending physician on admission: Juan Manuel Chanel Consults: 07/20/24 08:07 Consult to Gastroenterology Routine Consulting Provider: Baljinder Lovett Reason for consultation: s/p lap roberta, liver mets noted, elevated LFTs Consult to Hematology / Oncology Routine Consulting Provider: [facility] [place] Oncology/Hematology Reason for consultation: Incidental liver mets noted in Lap Roberta, elevated CEA 07/22/24 07:50 Consult to Hospitalist Routine Comment: Consulting Provider: [facility] [place] Hospitalists Reason For Exam: post cholecystectomy fever, liver mets Attending physician on discharge: Juan Manuel Chanel DS: Diagnosis Discharge Diagnosis (1) Pneumonia: Status: Acute DS: Summary Hospital Course Hospital Course: HPI AT ADMISSION: Eric Lara is a 53 year old male with PMH significant for hypercholesterolemia, BPH, GERD who presented to the ED with complaints of RUQ abd pain. He reports the pain began a week ago after eating [place] food. It was sharp, constant and moderate in severity. It was associated with low grade fevers, dry heaving without vomiting. He denies diarrhea, back pain, similar episodes of pain. He thought maybe it was a GI bug but the pain never went away and therefore came to the ED for evaluation. Work up included CBC, BMP, LFTs which showed a normal WBC however with a left shift. He had mildly elevated LFTs with bili of 1.2, AST/ALT 112/94, alk phos 448 lipase WNL. ABD US was performed which showed gallstone impacted at GB neck, small GB polyp, positive sonographic parks sign, no intra or extrahepatic ductal dilatation. HOSPITAL COURSE: HE was admitted to the surgical service for further treatment of the acute cholecystitis. It was recommended to proceed with laparoscopic cholecystectomy and he was added onto the OR schedule. On 07/19/24, laparoscopic cholecystectomy, partial was performed by Dr. Chanel without immediate complication. SHANNON drain was placed intraoperatively. He was found to have an acutely inflamed and obstructed gallbladder with hydropic fluid with multiple liver metastases and metastases noted at the gallbladder fossa possibly causing obstruction of the gallbladder and therefore a partial cholecystectomy was performed. He tolerated the procedure well. Further workup with CT Chest, abd and pelvis and CEA obtained. CT scans showed multiple bilateral pulmonary nodules, atelectasis, diffuse hepatic metastatic disease. CEA 7. Had colonoscopy 03/05 with 2 tubular adenomas. GI and heme/oncology consult were obtained. 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 Molecular testing of tumor is pending. Further work up per oncology as an outpatient. He developed high grade fevers and hospitalist consult was obtained. Thought likely due to PNA. He was on IV zosyn since admission and zithromax was added for coverage. He had continued intermittent fevers. Abx were adjusted again to ceftriaxone, levaquin and zithromax. He had repeat CT chest with contrast to eval for empyema formation and subsequently diagnostic and therapeutic thoracentesis performed of right moderate pleural effusion without complication. Pleural gram stain had no growth. He was hemodynamically stable and stable respiratory hogan. He was tolerating a solid diet, ambulating without difficulty. His abd was benign with clean incisions. His SHANNON drain was removed previously on POD #4. His fevers improved. Possibly due to PNA vs tumor fever. He was medically and surgical stable for dc and was discharged to home on 07/26/24 on a PO course of Augmentin for pneumonia. He is to follow up with Dr. Chanel in the office and in [address] Farrell upon discharge. Status at Discharge Functional status at discharge: independent ambulation Overall status at discharge: patient is not back to baseline Time Attestation Discharge Coordination Time (in mins): 45 Quality: Safe Use of Opioids Does Pt have an Active Cancer Diagnosis on the Problem List?: Yes Opioid Measure Date for [facility] Report: 07/02/24 Opioid Measure Time for [facility] Report: 08:54 Quality: Stroke Does the patient have a stroke diagnosis?: No Physical Exam Vital Signs: Vital Signs: Last Vital Signs Temp 97.5 F 07/26/24 08:00 Pulse 70 07/26/24 08:00 Resp 16 07/26/24 08:00 BP 105/64 07/26/24 08:00 Pulse Ox 94 07/26/24 08:00 O2 Del Method Room Air 07/26/24 08:00 O2 Flow Rate 0 07/25/24 13:27 BMI result Body Mass Index 29.0 Const: General: comfortable, no acute distress and alert Orientation/consciousness: patient oriented x3 Resp: Effort & Inspection: normal respiratory effort GI: Inspection: No distended and Yes incision (clean) Palpation (GI): Soft to palpation and no guarding Skin: General skin exam: no rashes or lesions noted and jaundice Neuro: General: patient oriented x3 DS: Data Data Completed and Pending Completed studies during hospitalization [Text1]: 07/18/24 16:21 Surgical [PTH] Routine A. Gallbladder, cholecystectomy: Gallbladder with high grade dysplasia. B. Liver, mass, resection: Invasive adenocarcinoma, moderately differentiated, involving liver parenchyma. See description and comment. Comment: The primary site of the liver adenocarcinoma is uncertain; the differential includes upper GI, pancreatic and biliary. A gallbladder primary should be considered given the presence of high-grade dysplasia in part A and the fact that the entire gallbladder was not resected. The specimen is being sent for molecular testing; results will be addended. Pending studies at discharge: Pending at discharge 07/25/24 14:04 Cytology [PTH] Routine Labs on day of discharge: Preliminary micro results at discharge 07/25/24 13:11 Anaerobic Culture - Preliminary Thoracentesis Fluid No growth to date. 07/26/24 01:44 Blood Culture - Preliminary Blood - Venous No growth after 48 hours. 07/26/24 01:44 Blood Culture - Preliminary Blood - Venous No growth after 48 hours. Discharge Plan Discharge Anticipated Discharge Date/Time: 07/21/24 07:43 Patient Disposition: Home, Self-Care Discharge Diagnosis: acute cholecystitis, metastasis to liver Referrals: Addi Ferreira MD [Primary Care Provider] - 1 Week Hortencia Farrell MD [Physician] - 1 Week Juan Manuel Chanel MD [Physician] - 2 Weeks Discharge Medications: New amoxicillin-pot clavulanate [Augmentin] 500-125 mg tablet 1 tab PO Q8H Qty: 30 0RF oxycodone 5 mg tablet 5 mg PO Q6H PRN (Reason: pain (scale score 7-10)) Qty: 25 0RF Rx Instructions: Partial Fill upon patient request. Continued atorvastatin 10 mg tablet 10 mg PO BEDTIME Qty: 90 1RF metronidazole 0.75 % gel 1 appl topical BEDTIME Qty: 45 2RF multivitamin Tablet 1 tab PO DAILY bxyjmkkazn-mifrnkavlewtc-balg 50-325-40 mg tablet 1 tab PO TID PRN (Reason: Headache) 30 Days Qty: 90 1RF tamsulosin 0.4 mg capsule 0.4 mg PO BID 90 Days Qty: 180 2RF bethanechol chloride 50 mg tablet 50 mg PO BID Qty: 180 3RF No Action ondansetron 8 mg Tablet,Disintegrating 8 mg PO Q8H PRN (Reason: Nausea) Qty: 30 3RF dexamethasone 2 mg Tablet 2 mg PO BID Qty: 30 2RF Rx Instructions: for 2 days after chemo lorazepam 0.5 mg Tablet 0.5 mg PO BEDTIME PRN (Reason: Anxiety) Qty: 30 0RF Discharge Orders: Discharge Order (Routine); Ordered 07/26/24 Ordered By: Juan Manuel Chanel Diet: Advance to usual diet Activity on Discharge: As tolerated Stand Alone Forms: Patient Portal Discharge page Print Language: Telugu Activity Restrictions/Additional Instructions: If the incision area is tender, you may apply an ice pack for short intervals (No more than 20 minutes on, followed by at least 20 minutes off). Do not apply heat. Do not use creams, lotions, or topical antibiotics. Ok to shower. Remove clear dressings 3 days following your procedure. You have steri strips (small white cloth strips) covering your incision- these will fall off ~1 week. No heavy lifting (>10lbs) or strenuous activity! Take Tylenol Extra-strength 1-2 tabs every 6 hours for the first day, then as needed. Oxycodone every 6-8 hours as needed for pain. Colace 100 mg every day as needed for constipation. Follow up in office with Dr. Chanel in 1 week. ([phone]) Call Your Doctor If: -Your temperature exceeds 101.5? F -You experience excessive pain or swelling -You have an unexpected reaction to medication -You have excessive bleeding -You experience continued vomiting/nausea -Your incision begins to separate -Your incision shows signs of infection such as increased redness, swelling, excessive pain, drainage (light blood or clear fluid is normal) or heat Care Plan Goals: Return to baseline health and resume normal activities following recovery period. Health Concerns: acute cholecystitis metastasis of liver Plan of Treatment: s/p laparoscopic partial cholecystectomy, liver biopsy follow up in office oncology f/u Assessment: Doing well post op. Patient Instructions: Cholecystitis (ED), Pneumonia (DC) Discharge Date/Time: 07/26/24 10:17
== END 2024-07-26 10:17 | disposition home or self-care (01) | DRG 263 ==
LOC: HO.ED 19:14 → HO.EDOVER 19:25 → HO.S3 07-18 00:33
PROVIDERS: Internal Medicine; Physician Assistant; Physician Assistant Surgical; Student in an Organized Health Care Education/Training Program; Surgery; Admitting Provider Surgery; Emergency Provider Emergency Medicine Emergency Medical Services; PCP Internal Medicine; Visit Provider Surgery
PROC: 0FT44ZZ Resection of Gallbladder, Percutaneous Endoscopic Approach (ICD-10-PCS; CPT 47562; principal; 2024-07-18 15:20)
DX: C23 Malignant neoplasm of gallbladder (principal); C78.01 Secondary malignant neoplasm of right lung; J18.9 Pneumonia, unspecified organism; K80.01 Calculus of gallbladder with acute cholecystitis with obstruction; C78.02 Secondary malignant neoplasm of left lung; K82.1 Hydrops of gallbladder; J91.8 Pleural effusion in other conditions classified elsewhere; C78.7 Secondary malignant neoplasm of liver and intrahepatic bile duct; G43.909 Migraine, unspecified, not intractable, without status migrainosus; K21.9 Gastro-esophageal reflux disease without esophagitis; J98.11 Atelectasis; N40.1 Benign prostatic hyperplasia with lower urinary tract symptoms; R33.8 Other retention of urine; Z80.42 Family history of malignant neoplasm of prostate; Z20.822 Contact with and (suspected) exposure to COVID-19; Z79.899 Other long term (current) drug therapy
CPT/HCPCS: 0241U; 32555; 36415; 71045; 71260; 74177; 74181; 76700; 80048; 80053; 80076; 81003; 82105; 82378; 82945; 83605; 83615; 83690; 83986; 84157; 85025; 85610; 85652; 85730; 86140; 86301; 87040; 87070; 87073; 87205; 88112; 88304; 88305; 88307; 88313; 88341; 88342; 88365; 89051; 93005; 93971; 99285; A4649; C1052; J0131; J0456; J0696; J1171; J1650; J1836; J1956; J2003; J2405; J2543; J2704; J2795; J3010; Q9967

== ENCOUNTER → 2024-07-17 15:07 | Outpatient (BNV) | payer BC, SELFPAY | PROVIDERS: PCP Internal Medicine; Visit Provider Radiology Diagnostic Radiology | DX: R10.11 Right upper quadrant pain (principal) | CPT/HCPCS: 76700 ==

== ENCOUNTER → 2024-07-17 19:04 | Outpatient (BNV) | payer BC, SELFPAY | PROVIDERS: Admitting Provider Surgery; Emergency Provider Emergency Medicine Emergency Medical Services; PCP Internal Medicine; Visit Provider Internal Medicine | DX: R07.9 Chest pain, unspecified (principal) | CPT/HCPCS: 93010 ==

== ENCOUNTER 2024-07-17 19:13 | Outpatient (BNV) | payer BC, SELFPAY | END 2024-07-19 13:12 | PROVIDERS: Admitting Provider Surgery; Emergency Provider Emergency Medicine Emergency Medical Services; PCP Internal Medicine; Visit Provider Radiology Diagnostic Radiology | DX: C78.7 Secondary malignant neoplasm of liver and intrahepatic bile duct (principal) | CPT/HCPCS: 71260; 74177 ==

== ENCOUNTER 2024-07-17 19:13 | Outpatient (BNV) | payer BC, SELFPAY | END 2024-07-21 14:30 | PROVIDERS: Admitting Provider Surgery; Emergency Provider Emergency Medicine Emergency Medical Services; PCP Internal Medicine; Visit Provider Radiology Diagnostic Radiology | DX: C78.7 Secondary malignant neoplasm of liver and intrahepatic bile duct (principal); I82.402 Acute embolism and thrombosis of unspecified deep veins of left lower extremity | CPT/HCPCS: 74181; 93971 ==

== ENCOUNTER 2024-07-17 19:13 | Outpatient (BNV) | payer BC, SELFPAY | END 2024-07-24 08:30 | PROVIDERS: Admitting Provider Surgery; Emergency Provider Emergency Medicine Emergency Medical Services; PCP Internal Medicine; Visit Provider Radiology Vascular & Interventional Radiology | DX: J90 Pleural effusion, not elsewhere classified (principal); R18.8 Other ascites; K76.89 Other specified diseases of liver; J98.11 Atelectasis | CPT/HCPCS: 74177 ==

== ENCOUNTER 2024-07-17 19:13 | Outpatient (BNV) | payer BC, SELFPAY | END 2024-07-25 11:13 | PROVIDERS: Admitting Provider Surgery; Emergency Provider Emergency Medicine Emergency Medical Services; PCP Internal Medicine; Visit Provider Radiology Diagnostic Radiology | DX: J90 Pleural effusion, not elsewhere classified (principal) | CPT/HCPCS: 32555; 71045; 71260 ==

== ENCOUNTER → 2024-07-17 19:13 | Outpatient (BNV) | payer BC, SELFPAY | PROVIDERS: Admitting Provider Surgery; Emergency Provider Emergency Medicine Emergency Medical Services; PCP Internal Medicine; Visit Provider Internal Medicine | DX: C78.7 Secondary malignant neoplasm of liver and intrahepatic bile duct (principal); C80.1 Malignant (primary) neoplasm, unspecified; Z80.42 Family history of malignant neoplasm of prostate | CPT/HCPCS: 99222; 99232 ==

== ENCOUNTER → 2024-07-17 19:13 | Outpatient (BNV) | payer BC, SELFPAY | PROVIDERS: Admitting Provider Surgery; Emergency Provider Emergency Medicine Emergency Medical Services; PCP Internal Medicine; Visit Provider Student in an Organized Health Care Education/Training Program | DX: R50.9 Fever, unspecified (principal); C78.7 Secondary malignant neoplasm of liver and intrahepatic bile duct; C80.1 Malignant (primary) neoplasm, unspecified; K81.0 Acute cholecystitis; J18.9 Pneumonia, unspecified organism | CPT/HCPCS: 99222; 99231; 99232; 99499 ==

== ENCOUNTER → 2024-07-17 19:13 | Outpatient (BNV) | payer BC, SELFPAY | PROVIDERS: Admitting Provider Surgery; Emergency Provider Emergency Medicine Emergency Medical Services; PCP Internal Medicine; Visit Provider Physician Assistant Surgical | DX: C78.7 Secondary malignant neoplasm of liver and intrahepatic bile duct (principal); C80.1 Malignant (primary) neoplasm, unspecified | CPT/HCPCS: 99024; 99499 ==

== ENCOUNTER → 2024-07-27 10:00 | Outpatient (BNV) | payer BC, SELFPAY | PROVIDERS: PCP Internal Medicine; Visit Provider Internal Medicine | DX: C78.7 Secondary malignant neoplasm of liver and intrahepatic bile duct (principal); C80.1 Malignant (primary) neoplasm, unspecified; C23 Malignant neoplasm of gallbladder | CPT/HCPCS: 99215 ==

== ENCOUNTER 2024-07-29 11:04 | Day surgery (SDC) | payer BC, SELFPAY ==
[2024-07-29] VITALS (15 sets, daily range): BP systolic 92–119; BP diastolic 64–76; PULSE 92–104; RESP 16–27; TEMP 36.4; O2SAT 94–97; BMI 28.7
--- NOTE | ~2024-07-29 | IR_ITS ---
CLINICAL HISTORY: Cholangiocarcinoma. The patient presents to interventional radiology for placement of a port for chemotherapy. PROCEDURES: 1. Real-time ultrasound-guided access into the right internal jugular vein after documentation of selected vessel patency, and permanent image storing in the patient records. 2. Placement of a 6.6 [place] single-lumen power port. CLINICIAN: Yehuda Denise PA-C MEDICATIONS: - Versed 1.5 mg, Fentanyl 75 mcg, Lidocaine 1% 10 mL SQ -Antibiotics: Ancef 2g -For additional details, please see nursing flowsheet. Complications: None. Estimated blood loss: <5 ml Specimens: None. Contrast: None. Fluoroscopy time: 1.1 min MODERATE SEDATION TIME: 24 min PROCEDURE NOTE: The procedure, risks, benefits, and alternatives were carefully explained to the patient and written informed consent was obtained. The patient was placed supine on the fluoroscopy table. A timeout was performed. The right neck and chest was prepped and draped in usual sterile fashion. Maximum barrier technique was utilized. Local anesthesia was administered to the access site with 1% lidocaine. Under ultrasound guidance, the right internal jugular vein was accessed with a 5 fr micropuncture set. A 0.035 in wire was advanced into the IVC. A peel-away sheath was advanced over the wire and into the SVC, and the wire was removed. Next, subcutaneous lidocaine was administered to the chest. The port pocket was created after the skin incision, utilizing blunt dissection. Using blunt dissection, a subcutaneous tunnel was created that connects from the port pocket to the venotomy site. Through the peel-away sheath, the 6.6 [place] port catheter was placed. The catheter position was verified with fluoroscopy to be at the superior vena cava/right atrial junction. The port was connected to the catheter and was placed in the pocket. The venotomy site was closed with a 3-0 Vicryl subcutaneous suture. The port incision site was closed with interrupted 3-0 Vicryl subcutaneous sutures and surgical glue. Prior to closing the skin, 1 g of Ancef solution was placed in the pocket. The port was tested, flushed, and packed with heparin per routine protocol. The patient tolerated the procedure well. The patient was stable after the procedure and was transferred to the PACU. The procedure was performed under moderate sedation and with a dedicated nurse with continuous monitoring of vital signs. A permanent image of the ultrasound the neck and fluoroscopic image of the chest was saved and sent to PACS. FINDINGS: 1. Patent right internal jugular vein 2. Placement of a 6.6 [place] single lumen power port. 3. Port flushes and aspirates very well with a 10 mL syringe. No pneumothorax. IR/IR cvc insert tunnel w prt/rod finisher IMPRESSION: Placement of a 6.6 [place] single-lumen power port. PLAN: - The patient will be discharged home when stable by sedation protocol. - Port may be used immediately. This procedure was performed by Yehuda Denise PA-C, and directly supervised by Dr. Khan Electronically signed by: Dinh Khan MD 07/29/2024 03:10 PM [facility] Workstation: [id number]
--- NOTE | 2024-07-29 13:00 | MHC.SHP ---
Pre-Procedural Eval Section A - 24 Hr Update-Section A only Date of Service: 07/29/24 Section B - Complete if H&P > 30 days Chief Complaint: MALIGNANT NEOPLASM LIVER Details of Present Illness: 53 y/o man with cholangiocarcinoma and poor iv access Relevant Family History (Specify if Yes): No Relevant Social History: None Present Medications: see Short Stay Collaborative assessment Medical History: Significant History History of Previous Operations: Relevant previous surgery/procedure and date(s) Allergies: Allergies Allergy/AdvReac Type Severity Reaction Status Date / Time No Known Allergies Allergy Verified 07/29/24 11:28 Review of Systems Sugical H&P ROS: Negative: Constitution, Cardiovascular and Respiratory and Yes, Specify: Gastrointestinal (abd pain) Exam Surgical H&P Exam: Normal: Lungs, Normal: Skin and Normal: Neurological and Significant Findings: Heart (tachycardia, regular) Plan 53 y/o man with cholangiocarcinoma and poor iv access -Port Time Spent With Patient Time: Total time managing care of this patient today ____ minutes.
[2024-07-29] MEDS: ceFAZolin Sodium/Dextrose,Iso 2 GM/50 ML PIGGYBACK IV (13:10)
[2024-07-29] MEDS: Midazolam HCl 2 MG/2 ML VIAL 1 MG IVPUSH (13:29)
[2024-07-29] MEDS: fentaNYL citrate/PF 100 MCG/2 ML VIAL 50 MCG IVPUSH (13:30)
[2024-07-29] MEDS: fentaNYL citrate/PF 100 MCG/2 ML VIAL 25 MCG IVPUSH (13:36)
[2024-07-29] MEDS: Midazolam HCl 2 MG/2 ML VIAL 0.5 MG IVPUSH (13:37)
== END 2024-07-29 15:15 | disposition home or self-care (01) ==
PROVIDERS: Student in an Organized Health Care Education/Training Program; PCP Internal Medicine; Visit Provider Internal Medicine
DX: Z45.2 Encounter for adjustment and management of vascular access device (principal); C78.7 Secondary malignant neoplasm of liver and intrahepatic bile duct; C80.1 Malignant (primary) neoplasm, unspecified; N40.1 Benign prostatic hyperplasia with lower urinary tract symptoms; R39.11 Hesitancy of micturition; E78.00 Pure hypercholesterolemia, unspecified; K21.9 Gastro-esophageal reflux disease without esophagitis; G44.209 Tension-type headache, unspecified, not intractable; Z79.899 Other long term (current) drug therapy; Z90.49 Acquired absence of other specified parts of digestive tract
CPT/HCPCS: 36561; 99152; 99153; C1769; C1788; J0690; J1642; J1644; J2003; J2250; J3010

== ENCOUNTER → 2024-07-29 12:59 | Outpatient (BNV) | payer BC, SELFPAY | PROVIDERS: PCP Internal Medicine; Visit Provider Physician Assistant Surgical | DX: C80.1 Malignant (primary) neoplasm, unspecified (principal); C78.7 Secondary malignant neoplasm of liver and intrahepatic bile duct | CPT/HCPCS: 36561; 76937; 77001; 99152 ==

== ENCOUNTER 2024-08-02 08:00 | Outpatient (RCR) | payer BC, SELFPAY ==
[2024-07-27 10:00] VITALS: BP 99/56; PULSE 80; O2SAT 96; BMI 29.6
--- NOTE | 2024-07-27 10:07 | PM.HEMONCPN ---
Medical Summary - Medical Summary Date of Service: 07/27/24 Chief complaint: Follow-up Primary Care Provider: Addi Ferreira MD Medical Summary: Diagnosis: Metastatic/unresectable biliary cancer He presented to emergency department on 07/17/2024 with complaints of right upper quadrant pain, dry heaves and a low-grade fever. Blood work showed elevated liver enzymes, liver ultrasound showed cholelithiasis, gallbladder polyp measuring 0.4 cm and positive sonographic Hernández's sign. Multiple hepatic cysts and hemangioma as well as a hypoechoic lesion measuring 3.5 cm adjacent to gallbladder which was reported as indeterminate. Patient was taken to surgery on 07/18/2024, intraoperatively he was found to have multiple liver metastasis. Acutely inflamed and obstructed gallbladder with hydropic fluid was noted. He underwent cholecystectomy and biopsy of liver lesion. Patient had a colonoscopy in 03/01/2024 with removal of 2 small tubular adenomas. There is no family history of colorectal cancer or other cancers. Interval History Interval history: Patient is here accompanied by his family members to discuss treatment options. He was released from the hospital yesterday. He was spiking fevers because of which he was kept in the hospital for a few more days. He was treated with IV antibiotics. All his cultures were negative. Overall he is feeling quite tired and weak. His appetite has been poor. He reports mild nausea. He is having low-grade temperature. Review of Systems - Constitutional Reports as per HPI, Reports fatigue, Reports malaise, Reports weakness - Cardiovascular Reports no additional cardiovascular complaints - Respiratory Reports no additional respiratory complaints - Gastrointestinal Reports no additional gastrointestinal complaints [facility] Medical History: Medical History (Last Reviewed 07/27/24 @ 09:59 by Milind Becker) Benign prostatic hyperplasia with lower urinary tract symptoms BPH (benign prostatic hyperplasia) Elevated TSH GERD without esophagitis Overweight (BMI 25.0-29.9) Pure hypercholesterolemia Tension headache Urinary hesitancy Family History: Family History (Last Reviewed 07/27/24 @ 09:57 by Milind Becker) Father Cancer Mother No problems noted. Surgical History: Surgical History (Last Reviewed 07/27/24 @ 09:59 by Milind Becker) History of colonoscopy Mchenry teeth removed Social History: Social History (Last Reviewed 07/27/24 @ 09:59 by Milind Becker) Living Situation History: Household Members: Family Household Members Other:: mom and brother Housing: House Are you a primary resident care aide to a significant other at home: No Do you presently have visiting nurse or other home services: No Tobacco History: Patient Tobacco Use Status: Never used Tobacco e-Cigarette/Vaping Use: Never Used Second Hand Smoke Exposure: Yes Occupation Assessmet: service: No Current occupational status: employed Current occupational exposures/hazards: No Sex/Gender Assessment: Gender identity: Male Oncology Screenings - ECOG Performance Status ECOG Performance Status: 2 Home Medications and Allergies Home Medications ?Medication ?Instructions ?Recorded ?Confirmed ?Type multivitamin 1 tab PO DAILY 08/14/20 07/27/24 History Allergies Allergy/AdvReac Type Severity Reaction Status Date / Time No Known Allergies Allergy Verified 07/17/24 14:57 Exam Vital signs: Vital Signs Pulse 80 07/27/24 10:00 BP 99/56 L 07/27/24 10:00 Pulse Ox 96 07/27/24 10:00 O2 Del Method Room Air 07/27/24 10:00 - Constitutional Present: no acute distress, average body habitus - Routine HEENT Exam Head: Present: normal inspection Eye: Present: PERRL, scleral icterus ENT: Present: normal oropharynx - Routine Neck Exam Present: full ROM. Absent: lymphadenopathy - Routine Respiratory Exam Present: CTAB. Absent: accessory muscle use, wheezes - Routine Cardiovascular Exam Cardiovascular: Present: S1, S2 - Routine Abdominal Exam Absent: mass Data - Labs CBC & Chem 7: 07/27/24 10:32 07/27/24 10:32 Assessment and Plan Patient Active problem list reviewed?: Yes (1) Carcinoma of gall bladder Status: Acute Assessment and plan: 1. This is a 53-year-old male diagnosed with metastatic/unresectable biliary/gallbladder cancer in July 2024. He presented with abdominal discomfort and found to have multiple liver metastasis in addition to acute cholecystitis secondary to gallstones. Pathology of gallbladder revealed high-grade dysplasia. Biopsy of liver region revealed invasive adenocarcinoma, moderately differentiated. Gallbladder primary should be considered given presence of high-grade dysplasia in the gallbladder. IHC weak positivity for CK7, CK20 and CDX2. TTF 1 is negative. Molecular testing is pending. Imaging with CT chest/abdomen and pelvis with contrast shows multiple bilateral pulmonary nodules consistent with metastatic disease, largest nodule is in the right lung base measuring 1.2 cm. There is no mediastinal or hilar adenopathy. Numerous hepatic metastasis consistent with metastatic disease, largest measuring up to 6.3 cm in size. CEA was not significantly elevated, CA 19 -9 was 158 U/mL. Unfortunately, patient appears to have rapidly progressive cancer. His liver enzymes are rapidly rising, his bilirubin is now 3.3 with elevation in transaminases and alkaline phosphatase level as well. As his bilirubin is above 2.5 mg/dL, he is not eligible to receive gemcitabine based combination chemotherapy with cisplatin and durvalumab. He will be started on palliative treatment with FOLFOX regimen. I discussed MediPort placement, this will be scheduled JACKY. PET-CT has been ordered. We discussed possible side effects of chemotherapy including neuropathy, risk of cytopenias and organ damage. He will be started on treatment next week. 2. Low-grade fevers. His wound has healed, all his cultures are negative. He is on oral antibiotics. Probably related to rapidly progressive tumor. All of the above was explained to patient and his family members, sister, brother and mother. He is scheduled to start treatment next week. Follow-up in 2 weeks. - Time Spent With Patient Time Spent with Patient (in minutes): 60
[2024-07-27 10:33] LABS: MANUAL DIFF FLAG NO
[2024-07-27 10:42] LABS: Basophils Percent Auto 0.3 % (0-2); Eosinophils Percent Auto 0.1 % (0-4); Hematocrit 37.1 % (42.0-52.0); Hemoglobin 12.7 g/dl (14.0-18.0); Imm Gran Pct Auto 0.9 % (0.0-0.4); Lymphocytes Absolute Auto 0.3 X10*3/uL (1.2-4.9); Mean Corpuscular HGB Conc 34.2 g/dl (31.0-36.0); Mean Corpuscular Hemoglobin 28.8 pg (27.0-33.0); Mean Corpuscular Volume 84.1 fL (80.0-98.0); Monocytes Absolute Auto 0.9 X10*3/uL (0.1-1.2); Monocytes Percent Auto 7.8 % (2-11); Neutrophils Absolute Auto 10.1 x10*3/uL (2.0-8.3); Neutrophils Percent Auto 87.9 % (45-73); Platelet Count 302 X10*3/uL (160-400); Red Blood Count 4.41 X10*6/uL (4.60-5.80); Red Cell Distribution Width 12.5 % (11.0-16.0); White Blood Count 11.5 X10*3/uL (4.8-10.8)
[2024-07-27 11:03] LABS: Alanine Aminotransferase 223 U/L (0-40); Alkaline Phosphatase 788 U/L (39-117); Anion Gap 13 (12-20); Aspartate Amino Transferase 484 U/L (5-37); Bilirubin Total 3.3 mg/dL (0.0-1.0); Blood Urea Nitrogen 17 mg/dL (9-16); Calcium 7.8 mg/dL (8.4-10.2); Carbon Dioxide 23 mmol/L (22-29); Chloride 98 mmol/L (96-108); Estimated Glomerular Filt Rate > 60; Glucose Random 100 mg/dL (60-115); Potassium 3.7 mmol/L (3.3-5.1); Sodium 130 mmol/L (135-145); Total Protein 5.6 g/dL (6.5-8.0)
[2024-07-27 11:23] LABS: HBc Num1 1.14 S/CO (0.00-0.79); HBsAGNum1 0.51 S/CO (0.00-0.99); Hepatitis B Surface Antigen Negative (Negative); ~HepC Num1 0.08 S/CO (0.00-0.79); ~Hepatitis B Surface Antibody NONREACTIVE (Nonreactive); ~Hepatitis C Antibody Nonreactive (Nonreactive)
[2024-07-27 11:49] LABS: Magnesium 2.4 mg/dL (1.6-2.6)
[2024-07-27 12:23] LABS: HBc Num2 1.08 S/CO; HBc Num3 1.06 S/CO; Hepatitis B Core Antibody Reactive (Nonreactive)
--- NOTE | 2024-07-27 12:54 | MHC.HEMONC ---
I met with patient, his mother, sister and brother during his oncology consultation with Dr Farrell for newly diagnosed cholangiocarcinoma. He was diagnosed as inpatient and met Dr Farrell at that time. PET has been denied. Port will be inserted marie and pt will start FOLFOX next week. I did education with him and gave him and gave him written materials to take home. We reviewed common side effects of lowered blood counts, nausea and vomiting, diarrhea, mouth sores, fatigue, neuropathy and cold intolerance. He was told how to reach rehabilitation program coordinator and when it is important to communicate with us. He signed consent and also did HCP.
--- NOTE | 2024-07-27 13:09 | MHC.HEMONCMA ---
pt presents in the office today as a new consult for gallbladder cancer f/u, vss, labs. pt will come back for chemo. ordered port insert.
--- NOTE | 2024-07-27 15:07 | HO.HEMONCPA ---
Addendum entered by Mala Guzman 07/29/24 10:17: Udenyca withdrawn will request if needed. Emend and Aloxi no PA Needed FOLFOX approved 27 Treatments Auth # [id number] DOS 08/02/24 - 08/23/25 Pet Denied Addendum entered by Mala Guzman 07/27/24 15:30: Udenyca withdrawn will request if needed. Emend and Aloxi no PA Needed FOLFOX approved 27 Treatments Auth # [id number] DOS 08/02/24 - 08/23/25 Addendum entered by Mala Guzman 07/27/24 15:22: PET/CT Pending [facility] order # [id number] for [employer] Original Note: PA Pending for FOLFOX EMEND UDENYCA and Aloxi [facility] [id number]
[2024-07-28 16:19] LABS: Hepatitis B Core Antibody IgM NON-REACTIVE (NON-REACTIVE)
--- NOTE | 2024-07-29 11:53 | MHC.HEMONC ---
Patient mother stopped by office. Pt is up having port but continues to c/o insomnia . He was very anxious about his dx when we met with him earlier this week. Dr No made aware. She will order lorazapam. I will inform his mother so they can pick [place] way [place] [facility] [place]
[2024-08-02 08:19] VITALS: BP 114/53; PULSE 101; RESP 18; TEMP 36.6; O2SAT 97; BMI 30.2
[2024-08-02 08:46] LABS: Basophils Percent Auto 0.2 % (0-2); Eosinophils Percent Auto 0.1 % (0-4); Hematocrit 32.3 % (42.0-52.0); Hemoglobin 11.5 g/dl (14.0-18.0); Imm Gran Abs Auto 0.27 X10*3/uL (0.00-0.03); Imm Gran Pct Auto 1.6 % (0.0-0.4); Lymphocytes Absolute Auto 0.5 X10*3/uL (1.2-4.9); Lymphocytes Percent Auto 3.1 % (20-40); MANUAL DIFF FLAG SCAN; Mean Corpuscular HGB Conc 35.6 g/dl (31.0-36.0); Mean Corpuscular Hemoglobin 29.1 pg (27.0-33.0); Mean Corpuscular Volume 81.8 fL (80.0-98.0); Mean Platelet Volume 9.4 fL (9.4-12.4); Monocytes Absolute Auto 0.8 X10*3/uL (0.1-1.2); Monocytes Percent Auto 4.7 % (2-11); Neutrophils Absolute Auto 15.1 x10*3/uL (2.0-8.3); Neutrophils Percent Auto 90.3 % (45-73); Platelet Count 261 X10*3/uL (160-400); Red Blood Count 3.95 X10*6/uL (4.60-5.80); Red Cell Distribution Width 13.1 % (11.0-16.0); SCAN SMEAR FLAG 1; White Blood Count 16.7 X10*3/uL (4.8-10.8)
[2024-08-02 09:04] LABS: Alanine Aminotransferase 248 U/L (0-40); Albumin Level 2.7 g/dL (3.5-5.0); Alkaline Phosphatase 1032 U/L (39-117); Anion Gap 17 (12-20); Aspartate Amino Transferase 762 U/L (5-37); Bilirubin Total 9.1 mg/dL (0.0-1.0); Blood Urea Nitrogen 48 mg/dL (9-16); Calcium 6.6 mg/dL (8.4-10.2); Carbon Dioxide 20 mmol/L (22-29); Chloride 86 mmol/L (96-108); Glucose Random 112 mg/dL (60-115); Magnesium 2.8 mg/dL (1.6-2.6); Potassium 4.5 mmol/L (3.3-5.1); Sodium 118 mmol/L (135-145)
[2024-08-02] MEDS: dexAMETHasone sod phosphate/NS 12 MG/50 ML PIGGYBACK 200 MG IV (09:10)
[2024-08-02] MEDS: Acetaminophen 325 MG TABLET 650 MG PO (09:11)
[2024-08-02] MEDS: diphenhydrAMINE HCL 25 MG CAPSULE PO (09:11)
[2024-08-02 09:12] LABS: Creatinine Clr Calc Pharmacy 40.7; Estimated Glomerular Filt Rate 31
[2024-08-02 09:18] LABS: SLIDE REVIEW VERIFIED
--- NOTE | 2024-08-02 09:35 | P.PNHO-ONC_ITS ---
Medical Summary - Medical Summary Date of Service: 08/02/24 Chief complaint: Follow-up for: Biliary carcinoma. Primary Care Provider: Addi Ferreira MD Medical Summary: Diagnosis: Metastatic/unresectable biliary cancer He presented to emergency department on 07/17/2024 with complaints of right upper quadrant pain, dry heaves and a low-grade fever. Blood work showed elevated liver enzymes, liver ultrasound showed cholelithiasis, gallbladder polyp measuring 0.4 cm and positive sonographic Hernández's sign. Multiple hepatic cysts and hemangioma as well as a hypoechoic lesion measuring 3.5 cm adjacent to gallbladder which was reported as indeterminate. CURRENT THERAPY: Patient was taken to surgery on 07/18/2024, intraoperatively he was found to have multiple liver metastasis. Acutely inflamed and obstructed gallbladder with hydropic fluid was noted. He underwent cholecystectomy and biopsy of liver lesion. Patient had a colonoscopy in 03/01/2024 with removal of 2 small tubular adenomas. There is no family history of colorectal cancer or other cancers. Interval History Interval history: 53 year old gentleman, here for a follow-up visit, and to start 1st cycle of palliative chemotherapy with FOLFOX. He tells me he feels better than when he was in the hospital but not 100%. He feels tired and weak. He feels cold but has not had a fever. He has been having a hacking cough. He denies headache no dizziness. No chest pain or shortness of breath. He is trying to eat little by little. During the day he tries to pick at it. He has been taking clear brought and toast and crackers, cranberry juice and Pedialyte. He is also eating cut-up fruit in applesauce. However sometimes he feels nauseous, gags and up chucks some of the food. He has had abdominal pain since the surgery. He has been using cold packs for it. His spirits are down. Rest of the review of systems is unremarkable. DISCHARGE SUMMARY: Eric Lara is a 53 year old male with PMH significant for hypercholesterolemia, BPH, GERD who presented to the ED with complaints of RUQ abd pain. He reports the pain began a week ago after eating welsh food. It was sharp, constant and moderate in severity. It was associated with low grade fevers, dry heaving without vomiting. He denies diarrhea, back pain, similar episodes of pain. He thought maybe it was a GI bug but the pain never went away and therefore came to the ED for evaluation. Work up included CBC, BMP, LFTs which showed a normal WBC however with a left shift. He had mildly elevated LFTs with bili of 1.2, AST/ALT 112/94, alk phos 448 lipase WNL. ABD US was performed which showed gallstone impacted at GB neck, small GB polyp, positive sonographic hernández sign, no intra or extrahepatic ductal dilatation. HOSPITAL COURSE: He was admitted to the surgical service for further treatment of the acute cholecystitis. It was recommended to proceed with laparoscopic cholecystectomy and he was added onto the OR schedule. On 07/19/24, laparoscopic cholecystectomy, partial was performed by Dr. Chanel without immediate complication. SHANNON drain was placed intraoperatively. He was found to have an acutely inflamed and obstructed gallbladder with hydropic fluid with multiple liver metastases and metastases noted at the gallbladder fossa possibly causing obstruction of the gallbladder and therefore a partial cholecystectomy was performed. He tolerated the procedure well. Further workup with CT Chest, abd and pelvis and CEA obtained. CT scans showed multiple bilateral pulmonary nodules, atelectasis, diffuse hepatic metastatic disease. CEA 7. Had colonoscopy 03/05 with 2 tubular adenomas. GI and heme/oncology consult were obtained. 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 Molecular testing of tumor is pending. Further work up per oncology as an outpatient. He developed high grade fevers and hospitalist consult was obtained. Thought likely due to PNA. He was on IV zosyn since admission and zithromax was added for coverage. He had continued intermittent fevers. Abx were adjusted again to ceftriaxone, levaquin and zithromax. He had repeat CT chest with contrast to eval for empyema formation and subsequently diagnostic and therapeutic thoracentesis performed of right moderate pleural effusion without complication. Pleural gram stain had no growth. He was hemodynamically stable and stable respiratory hogan. He was tolerating a solid diet, ambulating without difficulty. His abd was benign with clean incisions. His SHANNON drain was removed previously on POD #4. His fevers improved. Possibly due to PNA vs tumor fever. He was medically and surgical stable for dc and was discharged to home on 07/26/24 on a PO course of Augmentin for pneumonia. He was spiking fevers because of which he was kept in the hospital for a few more days. He was treated with IV antibiotics. All his cultures were negative. Overall he is feeling quite tired and weak. His appetite has been poor. He reports mild nausea. He was having low-grade temperature. Review of Systems - Constitutional Reports system reviewed and no additional complaints, except as documented, Reports body ache(s), Reports chills, Reports fatigue, Reports lack of energy, Reports malaise, Reports poor appetite, Reports weight loss - Eyes Reports system reviewed and no additional complaints, except as documented - ENT Reports system reviewed and no additional complaints, except as documented - Cardiovascular Reports system reviewed and no additional complaints, except as documented - Respiratory Reports no additional respiratory complaints - Gastrointestinal Reports system reviewed and no additional complaints, except as documented - Genitourinary Genitourinary: Reports no additional male genitourinary complaints - Musculoskeletal Reports system reviewed and no additional complaints, except as documented - Integumentary/Breasts Skin/Breast: Reports no additional skin complaints - Neurologic Reports weakness - Psychiatric Reports system reviewed and no additional complaints, except as documented - Endocrine Reports no additional endocrine complaints - Hematologic/Lymphatic Reports system reviewed and no additional complaints, except as documented - Allergic/Immunologic Reports system reviewed and no additional complaints, except as documented PMFSH Medical History: Medical History (Last Reviewed 08/02/24 @ 10:20 by Bianca Khanna MD) Benign prostatic hyperplasia with lower urinary tract symptoms BPH (benign prostatic hyperplasia) Elevated TSH GERD without esophagitis Overweight (BMI 25.0-29.9) Pure hypercholesterolemia Tension headache Urinary hesitancy Functional capacity: wheelchair bound Patient : No Family History: Family History (Last Reviewed 08/02/24 @ 10:20 by Bianca Khanna MD) Father Cancer Mother No problems noted. Surgical History: Surgical History (Last Reviewed 08/02/24 @ 10:20 by Bianca Khanna MD) History of colonoscopy Hx of cholecystectomy Dequincy teeth removed Social History: Social History (Last Reviewed 08/02/24 @ 10:20 by Bianca Khanna MD) Living Situation History: Household Members: Family Household Members Other:: mom and brother Housing: House Are you a primary adult live in caregiver to a significant other at home: No Do you presently have visiting nurse or other home services: No Alcohol History Details: 1. How often do you have a drink containing alcohol?: c. 2-4 times a month 2. How many drinks containing alcohol do you have on a typical day when you are drinking?: a. 1 or 2 3. How often do you have six or more drinks on one occasion?: a. Never AUDIT-C Alcohol total score: 2 Last drink: Days (ago) Last Drank Other:: [place] Time Currently Displaying Signs/Symptoms of Alcohol Withdrawal: No Tobacco History: Patient Tobacco Use Status: Never used Tobacco Smoked in Last 30 Days: No e-Cigarette/Vaping Use: Never Used Second Hand Smoke Exposure: No Substance Use History: Use of substances other than those prescribed or required for medical reasons : No Currently Displaying Signs/Symptoms of Drug Intoxication Withdrawal: No Domestic Abuse History: Have you been hit, kicked, punched, or otherwise hurt by someone within the past year? If so, by whom?: No Do you feel safe in your current relationship?: No Current Relationship Is there a partner from a previous relationship who is making you feel unsafe now?: No Are you made to feel afraid or neglected: Yes Healthcare Practices: Spiritual Healthcare Practices: none per patient Confucianism Healthcare Practices: none per patient Cultural Healthcare Practices: none per patient Advance Directives: Advance Directives: Yes Advance Directives on File: Yes Advance Directives Date on File: 07/27/24 Homicidal Assessment: Do you have a plan to hurt others: No Plan Nutrition Assessment: How much weight loss: 2-13 pounds Nutrition Risks: Poor intake 0-25% >4 days Poor oral hygiene: Yes Occupation Assessmet: service: No Current occupational status: employed Current occupational exposures/hazards: No Sex/Gender Assessment: Gender identity: Male Oncology Screenings - ECOG Performance Status ECOG Performance Status: 2 Home Medications and Allergies Current Medications: Current Medications Acetaminophen (Acetaminophen 325 Mg Tablet) 650 mg PO ONCE [facility] Stop: 08/02/24 23:59 Last Admin: 08/02/24 09:11 Dose: 650 mg Diphenhydramine HCl (Diphenhydramine Hcl 25 Mg Capsule) 25 mg PO ONCE [facility] Stop: 08/02/24 23:59 Last Admin: 08/02/24 09:11 Dose: 25 mg Dexamethasone Sodium Phosphate (Decadron) 12 mg in 50 mls @ 200 mls/hr IV ONCE [facility] Stop: 08/02/24 23:59 Last Admin: 08/02/24 09:10 Dose: 200 mls/hr Fosaprepitant 150 mg/ Sodium (Chloride) 150 mls @ 300 mls/hr IV ONCE [facility] Stop: 08/02/24 23:59 Palonosetron (Palonosetron 0.25 Mg/5 Ml Vial) 0.25 mg IVPUSH ONCE [facility] Stop: 08/02/24 23:59 Last Admin: 08/02/24 09:06 Dose: 0.25 mg Home Medications ?Medication ?Instructions ?Recorded ?Confirmed ?Type loperamide 2 mg capsule 2 mg PO Q4H PRN Diarrhea 08/02/24 08/02/24 History metronidazole 0.75 % topical gel 1 appl topical BEDTIME PRN rosacea 08/02/24 08/02/24 History Allergies Allergy/AdvReac Type Severity Reaction Status Date / Time No Known Allergies Allergy Verified 08/02/24 10:03 Exam Vital signs: Vital Signs Temp 97.8 F 08/02/24 08:19 Pulse 101 H 08/02/24 08:19 Resp 18 08/02/24 08:19 BP 114/53 L 08/02/24 08:19 Pulse Ox 97 08/02/24 08:19 O2 Del Method Room Air 08/02/24 08:19 Intake & Output 08/01/24 08/02/24 08/02/24 18:59 06:59 18:59 Other: Weight 87.4 kg Weight in Grams 13732 Weight 87.4 kg BMI result Body Mass Index 30.2 - Constitutional Present: no acute distress, average body habitus - Routine HEENT Exam Head: Present: normal inspection Eye: Present: normal appearance ENT: Present: mucous membranes moist - Routine Neck Exam Present: full ROM. Absent: lymphadenopathy - Routine Respiratory Exam Present: CTAB. Absent: accessory muscle use, wheezes - Routine Cardiovascular Exam Cardiovascular: Present: S1, S2 - Routine Abdominal Exam Absent: mass - Routine Extremities Exam Present: nontender - Routine Back/Spine/Pelvis Exam Back/Spine: Present: full ROM - Routine Skin Exam Present: intact - Routine Neurological Exam Present: alert, oriented X3 - Routine Psychiatric Exam Present: normal affect Data - Labs CBC & Chem 7: 08/02/24 08:25 08/02/24 08:25 Labs: Laboratory Last Values WBC 16.7 X10*3/uL (4.8-10.8) H 08/02/24 08:25 RBC 3.95 X10*6/uL (4.60-5.80) L 08/02/24 08:25 Hgb 11.5 g/dl (14.0-18.0) L 08/02/24 08:25 Hct 32.3 % (42.0-52.0) L 08/02/24 08:25 MCV 81.8 fL (80.0-98.0) 08/02/24 08:25 MCH 29.1 pg (27.0-33.0) 08/02/24 08: MCHC 35.6 g/dl (31.0-36.0) 08/02/24 08: RDW 13.1 % (11.0-16.0) 08/02/24 08:25 Plt Count 261 X10*3/uL (160-400) 08/02/24 08:25 MPV 9.4 fL (9.4-12.4) 08/02/24 08:25 Immature Gran % (Auto) 1.6 % (0.0-0.4) H 08/02/24 08:25 Neut % (Auto) 90.3 % (45-73) H 08/02/24 08:25 Lymph % (Auto) 3.1 % (20-40) L 08/02/24 08:25 [place] % (Auto) 4.7 % (2-11) 08/02/24 08:25 Eos % (Auto) 0.1 % (0-4) 08/02/24 08:25 Baso % (Auto) 0.2 % (0-2) 08/02/24 08:25 Lymph # (Auto) 0.5 X10*3/uL (1.2-4.9) L 08/02/24 08:25 [place] # (Auto) 0.8 X10*3/uL (0.1-1.2) 08/02/24 08:25 Eos # (Auto) 0.0 X10*3/uL (0.0-0.4) 08/02/24 08:25 Baso # (Auto) 0.0 X10*3/uL (0.0-0.2) 08/02/24 08:25 Abs Immat Gran (auto) 0.27 X10*3/uL (0.00-0.03) H 08/02/24 08:25 Absolute Neuts (auto) 15.1 x10*3/uL (2.0-8.3) H 08/02/24 08:25 Absolute Nucleated RBC 0.000 X10*3/uL (0.0-0.012) 08/02/24 08:25 Nucleated RBC % (auto) 0.0 /100WBC (0.0-0.2) 08/02/24 08:25 Smear Tech's Comments VERIFIED 08/02/24 08:25 Sodium 118 mmol/L (135-145) L* 08/02/24 08:25 Potassium 4.5 mmol/L (3.3-5.1) D 08/02/24 08:25 Chloride 86 mmol/L (96-108) L 08/02/24 08:25 Carbon Dioxide 20 mmol/L (22-29) L 08/02/24 08:25 Anion Gap 17 (12-20) 08/02/24 08:25 BUN 48 mg/dL (9-16) H 08/02/24 08:25 Creatinine 2.21 mg/dL (0.5-1.4) H 08/02/24 08:25 Estim Creat Clear Calc 40.7 08/02/24 08:25 Estimated GFR 31 08/02/24 08:25 Random Glucose 112 mg/dL (60-115) 08/02/24 08:25 Calcium 6.6 mg/dL (8.4-10.2) L D 08/02/24 08:25 Magnesium 2.8 mg/dL (1.6-2.6) H 08/02/24 08:25 Total Bilirubin 9.1 mg/dL (0.0-1.0) H 08/02/24 08:25 AST 762 U/L (5-37) H 08/02/24 08:25 ALT 248 U/L (0-40) H 08/02/24 08:25 Alkaline Phosphatase 1032 U/L (39-117) H 08/02/24 08:25 Total Protein 5.0 g/dL (6.5-8.0) L 08/02/24 08:25 Albumin 2.7 g/dL (3.5-5.0) L 08/02/24 08:25 TSH 2.90 uIU/mL (0.32-4.0) 07/27/24 10:32 Hep Bs Antigen Negative (Negative) 07/27/24 10:32 Hep Bs Antibody NONREACTIVE (Nonreactive) 07/27/24 10:32 Hep B Core Total Ab Reactive (Nonreactive) 07/27/24 10:32 Hep B Core IgM Ab NON-REACTIVE (NON-REACTIVE) 07/27/24 10:32 Hepatitis C Ab (EIA) Nonreactive (Nonreactive) 07/27/24 10:32 Assessment and Plan Patient Active problem list reviewed?: Yes (1) Carcinoma of gall bladder Status: Acute Assessment and plan: This is a 54-year-old male diagnosed with metastatic/unresectable biliary/gallbladder cancer in July 2024. He presented with abdominal discomfort and found to have multiple liver metastasis in addition to acute cholecystitis secondary to gallstones. Pathology of gallbladder revealed high-grade dysplasia. Biopsy of liver region revealed invasive adenocarcinoma, moderately differentiated. Gallbladder primary should be considered given presence of high-grade dysplasia in the gallbladder. IHC weak positivity for CK7, CK20 and CDX2. TTF 1 is negative. Molecular testing is pending. Imaging with CT chest/abdomen and pelvis with contrast shows multiple bilateral pulmonary nodules consistent with metastatic disease, largest nodule is in the right lung base measuring 1.2 cm. There is no mediastinal or hilar adenopathy. Numerous hepatic metastasis consistent with metastatic disease, largest measuring up to 6.3 cm in size. CEA was not significantly elevated, CA 19 -9 was 158 U/mL. Unfortunately, patient appears to have rapidly progressive cancer. His liver enzymes are rapidly rising, his bilirubin upto 3.3 with elevation in transaminases and alkaline phosphatase level as well. As his bilirubin was above 2.5 mg/dL, he is not eligible to receive gemcitabine based combination chemotherapy with cisplatin and durvalumab. PET-CT has been ordered. The plan was to start him on palliative chemotherapy with the FOLFOX regimen. Possible side effects of chemotherapy including neuropathy, risk of cytopenias and organ damage, were addressed with him. He had the MediPort placed. He came in here to get started on his treatment. However he was noted to have significant laboratory abnormalities: CBC: WBC 16.7, HGB 11.5, HCT 32.3, PLT 261. CMP: Sodium 118, K 4.5, chloride 86, CO2 20. BUN 48, C.O.D. AUDIT CLERK 2.21. LFTs: 9.07/1031/762/248. Albumin 2.7. PLAN: I am concerned about the significant hyponatremia, and possible complications including seizures, coma, brain swelling,herniation of the brain, headache, rhabdomyolysis, , cardiopulmonary arrest and even . As such I have elected to refer him to the ED for prompt management. Discussed this with him and his sister. Discussed with Dr. Khanna, in the ED who has graciously accepted him to his service. His treatment will be postponed till he recovers. Thank you, CC: Addi Ferreira MD - Time Spent With Patient Time Spent with Patient (in minutes): 30
--- NOTE | 2024-08-02 15:46 | MHC.HEMONC ---
Pt is here for C1 Folfox. Color is jaundice. Feels weak, with occasional nausea. Also reports some surgical pain. Port heeling well, with some bruising. Accessed with good blood return noted. Labs were done on 07/27, but repeat labs done today. NA 118, BUN/Creatinine, liver enzymes all elevated. Bili 9.1. Dr No reviewed labs, and decision made to send pt to ED due to hyponatremia. Dr No in to speak with pt and his sister, and pt agreeable to go to ED. Call to Francine in ED and given report. Pt brought to ED. Pharmacy notified. Pt to be rescheduled to next week.
== END 2024-09-05 15:28 | disposition home or self-care (01) ==
LOC: HO.ONC 08:00
PROVIDERS: PCP Internal Medicine; Visit Provider Internal Medicine
DX: C78.7 Secondary malignant neoplasm of liver and intrahepatic bile duct (principal); C23 Malignant neoplasm of gallbladder
CPT/HCPCS: 36415; 80053; 83735; 84443; 85025; 86704; 86705; 86706; 86803; 87340; J1100; J2469

== ENCOUNTER 2024-08-02 09:54 | Inpatient (IN) | payer BC, SELFPAY ==
[2024-08-02] VITALS (16 sets, daily range): BP systolic 89–114; BP diastolic 53–65; PULSE 76–102; RESP 16–25; TEMP 36.1–37.1; O2SAT 93–95; BMI 30.1; BMI 28.7
--- NOTE | ~2024-08-02 | XR_ITS ---
EXAMINATION: XR CHEST CLINICAL INFORMATION: Hyponatremia COMPARISON: 07/25/2024. TECHNIQUE: AP portable view of the chest was obtained. FINDINGS: Right chest port has been placed, with tip extending into the cavoatrial junction region. Numerous leads overlie the thorax. Cardiac, hilar, and mediastinal contours appear normal. There is mild leftward mediastinal shift. Moderate right sided effusion has developed, with underlying parenchymal opacity likely compressive atelectasis. The left lung is clear without effusion. No pneumothorax. There is no acute soft tissue or bony abnormalities. XR/XR chest 1V IMPRESSION: 1. Interval placement of right chest port in good position. 2. Interval development moderate-sized right effusion with presumed compressive atelectasis right lower lobe. 3. Left lung appears clear. Electronically signed by: Yonny Barcenas MD 08/02/2024 10:37 AM [facility]
--- NOTE | ~2024-08-02 | US_ITS ---
EXAMINATION: US KIDNEY BILATERAL HISTORY: SANDY TECHNIQUE: Real-time grayscale ultrasound imaging of the kidneys was performed and images were reviewed. COMPARISON: Correlation is made with a CT of the abdomen with contrast dated 07/24/2024. FINDINGS: Right kidney: The right kidney measures 12.3 x 3.9 x 4.8 cm. Renal parenchymal echotexture and thickness are normal. There are no masses. There is no hydronephrosis or renal calculi. Left Kidney: The left kidney measures 12.4 x 5.9 x 5.5 cm. Renal parenchymal echotexture and thickness are normal. There are no masses. There is no hydronephrosis or renal calculi. US/US renal BI IMPRESSION: Unremarkable renal ultrasound. Electronically signed by: Baljinder Duggan MD 08/05/2024 08:25 AM [facility]
--- NOTE | ~2024-08-02 | IR_ITS ---
CLINICAL HISTORY: Patient requires dialysis. The patient presents to interventional radiology for placement of a non-tunneled central venous catheter for hemodialysis. PROCEDURES: 1. Real-time ultrasound-guided access into the left internal jugular vein after documentation of selected vessel patency, and permanent imaging storing in the patient record. 2. Placement of a 12.0 fr 24 cm non-tunneled, dual-lumen hemodialysis catheter. Clinician: Yehuda Denise PA-C MEDICATIONS: -Lidocaine 1% 10 mL SQ. -For additional details, please see nursing flowsheet. COMPLICATIONS: None. ESTIMATED BLOOD LOSS: <5 ml SPECIMENS: None FLUOROSCOPY TIME: 3.9 min PROCEDURE NOTE: The procedure, risks, benefits, and alternatives were carefully explained to patient, and written informed consent was obtained. The patient was placed supine on the fluoroscopy table. A timeout was performed. The left neck and chest was prepped and draped in usual sterile fashion. Local anesthesia was administered to the access site with lidocaine. Under ultrasound guidance, the left internal jugular vein was accessed with a 4 Fr micropuncture set. A 0.035 in wire was advanced into the IVC. The tract in the vein was serially dilated. Over the wire, a 12.0 fr 24 non-tunneled, dual-lumen hemodialysis catheter was advanced, with the tip located at the cavoatrial junction. The wire was removed. The catheter was tested, flushed, and sutured to the skin. A permanent fluoroscopic image of the chest was saved to PACS. The catheter ports were packed with heparin per routine protocol. The patient was stable after the procedure and was transferred to the medical floor. There were no immediate complications. FINDINGS: 1. Patent left internal jugular vein. 2. Placement of a non-tunneled, dual-lumen hemodialysis catheter as above. 3. Catheter flushes and aspirates very well with a 10 mL syringe. No pneumothorax. IR/IR cvc insert non tunnel IMPRESSION: Placement of a non-tunneled hemodialysis catheter in the left internal jugular vein. PLAN: -The catheter may be used immediately. This procedure was performed by Yehuda Denise PA-C, and directly supervised by Dr. Khan. Electronically signed by: Dinh Khan MD 08/08/2024 02:48 PM [facility] [place]
--- NOTE | 2024-08-02 10:15 | ECG_ITS ---
Test Reason : hyponatremia Blood Pressure : */* mmHG Vent. Rate : 91 BPM Atrial Rate : 91 BPM P-R Int : 170 ms QRS Dur : 76 ms QT Int : 404 ms P-R-T Axes : 44 44 35 degrees QTcB Int : 496 ms Normal sinus rhythm Prolonged QT Abnormal ECG When compared with ECG of 17-Jul-2024 19:17, QT has lengthened Referred By: Bianca Khanna Electronically Signed By: OBDULIA LOPEZ MD
--- NOTE | 2024-08-02 10:17 | ED.GENADULT ---
HPI - General Adult General Chief complaint: Recheck/Abnormal Lab/Rx Stated complaint: Sodium low Time Seen by Provider: 08/02/24 10:13 Source: patient and family (Sister) Mode of arrival: ambulatory Limitations: no limitations History of Present Illness ED Provider: DR. 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 Patient is the ED with his sister stated that for the past 3- 4 weeks he has poor appetite with intermittent nausea and vomiting but overall patient is eating and drinking less. No history of syncope or feeling dizzy, no fever, chills. Related Data Home Medications ?Medication ?Instructions ?Recorded ?Confirmed multivitamin 1 tab PO DAILY 08/14/20 07/29/24 Previous Rx's ?Medication ?Instructions ?Recorded haizhbdliu-xkhuijurnsvea-elowkmuz 1 tab PO TID PRN Headache 30 days 05/10/21 50 mg-325 mg-40 mg tablet #90 tabs atorvastatin 10 mg tablet 10 mg PO BEDTIME #90 tabs 04/26/24 bethanechol chloride 50 mg tablet 50 mg PO BID #180 tabs 04/28/24 tamsulosin 0.4 mg capsule 0.4 mg PO BID 90 days #180 caps 04/28/24 metronidazole 0.75 % topical gel 1 appl topical BEDTIME #45 grams 07/11/24 amoxicillin 500 mg-potassium 1 tab PO Q8H #30 tabs 07/26/24 clavulanate 125 mg tablet (Augmentin) oxycodone 5 mg tablet 5 mg PO Q6H PRN pain (scale score 07/26/24 7-10) #25 tabs dexamethasone 2 mg tablet 2 mg PO BID #30 tabs 07/27/24 ondansetron 8 mg disintegrating 8 mg PO Q8H PRN Nausea #30 tabs 07/27/24 tablet lorazepam 0.5 mg tablet 0.5 mg PO BEDTIME PRN Anxiety #30 07/29/24 tabs Allergies Allergy/AdvReac Type Severity Reaction Status Date / Time No Known Allergies Allergy Verified 08/02/24 10:03 Review of Systems Review of Systems: All other systems are reviewed and are negative Constitutional: Reports as per HPI and Reports no additional constitutional complaints Eyes: Reports as per HPI and Reports no additional eye complaints Reports system reviewed and no additional complaints, except as documented Cardiovascular: Reports as per HPI and Reports no additional cardiovascular complaints Respiratory: Reports as per HPI and Reports no additional respiratory complaints Gastrointestinal: Reports as per HPI and Reports no additional gastrointestinal complaints Genitourinary: Reports no additional female genitourinary complaints Musculoskeletal: Reports no additional musculoskeletal complaints Skin/Breast: Reports system reviewed and no additional complaints, except as docu Psychiatric: Reports no additional psychiatric complaints Endocrine: Reports no additional endocrine complaints Hematologic/Lymphatic: Reports no additional hematologic/lymphatic complaints Allergic/Immunologic: Reports no additional allergic/immunologic complaints Reports system reviewed and no additional complaints, except as documented and Reports Abnormal speech present PMFSH Past Medical History Medical History Benign prostatic hyperplasia with lower urinary tract symptoms BPH (benign prostatic hyperplasia) Tension headache Urinary hesitancy Overweight (BMI 25.0-29.9) Elevated TSH GERD without esophagitis Pure hypercholesterolemia Surgical History Hx of cholecystectomy History of colonoscopy [place] teeth removed Family History Family History Father Cancer Mother No problems noted. Social History Social History Household Members: Family Household Members Other:: mom and brother Housing: House Are you a primary healthcare customer service to a significant other at home: No Do you presently have visiting nurse or other home services: No Alcohol intake: current Alcohol intake frequency: does not drink Patient Tobacco Use Status: Never used Tobacco Smoked in Last 30 Days: No e-Cigarette/Vaping Use: Never Used Second Hand Smoke Exposure: Yes Use of substances other than those prescribed or required for medical reasons: No Advance Directives: Yes Advance Directives on File: Yes Advance Directives Date on File: 07/27/24 service: No Current occupational status: employed Current occupational exposures/hazards: No Gender identity: Male Cognitive needs: No Hearing needs: No Vision needs: Yes Physical Exam ED Vital Signs: Vital Signs - 24 hr 08/02/24 10:01 08/02/24 10:56 08/02/24 10:58 Temperature 98.6 F Pulse Rate 99 87 93 Respiratory Rate 22 H Blood Pressure 100/56 L 98/55 L 103/59 L Pulse Oximetry 94 Oxygen Delivery Method Room Air 08/02/24 11:01 Temperature Pulse Rate 102 H Respiratory Rate Blood Pressure 89/53 L Pulse Oximetry Oxygen Delivery Method BMI result Body Mass Index 28.7 Vital signs have been reviewed and appear to be correct. Blood pressure elevated. Heart rate normal. Respiratory rate normal. Temperature normal. Oxygen saturation normal. Appearance: Alert. Oriented X3. No acute distress. Head: Normal external exam. Normocephalic. Atraumatic. No Mak signs noted. No raccoon eyes noted Eyes: PERRLA. EOMI. Conjunctiva and sclera normal. Eyelids normal. ENT: TM's Normal. Pharynx normal. Uvula midline. dry mucous membranes. No trismus noted. No drooling noted. No muffled voice noted. Neck: Normal inspection. Neck supple. FROM. No adenopathy. Thyroid Normal. No meningeal signs. No neck mass noted. CVS: Normal heart rate and rhythm. Heart sound normal. No murmurs noted. Pulses normal throughout. Respiratory: No respiratory distress. Painless inspiration. Breath sounds normal. No wheezes/rales/rhonchi noted. Chest nontender. No accessory muscle usage noted or decreased air movement noted. Abdomen: Soft and nontender. Bowel sounds normal in all 4 quadrants. No distention noted. No organomegaly noted. No visible injury noted. Back: No CVA tenderness. Full range of motion noted. Skin: Skin warm and dry. Normal skin color. Normal skin turgor. No rashes/lesions/lacerations noted. Extremities: No lower extremity edema. Extremities exhibit normal range of motion. Extremities nontender. Neuro: Oriented X 3. Cranial nerve exam: II-XII are grossly intact No motor deficit. No sensory deficit. Reflexes normal. Course Reevaluation(s) Reevaluation #1: Hypovolemic hyponatremic with positive orthostatic changes due to decreased p.o. intake and dehydration, SANDY. Admit to ICU with Jaime catheter with fluid management. Continue with normal saline at 100 cc hour. The case discussed with Dr. Steen who will see the patient in the ICU. Time: 11:28 Medications Administered Generic Name Dose Route Start Last Admin Trade Name Freq PRN Reason Stop Dose Admin Sodium Chloride 1,000 mls @ 100 mls/hr 08/02/24 10:15 08/02/24 10:41 Ns IVCONT 100 mls/hr .Q10H ANDRIA Administration Discontinued Medications Generic Name Dose Route Start Last Admin Trade Name Javedq PRN Reason Stop Dose Admin Lidocaine HCl 10 ml 08/02/24 10:15 08/02/24 10:28 Lidocaine Hcl 2 % Urojet 10 Ml Jel.Pf.Black TOPICAL 08/02/24 10:16 10 ml ONCE ONE Administration Medical Decision Making Differential Diagnosis Differential Diagnoses: The differential diagnosis associated with the presentation includes (Dehydration, SANDY, electrolyte derangement, orthostatic hypotension, severe anemia, UTI.) Admission/Observation Consideration of admission/observation: Escalation of care including admission/observation considered Consult Healthcare Provider Management of the patient was discussed with: Staff Command And Control Officer (Dr. Steen (residential energy auditor), Dr. Montiel (diagnostics sales developer)) Lab Data MDM Lab Attestation statement: I reviewed the patient's lab results. 08/02/24 10:40 08/02/24 10:40 Labs: Lab Results 08/02/24 Range/Units 10:40 WBC 17.7 H (4.8-10.8) X10*3/uL RBC 3.78 L (4.60-5.80) X10*6/uL Hgb 11.0 L (14.0-18.0) g/dl Hct 31.0 L (42.0-52.0) % MCV 82.0 (80.0-98.0) fL MCH 29.1 (27.0-33.0) pg MCHC 35.5 (31.0-36.0) g/dl RDW 13.2 (11.0-16.0) % Plt Count 246 (160-400) X10*3/uL MPV 9.5 (9.4-12.4) fL Immature Gran % (Auto) 1.4 H (0.0-0.4) % Neut % (Auto) 92.9 H (45-73) % Lymph % (Auto) 2.1 L (20-40) % Gosper % (Auto) 3.3 (2-11) % Eos % (Auto) 0.1 (0-4) % Baso % (Auto) 0.2 (0-2) % Lymph # (Auto) 0.4 L (1.2-4.9) X10*3/uL Gosper # (Auto) 0.6 (0.1-1.2) X10*3/uL Eos # (Auto) 0.0 (0.0-0.4) X10*3/uL Baso # (Auto) 0.0 (0.0-0.2) X10*3/uL Abs Immat Gran (auto) 0.24 H (0.00-0.03) X10*3/uL Absolute Neuts (auto) 16.4 H (2.0-8.3) x10*3/uL Absolute Nucleated RBC 0.000 (0.0-0.012) X10*3/uL Nucleated RBC % (auto) 0.0 (0.0-0.2) /100WBC Sodium 116 L* (135-145) mmol/L Potassium 4.7 (3.3-5.1) mmol/L Chloride 86 L (96-108) mmol/L Carbon Dioxide 20 L (22-29) mmol/L Anion Gap 15 (12-20) BUN 48 H (9-16) mg/dL Creatinine 2.21 H (0.5-1.4) mg/dL Estim Creat Clear Calc 39.8 Estimated GFR 31 Random Glucose 117 H (60-115) mg/dL Calcium 6.4 L (8.4-10.2) mg/dL Total Bilirubin 9.0 H (0.0-1.0) mg/dL Direct Bilirubin 7.2 H (0.0-0.5) mg/dL AST 730 H (5-37) U/L ALT 236 H (0-40) U/L Alkaline Phosphatase 991 H (39-117) U/L Troponin I High Sens < 2.7 (<3.5-35.0) ng/L B-Natriuretic Peptide 24 (<100) pg/mL Total Protein 4.8 L (6.5-8.0) g/dL Albumin 2.5 L (3.5-5.0) g/dL Lipase 52 (8-78) U/L Urine Color Dark Yellow Urine Appearance Cloudy Urine pH 5.0 (5.0-9.0) Ur Specific Iron 1.020 (1.005-1.025) Urine Protein Trace (Neg-Trace) mg/dL Urine Glucose (UA) Negative (Negative) mg/dL Urine Ketones Negative (Negative) mg/dL Urine Blood Negative (Negative) Urine Nitrite Negative (Negative) Ur Leukocyte Esterase Trace H (Negative) Urine RBC 0-2 (0-2) /HPF Urine WBC 0-5 (0-5) /HPF Ur Squamous Epith Cells 6-10 (0-2) /HPF Urine Bacteria None Seen (None Seen) Hyaline Casts 11-20 (0-2) /LPF Ur Random Sodium < 20.0 mmol/L Ur Random Potassium 50.2 mmol/L Ur Random Chloride < 20.0 mmol/L Independent Interpretation I performed an independent interpretation of an: Plain X-Ray (Chest:1. Interval placement of right chest port in good position. 2. Interval development moderate-sized right effusion with presumed compressive atelectasis right lower lobe. 3. Left lung appears clear. ) Radiology Impression Discussion of test interpretation with radiology: I have reviewed the radiologist's reading. Critical Care Time Critical Care Time Critical Care Time: Yes Total Critical Care Time: 60 Attestation: The patient was critically ill with a high probability of imminent or life-threatening deterioration. I spent greater than 30 minutes of discontinuous time evaluating the patient, delivering critical care at the bedside, discussing evaluating data with consultants. Critical care time does not include time spent performing separately billable procedures or teaching. Time spent performing critical care was 60 minutes. Discharge Plan Discharge Clinical Impression: Acute hyponatremia, SANDY (acute kidney injury) Patient Disposition: Admitted As Inpatient Print Language: Martiniquais
[2024-08-02] MEDS: Lidocaine HCl 2 % Urojet 10 ML JEL.PF.APP TOPICAL (10:28)
[2024-08-02] MEDS: 0.9 % Sodium Chloride 1,000 ML 100 ML IVCONT (10:41)
[2024-08-02 10:49] LABS: Appearance Urine Cloudy; Basophils Percent Auto 0.2 % (0-2); Color Urine Dark Yellow; Eosinophils Percent Auto 0.1 % (0-4); Glucose Urine UA Negative (Negative); Imm Gran Abs Auto 0.24 X10*3/uL (0.00-0.03); Imm Gran Pct Auto 1.4 % (0.0-0.4); Leukocyte Esterase Urine Trace (Negative); Lymphocytes Absolute Auto 0.4 X10*3/uL (1.2-4.9); Lymphocytes Percent Auto 2.1 % (20-40); MANUAL DIFF FLAG SCAN; Mean Corpuscular HGB Conc 35.5 g/dl (31.0-36.0); Mean Corpuscular Hemoglobin 29.1 pg (27.0-33.0); Mean Platelet Volume 9.5 fL (9.4-12.4); Monocytes Absolute Auto 0.6 X10*3/uL (0.1-1.2); Monocytes Percent Auto 3.3 % (2-11); Neutrophils Absolute Auto 16.4 x10*3/uL (2.0-8.3); Neutrophils Percent Auto 92.9 % (45-73); Nitrite Urine Negative (Negative); Platelet Count 246 X10*3/uL (160-400); Red Blood Count 3.78 X10*6/uL (4.60-5.80); Red Cell Distribution Width 13.2 % (11.0-16.0); SCAN SMEAR FLAG 1; UMIC TRIGGER UACC YES; Urine Blood Negative (Negative); Urine Ketones Negative (Negative); Urine Protein Trace mg/dL (Neg-Trace); White Blood Count 17.7 X10*3/uL (4.8-10.8)
[2024-08-02 11:03] LABS: Chloride Urine Random < 20.0 mmol/L; Potassium Urine Random 50.2 mmol/L; Sodium Urine Random < 20.0 mmol/L
--- NOTE | 2024-08-02 11:05 | PC.NURSE ---
Pt presented to ED from chemo (was supposed to get first treatment today but got sent here instead). Labs were drawn this morning and found sodium to be 118 and bili to be 9. Pt has gallbladder cancer with mets to liver and lungs, was found here on 07/21 when he came in for right sided pain. Alert and oriented, breathing even and unlabored, skin jaundice. Pt reports feeling off , poor PO intake, vomiting. Generalized pain 10/20.
--- NOTE | 2024-08-02 11:06 | PC.NURSE ---
Port was accessed on right side of chest by chemo. Utilized. Jaime placed, 16fr with approx 500 mL urine output
[2024-08-02 11:10] LABS: Alanine Aminotransferase 236 U/L (0-40); Albumin Level 2.5 g/dL (3.5-5.0); Alkaline Phosphatase 991 U/L (39-117); Anion Gap 15 (12-20); Aspartate Amino Transferase 730 U/L (5-37); B Type Natriuretic Peptide 24 pg/mL (<100); Bilirubin Direct 7.2 mg/dL (0.0-0.5); Blood Urea Nitrogen 48 mg/dL (9-16); Calcium 6.4 mg/dL (8.4-10.2); Carbon Dioxide 20 mmol/L (22-29); Chloride 86 mmol/L (96-108); Creatinine Clr Calc Pharmacy 39.8; Estimated Glomerular Filt Rate 31; Glucose Random 117 mg/dL (60-115); Lipase 52 U/L (8-78); Potassium 4.7 mmol/L (3.3-5.1); Sodium 116 mmol/L (135-145); Total Protein 4.8 g/dL (6.5-8.0)
[2024-08-02 11:14] LABS: Troponin-I High Sensitivity < 2.7 ng/L (<3.5-35.0)
[2024-08-02 11:23] LABS: Bacteria Urine None Seen (None Seen); RBC Urine 0-2 /HPF (0-2); WBC Urine 0-5 /HPF (0-5)
--- OUTSIDE RECORDS SUMMARY | 2024-08-02 11:24 | XMS_ITS ---
Author Organization [facility] Address [address] [place] [address] Care Team Providers Care Bank Worker Name Role Phone Jhon HANLEY, [place] Primary Care Provider Unava Tarik Joseph Jr REASON FOR VISIT pathology/ waiting for pt call back Encounters Encounter Location Date Provider Diagnosis [facility] [address] [place] [address] 02/18/2024 Tarik Hutchinson Jr PLAN OF TREATMENT No Information
--- OUTSIDE RECORDS SUMMARY | 2024-08-02 11:24 | XMS_ITS ---
Author Organization [facility] Address [address] [place] [address] Care Team Providers Care Applied Biology Professor Name Role Phone Jhon HANLEY, [place] Primary Care Provider Tarik Sultana Jr Unavailable [...] history of colonic polyps (Z86.010) Active confirmed [id number] VITAL SIGNS BMI 28.79 kg/m2 12/09/2023 Blood pressure systolic 000 mm Hg 12/09/19 24 Blood pressure diastolic 00 mm Hg 024 Height 68 in 12/09/2023 Temperature 98.4 degrees Fahrenheit 12/09/19 24 Weight 189 lb 6 oz lbs 12/09/2023 Encounters Encounter Location Date Provider Diagnosis [facility] [address] [place] [address] 12/09/2023 Tarik Hutchinson Jr Colon cancer screening [...]
--- OUTSIDE RECORDS SUMMARY | 2024-08-02 11:24 | XMS_ITS ---
Author Organization [facility] Address [address] [place] [address] Care Team Providers Care College Director Name Role Phone Jhon HANLYE, [place] Primary Care Provider Unava Tarik Joseph Jr [phone] REASON FOR VISIT screening Encounters Encounter Location Date Provider Diagnosis [facility] [address] [place] [id number] 02/12/2024 Tarik Hutchinson Jr Encounter for screening colonoscopy Z12.11 and Colon polyps K63.5 ASSESSMENTS Encounter Date Diagnosis Assessment Notes Treatment Notes Treatment Clinical Notes 02/12/2024 Encounter for screening colonoscopy (ICD-10 - Z12.11) 02/12/2024 Colon polyps (ICD-10 - K63.5) PLAN OF TREATMENT No Information
--- OUTSIDE RECORDS SUMMARY | 2024-08-02 11:25 | XMS_ITS | Patient Health Record ---
Author Organization [facility] Address [address] [place] [address] Care Team Providers Care Director Blood Bank Name Role Phone Addi Jay MD Primary Care Provider Tarik Sultana Jr [phone] ALLERGIES No Known Allergies RESULTS Component Value Reference Range Notes Pathology Reviewed date:02/18/2024 08:00:22 AM Interpretation: Performing Lab:[facility], [address] [place] [phone] Notes/Report: MR LUNAP Reviewed date:07/23/2024 06:35:15 PM Interpretation: Performing Lab: Notes/Report: [address] [address] Magnetic Resonance Report Signed with Cem Patient: Bindu Limon MR#: [id number] : 1970 Acct:[id number] Age/Sex: 53 / M ADM Date: 07/17/24 Loc: .S3 345-[address]: Juan Manuel Chanel MD Ordering Physician: Baljinder Lovett MD Date of Service: 07/21/24 Procedure(s): MR MRCP Accession Number(s): [id number] cc: Addi Jay MD; Baljinder Lovett MD ADDENDUM This document has been electronically signed by: Alex [place] MD on 07/21/2024 19:18:41 ADDENDUM: Receipt of this report by the clinical staff was confirmed with ONUR Howard on Jul 21, 2024 19:26:00 EST. This document has been electronically signed by: Gretel Vazquez on 07/21/2024 19:27:16 Addendum Dictated By: Alex [place] MD Addendum Signed By: <Electronically signed by Alex [place] MD in OV> 07/21/241926 Addendum Cosigned By: DD/ /06/1918 TD/TT: 07/21/2404/06/1927 CLINICAL HISTORY: Abnl LFT's, s/p CCY, R/O CBD obstruction MRCP without gadolinium Comparison: No prior abdomen imaging is available for review in PACS at this time. Findings: Multiple sequences are degraded by motion artifacts. Small right pleural effusion with right basilar atelectasis/consolidation of the imaged right lung base. Additional atelectasis versus consolidation imaged left lung base with motion artifacts. No diffusion imaging achieved or available for review. Multiple liver masses and cystic lesions are scattered throughout the liver and not further characterize by noncontrast imaging. Multiplicity is concerning for metastatic disease. Adnexal soft tissue massin liver hilum, approaching caudate lobe, measures 4.5 cm in this noncontrast imaging. Index fluid of gallbladder fossa may represent cystic remnant and measures 2.3 x 2.4 cm (image number 21 of series 5). There are greater than 20 cystic lesions of the liver. Greater than 20 soft tissue appearing masses of the liver. Biloma and infected fluid not excluded by imaging. CBD is partially imaged and nondilated measuring up to 0.4 cm diameter. Partially imaged pancreatic duct is nondilated Free fluid in the abdomen may be postprocedural, related to ascites, or reflect fluid of carcinomatosis given the liver findings. Infected fluid is not excluded by imaging. Adrenal glands are normal accounting for artifacts. The spleen approaches the upper limits of normal. Mild volume loss of the pancreas noted. No hydronephrosis. Mild perinephric stranding is nonspecific in this noncontrast study. No small bowel obstruction in the [id number]-mq-ebwq. Superficial fluid is multifocal and may be postprocedural predominately involving the lateral chest espitia and upper abdominal side espitia, right worse than left. Right upper surgical drain suggested on series 6. IMPRESSION: 1. Partially imaged CBD is nondilated. No definite choledocholithiasis is defined by MRCP with motion artifacts. 2. Multiple liver masses. Although nonspecific by imaging, multiplicity is concerning for liver metastases. 3. Free fluid in the imaged abdomen is nonspecific and may reflect ascites. Carcinomatosis is also considered. 4. 2.3 cm x 2.4 cm focus of fluid in the gallbladder fossa may reflect cystic remnant. Differential considerations also include small biloma. Procedure history may be confirmatory. This document has been electronically signed by: Alex [place] MD on 07/21/2024 19:18:41 Dictated By: Alex [place] MD Signed By: <Electronically signed by Alex [place] MD in OV> 07/21/241925 DD/ 17 TD/TT: 07/21/241917 Rand Cementer: Lucero Holloway - Possible Hematolo gy Reviewed date:07/23/2024 06:35:35 PM Interpretation: Performing Lab:[facility], [address] [place] [phone] Notes/Report: Hold Lav - Possible Hematology SEE NOTE Specimen will be held untested for 8 hours. Call Hematology if testing is desired. Liver Panel Reviewed date:07/23/2024 06:35:25 PM Interpretation: Performing Lab:[facility], [address] [place] [phone] Notes/Report: Bilirubin Total 1.6 0.0-1.0 mg/dL Bilirubin Direct 0.9 0.0-0.5 mg/dL Aspartate Amino Transferase 176 5-37 U/L Alanine Aminotransferase 126 0-40 U/L Total Protein 5.7 6.5-8.0 g/dL Albumin Level 3.1 3.5-5.0 g/dL Alkaline Phosphatase 344 39-117 U/L REASON FOR REFERRAL Referring Provider First Name Addi Referring Provider Last Name Jhon Referring Provider Speciality Internal M edicine Referred Organization [facility] Referred Provider Tarik Hutchinson Jr Referred Address [address] [place] [address],[facility] [address],[place], [place],[address], Referred Provider Specialty Gastroentero logy General Notes Zita Arboleda 024 01:29:46 PM EDT > REQUESTED AN O BLUE REFERRAL FROM DR JAY'S OFFICE FOR VISIT IN 12-09-[address] POLI Referral Priority Routine MEDICATIONS Medication SIG (Take, [...] Problem Colon cancer screening (Z12.11) Active confirmed [id number] Problem Encounter for other preprocedural examination (Z01.818) Active confirmed 821223485 Problem Personal history of colonic polyps (Z86.010) Active confirmed [id number] Problem Liver metastases (C78.7) Active confirmed Secondary malignant neoplasm of liver (78046566) VITAL SIGNS Temperature 98.4 degrees Fahrenheit 12/09/2023 Blood pressure diastolic 00 mm Hg 12/09/2023 Height 68 in 12/09/2023 Blood pressure systolic 000 mm Hg 12/09/2023 Weight 189 lb 6 oz lbs 12/09/2023 BMI 28.79 kg/m2 12/09/2023 Encounters Encounter Location Date Provider Diagnosis [facility] [address] [place] [id number] 02/12/2024 Tarik Hutchinson Jr Encounter for screening colonoscopy Z12.11 and Colon polyps K63.5 [facility] [address] [place] [address] 12/09/2023 Tarik Hutchinson Jr Colon cancer screening Z12.11 ; Encounter for other preprocedural examination Z01.818 and Personal history of colonic polyps Z86.010 [facility] [address] [place] [address] 02/18/2024 Tarik Hutchinson Jr ASSESSMENTS Encounter Date Diagnosis Assessment Notes [...] Insured Coverage Start Date Coverage End Date [facility] [employer] [address] [place] [address] [id number] BINDU RITCHIE Self - patient is the insured MEDICAL (GENERAL) HISTORY Medical History History ICD Code Hyperlipidemia Tension headaches Covid 19 infection summer 2019 BPH with lower urinary tract symptoms GERD Surgical History Surgery Date(Month/Year) [place] Teeth Removal 1994
[2024-08-02 11:32] LABS: Osmolality Urine 454 mosm/kg (373-1093); Osmolality, Serum 261 mosm/kg (281-305)
[2024-08-02] MEDS: Albumin Human 25 % 100 ML IV ×2 (12:01→18:12)
[2024-08-02] MEDS: Lactated Ringers 1,000 ML 999 ML IV (12:05)
[2024-08-02] MEDS: Piperacillin Sodium/Tazobactam 2.25 GM in 0.9 % Sodium Chloride 50 ML IV ×2 (13:07→17:36)
[2024-08-02] MEDS: Heparin Sodium,Porcine 5,000 UNIT/ML VIAL 5000 UNIT SUBCUT ×2 (13:07→20:11)
--- NOTE | 2024-08-02 13:28 | PHA.MEDREC ---
Pharmacy Consult ? Medication Reconciliation Pharmacy has completed the medication reconciliation, spoke to patient and family at bedside. Family and patient stated he takes dexamethasone after chemo for 2 days and he did not do well with the lorazepam so they would like to leave that one off the home medications. Pt also takes imodium at home to help with loose stools.
--- NOTE | 2024-08-02 13:39 | PC.NURSE ---
Verbal report to DRYWALL FINISHING FOREMANMARYBETH Tineo, this RN and transporter brought pt to ICU
--- NOTE | 2024-08-02 14:12 | PM.CNNEP ---
History of Present Illness Reason for Consult Consult date: 08/02/24 Chief Complaint Chief complaint: Hyponatremia History of Present Illness Narrative: 53-year-old gentleman with underlying biliary cancer with liver metastasis who was planned initiation chemotherapy on 08/02/2024, however pre chemotherapy laboratory studies showed hyponatremia with sodium 116 patient was to emergency room He recent underwent cholecystectomy and biopsy of liver lesion Patient was seen in the emergency room. Family at bedside Review of Systems Constitutional: Denies fever(s) and Denies weight loss Cardiovascular: Denies chest pain Respiratory: Denies cough and Denies hemoptysis Gastrointestinal: Denies abdominal pain, Denies diarrhea and Denies nausea Musculoskeletal: Denies back pain Denies focal weakness PMFSH Past Medical History Medical History Benign prostatic hyperplasia with lower urinary tract symptoms BPH (benign prostatic hyperplasia) Tension headache Urinary hesitancy Overweight (BMI 25.0-29.9) Elevated TSH GERD without esophagitis Pure hypercholesterolemia Family History Family History Father Cancer Mother No problems noted. Surgical History Surgical History Hx of cholecystectomy History of colonoscopy [place] teeth removed Social History Social History Household Members: Family Household Members Other:: mom and brother Housing: House Are you a primary day care attendant to a significant other at home: No Do you presently have visiting nurse or other home services: No Alcohol intake: current Alcohol intake frequency: does not drink Patient Tobacco Use Status: Never used Tobacco Smoked in Last 30 Days: No e-Cigarette/Vaping Use: Never Used Second Hand Smoke Exposure: No Use of substances other than those prescribed or required for medical reasons: No Currently Displaying Signs/Symptoms of Drug Intoxication Withdrawal: No Have you been hit, kicked, punched, or otherwise hurt by someone within the past year? If so, by whom?: No Do you feel safe in your current relationship?: No Current Relationship Is there a partner from a previous relationship who is making you feel unsafe now?: No Are you made to feel afraid or neglected: Yes Spiritual Healthcare Practices: none per patient Yazdanism Healthcare Practices: none per patient Cultural Healthcare Practices: none per patient Advance Directives: Yes Advance Directives on File: Yes Advance Directives Date on File: 07/27/24 Do you have a plan to hurt others: No Plan How much weight loss: 2-13 pounds Nutrition Risks: Poor intake 0-25% >4 days Poor oral hygiene: Yes service: No Current occupational status: employed Current occupational exposures/hazards: No Gender identity: Male Cognitive needs: No Hearing needs: No Vision needs: Yes Meds Allergies Allergy/AdvReac Type Severity Reaction Status Date / Time No Known Allergies Allergy Verified 08/02/24 10:03 Active Medications: Current Medications Heparin Sodium (Porcine) (Heparin Sodium,Porcine 5,000 Unit/Ml Vial) 5,000 unit SUBCUT Q8H [facility] Last Admin: 08/02/24 13:07 Dose: 5,000 unit Albumin Human (Kedbumin 25 %) 100 mls @ 100 mls/hr IV Q6H [facility] Stop: 08/03/24 06:59 Last Infusion: 08/02/24 13:07 Dose: Infused Piperacillin Sod/Tazobactam (Sod 2.25 gm/ Sodium Chloride) 50 mls @ 100 mls/hr IV Q6H [facility] Last Infusion: 08/02/24 13:28 Dose: Infused Home Medications ?Medication ?Instructions ?Recorded ?Confirmed ?Last Taken ?Type loperamide 2 mg capsule 2 mg PO Q4H PRN Diarrhea 08/02/24 08/02/24 Unknown History metronidazole 0.75 % topical gel 1 appl topical BEDTIME PRN rosacea 08/02/24 08/02/24 Unknown History Physical Exam Vital Signs: Last Vital Signs Temp 97.0 F 08/02/24 13:25 Pulse 85 08/02/24 13:25 Resp 20 08/02/24 13:25 BP 100/61 08/02/24 13:25 Pulse Ox 94 08/02/24 13:25 O2 Del Method Room Air 08/02/24 13:25 BMI result Body Mass Index 28.7 Const General: ill appearing Neck Neck: Yes supple Resp Auscultation: clear to auscultation bilaterally Cardio Palpation: no palpable S3 Heart sounds: no rubs GI Palpation (GI): Soft to palpation Auscultation: normal bowel sounds Neuro Motor exam (neuro): no asterixis Results Lab Results 08/03/24 04:29 08/03/24 04:29 Lab results: Chemistry 08/02/24 10:40 Sodium 116 L* Potassium 4.7 Carbon Dioxide 20 L BUN 48 H Creatinine 2.21 H Calcium 6.4 L Hematology 08/02/24 10:40 WBC 17.7 H Hgb 11.0 L Plt Count 246 Urinalysis 08/02/24 10:40 Urine Color Dark Yellow Urine Appearance Cloudy Urine pH 5.0 Ur Specific [place] 1.020 Urine Protein Trace Urine Glucose (UA) Negative Urine Ketones Negative Urine Blood Negative Urine Nitrite Negative Ur Leukocyte Esterase Trace H Urine RBC 0-2 Urine WBC 0-5 Ur Squamous Epith Cells 6-10 Hyaline Casts 11-20 Urine Studies 08/02/24 10:40 Urine Osmolality 454 Assessment and Plan (1) SANDY (acute kidney injury): Status: Acute (2) Acute hyponatremia: Status: Acute Plan Significant hyponatremia with acute kidney injury in a setting of gallbladder tumor He probably has non osmotic ADH release leading to increase free water retention. Workup initiated including urine osmolality and urine sodium along with serum osmolality. Goal is to correct serum sodium rate of 0.5-1 millimole per L/hr. And not exceed more than 8-10 millimoles in a 24 hour. For now IV normal saline at 80 cc/hour. Keep checking serum sodium. No indication for hypotonic saline. Acute kidney injury is most likely due to hypoperfusion. Watch for obstructive obstruction. Ongoing tubular injury can not be excluded. Workup initiated. No indication for dialysis. She will follow along with the team. Procedures Date of Service Date of Service: 08/03/24
[2024-08-02 16:02] LABS: Anion Gap 17 (12-20); Blood Urea Nitrogen 45 mg/dL (9-16); Calcium 6.8 mg/dL (8.4-10.2); Carbon Dioxide 18 mmol/L (22-29); Chloride 89 mmol/L (96-108); Creatinine Clr Calc Pharmacy 45.1; Estimated Glomerular Filt Rate 36; Glucose Random 111 mg/dL (60-115); Sodium 119 mmol/L (135-145)
[2024-08-03] VITALS (16 sets, daily range): BP systolic 105–120; BP diastolic 51–68; PULSE 81–104; RESP 16–25; TEMP 36.2–37.6; O2SAT 93–99; BMI 32.1
[2024-08-03] MEDS: Piperacillin Sodium/Tazobactam 2.25 GM in 0.9 % Sodium Chloride 50 ML IV ×4 (00:10→17:53)
[2024-08-03] MEDS: Albumin Human 25 % 100 ML IV ×2 (00:10→05:08)
[2024-08-03 01:07] LABS: Alanine Aminotransferase 194 U/L (0-40); Alkaline Phosphatase 848 U/L (39-117); Anion Gap 19 (12-20); Aspartate Amino Transferase 590 U/L (5-37); Bilirubin Total 8.2 mg/dL (0.0-1.0); Blood Urea Nitrogen 46 mg/dL (9-16); Calcium 6.9 mg/dL (8.4-10.2); Carbon Dioxide 16 mmol/L (22-29); Chloride 91 mmol/L (96-108); Creatinine Clr Calc Pharmacy 50.6; Estimated Glomerular Filt Rate 41; Glucose Random 108 mg/dL (60-115); Potassium 4.5 mmol/L (3.3-5.1); Sodium 121 mmol/L (135-145)
[2024-08-03 04:41] LABS: Basophils Percent Auto 0.2 % (0-2); Hematocrit 27.6 % (42.0-52.0); Hemoglobin 9.6 g/dl (14.0-18.0); Imm Gran Abs Auto 0.46 X10*3/uL (0.00-0.03); Imm Gran Pct Auto 2.3 % (0.0-0.4); Lymphocytes Absolute Auto 0.4 X10*3/uL (1.2-4.9); MANUAL DIFF FLAG SCAN; Mean Corpuscular HGB Conc 34.8 g/dl (31.0-36.0); Mean Corpuscular Hemoglobin 28.3 pg (27.0-33.0); Mean Corpuscular Volume 81.4 fL (80.0-98.0); Mean Platelet Volume 9.5 fL (9.4-12.4); Monocytes Absolute Auto 0.7 X10*3/uL (0.1-1.2); Monocytes Percent Auto 3.6 % (2-11); Neutrophils Absolute Auto 18.1 x10*3/uL (2.0-8.3); Neutrophils Percent Auto 91.9 % (45-73); Platelet Count 236 X10*3/uL (160-400); Red Blood Count 3.39 X10*6/uL (4.60-5.80); Red Cell Distribution Width 13.3 % (11.0-16.0); SCAN SMEAR FLAG 1; White Blood Count 19.7 X10*3/uL (4.8-10.8)
[2024-08-03 04:56] LABS: Alanine Aminotransferase 182 U/L (0-40); Albumin Level 3.1 g/dL (3.5-5.0); Alkaline Phosphatase 832 U/L (39-117); Anion Gap 17 (12-20); Aspartate Amino Transferase 556 U/L (5-37); Bilirubin Total 8.4 mg/dL (0.0-1.0); Blood Urea Nitrogen 48 mg/dL (9-16); Calcium 7.4 mg/dL (8.4-10.2); Carbon Dioxide 18 mmol/L (22-29); Chloride 91 mmol/L (96-108); Creatinine Clr Calc Pharmacy 49.7; Estimated Glomerular Filt Rate 40; Glucose Random 102 mg/dL (60-115); Magnesium 2.9 mg/dL (1.6-2.6); Potassium 4.5 mmol/L (3.3-5.1); Sodium 121 mmol/L (135-145)
[2024-08-03 05:07] LABS: SLIDE REVIEW VERIFIED
[2024-08-03] MEDS: Heparin Sodium,Porcine 5,000 UNIT/ML VIAL 5000 UNIT SUBCUT ×3 (05:09→20:17)
--- NOTE | 2024-08-03 08:55 | P.HPCC_ITS ---
History of Present Illness Date of Service: 08/02/24 Chief Complaint: Hyponatremia 53-year-old gentleman with underlying biliary cancer with liver metastasis who was planned initiation chemotherapy on 08/02/2024, however pre chemotherapy laboratory studies showed hyponatremia with sodium 116 patient was to emergency room. Patient endorsed poor p.o. intake for the last 3-4 weeks. He denied any other complaints. Patient was admitted to intensive care close monitoring and started on IV fluids. Secondary to leukocytosis with left shift he was started on empiric antibiotics. Late note for services rendered on 08/02/2024. Review of Systems 2 Constitutional: Constitutional: Reports malaise and Reports poor appetite Cardiovascular: Cardiovascular: Denies dyspnea on exertion, Denies orthopnea and Denies paroxysmal nocturnal dyspnea Respiratory: Respiratory: Denies cough, Denies excessive phlegm production and Denies dyspnea on exertion Gastrointestinal: Gastrointestinal: Reports abdominal pain (Post surgery) and Reports nausea PMFSH Past Medical History Medical History Benign prostatic hyperplasia with lower urinary tract symptoms BPH (benign prostatic hyperplasia) Tension headache Urinary hesitancy Overweight (BMI 25.0-29.9) Elevated TSH GERD without esophagitis Pure hypercholesterolemia Family History Family History Father Cancer Mother No problems noted. Surgical History Surgical History Hx of cholecystectomy History of colonoscopy [place] teeth removed Social History Social History Household Members: Family Household Members Other:: mom and brother Housing: House Are you a primary care advocate to a significant other at home: No Do you presently have visiting nurse or other home services: No Alcohol intake: current Alcohol intake frequency: does not drink Patient Tobacco Use Status: Never used Tobacco Smoked in Last 30 Days: No e-Cigarette/Vaping Use: Never Used Second Hand Smoke Exposure: No Use of substances other than those prescribed or required for medical reasons: No Currently Displaying Signs/Symptoms of Drug Intoxication Withdrawal: No Have you been hit, kicked, punched, or otherwise hurt by someone within the past year? If so, by whom?: No Do you feel safe in your current relationship?: No Current Relationship Is there a partner from a previous relationship who is making you feel unsafe now?: No Are you made to feel afraid or neglected: Yes Spiritual Healthcare Practices: none per patient Church Healthcare Practices: none per patient Cultural Healthcare Practices: none per patient Advance Directives: Yes Advance Directives on File: Yes Advance Directives Date on File: 07/27/24 Do you have a plan to hurt others: No Plan How much weight loss: 2-13 pounds Nutrition Risks: Poor intake 0-25% >4 days Poor oral hygiene: Yes service: No Current occupational status: employed Current occupational exposures/hazards: No Gender identity: Male Cognitive needs: No Hearing needs: No Vision needs: Yes Meds Allergies Allergy/AdvReac Type Severity Reaction Status Date / Time No Known Allergies Allergy Verified 08/02/24 10:03 Active Medications: Current Medications Heparin Sodium (Porcine) (Heparin Sodium,Porcine 5,000 Unit/Ml Vial) 5,000 unit [facility] Last Admin: 08/03/24 05:09 Dose: 5,000 unit Piperacillin Sod/Tazobactam (Sod 2.25 gm/ Sodium Chloride) 50 mls @ 100 mls/hr IV Q6H [facility] Last Infusion: 08/03/24 05:42 Dose: Infused Home Medications ?Medication ?Instructions ?Recorded ?Confirmed ?Last Taken ?Type loperamide 2 mg capsule 2 mg PO Q4H PRN Diarrhea 08/02/24 08/02/24 Unknown History metronidazole 0.75 % topical gel 1 appl topical BEDTIME PRN rosacea 08/02/24 08/02/24 Unknown History Physical Exam 2 Vital Signs: Vital Signs: Last Vital Signs Temp 98.5 F 08/03/24 08:00 Pulse 93 08/03/24 08:00 Resp 25 H 08/03/24 08:00 BP 114/62 08/03/24 08:00 Pulse Ox 95 08/03/24 08:00 O2 Del Method Room Air 08/03/24 08:00 BMI result Body Mass Index 32.1 Const: General: no acute distress, alert, awake and other (Jaundiced) Eyes: Sclerae: scleral abnormal (Icteric) EOM: EOMs intact bilaterally Neck: Neck: Yes no lymphadenopathy, Yes trachea midline and Yes supple Resp: Effort & Inspection: normal respiratory effort and no respiratory distress Auscultation: clear to auscultation bilaterally Cardio: Rate: regular rate Rhythm: regular rhythm Heart sounds: no gallops, no murmurs and no rubs GI: Palpation (GI): Soft to palpation and Other GI palpation findings present ( Nontender) Auscultation: normal bowel sounds Extrem: General: Yes no pedal edema, No clubbing and No cyanosis Results Labs 08/03/24 04:29 08/03/24 04:29 Labs: Laboratory Results - last 24 hr 08/02/24 08/02/24 08/03/24 10:40 15:32 00:38 MCV 82.0 MCH 29.1 MCHC 35.5 RDW 13.2 Plt Count 246 MPV 9.5 Immature Gran % (Auto) 1.4 H Neut % (Auto) 92.9 H Lymph % (Auto) 2.1 L Real % (Auto) 3.3 Eos % (Auto) 0.1 Baso % (Auto) 0.2 Lymph # (Auto) 0.4 L Real # (Auto) 0.6 Eos # (Auto) 0.0 Baso # (Auto) 0.0 Abs Immat Gran (auto) 0.24 H Absolute Neuts (auto) 16.4 H Absolute Nucleated RBC 0.000 Nucleated RBC % (auto) 0.0 Smear Tech's Comments Anion Gap 15 17 19 Estim Creat Clear Calc 39.8 45.1 50.6 Estimated GFR 31 36 41 Random Glucose 117 H 111 108 Osmolality 261 L Calcium 6.4 L 6.8 L D 6.9 L Phosphorus Magnesium Total Bilirubin 9.0 H 8.2 H Direct Bilirubin 7.2 H AST 730 H 590 H ALT 236 H 194 H Alkaline Phosphatase 991 H 848 H Troponin I High Sens < 2.7 B-Natriuretic Peptide 24 Total Protein 4.8 L 5.0 L Albumin 2.5 L 3.0 L Lipase 52 Urine Color Dark Yellow Urine Appearance Cloudy Urine pH 5.0 Ur Specific [place] 1.020 Urine Protein Trace Urine Glucose (UA) Negative Urine Ketones Negative Urine Blood Negative Urine Nitrite Negative Ur Leukocyte Esterase Trace H Urine RBC 0-2 Urine WBC 0-5 Ur Squamous Epith Cells 6-10 Urine Bacteria None Seen Hyaline Casts 11-20 Urine Osmolality 454 Ur Random Sodium < 20.0 Ur Random Potassium 50.2 Ur Random Chloride < 20.0 08/03/24 04:29 MCV 81.4 MCH 28.3 MCHC 34.8 RDW 13.3 Plt Count 236 MPV 9.5 Immature Gran % (Auto) 2.3 H Neut % (Auto) 91.9 H Lymph % (Auto) 2.0 L Real % (Auto) 3.6 Eos % (Auto) 0.0 Baso % (Auto) 0.2 Lymph # (Auto) 0.4 L Real # (Auto) 0.7 Eos # (Auto) 0.0 Baso # (Auto) 0.0 Abs Immat Gran (auto) 0.46 H Absolute Neuts (auto) 18.1 H Absolute Nucleated RBC 0.000 Nucleated RBC % (auto) 0.0 Smear Tech's Comments VERIFIED Anion Gap 17 Estim Creat Clear Calc 49.7 Estimated GFR 40 Random Glucose 102 Osmolality Calcium 7.4 L D Phosphorus 3.0 Magnesium 2.9 H Total Bilirubin 8.4 H Direct Bilirubin AST 556 H ALT 182 H Alkaline Phosphatase 832 H Troponin I High Sens B-Natriuretic Peptide Total Protein 5.0 L Albumin 3.1 L Lipase Urine Color Urine Appearance Urine pH Ur Specific [place] Urine Protein Urine Glucose (UA) Urine Ketones Urine Blood Urine Nitrite Ur Leukocyte Esterase Urine RBC Urine WBC Ur Squamous Epith Cells Urine Bacteria Hyaline Casts Urine Osmolality Ur Random Sodium Ur Random Potassium Ur Random Chloride Imaging Radiologist's Impressions: Impressions Chest X-Ray 08/02/24 10:20 IMPRESSION: 1. Interval placement of right chest port in good position. 2. Interval development moderate-sized right effusion with presumed compressive atelectasis right lower lobe. 3. Left lung appears clear. Electronically signed by: Yonny Barcenas MD 08/02/2024 10:37 AM [facility] [place] Assessment and Plan (1) Carcinoma of gall bladder: Status: Acute (2) Hyperbilirubinemia: Status: Acute (3) Hyponatremia: Status: Acute Plan Assessment: 53-year-old gentleman with underlying metastatic gallbladder cancer admitted with hyponatremia likely secondary to poor solute intake. Plan: Neuro: No acute issues. Cardiac: No acute issues. Pulmonary: No acute issues. Renal: Hyponatremia, likely secondary to poor solute intake, also with volume depletion. Continue IV fluid resuscitation. Continue to monitor electrolytes. Endo: No acute issues. GI: Hyperbilirubinemia and transaminitis secondary to underlying cholangiocarcinoma with liver metastasis. ID: No acute issues Heme/Onc: No acute issues. Psych: No acute issues. Miscellaneous: No acute issues. Prophylaxis: Heparin Diet: Regular
--- NOTE | 2024-08-03 09:29 | P.PNCC_ITS ---
Subjective Subjective Date of Service: 08/03/24 Interval History: 53-year-old gentleman with underlying biliary cancer with liver metastasis who was planned initiation chemotherapy on 08/02/2024, however pre chemotherapy laboratory studies showed hyponatremia with sodium 116 patient was to emergency room. Patient endorsed poor p.o. intake for the last 3-4 weeks. He denied any other complaints. Patient was admitted to intensive care close monitoring and started on IV fluids. Secondary to leukocytosis with left shift he was started on empiric antibiotics. No events overnight. Sodium level improved. Critical Care Time (minutes): 0 Physical Exam 2 Vital Signs: Vital Signs: Last Vital Signs Temp 98.5 F 08/03/24 08:00 Pulse 94 08/03/24 09:00 Resp 23 H 08/03/24 09:00 BP 118/56 L 08/03/24 09:00 Pulse Ox 94 08/03/24 09:00 O2 Del Method Room Air 08/03/24 09:00 BMI result Body Mass Index 32.1 Const: General: no acute distress, alert, awake and other (Jaundiced) Eyes: Sclerae: scleral abnormal (Icteric) EOM: EOMs intact bilaterally Neck: Neck: Yes no lymphadenopathy, Yes trachea midline and Yes supple Resp: Effort & Inspection: normal respiratory effort and no respiratory distress Auscultation: clear to auscultation bilaterally Cardio: Rate: regular rate Rhythm: regular rhythm Heart sounds: no gallops, no murmurs and no rubs GI: Palpation (GI): Soft to palpation and Other GI palpation findings present ( Nontender) Auscultation: normal bowel sounds Extrem: General: Yes no pedal edema, No clubbing and No cyanosis Objective Data Labs 08/03/24 04:29 08/03/24 04:29 Labs: Laboratory Results - last 24 hr 08/02/24 08/02/24 08/03/24 10:40 15:32 00:38 WBC 17.7 H RBC 3.78 L Hgb 11.0 L Hct 31.0 L MCV 82.0 MCH 29.1 MCHC 35.5 RDW 13.2 Plt Count 246 MPV 9.5 Immature Gran % (Auto) 1.4 H Neut % (Auto) 92.9 H Lymph % (Auto) 2.1 L [place] % (Auto) 3.3 Eos % (Auto) 0.1 Baso % (Auto) 0.2 Lymph # (Auto) 0.4 L [place] # (Auto) 0.6 Eos # (Auto) 0.0 Baso # (Auto) 0.0 Abs Immat Gran (auto) 0.24 H Absolute Neuts (auto) 16.4 H Absolute Nucleated RBC 0.000 Nucleated RBC % (auto) 0.0 Smear Tech's Comments Sodium 116 L* 119 L* 121 L Potassium 4.7 5.0 4.5 Chloride 86 L 89 L 91 L Carbon Dioxide 20 L 18 L 16 L Anion Gap 15 17 19 BUN 48 H 45 H 46 H Creatinine 2.21 H 1.95 H 1.74 H Estim Creat Clear Calc 39.8 45.1 50.6 Estimated GFR 31 36 41 Random Glucose 117 H 111 108 Osmolality 261 L Calcium 6.4 L 6.8 L D 6.9 L Phosphorus Magnesium Total Bilirubin 9.0 H 8.2 H Direct Bilirubin 7.2 H AST 730 H 590 H ALT 236 H 194 H Alkaline Phosphatase 991 H 848 H Troponin I High Sens < 2.7 B-Natriuretic Peptide 24 Total Protein 4.8 L 5.0 L Albumin 2.5 L 3.0 L Lipase 52 Urine Color Dark Yellow Urine Appearance Cloudy Urine pH 5.0 Ur Specific [place] 1.020 Urine Protein Trace Urine Glucose (UA) Negative Urine Ketones Negative Urine Blood Negative Urine Nitrite Negative Ur Leukocyte Esterase Trace H Urine RBC 0-2 Urine WBC 0-5 Ur Squamous Epith Cells 6-10 Urine Bacteria None Seen Hyaline Casts 11-20 Urine Osmolality 454 Ur Random Sodium < 20.0 Ur Random Potassium 50.2 Ur Random Chloride < 20.0 08/03/24 04:29 WBC 19.7 H RBC 3.39 L Hgb 9.6 L Hct 27.6 L MCV 81.4 MCH 28.3 MCHC 34.8 RDW 13.3 Plt Count 236 MPV 9.5 Immature Gran % (Auto) 2.3 H Neut % (Auto) 91.9 H Lymph % (Auto) 2.0 L [place] % (Auto) 3.6 Eos % (Auto) 0.0 Baso % (Auto) 0.2 Lymph # (Auto) 0.4 L [place] # (Auto) 0.7 Eos # (Auto) 0.0 Baso # (Auto) 0.0 Abs Immat Gran (auto) 0.46 H Absolute Neuts (auto) 18.1 H Absolute Nucleated RBC 0.000 Nucleated RBC % (auto) 0.0 Smear Tech's Comments VERIFIED Sodium 121 L Potassium 4.5 Chloride 91 L Carbon Dioxide 18 L Anion Gap 17 BUN 48 H Creatinine 1.77 H Estim Creat Clear Calc 49.7 Estimated GFR 40 Random Glucose 102 Osmolality Calcium 7.4 L D Phosphorus 3.0 Magnesium 2.9 H Total Bilirubin 8.4 H Direct Bilirubin AST 556 H ALT 182 H Alkaline Phosphatase 832 H Troponin I High Sens B-Natriuretic Peptide Total Protein 5.0 L Albumin 3.1 L Lipase Urine Color Urine Appearance Urine pH Ur Specific [place] Urine Protein Urine Glucose (UA) Urine Ketones Urine Blood Urine Nitrite Ur Leukocyte Esterase Urine RBC Urine WBC Ur Squamous Epith Cells Urine Bacteria Hyaline Casts Urine Osmolality Ur Random Sodium Ur Random Potassium Ur Random Chloride Progress Note: A&P Assessment and plan (1) Hyperbilirubinemia: Status: Acute (2) Carcinoma of gall bladder: Status: Acute (3) Acute hyponatremia: Status: Acute (4) SANDY (acute kidney injury): Status: Acute Plan Assessment: 53-year-old gentleman with underlying metastatic gallbladder cancer admitted with hyponatremia likely secondary to poor solute intake. Plan: Neuro: No acute issues. Cardiac: No acute issues. Pulmonary: No acute issues. Renal: Hyponatremia and acute kidney injury, likely secondary to poor solute intake, also with volume depletion, improving. Continue to monitor electrolytes. Endo: No acute issues. GI: Hyperbilirubinemia and transaminitis secondary to underlying cholangiocarcinoma with liver metastasis. ID: No acute issues Heme/Onc: No acute issues. Psych: No acute issues. Miscellaneous: No acute issues. Prophylaxis: Heparin Diet: Regular Quality Stroke Does the patient have a stroke diagnosis?: No VTE Prior VTE?: No VTE Risk Level:: Medical - moderate - high VTE Device Contraindication: Treatment Not Indicated VTE Drug Contraindication: N/A - Med Ordered
--- NOTE | 2024-08-03 10:38 | PC.NURSE ---
Transfer order received, downgrade to [employer] [employer]. Standing order to remove leigh catheter before transfer out of unit. Catheter removed at 1030 patient educated on the voiding trial, patient tolerated procedure well, small amount of blood noticed on the tip of the catheter, patient due to void by 1630, will continue to monitor.
--- NOTE | 2024-08-03 14:33 | MHC.CM.PN ---
Met with pt for review of d/c planning needs: pt resides alone, independent with ADL's. No DME or services used. Pt to begin chemo for gallbladder malignancy: HCP on file - verified. Pt has transportation to home. No additional needs identified. CM to follow
--- NOTE | 2024-08-03 15:26 | P.PNNP_ITS ---
Subjective Subjective Date of Service: 08/03/24 Interval history: 53-year-old gentleman with underlying biliary cancer with liver metastasis who was planned initiation chemotherapy on 08/02/2024, however pre chemotherapy laboratory studies showed hyponatremia with sodium 116 patient was to emergency room. Patient endorsed poor p.o. intake for the last 3-4 weeks. He denied any other complaints. Patient was admitted to intensive care close monitoring and started on IV fluids. Secondary to leukocytosis with left shift he was started on empiric antibiotics. No events overnight. Sodium level improved. Creatinine is trending down Physical Exam 2 Vital Signs: Vital Signs: Last Vital Signs Temp 97.9 F 08/03/24 15:07 Pulse 94 08/03/24 15:07 Resp 18 08/03/24 15:07 BP 117/66 08/03/24 15:07 Pulse Ox 97 08/03/24 15:07 O2 Del Method Room Air 08/03/24 15:07 BMI result Body Mass Index 32.1 Const: General: ill appearing Neck: Neck: Yes supple Resp: Auscultation: clear to auscultation bilaterally Cardio: Palpation: no palpable S3 Heart sounds: no rubs GI: Palpation (GI): Soft to palpation Auscultation: normal bowel sounds Neuro: Motor exam (neuro): no asterixis Objective Data Labs 08/04/24 06:00 08/04/24 06:00 Labs: Laboratory Results - last 24 hr 08/02/24 08/03/24 08/03/24 15:32 00:38 04:29 WBC 19.7 H RBC 3.39 L Hgb 9.6 L Hct 27.6 L MCV 81.4 MCH 28.3 MCHC 34.8 RDW 13.3 Plt Count 236 MPV 9.5 Immature Gran % (Auto) 2.3 H Neut % (Auto) 91.9 H Lymph % (Auto) 2.0 L [place] % (Auto) 3.6 Eos % (Auto) 0.0 Baso % (Auto) 0.2 Lymph # (Auto) 0.4 L [place] # (Auto) 0.7 Eos # (Auto) 0.0 Baso # (Auto) 0.0 Abs Immat Gran (auto) 0.46 H Absolute Neuts (auto) 18.1 H Absolute Nucleated RBC 0.000 Nucleated RBC % (auto) 0.0 Smear Tech's Comments VERIFIED Sodium 119 L* 121 L 121 L Potassium 5.0 4.5 4.5 Chloride 89 L 91 L 91 L Carbon Dioxide 18 L 16 L 18 L Anion Gap 17 19 17 BUN 45 H 46 H 48 H Creatinine 1.95 H 1.74 H 1.77 H Estim Creat Clear Calc 45.1 50.6 49.7 Estimated GFR 36 41 40 Random Glucose 111 108 102 Calcium 6.8 L D 6.9 L 7.4 L D Phosphorus 3.0 Magnesium 2.9 H Total Bilirubin 8.2 H 8.4 H AST 590 H 556 H ALT 194 H 182 H Alkaline Phosphatase 848 H 832 H Total Protein 5.0 L 5.0 L Albumin 3.0 L 3.1 L Microbiology Microbiology Results: Microbiology 08/02/24 12:38 Blood - Venous Blood Culture - Preliminary No growth after 24 hours. 08/02/24 12:34 Blood - Venous Blood Culture - Preliminary No growth after 24 hours. Procedures Date of Service Date of Service: 08/04/24 Assessment & Plan Assessment and plan (1) SANDY (acute kidney injury): Status: Acute (2) Acute hyponatremia: Status: Acute Plan Significant hyponatremia with acute kidney injury in a setting of gallbladder tumor He probably has non osmotic ADH release leading to increase free water retention. Low urine sodium suggestive of hypoperfusion. Goal is to correct serum sodium rate of 0.5-1 millimole per L/hr. And not exceed more than 8-10 millimoles in a 24 hour. For now IV normal saline at 80 cc/hour. Keep checking serum sodium every 8-12 hours. No indication for hypotonic saline. Acute kidney injury is most likely due to hypoperfusion. Watch for obstructive obstruction. Ongoing tubular injury can not be excluded. Workup in progress No indication for dialysis. Shall follow along with the team. Time Spent With Patient Time: Total time managing care of this patient today ____ minutes. Progress Note: Quality Stroke Does the patient have a stroke diagnosis?: No
[2024-08-03] MEDS: Atorvastatin Calcium 10 MG TABLET PO (20:18)
[2024-08-03] MEDS: Tamsulosin HCL 0.4 MG CAPSULE PO (20:18)
[2024-08-03] MEDS: oxyCODONE HCl Immed Release 5 MG TABLET PO (20:59)
[2024-08-04] VITALS (7 sets, daily range): BP systolic 101–116; BP diastolic 55–59; PULSE 95–107; RESP 18–20; TEMP 36.2–37.6; O2SAT 92–94; BMI 31.1; BMI 32.1
[2024-08-04] MEDS: Piperacillin Sodium/Tazobactam 2.25 GM in 0.9 % Sodium Chloride 50 ML IV ×4 (01:20→17:50)
[2024-08-04] MEDS: oxyCODONE HCl Immed Release 5 MG TABLET PO ×3 (02:01→14:58)
[2024-08-04] MEDS: Heparin Sodium,Porcine 5,000 UNIT/ML VIAL 5000 UNIT SUBCUT ×3 (06:14→20:22)
[2024-08-04 07:01] LABS: Basophils Percent Auto 0.1 % (0-2); Hematocrit 29.5 % (42.0-52.0); Hemoglobin 10.5 g/dl (14.0-18.0); Imm Gran Abs Auto 0.34 X10*3/uL (0.00-0.03); Imm Gran Pct Auto 1.7 % (0.0-0.4); Lymphocytes Absolute Auto 0.6 X10*3/uL (1.2-4.9); Lymphocytes Percent Auto 2.9 % (20-40); MANUAL DIFF FLAG SCAN; Mean Corpuscular HGB Conc 35.6 g/dl (31.0-36.0); Mean Corpuscular Volume 81.5 fL (80.0-98.0); Mean Platelet Volume 9.9 fL (9.4-12.4); Monocytes Absolute Auto 1.1 X10*3/uL (0.1-1.2); Monocytes Percent Auto 5.1 % (2-11); Neutrophils Absolute Auto 18.5 x10*3/uL (2.0-8.3); Neutrophils Percent Auto 90.2 % (45-73); Platelet Count 247 X10*3/uL (160-400); Red Blood Count 3.62 X10*6/uL (4.60-5.80); Red Cell Distribution Width 13.5 % (11.0-16.0); SCAN SMEAR FLAG 1; White Blood Count 20.5 X10*3/uL (4.8-10.8)
[2024-08-04 07:13] LABS: Alanine Aminotransferase 210 U/L (0-40); Albumin Level 3.2 g/dL (3.5-5.0); Alkaline Phosphatase 1033 U/L (39-117); Anion Gap 19 (12-20); Aspartate Amino Transferase 632 U/L (5-37); Bilirubin Total 10.9 mg/dL (0.0-1.0); Blood Urea Nitrogen 57 mg/dL (9-16); Calcium 7.4 mg/dL (8.4-10.2); Carbon Dioxide 18 mmol/L (22-29); Chloride 90 mmol/L (96-108); Estimated Glomerular Filt Rate 30; Glucose Random 92 mg/dL (60-115); Phosphorus 3.6 mg/dL (2.7-4.5); Sodium 122 mmol/L (135-145); Total Protein 5.1 g/dL (6.5-8.0)
[2024-08-04 07:29] LABS: SLIDE REVIEW VERIFIED
[2024-08-04] MEDS: Tamsulosin HCL 0.4 MG CAPSULE PO ×2 (08:27→20:22)
[2024-08-04] MEDS: Bethanechol Chloride 25 MG TABLET 50 MG PO ×2 (12:09→20:22)
[2024-08-04] MEDS: 0.9 % Sodium Chloride 1,000 ML 50 ML IVCONT (13:05)
--- NOTE | 2024-08-04 15:07 | PM.PNNEP ---
Subjective Subjective Date of Service: 08/04/24 Interval history: 53-year-old gentleman with underlying biliary cancer with liver metastasis who was planned initiation chemotherapy on 08/02/2024, however pre chemotherapy laboratory studies showed hyponatremia with sodium 116 patient was to emergency room. Patient endorsed poor p.o. intake for the last 3-4 weeks. He denied any other complaints. Patient was admitted to intensive care close monitoring and started on IV fluids. Secondary to leukocytosis with left shift he was started on empiric antibiotics. No events overnight. Sodium level improved. Creatinine is up again Family at bedside Currently has hiccups Physical Exam Vital Signs: Vital Signs: Last Vital Signs Temp 98.4 F 08/04/24 11:29 Pulse 107 H 08/04/24 11:29 Resp 18 08/04/24 11:29 BP 101/59 L 08/04/24 11:29 Pulse Ox 93 08/04/24 11:29 O2 Del Method Room Air 08/04/24 11:29 BMI result Body Mass Index 32.1 Const: General: ill appearing Neck: Neck: Yes supple Resp: Auscultation: clear to auscultation bilaterally Cardio: Palpation: no palpable S3 Heart sounds: no rubs GI: Palpation (GI): Soft to palpation Auscultation: normal bowel sounds Neuro: Motor exam (neuro): no asterixis Objective Data Labs 08/04/24 06:00 08/04/24 06:00 Labs: Laboratory Results - last 24 hr 08/04/24 06:00 WBC 20.5 H RBC 3.62 L Hgb 10.5 L Hct 29.5 L MCV 81.5 MCH 29.0 MCHC 35.6 RDW 13.5 Plt Count 247 MPV 9.9 Immature Gran % (Auto) 1.7 H Neut % (Auto) 90.2 H Lymph % (Auto) 2.9 L [place] % (Auto) 5.1 Eos % (Auto) 0.0 Baso % (Auto) 0.1 Lymph # (Auto) 0.6 L [place] # (Auto) 1.1 Eos # (Auto) 0.0 Baso # (Auto) 0.0 Abs Immat Gran (auto) 0.34 H Absolute Neuts (auto) 18.5 H Absolute Nucleated RBC 0.000 Nucleated RBC % (auto) 0.0 Smear Tech's Comments VERIFIED Sodium 122 L Potassium 5.0 Chloride 90 L Carbon Dioxide 18 L Anion Gap 19 BUN 57 H Creatinine 2.32 H Estim Creat Clear Calc 40.0 Estimated GFR 30 Random Glucose 92 Calcium 7.4 L Phosphorus 3.6 Magnesium 3.0 H Total Bilirubin 10.9 H AST 632 H ALT 210 H Alkaline Phosphatase 1033 H Total Protein 5.1 L Albumin 3.2 L Microbiology Microbiology Results: Microbiology 08/02/24 12:38 Blood - Venous Blood Culture - Preliminary No growth after 48 hours. 08/02/24 12:34 Blood - Venous Blood Culture - Preliminary No growth after 48 hours. Procedures Date of Service Date of Service: 08/04/24 Assessment & Plan Assessment and plan (1) SANDY (acute kidney injury): Status: Acute (2) Acute hyponatremia: Status: Acute Plan Significant hyponatremia with acute kidney injury in a setting of gallbladder tumor He probably has non osmotic ADH release leading to increase free water retention. Low urine sodium suggestive of hypoperfusion. Goal is to correct serum sodium rate of 0.5-1 millimole per L/hr. And not exceed more than 8-10 millimoles in a 24 hour. DC IV Keep checking serum sodium every12 hours. No indication for hypertonic saline. Acute kidney injury is most likely due to hypoperfusion. Watch for obstructive obstruction. Ongoing tubular injury can not be excluded. Renal ultrasonogram ordered Workup in progress No indication for dialysis. Shall follow along with the team. Time Spent With Patient Time: Total time managing care of this patient today ____ minutes. Progress Note: Quality Stroke Does the patient have a stroke diagnosis?: No
--- NOTE | 2024-08-04 16:31 | P.PNIM_ITS ---
Subjective Subjective Date of Service: 08/04/24 Interval History: No acute issues overnight. Remains fatigued Review of Systems Denies chest pain Denies shortness of breath Denies nausea vomiting diarrhea Denies fever chills Physical Exam 2 Vital Signs: Vital Signs: Last Vital Signs Temp 97.2 F 08/04/24 15:24 Pulse 95 08/04/24 15:24 Resp 18 08/04/24 15:24 BP 107/57 L 08/04/24 15:24 Pulse Ox 94 08/04/24 15:24 O2 Del Method Room Air 08/04/24 15:24 BMI result Body Mass Index 32.1 Const: Other: Awake alert jaundice no acute distress Resp: Other: Clear to auscultation bilaterally no rales rhonchi or wheezes Cardio: Other: No S4; positive S1-S2; no S3 murmurs rubs or gallops GI: Other: Soft nontender nondistended normoactive bowel sounds Extrem: Other: Trace edema bilaterally Objective Data Active Medications Atorvastatin Calcium (Atorvastatin Calcium 10 Mg Tablet) 10 mg PO BEDTIME [facility] Last Admin: 08/03/24 20:18 Dose: 10 mg Documented By: JOSE D Bethanechol Chloride (Bethanechol Chloride 25 Mg Tablet) 50 mg PO BID [facility] Last Admin: 08/04/24 12:09 Dose: 50 mg Documented By: PATY Dexamethasone (Dexamethasone 2 Mg Tablet) 2 mg PO BID [facility] Last Admin: 08/04/24 08:22 Dose: Not Given Documented By: PATY Non-Admin Reason: Physician Held Med Heparin Sodium (Porcine) (Heparin Sodium,Porcine 5,000 Unit/Ml Vial) 5,000 unit SUBCUT Q8H [facility] Last Admin: 08/04/24 12:18 Dose: 5,000 unit Documented By: PATY Piperacillin Sod/Tazobactam (Sod 2.25 gm/ Sodium Chloride) 50 mls @ 100 mls/hr IV Q6H [facility] Last Infusion: 08/04/24 12:43 Dose: Infused Documented By: PATY Sodium Chloride (Ns) 1,000 mls @ 50 mls/hr IVCONT .Q20H [facility] Last Admin: 08/04/24 13:05 Dose: 50 mls/hr Documented By: PATY Oxycodone HCl (Oxycodone Hcl Immed Release 5 Mg Tablet) 5 mg PO Q6H PRN PRN Reason: pain (scale score 7-10) Last Admin: 08/04/24 14:58 Dose: 5 mg Documented By: PATY Tamsulosin HCl (Tamsulosin Hcl 0.4 Mg Capsule) 0.4 mg PO BID [place] Last Admin: 08/04/24 08:27 Dose: 0.4 mg Documented By: PATY Labs 08/04/24 06:00 08/04/24 06:00 Labs: Laboratory Results - last 24 hr 08/04/24 06:00 MCV 81.5 MCH 29.0 MCHC 35.6 RDW 13.5 Plt Count 247 MPV 9.9 Immature Gran % (Auto) 1.7 H Neut % (Auto) 90.2 H Lymph % (Auto) 2.9 L [place] % (Auto) 5.1 Eos % (Auto) 0.0 Baso % (Auto) 0.1 Lymph # (Auto) 0.6 L [place] # (Auto) 1.1 Eos # (Auto) 0.0 Baso # (Auto) 0.0 Abs Immat Gran (auto) 0.34 H Absolute Neuts (auto) 18.5 H Absolute Nucleated RBC 0.000 Nucleated RBC % (auto) 0.0 Smear Tech's Comments VERIFIED Anion Gap 19 Estim Creat Clear Calc 40.0 Estimated GFR 30 Random Glucose 92 Calcium 7.4 L Phosphorus 3.6 Magnesium 3.0 H Total Bilirubin 10.9 H AST 632 H ALT 210 H Alkaline Phosphatase 1033 H Total Protein 5.1 L Albumin 3.2 L Microbiology Microbiology Results: Microbiology 08/02/24 12:38 Blood Culture - Preliminary Blood - Venous No growth after 48 hours. 08/02/24 12:34 Blood Culture - Preliminary Blood - Venous No growth after 48 hours. Assessment and Plan (1) Hyponatremia: Status: Acute (2) SANDY (acute kidney injury): Status: Acute (3) Carcinoma of gall bladder: Status: Acute Plan 53-year-old male with underlying biliary cancer with liver metastasis who was plan initiation of chemotherapy on 08/02/2024 however pre chemotherapy labs demonstrated severe hyponatremia with sodium of 116. Patient admitted through ER. Also known to have acute kidney injury on admission 1. SANDY -appreciate nephrology input -gentle volume; normal saline solution at 50 cc an hour -oral fluid restriction of 1.5 L -follow renals/divalents 2. Hyponatremia -as above. . . Slowly responding -follow renals/divalents 3. Carcinoma of gallbladder with liver metastasis -outpatient follow up with Oncology 4. History of urinary retention -continue Flomax/bethanechol -periodic bladder scans Full code Heparin Patient will require ongoing hospitalization for gentle volume repletion to correct hyponatremia and acute kidney injury along with specialist consultation Quality Stroke Does the patient have a stroke diagnosis?: No VTE Prior VTE?: No VTE Risk Level:: Medical - moderate - high VTE Device Contraindication: Treatment Not Indicated VTE Drug Contraindication: N/A - Med Ordered
[2024-08-04] MEDS: Morphine Sulfate 4 MG/ML CARTRIDGE IVPUSH (18:20)
[2024-08-04] MEDS: dexAMETHasone 2 MG TABLET PO (20:22)
[2024-08-04] MEDS: Atorvastatin Calcium 10 MG TABLET PO (20:22)
[2024-08-05] VITALS (8 sets, daily range): BP systolic 94–113; BP diastolic 56–60; PULSE 86–102; RESP 11–20; TEMP 36.6–36.9; O2SAT 94–97; BMI 31.7
[2024-08-05] MEDS: Piperacillin Sodium/Tazobactam 2.25 GM in 0.9 % Sodium Chloride 50 ML IV ×3 (00:41→18:09)
[2024-08-05] MEDS: oxyCODONE HCl Immed Release 5 MG TABLET PO ×3 (02:33→16:11)
[2024-08-05] MEDS: Heparin Sodium,Porcine 5,000 UNIT/ML VIAL 5000 UNIT SUBCUT ×2 (05:35→18:10)
[2024-08-05 07:15] LABS: MANUAL DIFF FLAG NO
[2024-08-05 07:20] LABS: Basophils Percent Auto 0.2 % (0-2); Eosinophils Percent Auto 0.1 % (0-4); Hematocrit 28.7 % (42.0-52.0); Hemoglobin 10.1 g/dl (14.0-18.0); Imm Gran Abs Auto 0.65 X10*3/uL (0.00-0.03); Imm Gran Pct Auto 3.3 % (0.0-0.4); Lymphocytes Absolute Auto 0.5 X10*3/uL (1.2-4.9); Lymphocytes Percent Auto 2.5 % (20-40); Mean Corpuscular HGB Conc 35.2 g/dl (31.0-36.0); Mean Corpuscular Hemoglobin 28.7 pg (27.0-33.0); Mean Corpuscular Volume 81.5 fL (80.0-98.0); Mean Platelet Volume 9.9 fL (9.4-12.4); Monocytes Absolute Auto 0.8 X10*3/uL (0.1-1.2); Monocytes Percent Auto 4.1 % (2-11); Neutrophils Absolute Auto 17.6 x10*3/uL (2.0-8.3); Neutrophils Percent Auto 89.8 % (45-73); Platelet Count 188 X10*3/uL (160-400); Red Blood Count 3.52 X10*6/uL (4.60-5.80); Red Cell Distribution Width 13.8 % (11.0-16.0); White Blood Count 19.6 X10*3/uL (4.8-10.8)
[2024-08-05 07:53] LABS: Alanine Aminotransferase 264 U/L (0-40); Alkaline Phosphatase 1050 U/L (39-117); Aspartate Amino Transferase 847 U/L (5-37); Bilirubin Total 11.8 mg/dL (0.0-1.0); Blood Urea Nitrogen 71 mg/dL (9-16); Calcium 6.8 mg/dL (8.4-10.2); Creatinine Clr Calc Pharmacy 32.1; Estimated Glomerular Filt Rate 23; Glucose Fasting 101 mg/dL (60-99)
[2024-08-05 08:08] LABS: Anion Gap 20 (12-20); Carbon Dioxide 17 mmol/L (22-29); Chloride 88 mmol/L (96-108); Potassium 5.4 mmol/L (3.3-5.1); Sodium 120 mmol/L (135-145)
[2024-08-05] MEDS: 0.9 % Sodium Chloride 1,000 ML 50 ML IVCONT (09:14)
[2024-08-05] MEDS: Sodium Zirconium Cyclosilicate 10 GM POWD.PACK PO (09:14)
[2024-08-05] MEDS: Bethanechol Chloride 25 MG TABLET 50 MG PO ×2 (09:15→20:03)
[2024-08-05] MEDS: Tamsulosin HCL 0.4 MG CAPSULE PO ×2 (09:15→20:03)
[2024-08-05] MEDS: Sodium Bicarbonate 650 MG TABLET PO ×3 (09:15→20:03)
[2024-08-05] MEDS: dexAMETHasone 2 MG TABLET PO ×2 (09:15→20:03)
--- NOTE | 2024-08-05 10:43 | MHC.CM.PN ---
Per ROUNDS discussion, Patient is not yet medically cleared for dc (Low Na); Home is the goal and CM will continue to follow.
--- NOTE | 2024-08-05 14:10 | PM.PROC ---
Brief Operative Note Date of procedure: 08/05/24 Pre-op diagnosis: SANDY Post-op diagnosis: same Procedure: Tonio catheter placement -Left IJ 20 cm Tonio placed. Tip at cavoatrial junction. Ok for use. Anesthesia: local
--- NOTE | 2024-08-05 14:27 | P.PNIM_ITS ---
Subjective Subjective Date of Service: 08/05/24 Interval History: Continues to feel fatigued; no acute issues overnight Review of Systems Denies chest pain Denies shortness of breath Denies nausea vomiting diarrhea Denies fever chills Physical Exam 2 Vital Signs: Vital Signs: Last Vital Signs Temp 98.5 F 08/05/24 11:51 Pulse 91 08/05/24 13:58 Resp 11 L 08/05/24 13:58 BP 112/60 08/05/24 13:58 Pulse Ox 95 08/05/24 13:58 O2 Del Method Room Air 08/05/24 13:58 BMI result Body Mass Index 31.7 Const: Other: Awake alert jaundice no acute distress Resp: Other: Clear to auscultation bilaterally no rales rhonchi or wheezes Cardio: Other: No S4; positive S1-S2; no S3 murmurs rubs or gallops GI: Other: Soft nontender nondistended normoactive bowel sounds Extrem: Other: Trace edema bilaterally Objective Data Active Medications Atorvastatin Calcium (Atorvastatin Calcium 10 Mg Tablet) 10 mg PO BEDTIME [facility] Last Admin: 08/04/24 20:22 Dose: 10 mg Documented By: BRUNO Bethanechol Chloride (Bethanechol Chloride 25 Mg Tablet) 50 mg PO BID [facility] Last Admin: 08/05/24 09:15 Dose: 50 mg Documented By: INA Dexamethasone (Dexamethasone 2 Mg Tablet) 2 mg PO BID [facility] Last Admin: 08/05/24 09:15 Dose: 2 mg Documented By: INA Heparin Sodium (Porcine) (Heparin Sodium,Porcine 5,000 Unit/Ml Vial) 5,000 unit SUBCUT Q8H [facility] Last Admin: 08/05/24 05:35 Dose: 5,000 unit Documented By: BRUNO Piperacillin Sod/Tazobactam (Sod 2.25 gm/ Sodium Chloride) 50 mls @ 100 mls/hr IV Q6H [facility] Last Infusion: 08/05/24 06:05 Dose: Infused Documented By: BRUNO Sodium Chloride (Ns) 1,000 mls @ 50 mls/hr IVCONT .Q20H [facility] Last Admin: 08/05/24 09:14 Dose: 50 mls/hr Documented By: INA Morphine Sulfate (Morphine Sulfate 4 Mg/Ml Cartridge) 4 mg IVPUSH Q4H PRN; Protocol PRN Reason: Pain, Moderate(Pain Scale 4-6) Last Admin: 08/04/24 18:20 Dose: 4 mg Documented By: PATY Oxycodone HCl (Oxycodone Hcl Immed Release 5 Mg Tablet) 5 mg PO Q6H PRN PRN Reason: pain (scale score 7-10) Last Admin: 08/05/24 09:17 Dose: 5 mg Documented By: INA Sodium Bicarbonate (Sodium Bicarbonate 650 Mg Tablet) 650 mg PO TID [facility] Last Admin: 08/05/24 09:15 Dose: 650 mg Documented By: INA Tamsulosin HCl (Tamsulosin Hcl 0.4 Mg Capsule) 0.4 mg PO BID [facility] Last Admin: 08/05/24 09:15 Dose: 0.4 mg Documented By: INA Labs 08/05/24 06:59 08/05/24 06:59 Labs: Laboratory Results - last 24 hr 08/05/24 06:59 MCV 81.5 MCH 28.7 MCHC 35.2 RDW 13.8 Plt Count 188 MPV 9.9 Immature Gran % (Auto) 3.3 H Neut % (Auto) 89.8 H Lymph % (Auto) 2.5 L [place] % (Auto) 4.1 Eos % (Auto) 0.1 Baso % (Auto) 0.2 Lymph # (Auto) 0.5 L [place] # (Auto) 0.8 Eos # (Auto) 0.0 Baso # (Auto) 0.0 Abs Immat Gran (auto) 0.65 H Absolute Neuts (auto) 17.6 H Absolute Nucleated RBC 0.000 Nucleated RBC % (auto) 0.0 Anion Gap 20 Estim Creat Clear Calc 32.1 Estimated GFR 23 Fasting Glucose 101 H Calcium 6.8 L D Total Bilirubin 11.8 H AST 847 H ALT 264 H Alkaline Phosphatase 1050 H Total Protein 5.0 L Albumin 3.0 L Microbiology Microbiology Results: Microbiology 08/02/24 12:38 Blood Culture - Preliminary Blood - Venous No growth after 48 hours. 08/02/24 12:34 Blood Culture - Preliminary Blood - Venous No growth after 48 hours. Assessment and Plan (1) SANDY (acute kidney injury): Status: Acute Plan 53-year-old male with underlying biliary cancer with liver metastasis who was plan initiation of chemotherapy on 08/02/2024 however pre chemotherapy labs demonstrated severe hyponatremia with sodium of 116. Patient admitted through ER. Also known to have acute kidney injury on admission 1. SANDY -discussed with Renal; creatinine rising along with potassium -tunnel catheter placed by IR -to our HD today then as per renal -follow renals/divalents 2. Hyponatremia -as above. . . Slowly responding -follow renals/divalents 3. Carcinoma of gallbladder with liver metastasis -outpatient follow up with Oncology 4. History of urinary retention -continue Flomax/bethanechol -continue Jaime at this time Full code Heparin Patient will require ongoing hospitalization for gentle volume repletion to correct hyponatremia and acute kidney injury along with specialist consultation Quality Stroke Does the patient have a stroke diagnosis?: No VTE Prior VTE?: No VTE Risk Level:: Medical - moderate - high VTE Device Contraindication: Treatment Not Indicated VTE Drug Contraindication: N/A - Med Ordered
--- NOTE | 2024-08-05 18:16 | P.PNNP_ITS ---
Subjective Subjective Date of Service: 08/05/24 Interval history: Continues to feel fatigued; no acute issues overnight Progressively getting weak Physical Exam 2 Vital Signs: Vital Signs: Last Vital Signs Temp 98.5 F 08/05/24 11:51 Pulse 91 08/05/24 13:58 Resp 11 L 08/05/24 13:58 BP 112/60 08/05/24 13:58 Pulse Ox 95 08/05/24 13:58 O2 Del Method Room Air 08/05/24 13:58 BMI result Body Mass Index 31.7 Const: General: ill appearing Neck: Neck: Yes supple Resp: Auscultation: clear to auscultation bilaterally Cardio: Palpation: no palpable S3 Heart sounds: no rubs GI: Palpation (GI): Soft to palpation Auscultation: normal bowel sounds Neuro: Motor exam (neuro): no asterixis Objective Data Labs 08/05/24 06:59 08/05/24 06:59 Labs: Laboratory Results - last 24 hr 08/05/24 06:59 WBC 19.6 H RBC 3.52 L Hgb 10.1 L Hct 28.7 L MCV 81.5 MCH 28.7 MCHC 35.2 RDW 13.8 Plt Count 188 MPV 9.9 Immature Gran % (Auto) 3.3 H Neut % (Auto) 89.8 H Lymph % (Auto) 2.5 L [place] % (Auto) 4.1 Eos % (Auto) 0.1 Baso % (Auto) 0.2 Lymph # (Auto) 0.5 L [place] # (Auto) 0.8 Eos # (Auto) 0.0 Baso # (Auto) 0.0 Abs Immat Gran (auto) 0.65 H Absolute Neuts (auto) 17.6 H Absolute Nucleated RBC 0.000 Nucleated RBC % (auto) 0.0 Sodium 120 L* Potassium 5.4 H Chloride 88 L Carbon Dioxide 17 L Anion Gap 20 BUN 71 H Creatinine 2.89 H Estim Creat Clear Calc 32.1 Estimated GFR 23 Fasting Glucose 101 H Calcium 6.8 L D Total Bilirubin 11.8 H AST 847 H ALT 264 H Alkaline Phosphatase 1050 H Total Protein 5.0 L Albumin 3.0 L Microbiology Microbiology Results: Microbiology 08/02/24 12:38 Blood - Venous Blood Culture - Preliminary No growth after 48 hours. 08/02/24 12:34 Blood - Venous Blood Culture - Preliminary No growth after 48 hours. Procedures Date of Service Date of Service: 08/05/24 Assessment & Plan Assessment and plan (1) SANDY (acute kidney injury): Status: Acute (2) Acute hyponatremia: Status: Acute Plan Significant hyponatremia with acute kidney injury in a setting of gallbladder tumor He probably has non osmotic ADH release leading to increase free water retention. Low urine sodium suggestive of hypoperfusion. Goal is to correct serum sodium rate of 0.5-1 millimole per L/hr. And not exceed more than 8-10 millimoles in a 24 hour. DC IV Keep checking serum sodium every12 hours. No indication for hypertonic saline. Acute kidney injury is most likely due to hypoperfusion. Based on USG, NO obstructive obstruction. Ongoing tubular injury can not be excluded. Workup in progress Mild Hyperkalmia with oliguria Isert IJ dialysis catheter Start dialysis today with low K bath Next HD tomorrow( thursday) Time Spent With Patient Time: Total time managing care of this patient today ____ minutes. Progress Note: Quality Stroke Does the patient have a stroke diagnosis?: No
[2024-08-05] MEDS: Morphine Sulfate 4 MG/ML CARTRIDGE IVPUSH (20:02)
[2024-08-05] MEDS: Atorvastatin Calcium 10 MG TABLET PO (20:03)
[2024-08-06] VITALS: BP 114/61; PULSE 94; RESP 14; TEMP 37.1; O2SAT 94
[2024-08-06] MEDS: Piperacillin Sodium/Tazobactam 2.25 GM in 0.9 % Sodium Chloride 50 ML IV ×5 (00:04→23:41)
[2024-08-06 03:18] VITALS: BP 112/56; PULSE 91; RESP 16; TEMP 36.6; O2SAT 93
[2024-08-06] MEDS: 0.9 % Sodium Chloride 1,000 ML 50 ML IVCONT (05:21)
[2024-08-06] MEDS: Heparin Sodium,Porcine 5,000 UNIT/ML VIAL 5000 UNIT SUBCUT ×3 (05:22→22:01)
[2024-08-06] MEDS: oxyCODONE HCl Immed Release 5 MG TABLET PO ×2 (05:30→14:20)
[2024-08-06 07:42] VITALS: BP 104/60; PULSE 90; RESP 18; TEMP 36.7; O2SAT 96
[2024-08-06 07:58] LABS: Basophils Percent Auto 0.2 % (0-2); Eosinophils Absolute Auto 0.1 X10*3/uL (0.0-0.4); Eosinophils Percent Auto 0.5 % (0-4); Hematocrit 28.5 % (42.0-52.0); Hemoglobin 10.2 g/dl (14.0-18.0); Imm Gran Abs Auto 0.81 X10*3/uL (0.00-0.03); Imm Gran Pct Auto 3.6 % (0.0-0.4); Lymphocytes Absolute Auto 0.5 X10*3/uL (1.2-4.9); Lymphocytes Percent Auto 2.2 % (20-40); MANUAL DIFF FLAG SCAN; Mean Corpuscular HGB Conc 35.8 g/dl (31.0-36.0); Mean Corpuscular Hemoglobin 29.1 pg (27.0-33.0); Mean Corpuscular Volume 81.4 fL (80.0-98.0); Monocytes Percent Auto 4.3 % (2-11); Neutrophils Absolute Auto 20.1 x10*3/uL (2.0-8.3); Neutrophils Percent Auto 89.2 % (45-73); Platelet Count 181 X10*3/uL (160-400); Red Cell Distribution Width 14.1 % (11.0-16.0); SCAN SMEAR FLAG 1; White Blood Count 22.5 X10*3/uL (4.8-10.8)
[2024-08-06 08:00] VITALS: BMI 31.9
[2024-08-06 08:22] LABS: SLIDE REVIEW VERIFIED
[2024-08-06 08:32] LABS: Alanine Aminotransferase 244 U/L (0-40); Albumin Level 2.8 g/dL (3.5-5.0); Alkaline Phosphatase 1058 U/L (39-117); Anion Gap 20 (12-20); Aspartate Amino Transferase 746 U/L (5-37); Bilirubin Total 11.9 mg/dL (0.0-1.0); Blood Urea Nitrogen 68 mg/dL (9-16); Calcium 6.9 mg/dL (8.4-10.2); Carbon Dioxide 15 mmol/L (22-29); Chloride 94 mmol/L (96-108); Estimated Glomerular Filt Rate 29; Glucose Fasting 105 mg/dL (60-99); Potassium 4.8 mmol/L (3.3-5.1); Sodium 124 mmol/L (135-145); Total Protein 4.7 g/dL (6.5-8.0)
[2024-08-06 08:44] LABS: HBc Num1 0.48 S/CO (0.00-0.79); Hepatitis B Core Antibody Nonreactive (Nonreactive); Hepatitis B Surface Antigen Negative (Negative); ~Hepatitis B Surface Antibody NONREACTIVE (Nonreactive)
[2024-08-06] MEDS: Bethanechol Chloride 25 MG TABLET 50 MG PO ×2 (09:17→22:00)
[2024-08-06] MEDS: Tamsulosin HCL 0.4 MG CAPSULE PO ×2 (09:17→22:00)
[2024-08-06] MEDS: dexAMETHasone 2 MG TABLET PO ×2 (09:18→22:00)
[2024-08-06] MEDS: Sodium Bicarbonate 650 MG TABLET PO ×3 (09:18→22:00)
--- NOTE | 2024-08-06 13:06 | HO.PM.IMPN ---
Subjective Subjective Date of Service: 08/06/24 Interval History: Dialysis tolerated well other than worsening fatigue. No acute issues overnight Review of Systems Denies chest pain Denies shortness of breath Denies nausea vomiting diarrhea Denies fever chills Physical Exam Vital Signs: Vital Signs: Last Vital Signs Temp 98.0 F 08/06/24 07:42 Pulse 90 08/06/24 07:42 Resp 18 08/06/24 07:42 BP 104/60 08/06/24 07:42 Pulse Ox 96 08/06/24 07:42 O2 Del Method Room Air 08/06/24 07:42 BMI result Body Mass Index 31.7 Const: Other: Awake alert jaundice no acute distress Resp: Other: Clear to auscultation bilaterally no rales rhonchi or wheezes Cardio: Other: No S4; positive S1-S2; no S3 murmurs rubs or gallops GI: Other: Soft nontender nondistended normoactive bowel sounds Extrem: Other: Trace edema bilaterally Objective Data Active Medications Atorvastatin Calcium (Atorvastatin Calcium 10 Mg Tablet) 10 mg PO BEDTIME [facility] Last Admin: 08/05/24 20:03 Dose: 10 mg Documented By: ULISES Bethanechol Chloride (Bethanechol Chloride 25 Mg Tablet) 50 mg PO BID [facility] Last Admin: 08/06/24 09:17 Dose: 50 mg Documented By: EDWIGE Dexamethasone (Dexamethasone 2 Mg Tablet) 2 mg PO BID [facility] Last Admin: 08/06/24 09:18 Dose: 2 mg Documented By: EDWIGE Heparin Sodium (Porcine) (Heparin Sodium,Porcine 5,000 Unit/Ml Vial) 5,000 unit SUBCUT Q8H [facility] Last Admin: 08/06/24 05:22 Dose: 5,000 unit Documented By: SIVAKUMAR Piperacillin Sod/Tazobactam (Sod 2.25 gm/ Sodium Chloride) 50 mls @ 100 mls/hr IV Q6H [facility] Last Infusion: 08/06/24 05:50 Dose: Infused Documented By: ULISES Morphine Sulfate (Morphine Sulfate 4 Mg/Ml Cartridge) 4 mg IVPUSH Q4H PRN; Protocol PRN Reason: Pain, Moderate(Pain Scale 4-6) Last Admin: 08/05/24 20:02 Dose: 4 mg Documented By: ULISES Oxycodone HCl (Oxycodone Hcl Immed Release 5 Mg Tablet) 5 mg PO Q6H PRN PRN Reason: pain (scale score 7-10) Last Admin: 08/06/24 05:30 Dose: 5 mg Documented By: SIVAKUMAR Sodium Bicarbonate (Sodium Bicarbonate 650 Mg Tablet) 650 mg PO TID [facility] Last Admin: 08/06/24 09:18 Dose: 650 mg Documented By: EDWIGE Tamsulosin HCl (Tamsulosin Hcl 0.4 Mg Capsule) 0.4 mg PO BID [facility] Last Admin: 08/06/24 09:17 Dose: 0.4 mg Documented By: EDWIGE Labs 08/06/24 07:22 08/06/24 07:22 Labs: Laboratory Results - last 24 hr 08/05/24 08/06/24 14:36 07:22 MCV 81.4 MCH 29.1 MCHC 35.8 RDW 14.1 Plt Count 181 MPV 10.0 Immature Gran % (Auto) 3.6 H Neut % (Auto) 89.2 H Lymph % (Auto) 2.2 L [place] % (Auto) 4.3 Eos % (Auto) 0.5 Baso % (Auto) 0.2 Lymph # (Auto) 0.5 L [place] # (Auto) 1.0 Eos # (Auto) 0.1 Baso # (Auto) 0.0 Abs Immat Gran (auto) 0.81 H Absolute Neuts (auto) 20.1 H Absolute Nucleated RBC 0.000 Nucleated RBC % (auto) 0.0 Smear Tech's Comments VERIFIED Anion Gap 20 Estim Creat Clear Calc 39.0 Estimated GFR 29 Fasting Glucose 105 H Calcium 6.9 L Total Bilirubin 11.9 H AST 746 H ALT 244 H Alkaline Phosphatase 1058 H Total Protein 4.7 L Albumin 2.8 L Hep Bs Antigen Negative Hep Bs Antibody NONREACTIVE Hep B Core Total Ab Nonreactive Assessment and Plan (1) SANDY (acute kidney injury): Status: Acute (2) Acute hyponatremia: Status: Acute Plan 53-year-old male with underlying biliary cancer with liver metastasis who was plan initiation of chemotherapy on 08/02/2024 however pre chemotherapy labs demonstrated severe hyponatremia with sodium of 116. Patient admitted through ER. Also known to have acute kidney injury on admission 1. SANDY -HD repeated today; tolerating fairly well -follow renals/divalents 2. Hyponatremia -as above. . . Slowly responding -follow renals/divalents 3. Carcinoma of gallbladder with liver metastasis -outpatient follow up with Oncology 4. History of urinary retention -continue Flomax/bethanechol -continue Jaime at this time Full code Heparin Patient will require ongoing hospitalization for gentle volume repletion to correct hyponatremia and acute kidney injury along with specialist consultation Quality Stroke Does the patient have a stroke diagnosis?: No VTE Prior VTE?: No VTE Risk Level:: Medical - moderate - high VTE Device Contraindication: Treatment Not Indicated VTE Drug Contraindication: N/A - Med Ordered
[2024-08-06 16:00] VITALS: BP 105/56; PULSE 92; RESP 18; TEMP 36.8; O2SAT 96
[2024-08-06 19:51] VITALS: BP 100/58; PULSE 103; RESP 14; TEMP 37.2; O2SAT 94
[2024-08-06] MEDS: Atorvastatin Calcium 10 MG TABLET PO (22:07)
[2024-08-06 23:41] VITALS: BP 98/55; PULSE 105; RESP 18; TEMP 36.8; O2SAT 97
[2024-08-07] VITALS (7 sets, daily range): BP systolic 97–119; BP diastolic 48–60; PULSE 56–102; RESP 18–19; TEMP 36–36.7; O2SAT 90–94; BMI 62.1
[2024-08-07] MEDS: oxyCODONE HCl Immed Release 5 MG TABLET PO ×2 (01:05→07:50)
[2024-08-07] MEDS: Piperacillin Sodium/Tazobactam 2.25 GM in 0.9 % Sodium Chloride 50 ML IV ×3 (05:43→17:05)
[2024-08-07] MEDS: Heparin Sodium,Porcine 5,000 UNIT/ML VIAL 5000 UNIT SUBCUT ×3 (05:45→21:20)
[2024-08-07 07:31] LABS: Hematocrit 26.8 % (42.0-52.0); Hemoglobin 9.5 g/dl (14.0-18.0); Mean Corpuscular HGB Conc 35.4 g/dl (31.0-36.0); Mean Corpuscular Hemoglobin 28.6 pg (27.0-33.0); Mean Corpuscular Volume 80.7 fL (80.0-98.0); Red Blood Count 3.32 X10*6/uL (4.60-5.80); Red Cell Distribution Width 14.3 % (11.0-16.0)
[2024-08-07 07:48] LABS: Mean Platelet Volume 10.6 fL (9.4-12.4); Platelet Count 153 X10*3/uL (160-400)
[2024-08-07] MEDS: Bethanechol Chloride 25 MG TABLET 50 MG PO ×2 (07:50→21:20)
[2024-08-07] MEDS: dexAMETHasone 2 MG TABLET PO ×2 (07:50→21:21)
[2024-08-07] MEDS: Sodium Bicarbonate 650 MG TABLET PO ×3 (07:50→21:21)
[2024-08-07] MEDS: Tamsulosin HCL 0.4 MG CAPSULE PO ×2 (07:50→21:21)
[2024-08-07 08:03] LABS: Alanine Aminotransferase 229 U/L (0-40); Albumin Level 2.6 g/dL (3.5-5.0); Alkaline Phosphatase 1029 U/L (39-117); Anion Gap 19 (12-20); Aspartate Amino Transferase 703 U/L (5-37); Bilirubin Total 11.8 mg/dL (0.0-1.0); Blood Urea Nitrogen 60 mg/dL (9-16); Calcium 6.5 mg/dL (8.4-10.2); Carbon Dioxide 17 mmol/L (22-29); Chloride 96 mmol/L (96-108); Creatinine Clr Calc Pharmacy 31.1; Estimated Glomerular Filt Rate 22; Glucose Fasting 114 mg/dL (60-99); Potassium 4.4 mmol/L (3.3-5.1); Sodium 128 mmol/L (135-145); Total Protein 4.4 g/dL (6.5-8.0)
[2024-08-07 08:35] LABS: Band Neutrophils Percent 13 % (3-5); Metamyelocytes Absolute 0.2 X10*3/uL; Metamyelocytes Percent 1 %; Monocytes Absolute Manual 0.2 X10*3/uL (0.1-1.2); Monocytes Percent Manual 1 % (2-11); Myelocytes Absolute 0.2 X10*/uL; Myelocytes Percent 1 %; Neutrophils Absolute Manual 21.3 X10*3/uL (2.0-8.3); Neutrophils Percent Manual 84 % (45-73)
[2024-08-07 08:37] LABS: RBC Morphology NORMAL
[2024-08-07 08:38] LABS: Acanthocytes 2+ (3-5) /OIF; Hypochromasia 1+ (5-14) /OIF; Platelet Estimate NORMAL (NORMAL); Platelet Morphology Comment NORMAL; Schistocytes 1+ (0-2) /OIF
--- NOTE | 2024-08-07 14:11 | P.PNIM_ITS ---
Subjective Subjective Date of Service: 08/07/24 Interval History: Remains fatigued however tolerating dialysis Review of Systems Denies chest pain Denies shortness of breath Denies nausea vomiting diarrhea Denies fever chills Physical Exam 2 Vital Signs: Vital Signs: Last Vital Signs Temp 98.0 F 08/07/24 11:51 Pulse 102 H 08/07/24 11:51 Resp 18 08/07/24 11:51 BP 111/58 L 08/07/24 11:51 Pulse Ox 90 L 08/07/24 11:51 O2 Del Method Room Air 08/07/24 11:51 BMI result Body Mass Index 62.1 Const: Other: Awake alert jaundice no acute distress Resp: Other: Clear to auscultation bilaterally no rales rhonchi or wheezes Cardio: Other: No S4; positive S1-S2; no S3 murmurs rubs or gallops GI: Other: Soft nontender nondistended normoactive bowel sounds Extrem: Other: Trace edema bilaterally Objective Data Active Medications Atorvastatin Calcium (Atorvastatin Calcium 10 Mg Tablet) 10 mg PO BEDTIME [facility] Last Admin: 08/06/24 22:07 Dose: 10 mg Documented By: ULISES Bethanechol Chloride (Bethanechol Chloride 25 Mg Tablet) 50 mg PO BID [facility] Last Admin: 08/07/24 07:50 Dose: 50 mg Documented By: EDWIGE Dexamethasone (Dexamethasone 2 Mg Tablet) 2 mg PO BID [facility] Last Admin: 08/07/24 07:50 Dose: 2 mg Documented By: EDWIGE Heparin Sodium (Porcine) (Heparin Sodium,Porcine 5,000 Unit/Ml Vial) 5,000 unit SUBCUT Q8H [facility] Last Admin: 08/07/24 11:43 Dose: 5,000 unit Documented By: EDWIGE Piperacillin Sod/Tazobactam (Sod 2.25 gm/ Sodium Chloride) 50 mls @ 100 mls/hr IV Q6H [facility] Last Infusion: 08/07/24 12:16 Dose: Infused Documented By: EDWIGE Morphine Sulfate (Morphine Sulfate 4 Mg/Ml Cartridge) 4 mg IVPUSH Q4H PRN; Protocol PRN Reason: Pain, Severe (Pain Scale 7-10) Oxycodone HCl (Oxycodone Hcl Immed Release 5 Mg Tablet) 10 mg PO Q4H PRN PRN Reason: Pain, Moderate(Pain Scale 4-6) Sodium Bicarbonate (Sodium Bicarbonate 650 Mg Tablet) 650 mg PO TID [facility] Last Admin: 08/07/24 07:50 Dose: 650 mg Documented By: EDWIGE Tamsulosin HCl (Tamsulosin Hcl 0.4 Mg Capsule) 0.4 mg PO BID [facility] Last Admin: 08/07/24 07:50 Dose: 0.4 mg Documented By: EDWIGE Labs 08/07/24 07:15 08/07/24 07:15 Labs: Laboratory Results - last 24 hr 08/07/24 07:15 MCV 80.7 MCH 28.6 MCHC 35.4 RDW 14.3 Plt Count 153 L MPV 10.6 Immature Gran % (Auto) Cancelled Neut % (Auto) Cancelled Lymph % (Auto) Cancelled [place] % (Auto) Cancelled Eos % (Auto) Cancelled Baso % (Auto) Cancelled Lymph # (Auto) Cancelled [place] # (Auto) Cancelled Eos # (Auto) Cancelled Baso # (Auto) Cancelled Abs Immat Gran (auto) Cancelled Absolute Neuts (auto) Cancelled Absolute Nucleated RBC 0.000 Nucleated RBC % (auto) 0.0 Neutrophils % (Manual) 84 H Band Neutrophils % 13 H Monocytes % (Manual) 1 L Metamyelocytes % 1 Myelocytes % 1 Abs Neuts (Manual) 21.3 H Monocytes # (Manual) 0.2 Metamyelocytes # 0.2 Myelocytes # 0.2 Platelet Estimate NORMAL Plt Morphology Comment NORMAL RBC Morphology NORMAL Hypochromasia 1+ (5-14) Acanthocytes (Spur) 2+ (3-5) Schistocytes 1+ (0-2) Anion Gap 19 Estim Creat Clear Calc 31.1 Estimated GFR 22 Fasting Glucose 114 H Calcium 6.5 L Total Bilirubin 11.8 H AST 703 H ALT 229 H Alkaline Phosphatase 1029 H Total Protein 4.4 L Albumin 2.6 L Assessment and Plan (1) SANDY (acute kidney injury): Status: Acute (2) Hyponatremia: Status: Acute Plan 53-year-old male with underlying biliary cancer with liver metastasis who was plan initiation of chemotherapy on 08/02/2024 however pre chemotherapy labs demonstrated severe hyponatremia with sodium of 116. Patient admitted through ER. Also known to have acute kidney injury on admission 1. SANDY -HD as per enal -follow renals/divalents 2. Hyponatremia -as above. . . Slowly responding -follow renals/divalents 3. Carcinoma of gallbladder with liver metastasis -persistent white count -empirically cover with ceftriaxone -check abdominal ultrasound in a.m. 4. History of urinary retention -continue Flomax/bethanechol -continue Jaime at this time Full code Heparin Patient will require ongoing hospitalization for gentle volume repletion to correct hyponatremia and acute kidney injury along with specialist consultation Quality Stroke Does the patient have a stroke diagnosis?: No VTE Prior VTE?: No VTE Risk Level:: Medical - moderate - high VTE Device Contraindication: Treatment Not Indicated VTE Drug Contraindication: N/A - Med Ordered
[2024-08-07] MEDS: oxyCODONE HCl Immed Release 5 MG TABLET 10 MG PO (17:06)
[2024-08-07] MEDS: Atorvastatin Calcium 10 MG TABLET PO (21:20)
[2024-08-08] MEDS: Piperacillin Sodium/Tazobactam 2.25 GM in 0.9 % Sodium Chloride 50 ML IV ×4 (01:12→18:52)
[2024-08-08] MEDS: ondansetron HCL 4 MG/2 ML VIAL IVPUSH (01:12)
[2024-08-08 03:12] VITALS: BP 92/51; PULSE 99; RESP 18; TEMP 36.6; O2SAT 92
[2024-08-08] MEDS: Heparin Sodium,Porcine 5,000 UNIT/ML VIAL 5000 UNIT SUBCUT (05:44)
[2024-08-08] MEDS: oxyCODONE HCl Immed Release 5 MG TABLET 10 MG PO ×2 (05:49→14:26)
[2024-08-08 07:00] LABS: Hematocrit 29.6 % (42.0-52.0); Hemoglobin 10.5 g/dl (14.0-18.0); Mean Corpuscular HGB Conc 35.5 g/dl (31.0-36.0); Mean Corpuscular Hemoglobin 28.8 pg (27.0-33.0); Mean Corpuscular Volume 81.1 fL (80.0-98.0); Mean Platelet Volume 10.1 fL (9.4-12.4); Platelet Count 136 X10*3/uL (160-400); Red Blood Count 3.65 X10*6/uL (4.60-5.80); Red Cell Distribution Width 14.8 % (11.0-16.0); White Blood Count 23.5 X10*3/uL (4.8-10.8)
[2024-08-08 07:27] LABS: Alanine Aminotransferase 283 U/L (0-40); Albumin Level 2.9 g/dL (3.5-5.0); Alkaline Phosphatase 1303 U/L (39-117); Anion Gap 24 (12-20); Aspartate Amino Transferase 924 U/L (5-37); Bilirubin Total 13.7 mg/dL (0.0-1.0); Blood Urea Nitrogen 78 mg/dL (9-16); Calcium 6.8 mg/dL (8.4-10.2); Carbon Dioxide 16 mmol/L (22-29); Chloride 94 mmol/L (96-108); Glucose Fasting 109 mg/dL (60-99); Sodium 129 mmol/L (135-145)
[2024-08-08 07:31] LABS: Creatinine Clr Calc Pharmacy 32.4; Estimated Glomerular Filt Rate 15
[2024-08-08 07:40] LABS: Band Neutrophils Percent 10 % (3-5); Lymphocytes Absolute Manual 0.9 X10*3/uL (1.2-4.9); Lymphocytes Percent Manual 4 % (20-40); Metamyelocytes Absolute 0.5 X10*3/uL; Metamyelocytes Percent 2 %; Myelocytes Absolute 0.5 X10*/uL; Myelocytes Percent 2 %; Neutrophils Absolute Manual 21.6 X10*3/uL (2.0-8.3); Neutrophils Percent Manual 82 % (45-73)
[2024-08-08 07:44] LABS: Acanthocytes 1+ (0-2) /OIF; Hypochromasia 1+ (5-14) /OIF; Microcytosis 1+ (5-14) /OIF; Platelet Estimate DECREASED (NORMAL); Platelet Morphology Comment NORMAL; RBC Morphology NOTED
[2024-08-08 08:00] VITALS: BP 94/52; PULSE 92; RESP 16; TEMP 36.2; O2SAT 91; BMI 32.3
[2024-08-08] MEDS: Bethanechol Chloride 25 MG TABLET 50 MG PO ×2 (08:44→20:40)
[2024-08-08] MEDS: Tamsulosin HCL 0.4 MG CAPSULE PO ×2 (08:44→20:40)
[2024-08-08] MEDS: dexAMETHasone 2 MG TABLET PO (08:45)
[2024-08-08] MEDS: Sodium Bicarbonate 650 MG TABLET PO ×3 (08:45→20:40)
--- NOTE | 2024-08-08 11:39 | MHC.CM.PN ---
Per ROUNDS discussion, Patient is not yet medically cleared for dc (new HD) Patient may benefit from a PT Eval to assist with disposition. CM will follow.
--- NOTE | 2024-08-08 11:55 | PM.PNNEP ---
Subjective Subjective Date of Service: 08/08/24 Interval history: Remains fatigued however tolerating dialysis Family at bedside. He has had 2 dialysis thus far. Currently oliguric Physical Exam Vital Signs: Vital Signs: Last Vital Signs Temp 97.1 F 08/08/24 08:00 Pulse 92 08/08/24 08:00 Resp 16 08/08/24 08:00 BP 94/52 L 08/08/24 08:00 Pulse Ox 91 L 08/08/24 08:00 O2 Del Method Room Air 08/08/24 08:00 BMI result Body Mass Index 32.3 Const: General: ill appearing Neck: Neck: Yes supple Resp: Auscultation: clear to auscultation bilaterally Cardio: Palpation: no palpable S3 Heart sounds: no rubs GI: Palpation (GI): Soft to palpation Auscultation: normal bowel sounds Neuro: Motor exam (neuro): no asterixis Objective Data Labs 08/08/24 06:35 08/08/24 06:35 Labs: Laboratory Results - last 24 hr 08/08/24 06:35 WBC 23.5 H RBC 3.65 L Hgb 10.5 L Hct 29.6 L MCV 81.1 MCH 28.8 MCHC 35.5 RDW 14.8 Plt Count 136 L MPV 10.1 Immature Gran % (Auto) Cancelled Neut % (Auto) Cancelled Lymph % (Auto) Cancelled [place] % (Auto) Cancelled Eos % (Auto) Cancelled Baso % (Auto) Cancelled Lymph # (Auto) Cancelled [place] # (Auto) Cancelled Eos # (Auto) Cancelled Baso # (Auto) Cancelled Abs Immat Gran (auto) Cancelled Absolute Neuts (auto) Cancelled Absolute Nucleated RBC 0.000 Nucleated RBC % (auto) 0.0 Neutrophils % (Manual) 82 H Band Neutrophils % 10 H Lymphocytes % (Manual) 4 L Metamyelocytes % 2 Myelocytes % 2 Abs Neuts (Manual) 21.6 H Lymphocytes # (Manual) 0.9 L Metamyelocytes # 0.5 Myelocytes # 0.5 Platelet Estimate DECREASED Plt Morphology Comment NORMAL RBC Morphology NOTED Hypochromasia 1+ (5-14) Microcytosis 1+ (5-14) Acanthocytes (Spur) 1+ (0-2) Sodium 129 L Potassium 5.0 Chloride 94 L Carbon Dioxide 16 L Anion Gap 24 H BUN 78 H Creatinine 4.11 H* Estim Creat Clear Calc 32.4 Estimated GFR 15 Fasting Glucose 109 H Calcium 6.8 L Total Bilirubin 13.7 H AST 924 H ALT 283 H Alkaline Phosphatase 1303 H Total Protein 5.0 L Albumin 2.9 L Microbiology Microbiology Results: Microbiology 08/02/24 12:38 Blood - Venous Blood Culture - Final No growth after 5 days. 08/02/24 12:34 Blood - Venous Blood Culture - Final No growth after 5 days. Procedures Date of Service Date of Service: 08/08/24 Assessment & Plan Assessment and plan (1) SANDY (acute kidney injury): Status: Acute (2) Acute hyponatremia: Status: Acute Plan Significant hyponatremia with acute kidney injury in a setting of gallbladder tumor He probably has non osmotic ADH release leading to increase free water retention. Low urine sodium suggestive of hypoperfusion. Goal is to correct serum sodium rate of 0.5-1 millimole per L/hr. And not exceed more than 8-10 millimoles in a 24 hour. Acute kidney injury is most likely due to hypoperfusion and has progress to ATN. Based on USG, NO obstructive obstruction. Dialysis today. Watch for renal recovery. Overall prognosis guarded Time Spent With Patient Time: Total time managing care of this patient today ____ minutes. Progress Note: Quality Stroke Does the patient have a stroke diagnosis?: No
--- NOTE | 2024-08-08 15:09 | P.PNIM_ITS ---
Subjective Subjective Date of Service: 08/08/24 Interval History: Continues to decline. Jaundice more evident at this time. Extremely fatigued after dialysis Review of Systems Denies chest pain Denies shortness of breath Denies nausea vomiting diarrhea Denies fever chills Physical Exam 2 Vital Signs: Vital Signs: Last Vital Signs Temp 97.1 F 08/08/24 08:00 Pulse 92 08/08/24 08:00 Resp 16 08/08/24 08:00 BP 94/52 L 08/08/24 08:00 Pulse Ox 91 L 08/08/24 08:00 O2 Del Method Room Air 08/08/24 08:00 BMI result Body Mass Index 32.3 Const: Other: Awake alert jaundice no acute distress Resp: Other: Clear to auscultation bilaterally no rales rhonchi or wheezes Cardio: Other: No S4; positive S1-S2; no S3 murmurs rubs or gallops GI: Other: Soft nontender nondistended normoactive bowel sounds Extrem: Other: Trace edema bilaterally Objective Data Active Medications Atorvastatin Calcium (Atorvastatin Calcium 10 Mg Tablet) 10 mg PO BEDTIME [facility] Last Admin: 08/07/24 21:20 Dose: 10 mg Documented By: ZACKARY Bethanechol Chloride (Bethanechol Chloride 25 Mg Tablet) 50 mg PO BID [facility] Last Admin: 08/08/24 08:44 Dose: 50 mg Documented By: SAJAN Dexamethasone (Dexamethasone 2 Mg Tablet) 2 mg PO BID [facility] Last Admin: 08/08/24 08:45 Dose: 2 mg Documented By: SAJAN Heparin Sodium (Porcine) (Heparin Sodium,Porcine 5,000 Unit/Ml Vial) 5,000 unit SUBCUT Q8H [facility] Last Admin: 08/08/24 14:46 Dose: Not Given Documented By: SAJAN Non-Admin Reason: Off unit: Dialysis Piperacillin Sod/Tazobactam (Sod 2.25 gm/ Sodium Chloride) 50 mls @ 100 mls/hr IV Q6H [facility] Last Infusion: 08/08/24 14:49 Dose: Infused Documented By: SAJAN Morphine Sulfate (Morphine Sulfate 4 Mg/Ml Cartridge) 4 mg IVPUSH Q4H PRN; Protocol PRN Reason: Pain, Severe (Pain Scale 7-10) Ondansetron HCl (Ondansetron Hcl 4 Mg/2 Ml Vial) 4 mg IVPUSH Q6H PRN PRN Reason: Nausea and Vomiting Last Admin: 08/08/24 01:12 Dose: 4 mg Documented By: ZACKARY Oxycodone HCl (Oxycodone Hcl Immed Release 5 Mg Tablet) 10 mg PO Q4H PRN PRN Reason: Pain, Moderate(Pain Scale 4-6) Last Admin: 08/08/24 14:26 Dose: 10 mg Documented By: LIZETTE Sodium Bicarbonate (Sodium Bicarbonate 650 Mg Tablet) 650 mg PO TID [facility] Last Admin: 08/08/24 14:19 Dose: 650 mg Documented By: LIZETTE Tamsulosin HCl (Tamsulosin Hcl 0.4 Mg Capsule) 0.4 mg PO BID [facility] Last Admin: 08/08/24 08:44 Dose: 0.4 mg Documented By: SAJAN Labs 08/08/24 06:35 08/08/24 06:35 Labs: Laboratory Results - last 24 hr 08/08/24 06:35 MCV 81.1 MCH 28.8 MCHC 35.5 RDW 14.8 Plt Count 136 L MPV 10.1 Immature Gran % (Auto) Cancelled Neut % (Auto) Cancelled Lymph % (Auto) Cancelled [place] % (Auto) Cancelled Eos % (Auto) Cancelled Baso % (Auto) Cancelled Lymph # (Auto) Cancelled [place] # (Auto) Cancelled Eos # (Auto) Cancelled Baso # (Auto) Cancelled Abs Immat Gran (auto) Cancelled Absolute Neuts (auto) Cancelled Absolute Nucleated RBC 0.000 Nucleated RBC % (auto) 0.0 Neutrophils % (Manual) 82 H Band Neutrophils % 10 H Lymphocytes % (Manual) 4 L Metamyelocytes % 2 Myelocytes % 2 Abs Neuts (Manual) 21.6 H Lymphocytes # (Manual) 0.9 L Metamyelocytes # 0.5 Myelocytes # 0.5 Platelet Estimate DECREASED Plt Morphology Comment NORMAL RBC Morphology NOTED Hypochromasia 1+ (5-14) Microcytosis 1+ (5-14) Acanthocytes (Spur) 1+ (0-2) Anion Gap 24 H Estim Creat Clear Calc 32.4 Estimated GFR 15 Fasting Glucose 109 H Calcium 6.8 L Total Bilirubin 13.7 H AST 924 H ALT 283 H Alkaline Phosphatase 1303 H Total Protein 5.0 L Albumin 2.9 L Microbiology Microbiology Results: Microbiology 08/02/24 12:38 Blood Culture - Final Blood - Venous No growth after 5 days. 08/02/24 12:34 Blood Culture - Final Blood - Venous No growth after 5 days. Assessment and Plan (1) Carcinoma of gall bladder: Status: Acute Plan 53-year-old male with underlying biliary cancer with liver metastasis who was plan initiation of chemotherapy on 08/02/2024 however pre chemotherapy labs demonstrated severe hyponatremia with sodium of 116. Patient admitted through ER. Also known to have acute kidney injury on admission 1. SANDY -HD as per enal -follow renals/divalents 2. Hyponatremia -as above. . . Slowly responding -follow renals/divalents 3. Carcinoma of gallbladder with liver metastasis -persistent white count -empirically cover with -continues to decline. Discussion with patient and mother; patient wishes to be DNR DNI. We will change order 4. History of urinary retention -continue Flomax/bethanechol -continue Jaime at this time Full code Heparin Patient will require ongoing hospitalization for gentle volume repletion to correct hyponatremia and acute kidney injury along with specialist consultation Quality Stroke Does the patient have a stroke diagnosis?: No VTE Prior VTE?: No VTE Risk Level:: Medical - moderate - high VTE Device Contraindication: Treatment Not Indicated VTE Drug Contraindication: N/A - Med Ordered
[2024-08-08 15:46] VITALS: BP 98/56; PULSE 90; RESP 18; TEMP 36.3; O2SAT 92
--- NOTE | 2024-08-08 16:53 | PM.EVENT ---
Event Note Date of Service: 08/08/24 Event Note: Dr. No discussed with family, patient.. they do not want anymore dialysis, they want labs tomorrow, and leaning towards comfort care. Time Spent With Patient Time: Total time managing care of this patient today ____ minutes.
--- NOTE | 2024-08-08 17:58 | PM.HEMONCCN ---
Subjective - Subjective Chief complaint: Consult for: 1. Advanced gallbladder cancer. 2. CRF hepatorenal. Patient: known to practice within the last 3 years Consult date: 08/08/24 Requesting Physician: Dr. Espinoza. Primary Care Provider: Addi Ferreira MD Family Provider: Jhon. Medical Summary: Metastatic/unresectable biliary cancer He presented to emergency department on 07/17/2024 with complaints of right upper quadrant pain, dry heaves and a low-grade fever. Blood work showed elevated liver enzymes, liver ultrasound showed cholelithiasis, gallbladder polyp measuring 0.4 cm and positive sonographic Hernández's sign. Multiple hepatic cysts and hemangioma as well as a hypoechoic lesion measuring 3.5 cm adjacent to gallbladder which was reported as indeterminate. CURRENT THERAPY: Patient was taken to surgery on 07/18/2024, intraoperatively he was found to have multiple liver metastasis. Acutely inflamed and obstructed gallbladder with hydropic fluid was noted. He underwent cholecystectomy and biopsy of liver lesion. Patient had a colonoscopy in 03/01/2024 with removal of 2 small tubular adenomas. There is no family history of colorectal cancer or other cancers. HPI - Consult Narrative Reason for consult: Consult for: Biliary tract cancer. Narrative: Eric Lara is a 54 year old unfortunate gentleman admitted on 08/03, with significant hyponatremia. Sodium of 119. Interval history: 08/03/24: He presented in order to start 1st cycle of palliative chemotherapy with FOLFOX. Was sent up to the ER on account of the hyponatremia. He was being managed by renal. His kidney function continued to worsen. On Thursday he was started on dialysis. However his numbers have been worsening. He looks extremely jaundiced. Bilirubin is up unfortunately. AP is 1300 range. Medical History: Benign prostatic hyperplasia with lower urinary tract symptoms BPH (benign prostatic hyperplasia) Tension headache Urinary hesitancy Overweight (BMI 25.0-29.9) Elevated TSH GERD without esophagitis Pure hypercholesterolemia. Surgical History: Hx of cholecystectomy History of colonoscopy Jackson teeth removed Family History: Father Cancer Mother No problems noted. Social History:) Household Members: Family Household Members Other:: mom and brother Housing: House Are you a primary care nurse rn to a significant other at home: No. ROS: He tells me he feels very fatigued in the hospital. He feels tired and weak. He feels cold but has not had a fever. He has been having a hacking cough. He denies headache no dizziness. No chest pain or shortness of breath. He complains of pain in his abdomen. However sometimes he feels nauseous, gags and up chucks some of the food. He has had abdominal pain since the surgery. He has been using cold packs for it. Does not have an appetite. He is trying to eat little by little. During the day he tries to pick at it. He has been taking clear broth and toast and crackers, cranberry juice and Pedialyte. His spirits are down. Rest of the review of systems is unremarkable. Review of Systems - Constitutional Reports system reviewed and no additional complaints, except as documented, Reports anorexia, Reports body ache(s), Reports fatigue, Reports lack of energy, Reports malaise, Reports poor appetite, Reports weakness, Reports weight loss - Eyes Reports system reviewed and no additional complaints, except as documented - ENT Reports system reviewed and no additional complaints, except as documented - Cardiovascular Reports system reviewed and no additional complaints, except as documented - Respiratory Reports no additional respiratory complaints - Gastrointestinal Reports system reviewed and no additional complaints, except as documented - Genitourinary Genitourinary: Reports no additional male genitourinary complaints - Musculoskeletal Reports system reviewed and no additional complaints, except as documented - Integumentary/Breasts Skin/Breast: Reports no additional skin complaints - Neurologic Denies focal weakness - Psychiatric Reports system reviewed and no additional complaints, except as documented - Endocrine Reports no additional endocrine complaints - Hematologic/Lymphatic Reports system reviewed and no additional complaints, except as documented - Allergic/Immunologic Reports system reviewed and no additional complaints, except as documented Oncology Screenings - ECOG Performance Status ECOG Performance Status: 3 [facility] Medical History: Medical History (Last Reviewed 08/02/24 @ 10:20 by Bianca Khanna MD) Benign prostatic hyperplasia with lower urinary tract symptoms BPH (benign prostatic hyperplasia) Elevated TSH GERD without esophagitis Overweight (BMI 25.0-29.9) Pure hypercholesterolemia Tension headache Urinary hesitancy Functional capacity: bed bound Patient : No Family History: Family History (Last Reviewed 08/02/24 @ 10:20 by Bianca Khanna MD) Father Cancer Mother No problems noted. Surgical History: Surgical History (Last Reviewed 08/02/24 @ 10:20 by Bianca Khanna MD) History of colonoscopy Hx of cholecystectomy Jackson teeth removed Social History: Social History (Last Reviewed 08/02/24 @ 10:20 by Bianca Khanna MD) Living Situation History: Household Members: Family Household Members Other:: mom and brother Housing: House Are you a primary care nurse rn to a significant other at home: No Do you presently have visiting nurse or other home services: No Tobacco History: Patient Tobacco Use Status: Never used Tobacco e-Cigarette/Vaping Use: Never Used Second Hand Smoke Exposure: No Advance Directives: Advance Directives Date on File: 07/27/24 Occupation Assessmet: service: No Current occupational status: employed Current occupational exposures/hazards: No Sex/Gender Assessment: Gender identity: Male Home Medications and Allergies Current Medications: Current Medications Atorvastatin Calcium (Atorvastatin Calcium 10 Mg Tablet) 10 mg PO BEDTIME [facility] Last Admin: 08/07/24 21:20 Dose: 10 mg Bethanechol Chloride (Bethanechol Chloride 25 Mg Tablet) 50 mg PO BID [facility] Last Admin: 08/08/24 08:44 Dose: 50 mg Dexamethasone (Dexamethasone 2 Mg Tablet) 2 mg PO BID [facility] Last Admin: 08/08/24 08:45 Dose: 2 mg Heparin Sodium (Porcine) (Heparin Sodium,Porcine 5,000 Unit/Ml Vial) 5,000 unit SUBCUT Q8H [facility] Last Admin: 08/08/24 14:46 Dose: Not Given Piperacillin Sod/Tazobactam (Sod 2.25 gm/ Sodium Chloride) 50 mls @ 100 mls/hr IV Q6H [facility] Last Infusion: 08/08/24 14:49 Dose: Infused Morphine Sulfate (Morphine Sulfate 4 Mg/Ml Cartridge) 4 mg IVPUSH Q4H PRN; Protocol PRN Reason: Pain, Severe (Pain Scale 7-10) Ondansetron HCl (Ondansetron Hcl 4 Mg/2 Ml Vial) 4 mg IVPUSH Q6H PRN PRN Reason: Nausea and Vomiting Last Admin: 08/08/24 01:12 Dose: 4 mg Oxycodone HCl (Oxycodone Hcl Immed Release 5 Mg Tablet) 10 mg PO Q4H PRN PRN Reason: Pain, Moderate(Pain Scale 4-6) Last Admin: 08/08/24 14:26 Dose: 10 mg Sodium Bicarbonate (Sodium Bicarbonate 650 Mg Tablet) 650 mg PO TID [facility] Last Admin: 08/08/24 14:19 Dose: 650 mg Tamsulosin HCl (Tamsulosin Hcl 0.4 Mg Capsule) 0.4 mg PO BID [facility] Last Admin: 08/08/24 08:44 Dose: 0.4 mg Home Medications ?Medication ?Instructions ?Recorded ?Confirmed ?Type loperamide 2 mg capsule 2 mg PO Q4H PRN Diarrhea 08/02/24 08/02/24 History metronidazole 0.75 % topical gel 1 appl topical BEDTIME PRN rosacea 08/02/24 08/02/24 History Allergies Allergy/AdvReac Type Severity Reaction Status Date / Time No Known Allergies Allergy Verified 08/02/24 10:03 Physical Exam Vital signs: Vital Signs Temp 97.4 F 08/08/24 15:46 Pulse 90 08/08/24 15:46 Resp 18 08/08/24 15:46 BP 98/56 L 08/08/24 15:46 Pulse Ox 92 08/08/24 15:46 O2 Del Method Room Air 08/08/24 15:46 Intake & Output 08/07/24 08/08/24 08/08/24 18:59 06:59 18:59 Intake Total 560 / 1100 540 / 1100 290 / 290 Output Total 200 / 400 200 / 400 Balance 360 / 700 340 / 700 290 / 290 Urine Output (Average ml/kg/hr) 0.09 0.09 0.18 Intake: Intake, Oral Amount 460 / 900 440 / 900 240 / 240 Intake, IV Amount 100 / 200 100 / 200 50 / 50 Piperacillin Sodium/Tazobactam 100 / 200 100 / 200 50 / 50 2.25 gm In 0.9 % Sodium Chloride 50 ml @ 100 mls/hr IV Q6H [facility] Rx#:[id number] Output: Output, Urine Amount 200 / 200 Output, Urine Amount (Catheter) 200 / 200 Straight 200 / 200 Other: Meal Refused No Breakfast % Eaten 50% Lunch % Eaten 50% Dinner % Eaten 100% Eating (Feeding) Ability Independent Independent Number of Bowel Movements 0 Urine leigh Urine Color Concentrated Moisés Last Bowel Movement 08/04/24 08/04/24 Weight 180 kg 93.5 kg [place] Weight in Grams [id number] Weight 93.5 kg - Constitutional Present: moderate distress - Routine HEENT Exam Head: Present: normocephalic ENT: Present: mucous membranes moist - Routine Neck Exam Present: supple - Routine Respiratory Exam Present: decreased breath sounds - Routine Cardiovascular Exam Cardiovascular: Present: RRR, S1, S2 - Routine Abdominal Exam Present: distended, tenderness - Routine Extremities Exam Present: nontender Hem/Onc Consult Result - Labs CBC & Chem 7: 08/08/24 06:35 08/08/24 06:35 Labs: Short CBC 08/08/24 Range/Units 06:35 WBC 23.5 H (4.8-10.8) X10*3/uL Hgb 10.5 L (14.0-18.0) g/dl Hct 29.6 L (42.0-52.0) % Plt Count 136 L (160-400) X10*3/uL BMP 08/08/24 06:35 Sodium 129 L Potassium 5.0 Chloride 94 L Carbon Dioxide 16 L BUN 78 H Creatinine 4.11 H* Calcium 6.8 L Liver Function 08/08/24 Range/Units 06:35 Total Bilirubin 13.7 H (0.0-1.0) mg/dL AST 924 H (5-37) U/L ALT 283 H (0-40) U/L Alkaline Phosphatase 1303 H (39-117) U/L Albumin 2.9 L (3.5-5.0) g/dL Assessment and Plan Patient Active problem list reviewed?: Yes (1) Carcinoma of gall bladder Status: Acute Assessment and plan: This is a 54-year-old male diagnosed with metastatic/unresectable biliary/gallbladder cancer in July 2024. He presented with abdominal discomfort and found to have multiple liver metastasis in addition to acute cholecystitis secondary to gallstones. Pathology of gallbladder revealed high-grade dysplasia. Biopsy of liver region revealed invasive adenocarcinoma, moderately differentiated. Gallbladder primary should be considered given presence of high-grade dysplasia in the gallbladder. IHC weak positivity for CK7, CK20 and CDX2. TTF 1 is negative. Molecular testing is pending. Imaging with CT chest/abdomen and pelvis with contrast shows multiple bilateral pulmonary nodules consistent with metastatic disease, largest nodule is in the right lung base measuring 1.2 cm. There is no mediastinal or hilar adenopathy. Numerous hepatic metastasis consistent with metastatic disease, largest measuring up to 6.3 cm in size. CEA was not significantly elevated, CA 19 -9 was 158 U/mL. Unfortunately, patient appears to have rapidly progressive cancer. His liver enzymes are rapidly rising, his bilirubin upto 3.3 with elevation in transaminases and alkaline phosphatase level as well. As his bilirubin was above 2.5 mg/dL, he is not eligible to receive gemcitabine based combination chemotherapy with cisplatin and durvalumab. PET-CT has been ordered. The plan was to start him on palliative chemotherapy with the FOLFOX regimen. Possible side effects of chemotherapy including neuropathy, risk of cytopenias and organ damage, were addressed with him. He had the MediPort placed. 08/03: He came in here to get started on his treatment. However he was noted to have significant laboratory abnormalities: CBC: WBC 16.7, HGB 11.5, HCT 32.3, PLT 261. CMP: Sodium 118, K 4.5, chloride 86, CO2 20. BUN 48, ASSISTANT [employer]OD SERVICE DIRECTOR 2.21. LFTs: 9.07/1031/762/248. Albumin 2.7. Over the course of the weekend his condition has deteriorated. He now appears to be developing hepatorenal syndrome. He had to be started on dialysis. He received that on Thursday and today. However his kidney function has not improved. His LFTs have worsened: 13.01/1303/924/253. I addressed goals of care with him, his mom and sister. He very clearly said that he does not wish to continue in this state. He understood that his underlying condition will not get any better. He would like to get strong pain medications so he can be made comfortable. He does not wish to continue the dialysis any longer. He would he eventually want hospice care. His mom and sister were rather tearful however they did understand where he was coming from. They agreed with the plan to focus on palliative care. I discussed the case with Dr. Ramachandran, who concurred. PLAN: He will be started on round the clock morphine for his comfort. He wishes to be a DNR/DNI. Appreciate hospitalist's care. Thank you, CC: Dr. Ferreira. - Time Spent With Patient Time Spent with Patient (in minutes): 30
[2024-08-08 19:01] VITALS: BP 87/50; PULSE 80; RESP 17; TEMP 36.1; O2SAT 81
--- NOTE | 2024-08-08 20:34 | PM.EVENT ---
Event Note Date of Service: 08/08/24 Event Note: patient noted to have sbp 87, d/w at bedside with patient, most likely due to meds not sepsis, and given goals of care will withhold pain medications or pursue further infectious work up or fluids Time Spent With Patient Time: Total time managing care of this patient today ____ minutes.
[2024-08-08] MEDS: Morphine Sulfate 4 MG/ML CARTRIDGE IVPUSH (20:37)
[2024-08-08] MEDS: Atorvastatin Calcium 10 MG TABLET PO (20:40)
[2024-08-08 23:27] VITALS: BP 60/32; PULSE 81; RESP 17; TEMP 36; O2SAT 92
[2024-08-09] MEDS: Piperacillin Sodium/Tazobactam 2.25 GM in 0.9 % Sodium Chloride 50 ML IV (00:37)
--- NOTE | 2024-08-09 00:37 | W.MHC.ACPN ---
Advanced Care Planning Note Advanced Care Planning Note Discussed with: patient and family member(s) Time spent (in minutes): 17 Narrative: Discussed with patient at bedside and with healthcare proxy patient's sister Citlalli over the phone. We discussed grave prognosis and patient has ongoing pain. We discussed low blood pressure and likelihood of pain medication continued to lower blood pressure. Patient and healthcare proxy is goals of care are to maximize comfort. Will change to comfort measures only. We will discontinue non comfort related medications and interventions. Problems Discussed (1) Carcinoma of gall bladder:
--- NOTE | 2024-08-09 02:32 | PM.EVENT ---
Event Note Date of Service: 08/09/24 Event Note: Called by RN to bedside. Patient apneic, no heart sounds, no reflexes time of 02:27 on 08/09/2024. family at bedside. Time Spent With Patient Time: Total time managing care of this patient today ____ minutes.
--- NOTE | 2024-08-09 03:46 | PC.NURSE ---
1944 Pt c/o pain, requesting prn IV morphine, bp hypotensive. MD aware of abnormal bp and request for prn morphine. MD at bedside to evaluate pt.
--- NOTE | 2024-08-09 03:56 | PC.NURSE ---
Md at bedside to evaluate pt due to hypotension. Pt alert and answering questions appropriately pt repeatedly asking for morphine. MD spoke with pt and family members and shortly afterwards pt's status changed to comfort measures only.
--- NOTE | 2024-08-09 07:17 | PM.DDS ---
Discharge Sum: Prov Provider Primary care physician: Addi Ferreira MD Consults: 08/02/24 12:45 Consult to Nephrology Stat Consulting Provider: [facility] Reason for consultation: Hyponatremia, SANDY Has provider been notified: Yes Discharge Sum: Diag Contributing Factors (1) Carcinoma of gall bladder: Discharge Sum: Summary Date and Time Date of admission: 08/02/24 12:09 Date of : 08/09/24 Time of : 02:27 Summary Details: 53-year-old gentleman with underlying biliary cancer with liver metastasis who was planned initiation chemotherapy on 08/02/2024, however pre chemotherapy laboratory studies showed hyponatremia with sodium 116 patient was to emergency room. Patient endorsed poor p.o. intake for the last 3-4 weeks. He denied any other complaints. Patient was admitted to intensive care close monitoring and started on IV fluids. Secondary to leukocytosis with left shift he was started on empiric antibiotics. Sodium normalized and patient was transferred out of ICU to telemetry. Over the course of the next several days liver function tests continued to elevate and creatinine worsening prompted placement of a temporary dialysis catheter. Patient underwent 3 episodes of hemodialysis and continued to deteriorate. On the afternoon of 08/08/24... Discussed with patient and family objectives of care. Both patient and mother both agreed the patient would be a DNR DNI and would discussed with family further MOLST measures. Throughout the day he continued to deteriorate in the late evening discussion was undertaken again with family and patient in the decision was to make patient comfort measures only. Patient at 02:27 08/09/2024 with family at bedside. Additional Data Attending physician: Jean Claude Espinoza DO
== END 2024-08-09 02:27 | disposition expired | DRG 426 ==
LOC: HO.ED 11:27 → HO.EDOVER 12:15 → HO.ICU 12:40 → HO.IMC 08-03 12:59
PROVIDERS: Internal Medicine Hypertension Specialist; Physician Assistant Medical; Physician Assistant Surgical; Admitting Provider Internal Medicine Pulmonary Disease; Emergency Provider Emergency Medicine; PCP Internal Medicine; Visit Provider Hospitalist
DX: E87.1 Hypo-osmolality and hyponatremia (principal); N17.0 Acute kidney failure with tubular necrosis; C23 Malignant neoplasm of gallbladder; Z66 Do not resuscitate; Z51.5 Encounter for palliative care; C78.7 Secondary malignant neoplasm of liver and intrahepatic bile duct; R33.9 Retention of urine, unspecified; Z79.899 Other long term (current) drug therapy
CPT/HCPCS: 36415; 36556; 71045; 76775; 80048; 80053; 80076; 81001; 82436; 83690; 83735; 83880; 83930; 83935; 84100; 84133; 84300; 84484; 85007; 85025; 85027; 86704; 86706; 87040; 87340; 90999; 93005; 99285; C1758; C1769; J1644; J2270; J2405; J2543; J7120; J8540; P9047

== ENCOUNTER → 2024-08-02 10:15 | Outpatient (BNV) | payer BC, SELFPAY | PROVIDERS: Emergency Provider Emergency Medicine; PCP Internal Medicine; Visit Provider Radiology Diagnostic Radiology | DX: E87.1 Hypo-osmolality and hyponatremia (principal) | CPT/HCPCS: 71045 ==

== ENCOUNTER → 2024-08-02 10:15 | Outpatient (BNV) | payer BC, SELFPAY | PROVIDERS: Admitting Provider Internal Medicine Pulmonary Disease; Emergency Provider Emergency Medicine; PCP Internal Medicine; Visit Provider Internal Medicine Cardiovascular Disease | DX: R94.31 Abnormal electrocardiogram [ECG] [EKG] (principal) | CPT/HCPCS: 93010 ==

== ENCOUNTER 2024-08-02 12:09 | Outpatient (BNV) | payer BC, SELFPAY | END 2024-08-05 12:30 | PROVIDERS: Admitting Provider Internal Medicine Pulmonary Disease; Emergency Provider Emergency Medicine; PCP Internal Medicine; Visit Provider Physician Assistant Surgical | DX: N17.9 Acute kidney failure, unspecified (principal) | CPT/HCPCS: 36556; 76937; 77001 ==

== ENCOUNTER 2024-08-02 12:09 | Outpatient (BNV) | payer BC, SELFPAY | END 2024-08-04 16:46 | PROVIDERS: Admitting Provider Internal Medicine Pulmonary Disease; Emergency Provider Emergency Medicine; PCP Internal Medicine; Visit Provider Radiology Diagnostic Radiology | DX: N17.9 Acute kidney failure, unspecified (principal) | CPT/HCPCS: 76775 ==

== ENCOUNTER → 2024-08-02 12:09 | Outpatient (BNV) | payer BC, SELFPAY | PROVIDERS: Admitting Provider Internal Medicine Pulmonary Disease; Emergency Provider Emergency Medicine; PCP Internal Medicine; Visit Provider Internal Medicine Pulmonary Disease | DX: E80.6 Other disorders of bilirubin metabolism (principal); C23 Malignant neoplasm of gallbladder; C78.7 Secondary malignant neoplasm of liver and intrahepatic bile duct; E87.1 Hypo-osmolality and hyponatremia; N17.9 Acute kidney failure, unspecified | CPT/HCPCS: 99223; 99233 ==

== ENCOUNTER → 2024-08-02 12:09 | Outpatient (BNV) | payer BC, SELFPAY | PROVIDERS: Admitting Provider Internal Medicine Pulmonary Disease; Emergency Provider Emergency Medicine; PCP Internal Medicine; Visit Provider Internal Medicine Hypertension Specialist | DX: N17.9 Acute kidney failure, unspecified (principal); E87.1 Hypo-osmolality and hyponatremia | CPT/HCPCS: 99223; 99232 ==

== ENCOUNTER → 2024-08-02 12:09 | Outpatient (BNV) | payer BC, SELFPAY | PROVIDERS: Admitting Provider Internal Medicine Pulmonary Disease; Emergency Provider Emergency Medicine; PCP Internal Medicine; Visit Provider Hospitalist | DX: C23 Malignant neoplasm of gallbladder (principal) | CPT/HCPCS: 99233; 99239; 99497; 99499 ==